=== PATIENT | male | born 1970 | race African-American/Black ===

== ENCOUNTER 2017-04-16 16:23 | Observation (INO) | payer OTHER ==
[2017-04-16 16:28] VITALS: BMI 25.1
[2017-04-16] MEDS ORDERED: SODIUM CHLORIDE 1,000 ML IV STA (17:28)
--- NOTE | 2017-04-16 17:38 | PDOC ---
History of Present Illness - General Chief Complaint: Blood Pressure Problem Stated Complaint: REF BY DOCTOR Time Seen by Provider: 04/16/17 17:09 History Source: Patient - History of Present Illness Presenting Symptoms: Dizziness, Syncope Timing/Duration: reports: resolved prior to arrival Past History - Past Medical History Allergies/Adverse Reactions: Allergies Allergy/AdvReac Type Severity Reaction Status Date / Time No Known Drug Allergies Allergy Verified 04/16/17 16:28 Home Medications: Ambulatory Orders Methadone [Dolophine -] 5 mg PO BID #30 tablet 01/09/12 Albuterol Sulfate [Proair Hfa -] 1 - 2 inh PO TID 10/26/15 Chlordiazepoxide [Librium -] 10 mg PO QID #8 capsule MDD 4 09/29/16 Folic Acid - 1 mg PO DAILY tablet 09/29/16 Multivitamins [Multivit ([facility] Formulary)] 1 tab PO DAILY tab 09/29/16 Anemia: No Asthma: Yes (ON PRO AIR) Cancer: Yes (myleproliferative disorder-leukemia) Cardiac Disorders: No CVA: No COPD: No CHF: No Dementia: No Diabetes: No GI Disorders: Yes (Colitis) Disorders: No HTN: No Hypercholesterolemia: Yes (no meds) Kidney Stones: No Liver Disease: Yes (? CIRROHSIS) Suicide Attempt (Hx): No Seizures: Yes Thyroid Disease: No - Surgical History Abdominal Surgery: No Appendectomy: No Cardiac Surgery: No Cholecystectomy: No Lung Surgery: No Neurologic Surgery: No Orthopedic Surgery: Yes (SUSAN KNEE REPLACEMENT/ L FEMUR NANCY) - Reproductive History Testicular Surgery: No - Psycho/Social/Smoking Cessation Hx Anxiety: No Suicidal Ideation: No Smoking Status: Yes Smoking History: Current every day smoker Have you smoked in the past 12 months: Yes Number of Cigarettes Smoked Daily: 10 Information on smoking cessation initiated: Yes 'Breaking Loose' booklet given: 04/16/17 Hx Alcohol Use: Yes (socially) Drug/Substance Use Hx: No Substance Use Type: None Hx Substance Use Treatment: No Cardiac Specific PMH - Complaint Specific PMHX Cardiac Arrhythmia: No Pacemaker: No Review of Systems - Review of Systems Constitutional: No: Chills, Fever HEENTM: No: Blurred Vision Respiratory: No: Shortness of Breath Cardiac (ROS): Yes: Lightheadedness, Syncope. No: Chest Pain, Irregular Heart Rate, Palpitations ABD/GI: No: Nausea, Vomiting Neurological: Yes: Dizziness. No: Headache, Weakness *Physical Exam - Vital Signs Last Vital Signs Temp Pulse Resp BP Pulse Ox 98.5 F 110 H 17 104/75 97 04/16/17 16:26 04/16/17 16:26 04/16/17 16:26 04/16/17 16:26 04/16/17 16:26 - Physical Exam General Appearance: Yes: Appropriately Dressed. No: Apparent Distress HEENT: positive: Normal Voice Neck: positive: Supple Respiratory/Chest: positive: Lungs Clear, Normal Breath Sounds. negative: Respiratory Distress Cardiovascular: positive: Regular Rate, S1, S2 Extremity: positive: Normal Inspection Integumentary: positive: Dry, Warm Neurologic: positive: Fully Oriented, Alert, Normal Mood/Affect ED Treatment Course - LABORATORY CBC & Chemistry Diagram: 04/16/17 17:44 04/16/17 17:44 - ADDITIONAL ORDERS Additional order review: Laboratory Results 04/16/17 17:44 Lactic Acid 2.0 04/16/17 17:44 RBC 5.16 MCV 87.6 MCHC 32.0 RDW 15.7 MPV 7.6 Neutrophils % 85.9 H Lymphocytes % 6.9 L D Monocytes % 6.5 Eosinophils % 0.3 Basophils % 0.4 - RADIOLOGY Radiology Studies Ordered: Category Date Time Status CHEST X-RAY PORTABLE* [RAD] Stat Radiology 04/16/17 18:01 Taken - Medications Given in the ED: ED Medications Discontinued Medications Generic Name Dose Route Start Last Admin Trade Name Freq PRN Reason Stop Dose Admin Sodium Chloride 1,000 mls @ 1,000 mls/hr 04/16/17 17:28 04/16/17 18:14 Normal Saline - IV 04/16/17 18:27 1,000 mls/hr ASDIR STA Administration Medical Decision Making - Medical Decision Making 04/16/17 17:29 46-year-old male, history of gastritis, GERD, myelodysplastic disorder, not currently under treatment, alcohol abuse, alcohol withdrawal seizures, alcoholic hepatitis, status post rehabilitation last year, continues to drink, here with syncope. Patient states while sitting down in waiting room at doctor' s office for routine visit today, he became lightheaded and was told that he passed out. No reports of seizures. Denies any vertigo, headache, slurred speech, nausea, vomiting, focal weakness, chest pain or shortness of breath. No history of similar episode. Had eaten prior to syncope. States last alcohol use was on Thursday. Reports feeling better now See exam Syncope Asx currently No witnessed seizure No CP/SOB Non-focal Tachy at triage w/ BP of 104/70 Rest of exam unremarkable R/o ACS vs metabolic, less PE, neuro or infectious -ekg -labs -IVF -reassess 04/16/17 17:38 04/16/17 19:10 Pt signed out to KENNEY Horan pending labs and pmd c/s *DC/Admit/Observation/Transfer - Referrals Referrals: Pedro Youssef MD [Primary Care Provider] -
[2017-04-16 18:02] LABS: BASOPHIL 0.4 % (0-2.0); EOSINOPHIL 0.3 % (0-4.5); MEAN CELL VOLUME 87.6 fl (80-96); MEAN PLT VOLUME 7.6 fl (7.5-11.1); NEUTROPHILS 85.9 % (42.8-82.8); PLATELET COUNT 353 K/MM3 (134-434); RDW 15.7 % (11.9-15.9); WHITE BLOOD COUNT 16.6 K/mm3 (4.0-10.0)
[2017-04-16 18:43] LABS: ALBUMIN 3.8 g/dl (3.4-5.0); ANION GAP 16 (8-16); CALCIUM 9.4 mg/dL (8.5-10.1); CO2 22 mmol/L (21-32); GLUCOSE,RANDOM 78 mg/dL (74-106); SGPT/ALT 94 U/L (12-78)
[2017-04-16 18:47] LABS: ALK PHOS 168 U/L (45-117); BILIRUBIN,TOTAL 0.7 mg/dL (0.2-1.0); TOT PROT 8.2 g/dl (6.4-8.2); TROPONIN I < 0.02 ng/ml (0.00-0.05)
[2017-04-16 19:14] LABS: SGOT/AST 86 U/L (15-37)
--- NOTE | 2017-04-16 19:27 | PDOC ---
*Physical Exam - Vital Signs Last Vital Signs Temp Pulse Resp BP Pulse Ox 98.5 F 103 H 16 106/69 98 04/16/17 16:26 04/16/17 17:35 04/16/17 17:35 04/16/17 17:35 04/16/17 17:35 <Danielle Horan - Last Filed: 04/16/17 19:26> - Vital Signs Last Vital Signs Temp Pulse Resp BP Pulse Ox 98.8 F 85 16 114/66 98 04/17/17 07:41 04/17/17 07:41 04/17/17 07:41 04/17/17 07:41 04/17/17 07:41 <Evan Armas - Last Filed: 04/17/17 09:32> ED Treatment Course - LABORATORY CBC & Chemistry Diagram: 04/16/17 17:44 04/16/17 17:44 - ADDITIONAL ORDERS Additional order review: Laboratory Results 04/16/17 04/16/17 17:44 17:44 Sodium 139 Potassium 4.1 Chloride 101 Carbon Dioxide 22 Anion Gap 16 BUN 13 Creatinine 1.0 D Creat Clearance w eGFR > 60 Random Glucose 78 Lactic Acid 2.0 Calcium 9.4 Total Bilirubin 0.7 AST 86 H ALT 94 H D Alkaline Phosphatase 168 H D Creatine Kinase 158 Troponin I < 0.02 Total Protein 8.2 Albumin 3.8 Lipase 169 04/16/17 17:44 RBC 5.16 MCV 87.6 MCHC 32.0 RDW 15.7 MPV 7.6 Neutrophils % 85.9 H Lymphocytes % 6.9 L D Monocytes % 6.5 Eosinophils % 0.3 Basophils % 0.4 - Medications Given in the ED: ED Medications Discontinued Medications Generic Name Dose Route Start Last Admin Trade Name Freq PRN Reason Stop Dose Admin Sodium Chloride 1,000 mls @ 1,000 mls/hr 04/16/17 17:28 04/16/17 18:14 Normal Saline - IV 04/16/17 18:27 1,000 mls/hr ASDIR STA Administration <Danielle Horan - Last Filed: 04/16/17 19:26> - LABORATORY CBC & Chemistry Diagram: 04/16/17 17:44 04/16/17 17:44 - ADDITIONAL ORDERS Additional order review: 04/16/17 17:44 RBC 5.16 MCV 87.6 MCHC 32.0 RDW 15.7 MPV 7.6 Neutrophils % 85.9 H Lymphocytes % 6.9 L D Monocytes % 6.5 Eosinophils % 0.3 Basophils % 0.4 - Medications Given in the ED: ED Medications Discontinued Medications Generic Name Dose Route Start Last Admin Trade Name Neo PRN Reason Stop Dose Admin Sodium Chloride 1,000 mls @ 1,000 mls/hr 04/16/17 17:28 04/16/17 18:14 Normal Saline - IV 04/16/17 18:27 1,000 mls/hr ASDIR STA Administration <Evan Armas - Last Filed: 04/17/17 09:32> Progress Note - Progress Note Progress Note: Spoke to Dr. Zunilda Youssef/ will admit to Obs <Danielle Horan - Last Filed: 04/16/17 19:26> Medical Decision Making - Medical Decision Making 04/17/17 09:32 The patient was seen and evaluated in conjunction with KENNEY Angel under my direct supervision, ancillary studies were reviewed. I agree with the plan as outlined by KENNEY Angel . <Evan Armas - Last Filed: 04/17/17 09:32> *DC/Admit/Observation/Transfer - Discharge Dispostion Admit: Yes <Danielle Horan - Last Filed: 04/16/17 19:26> <Evan Armas - Last Filed: 04/17/17 09:32> Diagnosis at time of Disposition: Hypotensive episode Syncope Qualifiers: Syncope type: vasovagal syncope Qualified Code(s): R55 - Syncope and collapse - Discharge Dispostion Condition at time of disposition: Guarded - Prescriptions - Referrals - Patient Instructions - Post Discharge Activity
[2017-04-17 01:55] LABS: URINE APPEARANCE CLEAR; URINE BILIRUBIN NEGATIVE (NEGATIVE); URINE BLOOD NEGATIVE (NEGATIVE); URINE COLOR AMBER; URINE GLUCOSE (UA) NEGATIVE (NEGATIVE); URINE KETONE TRACE (NEGATIVE); URINE LEUK ESTERASE NEGATIVE (NEGATIVE); URINE NITRITE NEGATIVE (NEGATIVE); URINE UROBILINOGEN 4.0 E.U/dl E.U./dl (0.2-1.0)
[2017-04-17 02:04] LABS: URINE PROTEIN 2+ (NEGATIVE)
[2017-04-17 02:10] LABS: URINE HYALINE CAST 1 /lpf; URINE MUCUS MANY; URINE RBC 1 /hpf (0-3); URINE WBC 8 /hpf (3-5)
[2017-04-17 02:19] LABS: TROPONIN I < 0.02 ng/ml (0.00-0.05)
[2017-04-17] MEDS ORDERED: ACETAMINOPHEN 325 MG TABLET (FP) PO PRN (07:40)
--- NOTE | 2017-04-17 07:42 | HP ---
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 (SEIZURE) Pulmonary: Yes: Asthma Gastrointestinal: Yes: Constipation, Gastritis, GERD, Hemorrhoids, Hiatal Hernia , Ulcerative Colitis, Other (POSSIBLE BEAL'S) Hepatobiliary: Yes: Other (ALCOHOLIC HEPATITIS, STEATOSIS (ALCOHOL AND FAT)) Heme/Onc: Yes: Other (CML) Psych: Yes: Addictions Musculoskeletal: Yes: Chronic low back pain, Osteoarthritis, Other (HIP AND KNEE SURGERY) Dermatology: Yes: Other (TATTOOS) - Past Surgical History Past Surgical History: Yes: Colonoscopy, Joint Replacement, Upper Endoscopy - Smoking History Smoking history: Current every day smoker Have you smoked in the past 12 months: Yes Aproximately how many cigarettes per day: 10 - Alcohol/Substance Use Hx Alcohol Use: Yes (socially) Number of Drinks Daily: 8 (ALSO ONE BOTTLE VODKA (FEBRUARY)) <Pedro Youssef - Last Filed: 04/17/17 07:42> - Primary Care Physician PCP: Jenni Adams - Admission Chief Complaint: Lightheadedness History of Present Illness: The patient is a 46-year-old man with a significant past medical history of gastritis, GERD, myelodysplastic disorder (not currently under treatment), alcohol abuse, alcohol withdrawal seizures, alcoholic hepatitis, status post rehabilitation last year (last alcoholic drink was on Thursday) who presented to the emergency department yesterday for lightheadedness while sitting down at his PMD's office for a routine office visit. No reports of seizures. Denies any vertigo, headache, slurred speech, nausea, vomiting, focal weakness, chest pain or shortness of breath. Patient was very hypotensive and tachycardic. Patient was given fluids in the office- he got better. I brought him to the ED in my car for further evaluation and treatment. I also discussed with ER physician last night. Patient given fluids. Patient seen and examined by me again in the ER today. Feels much better. Denies chest pain or shortness of breath. No headache or dizziness. Wants to go home. Denies abdominal pain or diarrhea. History Source: Patient Limitations to Obtaining History: No Limitations <Zoya Gallardo - Last Filed: 04/17/17 09:38> Home Medications <Pedro Youssef - Last Filed: 04/17/17 07:42> <Zoya Gallardo Last Filed: 04/17/17 09:38> - Allergies Allergies/Adverse Reactions: Allergies Allergy/AdvReac Type Severity Reaction Status Date / Time No Known Drug Allergies Allergy Verified 04/16/17 16:28 - Home Medications Home Medications: Ambulatory Orders Albuterol Sulfate [Proair Hfa -] 1 - 2 inh PO TID 10/26/15 Folic Acid - 1 mg PO DAILY tablet 09/29/16 Multivitamins [Multivit ([facility] Formulary)] 1 tab PO DAILY tab 09/29/16 Family Disease History - Family Disease History Family Disease History: Diabetes: Father (HLD), CA: Mother (CVA) <Pedro Youssef - Last Filed: 04/17/17 07:42> Review of Systems Unable to obtain ROS, reason: See HPI. <PaulinaZoya Last Filed: 04/17/17 09:38> Physical Examination Vital Signs: Vital Signs Temperature 98.5 F 04/16/17 16:26 Pulse Rate 91 H 04/17/17 06:16 Respiratory Rate 18 04/17/17 06:16 Blood Pressure 135/86 04/17/17 06:16 O2 Sat by Pulse Oximetry (%) 96 04/17/17 06:16 <Pedro Youssef - Last Filed: 04/17/17 07:42> Vital Signs: Vital Signs Temperature 98.8 F 04/17/17 07:41 Pulse Rate 85 04/17/17 07:41 Respiratory Rate 16 04/17/17 07:41 Blood Pressure 114/66 04/17/17 07:41 O2 Sat by Pulse Oximetry (%) 98 04/17/17 07:41 Constitutional: Yes: No Distress, Calm Eyes: Yes: Conjunctiva Clear HENT: Yes: Other (Moist [place]) Neck: Yes: Supple Cardiovascular: Yes: Regular Rate and Rhythm Respiratory: Yes: CTA Bilaterally Gastrointestinal: Yes: Soft Edema: No Neurological: Yes: WNL <Zoya Gallardo Last Filed: 04/17/17 09:38> Imaging - Results Chest X-ray: Report Reviewed EKG: Report Reviewed <Zoya Gallardo Last Filed: 04/17/17 09:38> Problem List - Problems (1) Hypotensive episode Code(s): I95.9 - HYPOTENSION, UNSPECIFIED <Zoya Gallardo - Last Filed: 04/17/17 09:38> Assessment/Plan - Patient is much better and stable. - There is no episode of loss of consciousness in the office. - Likely vasovagal - Advised patient to remain hydrated. and drink lots of fluids. - Will discharge home today. - Patient also request refill of Methadone for his chronic pain. - Prescribed. - HCS looked into. - Patient advised to follow up in office in 1-2 weeks. - Patient in agreement. Documentation prepared by Zoya Gallardo, acting as a general medical practitioner for Pedro Youssef MD. <Zoya Gallardo - Last Filed: 04/17/17 09:38>
[2017-04-17] MEDS ORDERED: D5-1/2NS+20 MEQ KCL - 1,000 ML IV SCH (07:45)
[2017-04-17 09:25] VITALS: BP 114/66; PULSE 85; TEMP 98.8
[2017-04-17] MEDS ORDERED: METHADONE HCL 10 MG TABLET ONE (09:32)
[2017-04-17] MEDS ORDERED: METHADONE HCL 5 MG TABLET PO SCH (10:00)
--- NOTE | 2017-04-17 17:15 | EKG ---
Test Reason : Blood Pressure : / mmHG Vent. Rate : 097 BPM Atrial Rate : 097 BPM P-R Int : 144 ms QRS Dur : 090 ms QT Int : 346 ms P-R-T Axes : 038 054 020 degrees QTc Int : 439 ms NORMAL SINUS RHYTHM NORMAL ECG Confirmed by MD NILAM, MELA ([id number]) on 04/17/2017 5:14:28 PM Referred By: Confirmed By:MELA DEMARCO MD
== END 2017-04-17 10:45 | disposition home or self-care (01) ==
LOC: JER 16:23 → JERBED 19:27
PROVIDERS: ADMIT Internal Medicine; ATTEND Internal Medicine
PROC: 3E0337Z Introduction of Electrolytic and Water Balance Substance into Peripheral Vein, Percutaneous Approach (ICD-10-PCS; principal; 2017-04-16)
DX: I95.9 Hypotension, unspecified (principal); R55 Syncope and collapse; J45.909 Unspecified asthma, uncomplicated; C94.6 Myelodysplastic disease, not elsewhere classified; F17.210 Nicotine dependence, cigarettes, uncomplicated; Z96.653 Presence of artificial knee joint, bilateral; Z86.69 Personal history of other diseases of the nervous system and sense organs; K21.9 Gastro-esophageal reflux disease without esophagitis; K64.8 Other hemorrhoids; F10.10 Alcohol abuse, uncomplicated; K70.10 Alcoholic hepatitis without ascites
CPT/HCPCS: 36415; 71010-TC; 80053; 81003; 81015; 82550; 82553; 83605; 83690; 84484; 85025; 93005; 93010; 99285-25; G0378

== ENCOUNTER 2017-05-27 10:17 | Emergency (ER) | payer OTHER ==
[2017-05-27 10:26] VITALS: BP 132/84; PULSE 103; TEMP 98.5; BMI 22.8
--- NOTE | 2017-05-27 11:56 | PDOC ---
History of Present Illness - General Chief Complaint: Pain Stated Complaint: LEG PAIN Time Seen by Provider: 05/27/17 11:21 History Source: Patient Exam Limitations: No Limitations - History of Present Illness Initial Comments: 05/27/17 11:53 46 yr male with history of knee replacement b/l many years ago presents with pain and swelling to right knee for 3 days. Pt denies any injury. no fever no chills. Past History - Past Medical History Allergies/Adverse Reactions: Allergies Allergy/AdvReac Type Severity Reaction Status Date / Time No Known Drug Allergies Allergy Verified 05/27/17 10:23 Home Medications: Ambulatory Orders Methadone [Dolophine -] 5 mg PO BID #60 tablet MDD 2 04/17/17 Anemia: No Asthma: Yes (ON PRO AIR) Cancer: Yes (myleproliferative disorder-leukemia) Cardiac Disorders: No CVA: No COPD: No CHF: No Dementia: No Diabetes: No GI Disorders: Yes (Colitis) Disorders: No HTN: No Hypercholesterolemia: Yes (no meds) Kidney Stones: No Liver Disease: Yes (? CIRROHSIS) Suicide Attempt (Hx): No Seizures: Yes Thyroid Disease: No - Surgical History Abdominal Surgery: No Appendectomy: No Cardiac Surgery: No Cholecystectomy: No Lung Surgery: No Neurologic Surgery: No Orthopedic Surgery: Yes (SUSAN KNEE REPLACEMENT/ L FEMUR NANCY) - Reproductive History Testicular Surgery: No - Psycho/Social/Smoking Cessation Hx Anxiety: No Suicidal Ideation: No Smoking Status: Yes Smoking History: Current every day smoker Have you smoked in the past 12 months: Yes Number of Cigarettes Smoked Daily: 10 Information on smoking cessation initiated: No 'Breaking Loose' booklet given: 04/16/17 Hx Alcohol Use: Yes Drug/Substance Use Hx: No Substance Use Type: Alcohol Hx Substance Use Treatment: No *Physical Exam - Vital Signs Last Vital Signs Temp Pulse Resp BP Pulse Ox 98.5 F 103 H 18 132/84 100 05/27/17 10:23 05/27/17 10:23 05/27/17 10:23 05/27/17 10:23 05/27/17 10:23 - Physical Exam General Appearance: Yes: Nourished, Appropriately Dressed HEENT: positive: EOMI, [place] Neck: positive: Supple Respiratory/Chest: positive: Lungs Clear, Normal Breath Sounds Musculoskeletal: positive: Normal Inspection Extremity: positive: Normal Capillary Refill, Tender (medial right knee soft tissue , no bony tenderness, no flucutance ), Other (FROM right knee) ED Treatment Course - RADIOLOGY Radiology Studies Ordered: Category Date Time Status KNEE 3 POS-RIGHT [RAD] Stat Radiology 05/27/17 11:24 Completed Medical Decision Making - Medical Decision Making 05/27/17 11:54 cc: right knee pain , swelling, no trauma no redness will xray pt takes methadone daily for pain control will give knee immobilizer *DC/Admit/Observation/Transfer Diagnosis at time of Disposition: Swollen R knee - Discharge Dispostion Disposition: HOME Condition at time of disposition: Good - Referrals Referrals: Pedro Youssef MD [Primary Care Provider] - Javier So MD [Staff Physician] - - Patient Instructions Additional Instructions: use the knee immobilizer while awake remove to sleep elevate the leg and apply warm compresses every 3-4hrs for 20 minutes can help with pain and swelling follow with or your orthopedist for follow up if symptoms worsen or continue
== END 2017-05-27 12:29 | disposition home or self-care (01) ==
LOC: JERFT 10:17
PROC: 2W3LX1Z Immobilization of Right Lower Extremity using Splint (ICD-10-PCS; principal; 2017-05-27)
DX: M25.461 Effusion, right knee (principal); Z96.653 Presence of artificial knee joint, bilateral; Z85.6 Personal history of leukemia; K52.9 Noninfective gastroenteritis and colitis, unspecified; J45.909 Unspecified asthma, uncomplicated; F17.210 Nicotine dependence, cigarettes, uncomplicated
CPT/HCPCS: 73562-TC-RT; 99281-25

== ENCOUNTER 2017-06-23 06:59 | Inpatient (IN) | payer OTHER ==
--- NOTE | 2017-06-19 13:17 | HP ---
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) Pulmonary: Yes: Asthma Gastrointestinal: Yes: Constipation, Gastritis, GERD, Hemorrhoids, Hiatal Hernia , Ulcerative Colitis, Other (POSSIBLE BEAL'S) Hepatobiliary: Yes: Other (ALCOHOLIC HEPATITIS, STEATOSIS (ALCOHOL AND FAT)) Heme/Onc: Yes: Other (CML) Musculoskeletal: Yes: Chronic low back pain, Osteoarthritis, Other (HIP AND KNEE SURGERY) Dermatology: Yes: Other (TATTOOS) - Current Medications Current Medications: Home Medications Medication Instructions Recorded Methadone [Dolophine -] 5 mg PO BID #60 tablet MDD 2 04/17/17 Ferrous Sulfate 325 mg PO DAILY 06/16/17 Satellite Physical Exam - Physical Examination General Appearance: Well Nourished, Well Developed, Alert & Oriented x3 ENT: Clear Lung: Normal air movement Heart: Regular rate & rhythm Extremities: Other (right knee- healed scar, + swelling, + ttp, decr rom, nvi xrays show evidence of loose prosthesis) Neurological: Intact, Alert, Oriented Satellite Impression/Plan - Impression/Plan Impression: right knee failed tkr Operative Procedure: right katina revision tkr Date to be Performed: 06/23/17
[2017-06-23] MEDS ORDERED: CEFAZOLIN 2 GM in DEXTROSE 5%-WATER - 50 ML IVPB ONE (07:32)
[2017-06-23] MEDS ORDERED: oxyCODONE HCL 10 MG SUSTAINED ACTING TABLET PO ONE (07:32)
[2017-06-23] MEDS ORDERED: TRANEXAMIC ACID 1000 MG/10 ML VIAL IVPUSH ONE (07:32)
[2017-06-23] MEDS ORDERED: CELECOXIB 200 MG CAPSULE PO ONE (07:32)
[2017-06-23] MEDS ORDERED: GABAPENTIN 300 MG CAPSULE (FP) PO ONE (07:32)
[2017-06-23 08:31] VITALS: BMI 24.3
[2017-06-23] MEDS ORDERED: ceFAZolin SODIUM 1 GM VIAL ONE ×3 (09:12→12:22)
[2017-06-23] MEDS ORDERED: VANCOMYCIN 1,000 MG VIAL (RESTRICTED TO ID ONLY) ONE (09:12)
[2017-06-23] MEDS ORDERED: BUPIVACAINE HCL/PF (5 MG/ML) 30 ML VIAL IJ ONE (09:37)
[2017-06-23] MEDS ORDERED: DEXAMETHASONE SOD PHOSPHATE/PF 10 MG/ML SDV ONE (09:38)
[2017-06-23] MEDS ORDERED: MIDAZOLAM HCL 2 MG/2 ML SINGLE DOSE VIAL ONE (09:57)
[2017-06-23] MEDS ORDERED: PROPOFOL 20 ML ONE ×3 (10:45→11:59)
[2017-06-23] MEDS ORDERED: VANCOMYCIN 1,000 MG VIAL (RESTRICTED TO ID ONLY) IVPB ONE (11:30)
[2017-06-23] MEDS ORDERED: oxyCODONE HCL 5 MG TABLET PO PRN (12:40)
[2017-06-23] MEDS ORDERED: ACETAMINOPHEN 325 MG TABLET (FP) PO SCH (12:45)
[2017-06-23] MEDS ORDERED: LACTATED RINGERS SOLUTION 1,000 ML IV SCH ×2 (12:45→13:30)
[2017-06-23] MEDS ORDERED: TRANEXAMIC ACID 1000 MG/10 ML VIAL ONE (12:55)
[2017-06-23] MEDS ORDERED: ONDANSETRON 4 MG/2 ML VIAL IVPUSH PRN (13:20)
[2017-06-23] MEDS ORDERED: MAGNESIUM HYDROX 2400MG/30ML ORAL SUSPENSION 30 ML CUP PO PRN (13:22)
[2017-06-23] MEDS ORDERED: MAG HYDROX/AL HYDROX/SIMETH 30 ML UNIT-DOSE CUP PO PRN (13:22)
[2017-06-23] MEDS ORDERED: ONDANSETRON 4 MG/2 ML VIAL IVPB PRN (13:22)
--- NOTE | 2017-06-23 13:47 | OP ---
Operative Note - Note: Operative Date: 06/23/17 (danielle) Pre-Operative Diagnosis: right knee failed TKR Operation: right revision TKR Post-Operative Diagnosis: Same as Pre-op Surgeon: Javier So Shrinking Machine Operator: Fredo Zelaya Anesthesiologist/APPEALS ASSISTANT: Randi Diego Anesthesia: Spinal, Local Specimens Removed: prosthesis, bone fragments Estimated Blood Loss (mls): 50 (tourniquet) Operative Report Dictated: Yes
[2017-06-23 14:02] LABS: HIV 1 & 2 AB NEGATIVE; HIV 1 AGp24 NEGATIVE
--- NOTE | 2017-06-23 14:16 | OP ---
DATE OF OPERATION: 06/23/2017 PREOPERATIVE DIAGNOSIS: Failed right total knee replacement. POSTOPERATIVE DIAGNOSIS: Failed right total knee replacement. PROCEDURE: Revision right total knee replacement. SURGEON: Javier So MD SYSTEMS ADMINISTRATION ANALYST: KENNEY Centeno ANESTHESIA: Regional and spinal. CLOSURES: Triathlon knee system with a 5 femur with a medial and lateral 15-mm augment and a 5-mm posterolateral augment and 100-mm x 16-mm stem, a No. 5 tibia with 100-mm x 16-mm stem, a 16 TS polyethylene, No. 1 Vicryl to fascia, 2-0 to subcutaneous, 3-0 Monocryl to subcuticular, skin glue to skin. ESTIMATED BLOOD LOSS: Negligible. TOURNIQUET TIME: Approximately 125 minutes. COMPLICATIONS: None. CONDITION: To recovery room in stable condition. DESCRIPTION OF PROCEDURE: The patient was taken to the operating room on June 23, 2017. Regional and spinal anesthesia was administered by the anesthesiologist. IV Kefzol and TXA were administered prophylactically prior to the case. Well-padded pneumatic tourniquet was placed on the right proximal thigh. The right lower extremity was prepped and draped in the usual sterile fashion. The leg was exsanguinated with an Esmarch bandage. Tourniquet was inflated to 250 mmHg. We utilized the previous surgical scar in the anteromedial longitudinal region of the right knee making an approximately 12- to 15-cm incision. Sharp dissection was carried down to the extensor mechanism and then flaps medial and lateral to perform the procedure. Medial parapatellar arthrotomy was performed, and the patella was exposed laterally. The patella button was found to be loose. After removing soft tissue around the area, the patella button fell out of its location. The remaining patella was found to be very deficient with no thickness whatsoever to it. It was fractured in the superolateral region. All scar tissue in and around this region was debrided. A clean up cut with a saw and rongeur was used just to clean up any fibrinous material on the patella. There was no sufficient thickness to repair the patella and was just left in situ. Subperiosteal dissection was done on the anteromedial proximal tibia until the tibia was able to be brought forward. Retractors were placed circumferentially. The polyethylene liner was malleted out of place. The tibial component was found to have subsided into the bone, and it was also somewhat loose with palpation. Using the extract Xtract knee set, serial osteotomes were placed in between the tibia and the bone interface to loosen the moser between the tibial component and the cement. This was done relatively easy. The moser between the cement and the component appeared to be minimal leaving the entire cement mantel attached to the tibia. Using the external alignment jig, the proximal tibia was osteotomized perpendicularly to the ground using a cut just below cement mantel taking off as minimal bone as possible. The intramedullary canal of the femur had a large plug of cement. This was osteotomed until it was removed. Serial reamers were placed down the intramedullary canal until a 16-mm reamer passed easily to depths of greater than 100. A trial component with 100-mm x 60-mm diameter brittany was malleted down into place with the appropriate external rotation. The keyhole and punch were made as well. Next, our attention was directed to the femur, and the femur was encased in fibrinous material. This was all debrided. The femoral component appeared to be well fixed. The Xtract knee system was, again, used with osteotomes in between the bone and the metal interface to loosen up the component. Extractor was then used to pull the femoral component out with as minimal bone loss as possible with some bone loss both medial and laterally distally as well as posteriorly as well and centrally. Intramedullary reaming up to a 16-mm stem was performed. The cutting block was then inserted into the femoral canal and used to ascertain bone loss and make sufficient cuts. Using this and measuring from the medial femoral condyle, clean up cuts were made distally and posteriorly and anteriorly. This left us with 16-mm gaps both medially and laterally and a 5-mm gap on the posterolateral. The rest of the gaps appeared to be intact. We built a trial component, placed it into the femur with the augments and brittany as described with a 16 TS implant. The knee achieved full extension and full flexion with excellent tracking and stability throughout. The trial components were removed. The knee was thoroughly inspected again to remove all excess cement, fibrinous material and pulsed antibiotic irrigation with multiple bags of antibiotic irrigation. The real components were then cemented in using moderate generation cement techniques with antibiotic cement and pressurization and extension. After the cement was hardened, the knee was thoroughly inspected to remove all excess cement. The knee was pulse antibiotic irrigated. Again, at this time, the real 16 TS implant was clipped into place. The knee went through, again, range of motion of full extension and full flexion with good tracking throughout of the residual patella and good stability throughout as well. Vancomycin powder was then placed into the knee and then medial parapatellar arthrotomy was then closed using No. 1 interrupted suture, 2-0 subcutaneous, and 3-0 Monocryl subcuticular, skin glue for skin. A sterile pressure dressing was applied. Tourniquet was deflated. Total tourniquet time was approximately 225 minutes. No complications. Estimated blood loss negligible. Postoperative x-rays revealed good position of the components. The patient was transferred to the recovery room in stable condition. Colleen [id number]
[2017-06-23] MEDS: chlordiazePOXIDE HCL 25 MG CAPSULE PO SCH ×2 (15:00→20:09)
[2017-06-23] MEDS: oxyCODONE HCL 5 MG TABLET PO PRN ×2 (17:36→20:09)
[2017-06-23] MEDS: CEFAZOLIN 2 GM/D5W 50 ML IVPB SCH (19:31)
[2017-06-23] MEDS: METHADONE HCL 5 MG TABLET PO SCH (21:34)
[2017-06-23] MEDS: GABAPENTIN 300 MG CAPSULE (FP) PO SCH (21:34)
[2017-06-23] MEDS: SENNOSIDES/DOCUSATE COMBO (SENNA PLUS) TABLET (UD) PO SCH (21:35)
[2017-06-23] MEDS ORDERED: oxyCODONE HCL 10 MG SUSTAINED ACTING TABLET PO SCH (22:00)
[2017-06-24] MEDS: CEFAZOLIN 2 GM/D5W 50 ML IVPB SCH (02:10)
[2017-06-24] MEDS: chlordiazePOXIDE HCL 25 MG CAPSULE PO SCH ×4 (02:10→21:06)
[2017-06-24] MEDS: oxyCODONE HCL 5 MG TABLET PO PRN ×4 (06:25→21:06)
[2017-06-24 08:08] LABS: MCH 29.5 pg (25.7-33.7); MCHC 34.2 g/dl (32.0-35.9); MEAN CELL VOLUME 86.3 fl (80-96); MEAN PLT VOLUME 7.2 fl (7.5-11.1); PLATELET COUNT 293 K/MM3 (134-434); RDW 14.6 % (11.9-15.9); WHITE BLOOD COUNT 11.4 K/mm3 (4.0-10.8)
--- NOTE | 2017-06-24 08:09 | PN ---
Progress Note (short form) - Note Progress Note: Ortho Pt seen and examined s/p right revision tkr pod #1 Selected Entries 06/24/17 04:00 Temperature 98.5 F Pulse Rate 86 Respiratory 18 Rate Blood Pressure 129/78 Laboratory Tests 06/24/17 07:30 WBC Pending Hgb Pending Hct Pending Plt Count Pending dressing c/d/i, calf soft, nt rom 0-40, nvi a/p PT dvt ppx pain control librium as per PMD d/c home tomorrow if stable
[2017-06-24] MEDS: SENNOSIDES/DOCUSATE COMBO (SENNA PLUS) TABLET (UD) PO SCH ×2 (09:26→21:06)
[2017-06-24] MEDS: METHADONE HCL 5 MG TABLET PO SCH ×2 (09:26→21:06)
[2017-06-24] MEDS: ASPIRIN 325 MG TABLET PO SCH (09:26)
[2017-06-24] MEDS: PANTOPRAZOLE 40 MG TABLET (FP) PO SCH (09:27)
[2017-06-24] MEDS: GABAPENTIN 300 MG CAPSULE (FP) PO SCH ×2 (09:27→21:06)
[2017-06-24] MEDS: MULTIVITAMINS (DAILY MVI) TABLET (FP) PO SCH (09:27)
--- NOTE | 2017-06-24 15:13 | PN ---
Progress Note (short form) - Note Progress Note: 47 yo male, POD#1, s/p revision of TKA. Patient doing well. Pain adequately controlled. Tolerating PO and able to participate in physical therapy. Encouraged IS.
--- NOTE | 2017-06-24 17:45 | PN ---
Progress Note (short form) - Note Progress Note: pt seen/ examined chart reviewed well known to me feels well denies pain pod #1 wall with walker Vital Signs Temp 98.5 F 06/24/17 14:15 Pulse 84 06/24/17 14:15 Resp 16 06/24/17 14:15 BP 130/82 06/24/17 14:15 Pulse Ox 99 06/24/17 14:15 Intake & Output 06/23/17 06/24/17 06/24/17 23:59 11:59 23:59 Intake Total 1700 450 550 Output Total 500 Balance 1200 450 550 Intake: IV 1300 Oral 400 450 550 Output: Urine 500 Void 500 Other: Voiding Method Toilet Toilet Active Medications Al Hydroxide/Mg Hydroxide (Mylanta Oral Suspension -) 30 ml PO Q4H PRN PRN Reason: DYSPEPSIA Aspirin (Asa -) 325 mg PO DAILY@0800 [facility] Last Admin: 06/24/17 09:26 Dose: 325 mg Chlordiazepoxide HCl (Librium -) 25 mg PO Q6H [facility] Stop: 06/25/17 09:01 Last Admin: 06/24/17 16:09 Dose: 25 mg Fentanyl (Sublimaze Injection -) 50 mcg IVPUSH [id number] PRN PRN Reason: PAIN Stop: 06/26/17 12:41 Gabapentin (Neurontin -) 300 mg PO BID [facility] Last Admin: 06/24/17 09:27 Dose: 300 mg Magnesium Hydroxide (Milk Of Magnesia -) 30 ml PO PRN PRN PRN Reason: CONSTIPATION Methadone HCl (Dolophine -) 5 mg PO BID [facility] Last Admin: 06/24/17 09:26 Dose: 5 mg Multivitamins/Minerals/Vitamin C (Tab-A-Vit -) 1 tab PO DAILY [facility] Last Admin: 06/24/17 09:27 Dose: 1 tab Ondansetron HCl (Zofran Injection) 4 mg IVPB Q6H PRN PRN Reason: NAUSEA Oxycodone HCl (Roxicodone -) 5 mg PO Q3H PRN PRN Reason: PAIN LEVEL 1-5 Oxycodone HCl (Roxicodone -) 10 mg PO Q3H PRN PRN Reason: PAIN LEVEL 6-10 Last Admin: 06/24/17 16:08 Dose: 10 mg Pantoprazole Sodium (Protonix -) 40 mg PO DAILY [facility] Last Admin: 06/24/17 09:27 Dose: 40 mg Senna/Docusate Sodium (Pericolace -) 2 tablet PO BID [facility] Last Admin: 06/24/17 09:26 Dose: 2 tablet CBC, BMP 06/24/17 07:30 Physical Exam alert and awake. lungs- clear cvs- S1, S2 rrr abd - soft ext- dressing +-- left knee. neuro - aox 3- not shaking a/p stable. continue present care. Reports Librium helping etoh cessation counselling provided again. Discussed with pt/ will follow Anticipate d/c home tomorrow. Problem List - Problems (1) Alcohol dependence with uncomplicated withdrawal Code(s): F10.230 - ALCOHOL DEPENDENCE WITH WITHDRAWAL, UNCOMPLICATED (2) Status post revision of total replacement of right knee Code(s): Z96.651 - PRESENCE OF RIGHT ARTIFICIAL KNEE JOINT
[2017-06-25] MEDS: chlordiazePOXIDE HCL 25 MG CAPSULE PO SCH ×2 (03:00→09:10)
[2017-06-25 05:57] VITALS: BP 124/94; PULSE 94; TEMP 99.3
[2017-06-25] MEDS: oxyCODONE HCL 5 MG TABLET PO PRN (06:38)
[2017-06-25 07:52] LABS: MCH 29.5 pg (25.7-33.7); MCHC 33.1 g/dl (32.0-35.9); MEAN CELL VOLUME 89.1 fl (80-96); MEAN PLT VOLUME 7.6 fl (7.5-11.1); PLATELET COUNT 293 K/MM3 (134-434); RDW 14.6 % (11.9-15.9); WHITE BLOOD COUNT 11.9 K/mm3 (4.0-10.8)
[2017-06-25] MEDS: ASPIRIN 325 MG TABLET PO SCH (08:00)
--- NOTE | 2017-06-25 08:28 | PN ---
Progress Note (short form) - Note Progress Note: Ortho Pt seen and examined s/p right revision tkr pod #2 Selected Entries 06/25/17 05:56 Temperature 99.3 F Pulse Rate 94 H Respiratory 20 Rate Blood Pressure 124/94 Laboratory Tests 06/25/17 07:30 WBC 11.9 H Hgb 11.5 L Hct 34.8 L Plt Count 293 dressing c/d/i, calf soft, nt rom 0-40, nvi a/p PT dvt ppx pain control d/c home today f/u in 1 week
--- NOTE | 2017-06-25 08:29 | DS ---
Physical Examination Vital Signs: Vital Signs Temperature 99.3 F 06/25/17 05:56 Pulse Rate 94 H 06/25/17 05:56 Respiratory Rate 20 06/25/17 05:56 Blood Pressure 124/94 06/25/17 05:56 O2 Sat by Pulse Oximetry (%) 96 06/25/17 05:56 Labs: CBC, BMP 06/25/17 07:30 Discharge Summary Reason For Visit: FAILED TOTAL KNEE REPLACEMENT Current Active Problems Status post revision of total replacement of right knee (Acute) Procedures: Principal: s/p right revision tkr Hospital Course: admitted for elective right revision tkr, uneventful post-op,stable for d/c Condition: Good - Instructions Diet, Activity, Other Instructions: Post-op Instructions-Total Knee Replacement Call the office for a follow-up appointment in 1 week - [phone] Aspirin 325mg daily for 6 weeks. Pain medication was sent into your pharmacy. Apply Graduated Compression Stockings (TEDs) to both lower extremities- remove daily for hygiene ONLY Apply Sequential Compression Device (SCDs) to both Lower extremities remove for PT and hygiene ONLY Apply cold packs to affected area for 15 minutes every 2 hours. Physical Therapist will come to your home for the first 5 days. You will be set up with outpatient PT at your first post-operative visit. Patient may ambulate as tolerated-encourage self care (at least every 2-3 hours while awake) with walker or cane Maintain Aquacel (waterproof) dressing to operative wound (will be removed by surgeon at first office visit) Shower with Aquacel dressing in place-if Aquacel integrity compromised, remove and apply dry sterile dressing and notify Orthopedist. DO NOT SHOWER unless Orthopedists approves without Aquacel dressing CONTACT THE OFFICE FOR ANY CHANGE IN YOUR CONDITION (for example-fever greater than 102 degrees,excessive bleeding from operative site, purulent drainage, severe swelling or pain) GO TO THE EMERGENCY ROOM IF THERE IS A MEDICAL EMERGENCY Knee Precautions: * Keep a rolled towel under affected heel while in bed or chair (to keep knee in extension) * Keep affected leg elevated except during mealtimes * DO NOT PLACE PILLOW UNDER AFFECTED KNEE * If you have any questions, please do not hesitate to call the office - . Referrals: Javier So MD [Staff Physician] - Disposition: VNS/HOME HEALTH CARE - Home Medications Comprehensive Discharge Medication List: Ambulatory Orders Methadone [Dolophine -] 5 mg PO BID #60 tablet MDD 2 04/17/17 Ferrous Sulfate 325 mg PO DAILY 06/16/17 Aspirin [ASA -] 325 mg PO DAILY@0800 tablet 06/25/17 Oxycodone HCl/Acetaminophen [Percocet 5-325 mg Tablet] 1 - 2 tab PO Q6H #50 tab MDD 8 06/25/17
[2017-06-25] MEDS: METHADONE HCL 5 MG TABLET PO SCH (10:13)
[2017-06-25] MEDS: GABAPENTIN 300 MG CAPSULE (FP) PO SCH (10:14)
[2017-06-25] MEDS: SENNOSIDES/DOCUSATE COMBO (SENNA PLUS) TABLET (UD) PO SCH (10:14)
[2017-06-25] MEDS: MULTIVITAMINS (DAILY MVI) TABLET (FP) PO SCH (10:15)
[2017-06-25] MEDS: PANTOPRAZOLE 40 MG TABLET (FP) PO SCH (10:15)
[2017-06-25] MEDS ORDERED: chlordiazePOXIDE HCL 25 MG CAPSULE ONE (11:24)
--- NOTE | 2017-06-26 18:07 | PATH ---
Surgical Pathology Report Patient Name: IESHA WOLFF Med. Rec. #: [id number] /Age/Gender: 1970 (Age: 47) / M Account: [id number] Location: [facility] Taken: 06/23/2017 Received: 06/23/2017 Reported: 06/26/2017 Physicians: Javier So M.D. Specimen(s) Received A: EXPLANTED RIGHT TOTAL KNEE REPLACEMENT HARDWARE B: RIGHT KNEE BONE Clinical History Failed right total knee replacement Final Diagnosis A. EXPLANTED HARDWARE, RIGHT TOTAL KNEE REPLACEMENT: HARDWARE, DESCRIBED (GROSS EXAMINATION ONLY). B. KNEE BONE, RIGHT, REVISION: BONE, CARTILAGE AND FIBROSYNOVIAL TISSUE. Electronically Signed Gricelda Yip M.D. Gross Description A. Received fresh labeled "explanted right total knee replacement hardware," are 3 bell metallic portions of hardware ranging from 4.7-7.3 cm in greatest dimension. Also received within the same container are 2 white plastic portions of hardware measuring 7.0 and 3.3 cm in greatest dimension, consistent with knee hardware. No soft tissue is present. No sections are submitted, gross only. B. Received in formalin labeled "right knee bone," are 2 hernandez, irregular portions of bone measuring 5.1 x 4.8 x 1.0 cm and 5.0 x 3.0 x 0.3 cm. There is no articular cartilage identified. Split And Drum Room Supervisor sections are submitted in one cassette, following decalcification. 06/25/201706/25/2017
== END 2017-06-25 11:41 | disposition home health service (06) | DRG 467 ==
LOC: FM/S 06:59
PROVIDERS: ADMIT Orthopaedic Surgery; ATTEND Orthopaedic Surgery
PROC: 0SPC0JZ Removal of Synthetic Substitute from Right Knee Joint, Open Approach (ICD-10-PCS; 2017-06-23)
PROC: 8E0Y0CZ Robotic Assisted Procedure of Lower Extremity, Open Approach (ICD-10-PCS; 2017-06-23)
PROC: 0SRC0J9 Replacement of Right Knee Joint with Synthetic Substitute, Cemented, Open Approach (ICD-10-PCS; principal; 2017-06-23 10:19)
DX: T84.092A Other mechanical complication of internal right knee prosthesis, initial encounter (principal); G40.89 Other seizures; K51.80 Other ulcerative colitis without complications; F10.230 Alcohol dependence with withdrawal, uncomplicated; J45.909 Unspecified asthma, uncomplicated; K29.60 Other gastritis without bleeding; K21.9 Gastro-esophageal reflux disease without esophagitis; K64.8 Other hemorrhoids; K44.9 Diaphragmatic hernia without obstruction or gangrene; K70.10 Alcoholic hepatitis without ascites; M19.90 Unspecified osteoarthritis, unspecified site; E88.89 Other specified metabolic disorders; M54.5 Low back pain; Y83.8 Other surgical procedures as the cause of abnormal reaction of the patient, or of later complication, without mention of misadventure at the time of the procedure; Y92.89 Other specified places as the place of occurrence of the external cause; Z85.6 Personal history of leukemia; Z96.651 Presence of right artificial knee joint
CPT/HCPCS: 36415; 73560-TC-RT; 84460; 85027; 86803; 87340; 87389; 88300-TC; 88304-TC; 88311-TC; 94010; 94760; 97116-GP; 97162-GP

== ENCOUNTER 2017-11-16 14:21 | Emergency (ER) | payer OTHER ==
[2017-11-16 14:30] VITALS: BMI 21.5
--- NOTE | 2017-11-16 14:32 | PDOC ---
Rapid Medical Evaluation Time Seen by Provider: 11/16/17 14:22 Medical Evaluation: Allergies Allergy/AdvReac Type Severity Reaction Status Date / Time No Known Drug Allergies Allergy Verified 06/16/17 08:44 11/16/17 14:27 The patient presents with a chief complaint of: [Left sided " Reproducible Chest Soreness" for one week, pain when he touches his chest and ribs. Non radiating. No back, arm or jaw pain. ] I have performed a brief in-person evaluation of this patient. Pertinent physical exam findings: vss, [Pain on palpation to the left side of the chest, no rash. Lungs clear on assessment, pain on inspiration to the left side of the chest. RRR. ] I have ordered the following: [EKG, Chest Xray PA/LAT] The patient will proceed to the ED for further evaluation. 11/16/17 14:31 Discharge Disposition - Diagnosis Chest pain Qualifiers: Chest pain type: unspecified Qualified Code(s): R07.9 - Chest pain, unspecified - Referrals - Patient Instructions - Post Discharge Activity
--- NOTE | 2017-11-16 15:02 | PDOC ---
History of Present Illness - General Chief Complaint: Chest Pain Stated Complaint: CHEST PAIN Time Seen by Provider: 11/16/17 14:22 History Source: Patient Exam Limitations: No Limitations - History of Present Illness Initial Comments: 11/16/17 15:08 This is a 47-year-old male past medical history of myelodysplastic syndrome, colitis, osteoarthritis and right TKR June 2017 presents to emergency department with 1 week of left-sided chest pain that worsens with palpation and movement of the left arm. He rates the pain 6/10 and describes as a "tenderness. " Patient states he feels mildly short of breath due to the pain when he breathes. Patient endorses chills but has not checked his temperature. He denies any fevers, headaches, abdominal pain, nausea, vomiting, diaphoresis. PMD: Pedro Youssef PMH: NDS, colitis, osteoarthritis, alcohol withdrawal seizures PSH: Right TKR 07/05 Tob: 6-7 cigarettes daily ETOH: "a couple of beers daily" Illicits: denies Past History - Past Medical History Allergies/Adverse Reactions: Allergies Allergy/AdvReac Type Severity Reaction Status Date / Time No Known Drug Allergies Allergy Verified 11/16/17 14:28 Home Medications: Ambulatory Orders Methadone [Dolophine -] 5 mg PO BID #60 tablet MDD 2 04/17/17 Ferrous Sulfate 325 mg PO DAILY 06/16/17 Aspirin [ASA -] 325 mg PO DAILY@0800 tablet 06/25/17 Cephalexin 500 mg PO BID 07/29/17 Anemia: No Asthma: Yes (ON PRO AIR) Cancer: Yes (myleproliferative disorder-leukemia) Cardiac Disorders: No CVA: No COPD: No CHF: No Dementia: No Diabetes: No GI Disorders: Yes (Colitis) Disorders: No HTN: No Hypercholesterolemia: No Kidney Stones: No Liver Disease: Yes (? CIRROHSIS) Seizures: Yes Thyroid Disease: No - Surgical History Abdominal Surgery: No Appendectomy: No Cardiac Surgery: No Cholecystectomy: No Lung Surgery: No Neurologic Surgery: No Orthopedic Surgery: Yes (SUSAN KNEE REPLACEMENT/ L FEMUR NANCY) - Reproductive History Testicular Surgery: No - Suicide/Smoking/Psychosocial Hx Smoking Status: Yes Smoking History: Current every day smoker Have you smoked in the past 12 months: Yes Number of Cigarettes Smoked Daily: 10 Information on smoking cessation initiated: No 'Breaking Loose' booklet given: 04/16/17 Hx Alcohol Use: No Drug/Substance Use Hx: No Substance Use Type: None Hx Substance Use Treatment: No Cardiac Specific PMH - Complaint Specific PMHX Cardiac Arrhythmia: No Pacemaker: No Review of Systems - Review of Systems Able to Perform ROS?: Yes Is the patient limited Kiswahili proficient: No Constitutional: Yes: See HPI HEENTM: No: Symptoms Reported Respiratory: Yes: See HPI Cardiac (ROS): Yes: See HPI ABD/GI: No: Symptoms Reported : No: Symptoms Reported Musculoskeletal: Yes: See HPI Integumentary: No: Symptoms Reported Neurological: No: Symptoms reported Endocrine: No: Symptoms Reported *Physical Exam - Vital Signs Last Vital Signs Temp Pulse Resp BP Pulse Ox 98.6 F 94 H 18 131/92 100 11/16/17 14:28 11/16/17 14:28 11/16/17 14:28 11/16/17 14:11/16/17 14:28 - Physical Exam General Appearance: Yes: Appropriately Dressed. No: Apparent Distress HEENT: positive: Normal ENT Inspection Neck: positive: Trachea midline, Supple Respiratory/Chest: positive: Chest Tender (4th rib from left sternal borderextending to midclavicular line.), Lungs Clear, Normal Breath Sounds. negative: Respiratory Distress, Accessory Muscle Use Cardiovascular: positive: Regular Rhythm, Regular Rate. negative: S1, S2, Edema , JVD, Murmur Gastrointestinal/Abdominal: positive: Normal Bowel Sounds, Soft. negative: Tender Musculoskeletal: positive: Normal Inspection. negative: CVA Tenderness Extremity: positive: Normal Capillary Refill, Normal Range of Motion, Other ( multiple scars noted to b/l lower legs. Right knee swollen. No erythema noted.) Integumentary: positive: Normal Color, Dry, Warm Neurologic: positive: Fully Oriented, Alert, Normal Mood/Affect, Normal Response , Motor Strength /5 ED Treatment Course - LABORATORY CBC & Chemistry Diagram: 11/16/17 14:13 11/16/17 14:13 - ADDITIONAL ORDERS Additional order review: Laboratory Results 11/16/17 11/16/17 14:13 14:13 PT with INR 12.50 H INR 1.11 Sodium 142 Potassium 4.1 Chloride 108 H D Carbon Dioxide 23 Anion Gap 11 BUN 7 D Creatinine 0.7 Creat Clearance w eGFR > 60 Random Glucose 73 L Calcium 9.1 Magnesium 1.9 Total Bilirubin 0.2 D AST 72 H D ALT 91 H D Alkaline Phosphatase 190 H Creatine Kinase 114 Troponin I < 0.02 Total Protein 8.7 H Albumin 3.9 11/16/17 14:13 RBC 4.93 MCV 83.5 MCHC 31.6 L RDW 18.0 H D MPV 6.9 L Neutrophils % 69.7 Lymphocytes % 23.5 D Monocytes % 4.5 Eosinophils % 2.1 Basophils % 0.2 Medical Decision Making - Medical Decision Making 11/16/17 15:14 A/P: This is a 47-year-old male past medical history of myelodysplastic syndrome, colitis, osteoarthritis and right TKR June 2017 presents to emergency department with 1 week of left-sided chest pain that worsens with palpation and movement of the left arm. He rates the pain 6/10 and describes as a "tenderness. " Patient states he feels mildly short of breath due to the pain when he breathes. Patient endorses chills but has not checked his temperature. He denies any fevers, headaches, abdominal pain, nausea, vomiting, diaphoresis. Chest tender at fifth intercostal starting at the left sternal border extending to the midclavicular line along costal margin. Lungs clear to auscultation bilaterally. RRR. No murmur, rub or gallop noted. Normoactive bowel sounds. Abdomen soft nontender nondistended. I'll check labs with troponin 1, chest x-ray, EKG. I'll reevaluate the patient after all testing has been completed. 11/16/17 16:15 Troponin is within normal limits. Given the low likelihood of ACS, I will discharge the patient after initial troponin negative. AST/ALT/Alk phos- 72/91/ 190. Patient states his last EtOH was this morning prior to presentation to the hospital. *DC/Admit/Observation/Transfer Diagnosis at time of Disposition: Chest pain Qualifiers: Chest pain type: unspecified Qualified Code(s): R07.9 - Chest pain, unspecified - Discharge Dispostion Disposition: HOME Condition at time of disposition: Stable Admit: No - Referrals Referrals: Pedro Youssef MD [Primary Care Provider] - - Patient Instructions Additional Instructions: Take Motrin as needed for pain. Follow manufacturers instructions for appropriate dosage. Drink plenty of fluids. Return to emergency department for worsening pain, shortness of breath, dizziness, passing out or any other concerns. Thank you very much for choosing us to provide your emergent healthcare needs. - Post Discharge Activity
[2017-11-16 15:28] LABS: BASO % 0.2 % (0-2.0); EOS % 2.1 % (0-4.5); HEMATOCRIT 41.1 % (35.4-49); LYMPH % 23.5 % (8-40); MCH 26.4 pg (25.7-33.7); MCHC 31.6 g/dl (32.0-35.9); MEAN CELL VOLUME 83.5 fl (80-96); MEAN PLT VOLUME 6.9 fl (7.5-11.1); MONO % 4.5 % (3.8-10.2); NEUT % 69.7 % (42.8-82.8); PLATELET COUNT 471 K/MM3 (134-434); RBC 4.93 M/mm3 (4.00-5.60); WHITE BLOOD COUNT 9.8 K/mm3 (4.0-10.0)
[2017-11-16 15:40] LABS: INR 1.11 (0.82-1.09); PROTHROMBIN TIME (PATIENT) 12.5 SEC (9.98-11.88)
[2017-11-16 15:57] LABS: ALBUMIN 3.9 g/dl (3.4-5.0); ANION GAP 11 (8-16); BILIRUBIN,TOTAL 0.2 mg/dL (0.2-1.0); BLOOD UREA NITROGEN 7 mg/dL (7-18); CALCIUM 9.1 mg/dL (8.5-10.1); CHLORIDE 108 mmol/L (98-107); CO2 23 mmol/L (21-32); CREATININE 0.7 mg/dL (0.7-1.3); GLUCOSE,RANDOM 73 mg/dL (74-106); MAGNESIUM 1.9 mg/dL (1.8-2.4); POTASSIUM 4.1 mmol/L (3.5-5.1); SGOT/AST 72 U/L (15-37); SGPT/ALT 91 U/L (12-78); SODIUM 142 mmol/L (136-145); TOT PROT 8.7 g/dl (6.4-8.2)
[2017-11-16 15:59] LABS: ALK PHOS 190 U/L (45-117)
--- NOTE | 2017-11-16 16:11 | PDOC ---
*Physical Exam - Vital Signs Last Vital Signs Temp Pulse Resp BP Pulse Ox 98.6 F 94 H 18 131/92 100 11/16/17 14:28 11/16/17 14:28 11/16/17 14:28 11/16/17 14:28 11/16/17 14:28 - Physical Exam Comments: 11/16/17 16:09 Vital signs stable Well-appearing, no acute distress S1-S2 without murmur, lungs are clear Reproducible pinpoint discomfort in the intercostal space between ribs 5 and 6, no bruising or swelling or rash. No edema or calf tenderness Heart Score/ECG Review - History History: Slightly suspicious - Electrocardiogram EKG: Normal - Age Age: 45-65 - Risk Factors Based on the list above the patient has:: No risk factors known - Troponin Troponin: </= normal limit - Score Heart Score - Total: 1 #1 General ECG Interpretation: Sinus Rhythm, Normal Rate, Normal Intervals, No acute ischemic changes ED Treatment Course - LABORATORY CBC & Chemistry Diagram: 11/16/17 14:13 11/16/17 14:13 - ADDITIONAL ORDERS Additional order review: Laboratory Results 11/16/17 14:13 PT with INR 12.50 H INR 1.11 11/16/17 14:13 RBC 4.93 MCV 83.5 MCHC 31.6 L RDW 18.0 H D MPV 6.9 L Neutrophils % 69.7 Lymphocytes % 23.5 D Monocytes % 4.5 Eosinophils % 2.1 Basophils % 0.2 Medical Decision Making - Medical Decision Making 11/16/17 16:09 Patient seen and evaluated with the nurse practitioner. I agree with the overall evaluation, assessment, and management with the following summary of visit: 47-year-old male presents with atypical chest pain intermittently for one week, pinpoint and positional, nonexertional and without red flags on history or physical exam. EKG is nonischemic Given time of onset, we'll check single troponin Chest x-ray is clear Pain control, reassurance, dischargd to PMD follow-up *DC/Admit/Observation/Transfer Diagnosis at time of Disposition: Chest pain Qualifiers: Chest pain type: unspecified Qualified Code(s): R07.9 - Chest pain, unspecified - Referrals Referrals: Pedro Youssef MD [Primary Care Provider] - - Patient Instructions - Post Discharge Activity
[2017-11-16 16:40] VITALS: BP 132/70; PULSE 62; TEMP 98.3
--- NOTE | 2017-11-18 08:05 | EKG ---
Test Reason : Blood Pressure : / mmHG Vent. Rate : 092 BPM Atrial Rate : 092 BPM P-R Int : 150 ms QRS Dur : 100 ms QT Int : 340 ms P-R-T Axes : 052 074 023 degrees QTc Int : 420 ms NORMAL SINUS RHYTHM NORMAL ECG WHEN COMPARED WITH ECG OF 16-APR-2017 19:19, NO SIGNIFICANT CHANGE WAS FOUND Confirmed by ERICH JURADO MD ([id number]) on 11/18/2017 8:04:31 AM Referred By: Confirmed By:ERICH JURADO MD
== END 2017-11-16 16:40 | disposition home or self-care (01) ==
LOC: JER 14:21
DX: R07.89 Other chest pain (principal); D46.9 Myelodysplastic syndrome, unspecified; M19.90 Unspecified osteoarthritis, unspecified site; Z96.651 Presence of right artificial knee joint; F17.210 Nicotine dependence, cigarettes, uncomplicated
CPT/HCPCS: 36415; 71046-TC; 80053; 82550; 83735; 84484; 85025; 85610; 93005; 93010; 99285-25

== ENCOUNTER 2017-12-03 18:39 | Emergency (ER) | payer OTHER ==
[2017-12-03 18:51] VITALS: BP 129/72; PULSE 125; TEMP 98.2; BMI 22.9
--- NOTE | 2017-12-03 18:51 | PDOC ---
Rapid Medical Evaluation Chief Complaint: Palpitations Time Seen by Provider: 12/03/17 18:47 Medical Evaluation: Allergies Allergy/AdvReac Type Severity Reaction Status Date / Time No Known Drug Allergies Allergy Verified 12/03/17 18:45 12/03/17 18:48 pt c/o: left chest tightness x 2 weeks with intermittent palpitations, rectal bleeding x 4 days and went to GI today who redirected straight to the ED Pt on brief exam: 125 on monitor, other VS Pt ordered for : ekg pt to proceed to the ED: Discharge Disposition - Diagnosis Palpitations - Referrals - Patient Instructions - Post Discharge Activity
--- NOTE | 2017-12-03 19:45 | PDOC ---
Attending Attestation - HPI HPI: 12/03/17 19:54 The patient is a 47 year old male with a significant PMH of myelodysplastic syndrome, hemorrhoids, colitis, cirrhosis of liver, and seizures who presents to the emergency department with 2 weeks of left-sided chest tightness with palpitations and 4 days of rectal bleeding. The patient reports seeing his GI today who requested the patient proceed to the ED for his rectal bleeding. He reports a history of rectal bleeding due to colitis and hemorrhoids. Of note, the patient was seen here in the ED about 3 weeks ago for chest tightness which was diagnosed as costochondritis. Allergies: NKDA PCP: Dr. Youssef <Tony Louis - Last Filed: 12/03/17 20:40> - Resident Resident Name: Andrea Alexandra - ED Attending Attestation I have performed the following: I have examined & evaluated the patient, The case was reviewed & discussed with the resident, I agree w/resident's findings & plan, Exceptions are as noted - Physicial Exam PE: 12/03/17 20:12 *Physical Exam General Appearance: Yes: Appropriately Dressed. No: Apparent Distress, Intoxicated HEENT: positive: EOMI, SHOSHANA, Normal ENT Inspection, Normal Voice, TMs Normal, Pharynx Normal. negative: Pale Conjunctivae, Photophobia, Scleral Icterus (R), Scleral Icterus (L) Neck: positive: Trachea midline, Normal Thyroid, Supple. negative: Tender, Rigid, Carotid bruit, Stridor, Lymphadenopathy (R), Lymphadenopathy (L), Thyromegaly Respiratory/Chest: positive: Lungs Clear, Normal Breath Sounds. negative: Chest Tender, Respiratory Distress, Accessory Muscle Use, Labored Respiration, RES, Crackles, Rales, Rhonchi, Stridor, Wheezing, Dullness Cardiovascular: positive: Regular Rhythm, Regular Rate, S1, S2. negative: Edema , JVD, Murmur, Bradycardia, Tachycardia Vascular Pulses: Dorsalis-Pedis (R): 2+, Doralis-Pedis (L): 2+ Gastrointestinal/Abdominal: positive: Normal Bowel Sounds, Flat, Soft. negative : Tender, Organomegaly, Pulsatile Mass, Increased Bowel Sounds, Decreased BS, Distended, Guarding, Rebound, Hernia, Hepatomegaly, Spleenomegaly Lymphatic: negative: Adenopathy, Tenderness Musculoskeletal: positive: Normal Inspection. negative: CVA Tenderness, Decreased Range of Motion Extremity: positive: Normal Capillary Refill, Normal Inspection, Normal Range of Motion, Pelvis Stable. negative: Tender, Pedal Edema, Swelling, Erythema Integumentary: positive: Normal Color, Dry, Warm. negative: Cyanotic, Erythema , Jaundice, Rash Neurologic: positive: control operator II-XII NML intact, Fully Oriented, Alert, Normal Mood/ Affect, Motor Strength 5/5. negative: EOM Palsy, Facial Droop, Sensory Deficit - Medical Decision Making 12/04/17 01:11 Pt repeat cbc is stable. Pt will be discharged to follow up GI. <Luis Keating - Last Filed: 12/04/17 01:13> Discharge Disposition - Discharge Dispostion Last Admission D/C Date: 06/25/17 Admit: No <Luis Keating - Last Filed: 12/04/17 01:13> - Diagnosis Rectal bleeding, Chest wall pain - Discharge Dispostion Disposition: HOME Condition at time of disposition: Stable - Referrals Referrals: Pedro Youssef MD [Primary Care Provider] - Victoriano Domingo MD [Staff Physician] - - Patient Instructions Printed Discharge Instructions: DI for Rectal Bleeding Additional Instructions: Please follow up with your primary care and the doctor referred to you for probable colonscopy. Return if any problems. - Post Discharge Activity
[2017-12-03 20:30] LABS: BASO % 1.1 % (0-2.0); EOS % 1.8 % (0-4.5); HEMATOCRIT 26.1 % (35.4-49); HEMOGLOBIN 8.3 GM/dL (11.7-16.9); MCH 26.8 pg (25.7-33.7); MCHC 31.8 g/dl (32.0-35.9); MEAN CELL VOLUME 84.3 fl (80-96); MEAN PLT VOLUME 6.9 fl (7.5-11.1); MONO % 5.7 % (3.8-10.2); NEUT % 73.4 % (42.8-82.8); PLATELET COUNT 379 K/MM3 (134-434); RBC 3.09 M/mm3 (4.00-5.60); RDW 17.6 % (11.9-15.9); WHITE BLOOD COUNT 9.8 K/mm3 (4.0-10.0)
--- NOTE | 2017-12-03 20:40 | PDOC ---
History of Present Illness <Luis Keating - Last Filed: 12/04/17 01:15> - General History Source: Patient <Andrea Alexandra - Last Filed: 12/04/17 01:20> - General Chief Complaint: Palpitations Stated Complaint: PCP SENT/IRREGULAR HEART BEAT Time Seen by Provider: 12/03/17 18:47 - History of Present Illness Initial Comments: 12/03/17 20:40 47M with history of gastritis, GERD, colitis, myelodysplastic disorder, not currently under treatment, colon polyp resections. ,alcohol abuse, alcohol withdrawal seizures, alcoholic hepatitis, status post rehabilitation last year, here with 4 days of rectal bleeding and 2 weeks of left chest tightness. Seen today by his GI doctor who did a rectal exam and found blood but sent him to this ED directly after noticing that the patient was tachycardic. Was seen previously in the ED 3 weeks ago for the chest pain which is reproducible on palpation and was diagnosed with costochondritis. Has been taking Aleve since then for the pain. Last colonoscopy 5 years ago. On methadone and chantix. PCP: Dr. Mikael Guerrero/Oncologist: Dr. North 12/03/17 21:16 (Andrea Alexandra) Past History <Luis Keating - Last Filed: 12/04/17 01:15> - Past Medical History Anemia: No Asthma: Yes (ON PRO AIR) Cancer: Yes (myleproliferative disorder-leukemia) Cardiac Disorders: No CVA: No COPD: No CHF: No Dementia: No Diabetes: No GI Disorders: Yes (Colitis) Disorders: No HTN: No Hypercholesterolemia: No Kidney Stones: No Liver Disease: Yes (? CIRROHSIS) Seizures: Yes Thyroid Disease: No - Surgical History Abdominal Surgery: No Appendectomy: No Cardiac Surgery: No Cholecystectomy: No Lung Surgery: No Neurologic Surgery: No Orthopedic Surgery: Yes (SUSAN KNEE REPLACEMENT/ L FEMUR NANCY) - Reproductive History Testicular Surgery: No - Immunization History Immunization Up to Date: Yes - Suicide/Smoking/Psychosocial Hx Smoking Status: Yes Smoking History: Never smoked Have you smoked in the past 12 months: Yes Number of Cigarettes Smoked Daily: 10 Information on smoking cessation initiated: No 'Breaking Loose' booklet given: 04/16/17 Hx Alcohol Use: No Drug/Substance Use Hx: No Substance Use Type: None Hx Substance Use Treatment: No <Andrea Alexandra - Last Filed: 12/04/17 01:20> - Past Medical History Allergies/Adverse Reactions: Allergies Allergy/AdvReac Type Severity Reaction Status Date / Time No Known Drug Allergies Allergy Verified 12/03/17 18:45 Home Medications: Ambulatory Orders Methadone [Dolophine -] 5 mg PO DAILY MDD 2 12/03/17 Cardiac Specific PMH - Complaint Specific PMHX Cardiac Arrhythmia: No Pacemaker: No <AlexandraTuyety - Last Filed: 12/04/17 01:20> Review of Systems - Review of Systems Able to Perform ROS?: Yes Is the patient limited Yakut proficient: No Constitutional: No: Chills, Diaphoresis, Fever, Loss of Appetite, Malaise, Night Sweats, Weakness HEENTM: No: Symptoms Reported Respiratory: No: Symptoms reported Cardiac (ROS): No: Symptoms Reported ABD/GI: Yes: Rectal Bleeding. No: Constipated, Diarrhea, Difficulty Swallowing , Vomiting, Indigestion, Abdominal cramping : No: Symptoms Reported Musculoskeletal: No: Symptoms Reported Integumentary: No: Symptoms Reported Neurological: No: Symptoms reported All Other Systems: Reviewed and Negative <Andrea Alexandra - Last Filed: 12/04/17 01:20> *Physical Exam - Physical Exam General Appearance: Yes: Nourished, Appropriately Dressed. No: Apparent Distress HEENT: positive: EOMI, SHOSHANA, Normal ENT Inspection Respiratory/Chest: positive: Lungs Clear, Normal Breath Sounds. negative: Chest Tender, Respiratory Distress Cardiovascular: positive: Regular Rhythm, Regular Rate, S1, S2 Gastrointestinal/Abdominal: positive: Normal Bowel Sounds, Flat, Soft. negative : Tender Extremity: positive: Normal Capillary Refill, Normal Inspection Integumentary: positive: Normal Color, Dry, Warm. negative: Cyanotic, Jaundice , Pale, Cold, Clammy, Diaphoresis Neurologic: positive: Fully Oriented, Alert, Normal Mood/Affect, Normal Response , Motor Strength 5/5 <Andrea Alexandra - Last Filed: 12/04/17 01:20> - Vital Signs Last Vital Signs Temp Pulse Resp BP Pulse Ox 98.2 F 125 H 17 129/72 99 12/03/17 18:46 12/03/17 18:46 12/03/17 18:46 12/03/17 18:46 12/03/17 18:46 ED Treatment Course - LABORATORY CBC & Chemistry Diagram: 12/04/17 00:40 12/03/17 20:01 <Luis Keating - Last Filed: 12/04/17 01:15> - LABORATORY CBC & Chemistry Diagram: 12/04/17 00:40 12/03/17 20:01 <Andrea Alexandra - Last Filed: 12/04/17 01:20> - ADDITIONAL ORDERS Additional order review: Laboratory Results 12/03/17 12/03/17 12/03/17 20:43 20:01 20:01 PT with INR INR PTT (Actin FS) Sodium 140 Potassium 4.5 Chloride 107 Carbon Dioxide 25 Anion Gap 8 BUN 11 D Creatinine 0.7 Creat Clearance w eGFR > 60 Random Glucose 82 Calcium 8.4 L Total Bilirubin 0.1 L D AST 74 H ALT 62 D Alkaline Phosphatase 152 H Ammonia 19.84 Total Protein 7.2 Albumin 3.2 L Urine Color Urine Appearance Urine pH Ur Specific [place] Urine Protein Urine Glucose (UA) Urine Ketones Urine Blood Urine Nitrite Urine Bilirubin Urine Urobilinogen Ur Leukocyte Esterase Urine WBC (Auto) Urine RBC (Auto) Urine Mucus Blood Type O POSITIVE Antibody Screen Negative 12/03/17 12/03/17 20:01 20:01 PT with INR 11.70 INR 1.04 PTT (Actin FS) 27.5 Sodium Potassium Chloride Carbon Dioxide Anion Gap BUN Creatinine Creat Clearance w eGFR Random Glucose Calcium Total Bilirubin AST ALT Alkaline Phosphatase Ammonia Total Protein Albumin Urine Color Yellow Urine Appearance Clear Urine pH 5.0 Ur Specific [place] 1.023 Urine Protein 2+ H Urine Glucose (UA) Negative Urine Ketones Trace H Urine Blood Negative Urine Nitrite Negative Urine Bilirubin Negative Urine Urobilinogen 2.0 Ur Leukocyte Esterase Negative Urine WBC (Auto) 2 Urine RBC (Auto) 1 Urine Mucus Few Blood Type Antibody Screen 12/04/17 12/03/17 00:40 20:01 RBC 3.06 L 3.09 L D MCV 83.5 84.3 MCHC 31.4 L 31.8 L RDW 17.4 H 17.6 H MPV 6.8 L 6.9 L Neutrophils % 68.0 73.4 Lymphocytes % 21.8 D 18.0 D Monocytes % 7.2 5.7 Eosinophils % 1.9 1.8 Basophils % 1.1 1.1 D - Medications Given in the ED: ED Medications Discontinued Medications Generic Name Dose Route Start Last Admin Trade Name Neo PRN Reason Stop Dose Admin Sodium Chloride 1,000 mls @ 1,000 mls/hr 12/03/17 21:25 12/03/17 21:50 Normal Saline - IV 12/03/17 22:24 1,000 mls/hr ASDIR STA Administration Medical Decision Making <Luis Keating - Last Filed: 12/04/17 01:15> <Andrea Alexandra - Last Filed: 12/04/17 01:20> - Medical Decision Making 12/03/17 21:23 basic labs, coag panels, t&s 12/03/17 21:23 EKG: normal EKG 12/04/17 01:19 Patient CBC stable, ok to be dc with follow up (Andrea Alexandra) *DC/Admit/Observation/Transfer <Luis Keating - Last Filed: 12/04/17 01:15> - Discharge Dispostion Admit: No <Andrea Alexandra - Last Filed: 12/04/17 01:20> Diagnosis at time of Disposition: Rectal bleeding, Chest wall pain - Discharge Dispostion Disposition: HOME Condition at time of disposition: Stable - Referrals Referrals: Pedro Youssef MD [Primary Care Provider] - Christopher Rodrigues MD [Staff Physician] - - Patient Instructions Printed Discharge Instructions: DI for Rectal Bleeding Additional Instructions: Please follow up with your primary care and the doctor referred to you for probable colonscopy. Return if any problems. - Post Discharge Activity
[2017-12-03 20:45] LABS: INR 1.04 (0.82-1.09); PROTHROMBIN TIME (PATIENT) 11.7 SEC (9.98-11.88)
[2017-12-03 20:47] LABS: ACTIVATED PTT 27.5 SECONDS (26.9-34.4)
[2017-12-03 21:01] LABS: URINE APPEARANCE CLEAR; URINE BILIRUBIN NEGATIVE (NEGATIVE); URINE BLOOD NEGATIVE (NEGATIVE); URINE COLOR YELLOW; URINE GLUCOSE (UA) NEGATIVE (NEGATIVE); URINE KETONE TRACE (NEGATIVE); URINE LEUK ESTERASE NEGATIVE (NEGATIVE); URINE NITRITE NEGATIVE (NEGATIVE)
[2017-12-03 21:08] LABS: URINE PROTEIN 2+ (NEGATIVE)
[2017-12-03 21:11] LABS: URINE MUCUS FEW
[2017-12-03 21:16] LABS: ALBUMIN 3.2 g/dl (3.4-5.0); ALK PHOS 152 U/L (45-117); ANION GAP 8 (8-16); BILIRUBIN,TOTAL 0.1 mg/dL (0.2-1.0); BLOOD UREA NITROGEN 11 mg/dL (7-18); CALCIUM 8.4 mg/dL (8.5-10.1); CHLORIDE 107 mmol/L (98-107); CO2 25 mmol/L (21-32); CREATININE 0.7 mg/dL (0.7-1.3); GLUCOSE,RANDOM 82 mg/dL (74-106); POTASSIUM 4.5 mmol/L (3.5-5.1); SGOT/AST 74 U/L (15-37); SGPT/ALT 62 U/L (12-78); SODIUM 140 mmol/L (136-145); TOT PROT 7.2 g/dl (6.4-8.2)
[2017-12-03] MEDS ORDERED: SODIUM CHLORIDE 1,000 ML IV STA (21:25)
[2017-12-04 01:01] LABS: BASO % 1.1 % (0-2.0); EOS % 1.9 % (0-4.5); HEMATOCRIT 25.5 % (35.4-49); LYMPH % 21.8 % (8-40); MCH 26.2 pg (25.7-33.7); MCHC 31.4 g/dl (32.0-35.9); MEAN CELL VOLUME 83.5 fl (80-96); MEAN PLT VOLUME 6.8 fl (7.5-11.1); MONO % 7.2 % (3.8-10.2); PLATELET COUNT 368 K/MM3 (134-434); RBC 3.06 M/mm3 (4.00-5.60); RDW 17.4 % (11.9-15.9)
--- NOTE | 2017-12-04 09:03 | EKG ---
Test Reason : Blood Pressure : / mmHG Vent. Rate : 100 BPM Atrial Rate : 100 BPM P-R Int : 154 ms QRS Dur : 086 ms QT Int : 332 ms P-R-T Axes : 043 056 014 degrees QTc Int : 428 ms NORMAL SINUS RHYTHM WHEN COMPARED WITH ECG OF 16-NOV-2017 14:26, NO SIGNIFICANT CHANGE WAS FOUND Confirmed by ISRRAEL LINN MD ([id number]) on 12/04/2017 9:03:11 AM Referred By: Confirmed By:ISRRAEL LINN MD
== END 2017-12-04 02:05 | disposition home or self-care (01) ==
LOC: JER 18:39
PROC: 3E0337Z Introduction of Electrolytic and Water Balance Substance into Peripheral Vein, Percutaneous Approach (ICD-10-PCS; principal; 2017-12-03)
DX: R07.89 Other chest pain (principal); K62.5 Hemorrhage of anus and rectum; F10.10 Alcohol abuse, uncomplicated; J45.909 Unspecified asthma, uncomplicated; C94.6 Myelodysplastic disease, not elsewhere classified; Z86.010 Personal history of colon polyps; K70.10 Alcoholic hepatitis without ascites; F17.210 Nicotine dependence, cigarettes, uncomplicated
CPT/HCPCS: 36415; 80053; 81003; 81015; 82140; 85025; 85610; 85730; 86850; 86900; 86901; 93005; 93010; 99284-25

== ENCOUNTER 2018-01-04 10:54 | Inpatient (IN) | payer OTHER ==
--- NOTE | 2018-01-04 11:27 | PDOC ---
History of Present Illness - General Chief Complaint: Seizure Stated Complaint: SEIZURE Time Seen by Provider: 01/04/18 11:26 Exam Limitations: Language Barrier - History of Present Illness Initial Comments: 01/04/18 11:59 47 year old male with pmhx of myeloproliferative disorder on remission , seizure who presented to the ED s/p seizure. pt was walking in today when he fell down and start seizing. reports foaming around his mouth. shaking in his upper and lower ext, and hit his head, the seizure last about 3- 5 min , and he was confused for a bout 3 after the seizure. he bite his tongue but no urinary incontinence. reports drinking alcohol daily last drink was 4 days ago beer and pine of vodka , and she reports seizures history after drinking. pt reports nausea, sob lightheadedness when he get up. he complains of neck pain due to trauma today. pt had colonoscopy 2 weeks ago due to blood in the stool. pt denies any headache, blurry vision, chest pain , coughing, abdominal pain D/C, or urinary symptoms. PCP is dr Youssef and pt is on methadone 5 mg and did not sisal picker his last prescriptions. pt was on chantix but he is not taking it now. PMH: Myeloproliferative disorder on remission. Alcohol abuse , PSH : B/L knee surgery and left femoral fx Allergies: NKDA Meds : FH: Social: smoke 2 cig daily and he was using 2 PPD for 16 years he drink alcohol daily (pint of vodka and beer ) denies any drugs abuse Differential 1- Alcohol withdrawal seizure 2- seizure disorder 3- Hypoglycemia 4- electrolytes imbalance 5- drug induced seizure Work up: EKG CBC, CMP. CK, CKMB Alcohol level , Urine toxicology Head Ct w/o contrast Ativan 1 mg ivbp IV fluids NS 125 CC 01/04/18 12:16 01/04/18 12:32 01/04/18 14:07 CT head without contrast : no acute intracranial pathology. Past History - Past Medical History Allergies/Adverse Reactions: Allergies Allergy/AdvReac Type Severity Reaction Status Date / Time No Known Drug Allergies Allergy Verified 12/03/17 18:45 Home Medications: Ambulatory Orders Methadone [Dolophine -] 5 mg PO DAILY MDD 2 12/03/17 Anemia: No Asthma: Yes (ON PRO AIR) Cancer: Yes (myleproliferative disorder-leukemia) Cardiac Disorders: No CVA: No COPD: No CHF: No Dementia: No Diabetes: No GI Disorders: Yes (Colitis) Disorders: No HTN: No Hypercholesterolemia: No Kidney Stones: No Liver Disease: Yes (? CIRROHSIS) Seizures: Yes Thyroid Disease: No - Surgical History Abdominal Surgery: No Appendectomy: No Cardiac Surgery: No Cholecystectomy: No Lung Surgery: No Neurologic Surgery: No Orthopedic Surgery: Yes (SUSAN KNEE REPLACEMENT/ L FEMUR NANCY) - Reproductive History Testicular Surgery: No - Immunization History Immunization Up to Date: Yes - Suicide/Smoking/Psychosocial Hx Smoking Status: Yes Smoking History: Current every day smoker Have you smoked in the past 12 months: Yes Number of Cigarettes Smoked Daily: 10 Information on smoking cessation initiated: No 'Breaking Loose' booklet given: 04/16/17 Hx Alcohol Use: Yes Drug/Substance Use Hx: No Substance Use Type: None Hx Substance Use Treatment: No *Physical Exam - Vital Signs Last Vital Signs Temp Pulse Resp BP Pulse Ox 97.6 F 107 H 16 102/78 93 L 01/04/18 11:13 01/04/18 11:13 01/04/18 11:13 01/04/18 11:13 01/04/18 11:13 ED Treatment Course - LABORATORY CBC & Chemistry Diagram: 01/04/18 12:07 01/04/18 13:01 *DC/Admit/Observation/Transfer Diagnosis at time of Disposition: Alcohol withdrawal seizure - Discharge Dispostion Admit: Yes - Referrals Referrals: Pedro Youssef MD [Primary Care Provider] - - Patient Instructions - Post Discharge Activity
[2018-01-04] MEDS ORDERED: SODIUM CHLORIDE 1,000 ML IV SCH (12:00)
--- NOTE | 2018-01-04 12:06 | PDOC ---
Attending Attestation - HPI HPI: 01/04/18 13:12 The patient is a 47 year old male with a significant PMH of myeloproliferative disorder (s/p remission), seizures, alcohol abuse, and gastritis who presents to the emergency department s/p seizure. The patient was walking regularly when he fell and started seizing, and endorses tongue biting. He reports he only gets seizures when he stops drinking. He reports his last drink was about 4 days ago. The patient notes he does follow with a Neurologist and does not take medications for his seizures. Allergies: NKDA PCP: Dr. Anthony Youssef - Physicial Exam PE: 01/04/18 13:12 Vitals: Triage Vital signs reviewed General Appearance: (+) Post-ictal. (+) Tongue abrasaion. no acute distress, well nourished well developed, Head: Atraumatic, normocephalic Eyes: Pupils equal reactive round, extraocular movement intact Cardiac: Regular rate and rhythm, no murmurs, no rubs, no gallops, Lungs: Clear to auscultation bilateral, good air movement bilaterally, Extremities: Full range of motion to all extremities, no cyanosis, clubbing, or edema Neuro: AOX3; Cranial Nerves 2-12 grossly intact, Strength intact to all extremities, Sensation intact to all extremities Psych: normal mood, normal affect <Tony Louis - Last Filed: 01/04/18 13:12> - Resident Resident Name: Mario Bender - ED Attending Attestation I have performed the following: I have examined & evaluated the patient, The case was reviewed & discussed with the resident, I agree w/resident's findings & plan, Exceptions are as noted - Medical Decision Making 01/04/18 12:53 47 years old past medical history significant for alcohol abuse, withdrawal and seizures reports last drink several days ago presents to the ED today with for a seizure in the context of alcohol withdrawal Positive postictal. Positive tongue abrasion We'll check labs hydrate head CT given minor head injury Ativan for tachycardia observe and reassess Case discussed with patient's primary care provider. Recommends admission for alcohol withdrawal seizure We'll admit to medicine for further management. <Varun Esparza - Last Filed: 01/04/18 17:15>
[2018-01-04 12:25] LABS: BASO % 0.7 % (0-2.0); EOS % 0.4 % (0-4.5); HEMOGLOBIN 9.5 GM/dL (11.7-16.9); LYMPH % 7.9 % (8-40); MCH 23.5 pg (25.7-33.7); MCHC 30.6 g/dl (32.0-35.9); MEAN CELL VOLUME 76.8 fl (80-96); MEAN PLT VOLUME 7.4 fl (7.5-11.1); MONO % 5.6 % (3.8-10.2); NEUT % 85.4 % (42.8-82.8); PLATELET COUNT 419 K/MM3 (134-434); RBC 4.03 M/mm3 (4.00-5.60); RDW 20.8 % (11.9-15.9); WHITE BLOOD COUNT 13.6 K/mm3 (4.0-10.0)
[2018-01-04] MEDS ORDERED: LORazepam 2 MG/ML SDV VIAL ONE (12:36)
[2018-01-04 13:48] LABS: ALBUMIN 3.4 g/dl (3.4-5.0); ALK PHOS 145 U/L (45-117); ANION GAP 11 (8-16); BILIRUBIN,TOTAL 0.7 mg/dL (0.2-1.0); BLOOD UREA NITROGEN 9 mg/dL (7-18); CALCIUM 9.1 mg/dL (8.5-10.1); CHLORIDE 100 mmol/L (98-107); CO2 25 mmol/L (21-32); CREATININE 0.9 mg/dL (0.7-1.3); GLUCOSE,RANDOM 104 mg/dL (74-106); POTASSIUM 3.6 mmol/L (3.5-5.1); SGOT/AST 90 U/L (15-37); SGPT/ALT 69 U/L (12-78); SODIUM 136 mmol/L (136-145); TOT PROT 7.7 g/dl (6.4-8.2)
[2018-01-04] MEDS ORDERED: FOLIC ACID INJECTION - 1 MG, THIAMINE HCL 100 MG, MULTIVIT INJECTION ADULT 10 ML in SOD... IVPB ONE (17:31)
--- NOTE | 2018-01-04 17:32 | HP ---
Admitting History and Physical - Primary Care Physician PCP: Pedro Youssef - Admission Chief Complaint: Seizure episode History of Present Illness: patient 47 year old male with pmhx of myeloproliferative disorder on remission , alcohol withdrawal seizure , chronic pain syndrome, arthritis, colitis who presented to the ED s/p seizure. pt was walking in today when he fell down and start seizing. reports foaming around his mouth. shaking in his upper and lower ext, and hit his head, the seizure last about 3-5 min , and he was confused for a bout 3 after the seizure. he bite his tongue but no urinary incontinence. reports drinking alcohol daily last drink was 4 days ago beer and pine of vodka , and she reports seizures history after drinking. pt reports nausea, sob lightheadedness when he get up. he complains of neck pain due to trauma today. pt had colonoscopy 2 weeks ago due to blood in the stool. pt denies any headache, blurry vision, chest pain , coughing, abdominal pain D/C , or urinary symptoms. patient well known to me. Patient seen and examined by me in the emergency room. at bedside. Patient acknowledges he is drinking again heavily. Last drink 4 days ago. Patient also has admission last year --due to alcohol withdrawal seizure. 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 (SEIZURE) Pulmonary: Yes: Asthma Gastrointestinal: Yes: Constipation, Gastritis, GERD, Hemorrhoids, Hiatal Hernia , Ulcerative Colitis, Other (POSSIBLE BEAL'S) Hepatobiliary: Yes: Other (ALCOHOLIC HEPATITIS, STEATOSIS (ALCOHOL AND FAT)) Heme/Onc: Yes: Other (CML) Psych: Yes: Addictions Musculoskeletal: Yes: Chronic low back pain, Osteoarthritis, Other (HIP AND KNEE SURGERY) Dermatology: Yes: Other (TATTOOS) - Past Surgical History Past Surgical History: Yes: Colonoscopy, Joint Replacement, Upper Endoscopy - Smoking History Smoking history: Current every day smoker Have you smoked in the past 12 months: Yes Aproximately how many cigarettes per day: 10 - Alcohol/Substance Use Hx Alcohol Use: Yes Number of Drinks Daily: 8 (ALSO ONE BOTTLE VODKA (FEBRUARY)) Home Medications - Allergies Allergies/Adverse Reactions: Allergies Allergy/AdvReac Type Severity Reaction Status Date / Time No Known Drug Allergies Allergy Verified 01/05/18 00:02 - Home Medications Home Medications: Ambulatory Orders NK [No Known Home Medication] 01/04/18 Family Disease History - Family Disease History Family Disease History: Diabetes: Father (HLD), CA: Mother (CVA) Review of Systems - Review of Systems Constitutional: reports: Weakness Eyes: reports: No Symptoms Neck: reports: No Symptoms Cardiovascular: reports: No Symptoms Respiratory: reports: No Symptoms Gastrointestinal: reports: No Symptoms Genitourinary: reports: No Symptoms Neurological: reports: Seizure Hematology/Lymphatic: reports: No Symptoms Psychiatric: denies: Anxiety Physical Examination Vital Signs: Vital Signs Temperature 97.6 F 01/04/18 11:13 Pulse Rate 107 H 01/04/18 11:13 Respiratory Rate 16 01/04/18 11:13 Blood Pressure 102/78 01/04/18 11:13 O2 Sat by Pulse Oximetry (%) 93 L 01/04/18 11:13 Constitutional: Yes: No Distress, Calm Eyes: Yes: Conjunctiva Clear, PERRL Neck: Yes: Supple Cardiovascular: Yes: Regular Rate and Rhythm Respiratory: Yes: CTA Bilaterally Gastrointestinal: Yes: Normal Bowel Sounds, Soft Edema: No Neurological: Yes: Alert, Cran Nerves II-XII Intact, Other (nonfocal exam) Psychiatric: Yes: Alert Labs: CBC, BMP 01/04/18 12:07 01/04/18 13:01 Imaging - Results Cat Scan: Report Reviewed Problem List - Problems (1) Alcohol withdrawal seizure Code(s): F10.239 - ALCOHOL DEPENDENCE WITH WITHDRAWAL, UNSPECIFIED; R56.9 - UNSPECIFIED CONVULSIONS (2) Alcoholic fatty liver Code(s): K70.0 - ALCOHOLIC FATTY LIVER (3) Elevated liver enzymes Code(s): R74.8 - ABNORMAL LEVELS OF OTHER SERUM ENZYMES (4) History of colitis Code(s): Z87.19 - PERSONAL HISTORY OF OTHER DISEASES OF THE DIGESTIVE SYSTEM Assessment/Plan discussed in detail with patient and patient's . patient has been to rehabilitation in the past. Strongly counseled again to quit drinking. Monitor for further seizures Detox with Librium. Banana bag. Will follow. discussed with medical affairs manager in the emergency room.
[2018-01-04 18:07] LABS: COCAINE, UR NEGATIVE ng/ml (CUTOFF=300); METHADONE, UR NEGATIVE ng/ml (CUTOFF=300); OPIATES, URI NEGATIVE ng/ml (CUTOFF=300); PHENCYCLIDINE,URINE NEGATIVE ng/ml (CUTOFF=25); URINE AMPHETAMINES NEGATIVE ng/ml (CUTOFF=500); URINE BARBITURATES NEGATIVE ng/ml (CUTOFF=200); URINE BENZODIAZEPINES NEGATIVE ng/ml (CUTOFF=200)
[2018-01-04] MEDS: THIAMINE HCL 200 MG/2 ML VIAL IM SCH (18:21)
[2018-01-04 18:52] VITALS: BMI 21.5
[2018-01-04] MEDS ORDERED: HEPARIN NA (PORCINE) 5,000 UNITS/ML 1ML VIAL ONE (22:09)
[2018-01-04] MEDS ORDERED: chlordiazePOXIDE HCL 25 MG CAPSULE ONE (22:09)
[2018-01-04] MEDS ORDERED: DOCUSATE SODIUM 100 MG CAPSULE (FP) PO ONE (22:09)
[2018-01-04] MEDS: DOCUSATE SODIUM 100 MG CAPSULE (FP) PO SCH (22:18)
[2018-01-04] MEDS: HEPARIN NA (PORCINE) 5,000 UNITS/ML 1ML VIAL SQ SCH (22:18)
[2018-01-04] MEDS: chlordiazePOXIDE HCL 25 MG CAPSULE PO SCH (22:19)
[2018-01-05] MEDS: chlordiazePOXIDE HCL 25 MG CAPSULE PO SCH ×3 (04:51→17:31)
[2018-01-05 08:15] LABS: BASO % 0.9 % (0-2.0); HEMATOCRIT 26.8 % (35.4-49); HEMOGLOBIN 8.3 GM/dL (11.7-16.9); LYMPH % 25.2 % (8-40); MCH 23.8 pg (25.7-33.7); MEAN CELL VOLUME 76.7 fl (80-96); MEAN PLT VOLUME 7.4 fl (7.5-11.1); MONO % 8.7 % (3.8-10.2); NEUT % 64.2 % (42.8-82.8); PLATELET COUNT 349 K/MM3 (134-434); RBC 3.49 M/mm3 (4.00-5.60); RDW 20.8 % (11.9-15.9); WHITE BLOOD COUNT 8.1 K/mm3 (4.0-10.0)
[2018-01-05 08:42] LABS: ALK PHOS 133 U/L (45-117); ANION GAP 8 (8-16); BILIRUBIN,TOTAL 0.6 mg/dL (0.2-1.0); BLOOD UREA NITROGEN 7 mg/dL (7-18); CALCIUM 7.9 mg/dL (8.5-10.1); CHLORIDE 105 mmol/L (98-107); CO2 26 mmol/L (21-32); CREATININE 0.7 mg/dL (0.7-1.3); GLUCOSE,RANDOM 74 mg/dL (74-106); MAGNESIUM 1.6 mg/dL (1.8-2.4); POTASSIUM 3.8 mmol/L (3.5-5.1); SGOT/AST 256 U/L (15-37); SGPT/ALT 169 U/L (12-78); SODIUM 139 mmol/L (136-145); TOT PROT 6.7 g/dl (6.4-8.2)
[2018-01-05] MEDS ORDERED: METHADONE HCL 5 MG TABLET PO SCH (10:00)
[2018-01-05] MEDS ORDERED: PT OWN MED DRAWER 7, Y5N ONE ×2 (10:29→10:33)
[2018-01-05] MEDS: DOCUSATE SODIUM 100 MG CAPSULE (FP) PO SCH (10:31)
[2018-01-05] MEDS: HEPARIN NA (PORCINE) 5,000 UNITS/ML 1ML VIAL SQ SCH (10:31)
[2018-01-05] MEDS: THIAMINE HCL 200 MG/2 ML VIAL IM SCH (13:07)
--- NOTE | 2018-01-05 13:13 | PN ---
Progress Note, Physician Chief Complaint: events noted pt feels well no tremors - Current Medication List Current Medications: Active Medications Chlordiazepoxide HCl (Librium -) 50 mg PO [id number] [facility] Last Admin: 01/05/18 10:30 Dose: 50 mg Docusate Sodium (Colace -) 100 mg PO BID [facility] Last Admin: 01/05/18 10:31 Dose: Not Given Heparin Sodium (Porcine) (Heparin -) 5,000 unit SQ BID [facility] Last Admin: 01/05/18 10:31 Dose: 5,000 unit Methadone HCl (Dolophine -) 5 mg PO DAILY [facility] Last Admin: 01/05/18 10:30 Dose: 5 mg Thiamine HCl (Vitamin B1 Injection -) 200 mg IM DAILY [facility] Last Admin: 01/05/18 13:07 Dose: 200 mg - Objective Vital Signs: Vital Signs Temperature 99.2 F 01/05/18 06:00 Pulse Rate 87 01/05/18 06:00 Respiratory Rate 18 01/05/18 06:00 Blood Pressure 133/97 01/05/18 06:00 O2 Sat by Pulse Oximetry (%) 97 01/05/18 01:28 Constitutional: Yes: No Distress Cardiovascular: Yes: Regular Rate and Rhythm Respiratory: Yes: CTA Bilaterally Gastrointestinal: Yes: Normal Bowel Sounds, Soft. No: Tenderness Edema: No Labs: CBC, BMP 01/05/18 07:00 01/05/18 07:00 Problem List - Problems (1) Alcohol withdrawal seizure Code(s): F10.239 - ALCOHOL DEPENDENCE WITH WITHDRAWAL, UNSPECIFIED; R56.9 - UNSPECIFIED CONVULSIONS (2) Alcohol dependence Code(s): F10.20 - ALCOHOL DEPENDENCE, UNCOMPLICATED (3) Alcohol dependence with uncomplicated withdrawal Code(s): F10.230 - ALCOHOL DEPENDENCE WITH WITHDRAWAL, UNCOMPLICATED (4) Alcoholic fatty liver Code(s): K70.0 - ALCOHOLIC FATTY LIVER Assessment/Plan PLAN Noted elevated LFT-- check sono abdomen-- likely due to alcoholic liver disease Librium protocol Detox eval-- ok for transfer to detox unit continue with meds
[2018-01-05 14:30] VITALS: BP 130/67; PULSE 110; TEMP 98.9
--- NOTE | 2018-01-06 10:11 | CONSULT ---
Consult Detox [facility] Reason for Current Admission/Consult: substance use Referred by:: ignacio Adkins - History History of Present Illness: Patient discharged prior to completion fo consultation - Alcohol/Substance Use Hx Alcohol Use: Yes - Past Medical History [employer] PHYSICIAN: Yes: Other (SEIZURE) Pulmonary: Yes: Asthma Gastrointestinal: Yes: Constipation, Gastritis, GERD, Hemorrhoids, Hiatal Hernia , Ulcerative Colitis, Other (POSSIBLE BEAL'S) Hepatobiliary: Yes: Other (ALCOHOLIC HEPATITIS, STEATOSIS (ALCOHOL AND FAT)) Psych: Yes: Addictions Musculoskeletal: Yes: Chronic low back pain, Osteoarthritis, Other (HIP AND KNEE SURGERY) Dermatology: Yes: Other (TATTOOS) - Past Surgical History Past Surgical History: Yes: Colonoscopy, Joint Replacement, Upper Endoscopy
[2018-01-06] MEDS ORDERED: THIAMINE HCL 100 MG TABLET (FP) PO SCH (22:00)
[2018-01-07] MEDS ORDERED: PRENATAL VITAMINS W/ FOLIC ACID TABLET (FP) PO SCH (10:00)
== END 2018-01-05 19:35 | disposition left against medical advice (07) | DRG 894 ==
LOC: JER 10:54 → JERBED 14:08 → J5S 01-05 01:09
PROVIDERS: ADMIT Internal Medicine; ATTEND Internal Medicine
PROC: HZ2ZZZZ Detoxification Services for Substance Abuse Treatment (ICD-10-PCS; principal; 2018-01-04)
DX: F10.230 Alcohol dependence with withdrawal, uncomplicated (principal); K70.0 Alcoholic fatty liver; R74.8 Abnormal levels of other serum enzymes; F17.210 Nicotine dependence, cigarettes, uncomplicated; G40.909 Epilepsy, unspecified, not intractable, without status epilepticus; E16.2 Hypoglycemia, unspecified
CPT/HCPCS: 36415; 70450-TC; 80053; 80307; 82550; 82553; 83735; 84484; 85025; 99282-25; J1644; J7030

== ENCOUNTER 2018-01-06 00:02 | Emergency (ER) | payer OTHER ==
[2018-01-06 00:47] VITALS: BP 121/78; PULSE 129; TEMP 98; BMI 21.5
--- NOTE | 2018-01-06 01:21 | PDOC ---
History of Present Illness - General Chief Complaint: Revisit, Lab Variance Stated Complaint: REVISIT Time Seen by Provider: 01/06/18 00:47 History Source: Patient Exam Limitations: No Limitations - History of Present Illness Initial Comments: CHIEF COMPLAINT: 47 y/o afebrile male with PMH myeloproliferative disorder in remission, seizures, ETOH abuse here for abnormal labs. HISTORY OF PRESENT ILLNESS: The patient was admitted to the hospital on 01/04 after having a seizure. He states he left the hospital AMA yesterday but returned today because his forced him to come back. He has no complaints but does admit that he was told a few weeks ago that he should be taking iron supplements. Vital signs on arrival are notable for pulse of 129. REVIEW OF SYSTEMS: GENERAL/CONSTITUTIONAL: No fever/chills. No weakness. No weight change. HEAD, EYES, EARS, NOSE AND THROAT: No change in vision. No ear pain or discharge. No sore throat. CARDIOVASCULAR: No chest pain or shortness of breath. RESPIRATORY: No cough, wheezing, or hemoptysis. GASTROINTESTINAL: No abd pain, nausea, vomiting, diarrhea. GENITOURINARY: No dysuria, frequency, or change in urination. MUSCULOSKELETAL: No joint or muscle swelling or pain. No neck or back pain. SKIN: No rash or easy bruising. NEUROLOGIC: No headache, vertigo, loss of consciousness, or loss of sensation. PHYSICAL EXAM: GENERAL: The patient is awake, alert, and fully oriented, in no acute distress. HEAD: Normal with no signs of trauma. ENT: Pupils equal, round and reactive to light, extraocular movements intact, sclera anicteric, conjunctiva clear. Neck supple. LUNGS: Clear to auscultation bilaterally. Normal excursion. No respiratory distress or use of accessory muscles. CV: RRR, S1/S2, no MRG. Cap refill < 2 sec. ABDOMEN: Soft, non-distended, non-tender even to deep palpation, no hepatomegaly or splenomegaly, no masses. EXTREMITIES: Normal range of motion, no edema. NEUROLOGICAL: Normal speech, normal gait. CN II-XII grossly intact. PSYCH: Normal mood, normal affect. SKIN: Warm, dry, normal turgor, no rashes or lesions noted. Past History - Past Medical History Allergies/Adverse Reactions: Allergies Allergy/AdvReac Type Severity Reaction Status Date / Time No Known Drug Allergies Allergy Verified 01/06/18 00:46 Home Medications: Ambulatory Orders NK [No Known Home Medication] 01/04/18 Anemia: No Asthma: Yes (ON PRO AIR) Cancer: Yes (myleproliferative disorder-leukemia) Cardiac Disorders: No CVA: No COPD: No CHF: No Dementia: No Diabetes: No GI Disorders: Yes (Colitis) Disorders: No HTN: No Hypercholesterolemia: No Kidney Stones: No Liver Disease: Yes (? CIRROHSIS) Seizures: Yes Thyroid Disease: No - Surgical History Abdominal Surgery: No Appendectomy: No Cardiac Surgery: No Cholecystectomy: No Lung Surgery: No Neurologic Surgery: No Orthopedic Surgery: Yes (SUSAN KNEE REPLACEMENT/ L FEMUR NANCY) - Reproductive History Testicular Surgery: No - Immunization History Immunization Up to Date: Yes - Suicide/Smoking/Psychosocial Hx Smoking Status: Yes Smoking History: Unknown if ever smoked Have you smoked in the past 12 months: No Number of Cigarettes Smoked Daily: 10 Information on smoking cessation initiated: No 'Breaking Loose' booklet given: 04/16/17 Hx Alcohol Use: No Drug/Substance Use Hx: No Substance Use Type: None Hx Substance Use Treatment: No *Physical Exam - Vital Signs Last Vital Signs Temp Pulse Resp BP Pulse Ox 98.0 F 129 H 18 121/78 99 01/06/18 00:44 01/06/18 00:44 01/06/18 00:44 01/06/18 00:44 01/06/18 00:44 ED Treatment Course - LABORATORY CBC & Chemistry Diagram: 01/06/18 02:27 01/06/18 02:27 Medical Decision Making - Medical Decision Making A/P: 47 y/o male here for abnormal labs. Assuming it's H&H. Patient is asymptomatic and has normal physical exam. Plan is as follows: 1. Labs Patient's labs aren't much changed since those from yesterday. He states the only reason he is here is because his told him to come back. He has no complaints and is asymptomatic. He does mention following up about his seizures. I will provide him with a Neurologist referral. I strongly encouraged him to avoid drinking alcohol until he follows up with Neurologist and has further work up. Pt instructed to return to the ER with any worsening or concerning symptoms. The patient verbalizes understanding of all instructions, has no further questions and is awaiting discharge. *DC/Admit/Observation/Transfer Diagnosis at time of Disposition: Elevated liver enzymes Alcohol withdrawal seizure Qualifiers: Complication of substance-induced condition: uncomplicated Qualified Code(s): F10.230 - Alcohol dependence with withdrawal, uncomplicated - Discharge Dispostion Disposition: HOME Condition at time of disposition: Good - Referrals Referrals: Pedro Youssef MD [Primary Care Provider] - Yuri Mishra MD [Staff Physician] - - Patient Instructions Printed Discharge Instructions: Seizure Disorder -- Adult Additional Instructions: Discharge Instructions: -Call Dr. Mishra in the morning to schedule follow up appointment -Avoid drinking alcohol until you have further tests performed by Dr. Mishra -Return to the ER immediately with any worsening or concerning symptoms. - Post Discharge Activity
--- NOTE | 2018-01-06 01:40 | PDOC ---
*Physical Exam - Vital Signs Last Vital Signs Temp Pulse Resp BP Pulse Ox 98.0 F 129 H 18 121/78 99 01/06/18 00:44 01/06/18 00:44 01/06/18 00:44 01/06/18 00:44 01/06/18 00:44 ED Treatment Course - LABORATORY CBC & Chemistry Diagram: 01/06/18 02:27 01/06/18 02:27 Medical Decision Making - Medical Decision Making 01/06/18 01:39 agree with care from KENNEY Sanchez *DC/Admit/Observation/Transfer Diagnosis at time of Disposition: Alcohol withdrawal seizure, Elevated liver enzymes - Discharge Dispostion Disposition: HOME Condition at time of disposition: Good - Referrals Referrals: Yuri Mishra MD [Staff Physician] - Pedro Youssef MD [Primary Care Provider] - - Patient Instructions Printed Discharge Instructions: Seizure Disorder -- Adult Additional Instructions: Discharge Instructions: -Call Dr. Mishra in the morning to schedule follow up appointment -Avoid drinking alcohol until you have further tests performed by Dr. Mishra -Return to the ER immediately with any worsening or concerning symptoms. - Post Discharge Activity
[2018-01-06 02:55] LABS: BASO % 0.7 % (0-2.0); EOS % 1.3 % (0-4.5); HEMATOCRIT 29.7 % (35.4-49); HEMOGLOBIN 9.2 GM/dL (11.7-16.9); LYMPH % 17.5 % (8-40); MEAN CELL VOLUME 77.2 fl (80-96); NEUT % 73.5 % (42.8-82.8); PLATELET COUNT 394 K/MM3 (134-434); RBC 3.85 M/mm3 (4.00-5.60); RDW 20.5 % (11.9-15.9); RETICULOCYTES 2.94 % (0.5-1.5); WHITE BLOOD COUNT 11.6 K/mm3 (4.0-10.0)
[2018-01-06 03:20] LABS: ALBUMIN 3.7 g/dl (3.4-5.0); ALK PHOS 162 U/L (45-117); ANION GAP 16 (8-16); BILIRUBIN,TOTAL 0.2 mg/dL (0.2-1.0); BLOOD UREA NITROGEN 10 mg/dL (7-18); CALCIUM 9.2 mg/dL (8.5-10.1); CHLORIDE 103 mmol/L (98-107); CO2 20 mmol/L (21-32); CREATININE 0.8 mg/dL (0.7-1.3); GLUCOSE,RANDOM 83 mg/dL (74-106); POTASSIUM 3.5 mmol/L (3.5-5.1); SGOT/AST 223 U/L (15-37); SGPT/ALT 196 U/L (12-78); SODIUM 139 mmol/L (136-145); TOT PROT 8.2 g/dl (6.4-8.2)
--- NOTE | 2018-01-06 11:54 | EKG ---
Test Reason : Blood Pressure : / mmHG Vent. Rate : 109 BPM Atrial Rate : 109 BPM P-R Int : 160 ms QRS Dur : 096 ms QT Int : 338 ms P-R-T Axes : 053 071 016 degrees QTc Int : 455 ms SINUS TACHYCARDIA OTHERWISE NORMAL ECG WHEN COMPARED WITH ECG OF 03-DEC-2017 20:09, NONSPECIFIC T WAVE ABNORMALITY NOW EVIDENT IN LATERAL LEADS Confirmed by RHIANNON VEGA, ERICH ([id number]) on 01/06/2018 11:54:22 AM Referred By: Confirmed By:ERICH JURADO MD
== END 2018-01-06 04:29 | disposition home or self-care (01) ==
LOC: JER 00:02
DX: R94.5 Abnormal results of liver function studies (principal); C94.6 Myelodysplastic disease, not elsewhere classified; F10.10 Alcohol abuse, uncomplicated
CPT/HCPCS: 36415; 80053; 85025; 85044; 86850; 86900; 86901; 93005; 93010; 99281-25

== ENCOUNTER → 2018-01-07 | Emergency (ER) | payer OTHER ==
[~2018-01-07] MED LIST: chlordiazePOXIDE HCL 25 MG CAPSULE ONE; chlordiazePOXIDE HCL 25 MG CAPSULE PO ONE
--- NOTE | 2018-01-07 02:57 | PDOC ---
History of Present Illness - General Exam Limitations: No Limitations - History of Present Illness Initial Comments: 01/07/18 03:06 The patient is a 47 year old male, with a significant past medical history of asthma, hepatitis C, seizures, EtOH abuse, who presents to the emergency department for the fourth visit in two weeks for various complaints, presents today originally complaining to the nurse that he is having pain. However, upon my interview that patient state he feels like he is going to have a seizure. The patient admits to drinking alcohol just prior to presentation. He denies any headache, chest pain or shortness of breath. Allergies: NKDA Primary Care Physician: Dr. Pedro Youssef <Giuliano George - Last Filed: 01/07/18 03:10> - General History Source: Patient <Luis Keating - Last Filed: 01/07/18 04:40> - General Stated Complaint: PAIN Time Seen by Provider: 01/07/18 02:57 Past History <Giuliano George - Last Filed: 01/07/18 03:10> - Past Medical History Anemia: No Asthma: Yes (ON PRO AIR) Cancer: Yes (myleproliferative disorder-leukemia) Cardiac Disorders: No CVA: No COPD: No CHF: No Dementia: No Diabetes: No GI Disorders: Yes (Colitis) Disorders: No HTN: No Hypercholesterolemia: No Kidney Stones: No Liver Disease: Yes (? CIRROHSIS) Seizures: Yes Thyroid Disease: No - Surgical History Abdominal Surgery: No Appendectomy: No Cardiac Surgery: No Cholecystectomy: No Lung Surgery: No Neurologic Surgery: No Orthopedic Surgery: Yes (SUSAN KNEE REPLACEMENT/ L FEMUR NANCY) - Reproductive History Testicular Surgery: No - Immunization History Immunization Up to Date: Yes - Suicide/Smoking/Psychosocial Hx Smoking Status: Yes Smoking History: Current every day smoker Have you smoked in the past 12 months: Yes Number of Cigarettes Smoked Daily: 10 'Breaking Loose' booklet given: 04/16/17 Hx Alcohol Use: Yes Drug/Substance Use Hx: No Substance Use Type: None Hx Substance Use Treatment: No <Luis Keating - Last Filed: 01/07/18 04:40> - Past Medical History Allergies/Adverse Reactions: Allergies Allergy/AdvReac Type Severity Reaction Status Date / Time No Known Drug Allergies Allergy Verified 01/07/18 02:43 Home Medications: Ambulatory Orders NK [No Known Home Medication] 01/04/18 Review of Systems - Review of Systems Comments:: 01/07/18 03:07 CONSTITUTIONAL: Absent: fever, no chills, no fatigue EYES: Absent: visual changes ENT: Absent: ear pain, no sore throat CARDIOVASCULAR: Absent: chest pain, no palpitations RESPIRATORY: Absent: cough, no SOB GI: Absent: abdominal pain, no nausea, no vomiting, no constipation, no diarrhea GENITOURINARY: Absent: dysuria, no frequency, no hematuria MUSKULOSKELETAL: Absent: back pain, no arthralgia, no myalgia SKIN: Absent: rash NEURO: Present: "Feels like he is going to have a seizure" Absent: headache <Giuliano George - Last Filed: 01/07/18 03:10> *Physical Exam - Vital Signs Last Vital Signs Temp Pulse Resp BP Pulse Ox 98.1 F 125 H 18 119/87 99 01/07/18 03:00 01/07/18 03:00 01/07/18 03:00 01/07/18 03:00 01/07/18 03:00 - Physical Exam Comments: 01/07/18 03:07 GENERAL: Well developed, well nourished. Awake and alert. No acute distress. HEENT: Normocephalic, atraumatic. PERRLA, EOMI. No conjunctival pallor. Sclera are non- icteric. Moist mucous membranes. Oropharynx is clear. NECK: Supple. Full ROM. No JVD. Carotid pulses 2+ and symmetric, without bruits. No thyromegaly. No lymphadenopathy. CARDIOVASCULAR: Regular rate and rhythm. No murmurs, rubs, or gallops. Distal pulses are 2+ and symmetric. PULMONARY: No evidence of respiratory distress. Lungs clear to auscultation bilaterally. No wheezing, rales or rhonchi. ABDOMINAL: Soft. Non-tender. Non-distended. No rebound or guarding. No organomegaly. Normoactive bowel sounds. MUSCULOSKELETAL Normal range of motion at all joints. No bony deformities or tenderness. No CVA tenderness. EXTREMITIES: No cyanosis. No clubbing. No edema. No calf tenderness. SKIN: Warm and dry. Normal capillary refill. No rashes. No jaundice. NEUROLOGICAL: No tremors. No tongue fasciculation. Alert, awake, appropriate. Cranial nerves 2 -12 intact. No deficits to light touch and temperature in face, upper extremities and lower extremities. No motor deficits in the in face, upper extremities and lower extremities. Normoreflexic in the upper and lower extremities. Normal speech. Toes are down-going bilaterally. Gait is normal without ataxia. PSYCHIATRIC: Cooperative. Good eye contact. Appropriate mood and affect. <Giuliano George - Last Filed: 01/07/18 03:10> Medical Decision Making - Medical Decision Making 01/07/18 04:36 Dr. Keating: The scribe's documentation has been prepared under my direction and personally reviewed by me in its entirery. I confirm that the note above accurately reflects all work, treatment, procedures, and medical decision making performed by me. Pt was going to wait to go to [facility] for detox. Pt didn't want to go to [facility] and , who works upstairs on [address], was going to take him elsewhere at she left work. Pt walked out. Gait steady. informed that pt left. <Luis Keating - Last Filed: 01/07/18 04:40> *DC/Admit/Observation/Transfer - Attestations Scribe Attestion: 01/07/18 03:09 Documentation prepared by Giuliano George, acting as biomedical specialist for Luis Keating MD. <Giuliano George - Last Filed: 01/07/18 03:10> - Discharge Dispostion Admit: No <Luis Keating - Last Filed: 01/07/18 04:40> Diagnosis at time of Disposition: Alcohol dependence Qualifiers: Substance use status: unspecified alcohol-induced disorder Qualified Code(s): F10.29 - Alcohol dependence with unspecified alcohol-induced disorder - Discharge Dispostion Disposition: ELOPED Condition at time of disposition: Stable - Referrals Referrals: Pedro Youssef MD [Primary Care Provider] - - Patient Instructions Printed Discharge Instructions: DI for Alcohol Abuse - Post Discharge Activity
[2018-01-07 03:05] VITALS: BP 119/87; PULSE 125; TEMP 98.1; BMI 21.9
== END | disposition left against medical advice (07) ==
LOC: JER 02:28
DX: F10.29 Alcohol dependence with unspecified alcohol-induced disorder (principal); J45.909 Unspecified asthma, uncomplicated; B19.20 Unspecified viral hepatitis C without hepatic coma; F17.210 Nicotine dependence, cigarettes, uncomplicated
CPT/HCPCS: 99281-25

== ENCOUNTER 2018-07-15 17:22 | Emergency (ER) | payer OTHER ==
--- NOTE | 2018-07-15 17:25 | PDOC ---
Rapid Medical Evaluation Time Seen by Provider: 07/15/18 17:25 Medical Evaluation: Allergies Allergy/AdvReac Type Severity Reaction Status Date / Time No Known Drug Allergies Allergy Verified 07/15/18 17:25 I have performed a brief in-person evaluation of this patient. The patient presents with a chief complaint of: Dr. Angelika Youssef sent him here for fluids. He is worried the patient is going to have an ETOH withdrawal, which has caused seizures in the past. Patient does admit he drank alcohol this morning Pertinent physical exam findings: none I have ordered the following: labs, IV The patient will proceed to the ED for further evaluation. Discharge Disposition - Diagnosis Dehydration, Alcohol withdrawal - Referrals - Patient Instructions - Post Discharge Activity
[2018-07-15 17:31] VITALS: BP 149/92; PULSE 88; TEMP 98.9; BMI 23.6
[2018-07-15 18:54] LABS: URINE APPEARANCE CLEAR; URINE BILIRUBIN NEGATIVE (<2.0 mg/dL); URINE COLOR AMBER; URINE GLUCOSE (UA) NEGATIVE (NEGATIVE); URINE KETONE 1+ (NEGATIVE); URINE LEUK ESTERASE NEGATIVE (NEGATIVE); URINE NITRITE NEGATIVE (NEGATIVE); URINE UROBILINOGEN 4.0 E.U/dl mg/dL (0.2-1.0)
[2018-07-15 18:58] LABS: URINE PROTEIN 3+ (NEGATIVE)
[2018-07-15 19:00] LABS: EOS % 0.2 % (0-4.5); HEMATOCRIT 34.9 % (35.4-49); HEMOGLOBIN 10.8 GM/dL (11.7-16.9); LYMPH % 15.9 % (8-40); MCH 23.5 pg (25.7-33.7); MCHC 30.9 g/dl (32.0-35.9); MEAN CELL VOLUME 75.9 fl (80-96); MEAN PLT VOLUME 7.1 fl (7.5-11.1); MONO % 6.2 % (3.8-10.2); NEUT % 76.7 % (42.8-82.8); PLATELET COUNT 396 K/MM3 (134-434); RDW 19.3 % (11.9-15.9); WHITE BLOOD COUNT 11.8 K/mm3 (4.0-10.0)
[2018-07-15 19:05] LABS: EPI CELLS RARE /HPF (FEW); URINE BACTERIA RARE /hpf (NONE SEEN); URINE MUCUS RARE
[2018-07-15] MEDS ORDERED: ONDANSETRON 4 MG/2 ML VIAL IVPUSH ONE (19:05)
[2018-07-15] MEDS ORDERED: SODIUM CHLORIDE 1,000 ML IV STA (19:05)
--- NOTE | 2018-07-15 19:05 | PDOC ---
History of Present Illness - General Chief Complaint: Nausea/Vomiting Stated Complaint: PCP SENT/PAIN Time Seen by Provider: 07/15/18 17:25 - History of Present Illness Initial Comments: 07/15/18 19:00 48 yo M with h/o asthma, hep-C, seizure disorder, Etoh dependence who p/w nausea and vomiting. Patient reports chronic nausea and intermittent vomiting x 1 month, with acute exacerbation x 2 days. Patient reports 2-3 episodes of non bilious, non bloody emesis x 2 days, aggravated with PO intake. + lightheadedness x 1 day, with no LOC. Normal stools, with absent BPR. Patient denies WRIGHT, convulsions, hallucinations, F,C, CP, SOB, urinary complaints , abdominal pain, diarrhea, constipation, lightheadedness, weakness, sensory changes. PMHx: as noted above. Denies h/o abdominal pain. Reports endoscopy x 1-2 months ago, with self reported intestinal tract erosion. H/o unremarkable colonoscopies. Denies chronic NSAID use. Denies h/o ACS/MS or stent placement. ROS: as noted SHx: Daily Etoh ( 1 pint Vodka per day), 1/2 ppd tobacco use x 20+ years. Denies IVDA. Allergies: NKDA Past History - Past Medical History Allergies/Adverse Reactions: Allergies Allergy/AdvReac Type Severity Reaction Status Date / Time No Known Drug Allergies Allergy Verified 07/15/18 17:25 Home Medications: Ambulatory Orders Methadone [Dolophine -] 5 mg PO DAILY 07/15/18 Metoclopramide HCl [Reglan] 5 mg PO ACDIN PRN 07/15/18 Pantoprazole Sodium [Protonix] 40 mg PO BID 07/15/18 Ranitidine [Zantac -] 150 mg PO BID 07/15/18 Anemia: No Asthma: Yes (ON PRO AIR) Cancer: Yes (myleproliferative disorder-leukemia) Cardiac Disorders: No CVA: No COPD: No CHF: No Dementia: No Diabetes: No GI Disorders: Yes (Colitis) Disorders: No HTN: No Hypercholesterolemia: No Kidney Stones: No Liver Disease: Yes (? CIRROHSIS) Seizures: Yes (ALCOHOL RELATED) Thyroid Disease: No - Surgical History Abdominal Surgery: No Appendectomy: No Cardiac Surgery: No Cholecystectomy: No Lung Surgery: No Neurologic Surgery: No Orthopedic Surgery: Yes (SUSAN KNEE REPLACEMENT/ L FEMUR NANCY) - Reproductive History Testicular Surgery: No - Immunization History Immunization Up to Date: Yes - Suicide/Smoking/Psychosocial Hx Smoking Status: Yes Smoking History: Current every day smoker Have you smoked in the past 12 months: Yes Number of Cigarettes Smoked Daily: 10 Information on smoking cessation initiated: Yes 'Breaking Loose' booklet given: 07/15/18 Hx Alcohol Use: Yes (PINET DAILY) Drug/Substance Use Hx: No Substance Use Type: None Hx Substance Use Treatment: No Review of Systems - Review of Systems Comments:: 07/15/18 19:11 GENERAL/CONSTITUTIONAL: No fever or chills. No weakness. HEAD, EYES, EARS, NOSE AND THROAT: No change in vision. No ear pain or discharge. No sore throat. CARDIOVASCULAR: No chest pain or shortness of breath RESPIRATORY: No cough, wheezing, or hemoptysis. GASTROINTESTINAL: + nausea, vomiting. No diarrhea or constipation. GENITOURINARY: No dysuria, frequency, or change in urination. MUSCULOSKELETAL: No joint or muscle swelling or pain. No neck or back pain. SKIN: No rash NEUROLOGIC: No headache, vertigo, loss of consciousness, or change in strength/ sensation. ENDOCRINE: No increased thirst. No abnormal weight change HEMATOLOGIC/LYMPHATIC: No anemia, easy bleeding, or history of blood clots. ALLERGIC/IMMUNOLOGIC: No hives or skin allergy. *Physical Exam - Vital Signs Last Vital Signs Temp Pulse Resp BP Pulse Ox 98.9 F 88 18 149/92 100 07/15/18 17:27 07/15/18 17:27 07/15/18 17:27 07/15/18 17:27 07/15/18 17:27 - Physical Exam Comments: 07/15/18 19:13 GENERAL: Awake, alert, and fully oriented, in no acute distress HEAD: No signs of trauma, normocephalic, atraumatic EYES: PERRLA, EOMI, sclera anicteric, conjunctiva clear ENT: Hearing grossly normal, nares patent, oropharynx clear without exudates. Moist mucosa NECK: Normal ROM, supple, no lymphadenopathy, JVD, or masses LUNGS: No distress, speaks full sentences, clear to auscultation bilaterally HEART: Regular rate and rhythm, normal S1 and S2, no murmurs, rubs or gallops, peripheral pulses normal and equal bilaterally. ABDOMEN: Soft, nontender, normoactive bowel sounds. No guarding, no rebound, no rigidity. No masses. Neg CVA ttp. EXTREMITIES : Normal inspection, Normal range of motion, no edema. No clubbing or cyanosis. NEUROLOGICAL: Cranial nerves II through XII grossly intact. Normal speech, normal gait, no focal sensorimotor deficits. SKIN: Warm, Dry, normal turgor, no rashes or lesions noted ED Treatment Course - LABORATORY CBC & Chemistry Diagram: 07/15/18 18:50 07/15/18 18:50 - ADDITIONAL ORDERS Additional order review: Laboratory Results 07/15/18 17:53 Urine Color [place] Urine Appearance Clear Urine pH 6.0 Ur Specific [place] 1.026 Urine Protein 3+ H Urine Glucose (UA) Negative Urine Ketones 1+ H Urine Blood 1+ H Urine Nitrite Negative Urine Bilirubin Negative Urine Urobilinogen 4.0 e.u/dl Ur Leukocyte Esterase Negative Medical Decision Making - Medical Decision Making 07/15/18 19:14 48 yo M with h/o asthma, MDS, hep-C, seizure disorder, Etoh dependence who p/w nausea and vomiting x 2 days. VSS, AF, A&Ox3. Patient referred to ED for concern of Etoh Withdrawal. Patient CIWA 2. Low suspicion Delirium Tremens. Low suspicion SBO. Will consider biliary dz., pancreatitis, GERD, gastritis, PUD. Low suspicion appendicitis, diverticulitis/osis, colitis. Will asses for electrolyte abnml, metabolic or toxic derangements, acid base disturbances, infxn. ED Course: CBC, CMP, Lipase NS, Zofran 07/15/18 21:06 AST/ALT: 188/122, 07/15/18 21:07 Alk Phosph: 217 UA: Neg 07/15/18 22:35 RUQ U/S: Hepatomegaly with fatty infiltrtion vs. hepatobiliary disease. 07/15/18 22:46 Pt. asymptomatic and tolerating PO intake. Stable for d/c with return precautions. Advised to f/u with PMD. *DC/Admit/Observation/Transfer Diagnosis at time of Disposition: Dehydration, Acute vomiting - Discharge Dispostion Condition at time of disposition: Stable Decision to Admit order: No - Referrals - Patient Instructions Printed Discharge Instructions: DI for Vomiting -- Adult Additional Instructions: Please return to the emergency department with any new or worsening symptoms or concerns. Please follow up with your primary care physician within 72 hours. - Post Discharge Activity - Attestations Physician Attestion: 07/15/18 22:47 I attest to the information provided in this note.
--- NOTE | 2018-07-15 19:27 | PDOC ---
Attending Attestation - HPI HPI: 07/15/18 20:13 The patient is a 48 year old male with a significant past medical history of asthma, hep-C, seizure disorder, ETOH dependence who presents to the ED, sent by PMD, with complaints of nausea and vomiting for the past month. Patient reports chronic nausea and vomiting for the past month but notes his symptoms have progressively worsened the past 2 days. Patient states he is unable to keep anything down and cannot tolerate PO intake secondary to the vomiting. He reports 2-3 episodes of nonbilious vomiting earlier today. Patient also reports slight lightheadedness associated with present symptoms. Patient saw his PCP earlier today and was told to come into the ED. Patient states he drank vodka before coming into the ED. Denies fever or chills. Denies abdominal pain, diarrhea, or constipation. Denies headache. Denies shortness of breath or chest pain. Denies any other symptoms. Social hx: Patient states he drinks half a pint of vodka a day. PCP: Dr. Youssef Documentation prepared by Vandana Wood, acting as infertility medical assistant for Ingrid Ceballos DO - Physicial Exam PE: 07/15/18 20:14 Constitutional: + smell of alcohol on breath. Awake, alert, oriented. No acute distress. Head: Normocephalic. Atraumatic Eyes: PERRL. EOMI. Conjunctivae are not pale. ENT: Mucous membranes are moist and intact. Posterior pharynx without exudates or erythema. Uvula midline. Neck: Supple. Full ROM. No lymphadenopathy. Cardiovascular: Regular rate. Regular rhythm. S1, S2 regular. Distal pulses are 2+ and symmetric. Pulmonary/Chest: No evidence of respiratory distress. Clear to auscultation bilaterally No wheezing, rales or rhonchi. Abdominal: Soft and non-distended. There is no tenderness. No rebound, guarding or rigidity. No organomegaly. No palpable masses. Good bowel sounds. Back: No CVA tenderness. Musculoskeletal: No edema. No cyanosis. No clubbing. Full range of motion in all extremities. Nocalf tenderness. Radial/pedal pulses are intact and 2+ bilaterally Skin: Skin is warm and dry. No petechiae. No purpura. Neurological: Alert and oriented to person, place, and time. Cranial nerves II -XII are grossly intact. Normal speech, speakig full sentences. Strength is grossly symmetric. No sensory deficits. Psychiatric: Good eye contact. Normal interaction, affect and behavior. <Vandana Wood - Last Filed: 07/15/18 20:13> - Resident Resident Name: Gil Murcia - ED Attending Attestation I have performed the following: I have examined & evaluated the patient, The case was reviewed & discussed with the resident, I agree w/resident's findings & plan, Exceptions are as noted - Medical Decision Making 07/15/18 19:26 I, Dr. Ingrid Ceballos, DO, attest that this document has been prepared under my direction and personally reviewed by me in its entirety. I further attest, that it accurately reflects all work, treatment, procedures and medical decision -making performed by me. 07/15/18 20:29 48yo male sent from Dr. Angelika Youssef for eval of 1 month of n/v and poss alcohol withdrawal -pt went to Dr. Angelika Youssef, then went home and drank a pint of vodka -pt with smell of etoh on his breath, but speaks in clear full sentences -pt denies wanting detox or rehab -pt states intermittent vomiting, nausea daily -nonbilious/nonbloody vomitus -pt is currently not in withdrawal - no tongue fasciculations or tremors -no nausea currently -will send labs, ultrasound -will monitor and reassess 07/15/18 22:41 chronic transaminitis no gallstones hepatocellular disease on ultrasound will need GI eval 07/15/18 22:41 stable for d/c to home <Ingrid Ceballos - Last Filed: 07/15/18 22:57>
[2018-07-15] MEDS ORDERED: ONDANSETRON 4 MG/2 ML VIAL ONE (19:49)
[2018-07-15 19:53] LABS: ALBUMIN 3.9 g/dl (3.4-5.0); ALK PHOS 217 U/L (45-117); ANION GAP 14 MMOL/L (8-16); BILIRUBIN,TOTAL 0.6 mg/dL (0.2-1); BLOOD UREA NITROGEN 11 mg/dL (7-18); CALCIUM 10.1 mg/dL (8.5-10.1); CHLORIDE 99 mmol/L (98-107); CO2 22 mmol/L (21-32); CREATININE 0.7 mg/dL (0.55-1.3); GLUCOSE,RANDOM 73 mg/dL (74-106); MAGNESIUM 1.9 mg/dL (1.8-2.4); POTASSIUM 4.5 mmol/L (3.5-5.1); SGOT/AST 188 U/L (15-37); SGPT/ALT 122 U/L (13-61); SODIUM 135 mmol/L (136-145); TOT PROT 9.2 g/dl (6.4-8.2)
[2018-07-15] MEDS ORDERED: THIAMINE HCL 100 MG TABLET (FP) PO ONE (20:09)
[2018-07-15] MEDS ORDERED: FOLIC ACID 1 MG TABLET (FP) PO ONE (20:09)
[2018-07-15] MEDS ORDERED: MULTIVITAMINS (DAILY MVI) TABLET (FP) PO ONE (20:13)
== END 2018-07-15 23:09 | disposition home or self-care (01) ==
LOC: JER 17:22
PROC: 3E033GC Introduction of Other Therapeutic Substance into Peripheral Vein, Percutaneous Approach (ICD-10-PCS; principal; 2018-07-15)
DX: E86.0 Dehydration (principal); F10.20 Alcohol dependence, uncomplicated; J45.909 Unspecified asthma, uncomplicated; G40.509 Epileptic seizures related to external causes, not intractable, without status epilepticus; B18.2 Chronic viral hepatitis C; Z96.653 Presence of artificial knee joint, bilateral
CPT/HCPCS: 36415; 76705-TC; 80053; 81003; 81015; 83690; 83735; 85025; 99283-25; J7030

== ENCOUNTER 2019-03-28 13:54 | Inpatient (IN) | payer OTHER | END 2019-03-31 09:18 | disposition left against medical advice (07) | LOC: JER 13:54 → JERBED 19:10 → J4W 20:48 ==

== ENCOUNTER 2019-09-09 14:45 | Emergency (ER) | payer OTHER ==
[2019-09-09 14:52] VITALS: BP 141/99; PULSE 100; TEMP 98.7; BMI 24.3
--- NOTE | 2019-09-09 14:53 | PDOC ---
Rapid Medical Evaluation Medical Evaluation: Allergies Allergy/AdvReac Type Severity Reaction Status Date / Time No Known Drug Allergies Allergy Verified 03/28/19 14:16 I have performed a brief in-person evaluation of this patient. The patient presents with a chief complaint of: had seizure last night, fell in tub; has had seizures prior from alcohol; states last drink was last week; is not on meds for seizures; no LOC occurred (seizure was witnessed); patient last had seizure in July; denies drug use; patient also mentions having CP x 1 hr along with palpitations yesterday prior to seizure Pertinent physical exam findings: In NAD, no cspine tenderness, no head trauma, supple I have ordered the following: Labs, EKG The patient will proceed to the ED for further evaluation. 09/09/19 14:49
[2019-09-09 15:40] LABS: BASO % 0.7 % (0-2.0); EOS % 0.2 % (0-4.5); HEMATOCRIT 38.3 % (35.4-49); HEMOGLOBIN 12.1 GM/dL (11.7-16.9); LYMPH % 14.3 % (8-40); MCH 25.3 pg (25.7-33.7); MCHC 31.7 g/dl (32.0-35.9); MEAN CELL VOLUME 79.9 fl (80-96); MEAN PLT VOLUME 7.7 fl (7.5-11.1); MONO % 7.4 % (3.8-10.2); NEUT % 77.4 % (42.8-82.8); PLATELET COUNT 307 K/MM3 (134-434); RBC 4.79 M/mm3 (4.00-5.60); RDW 18.1 % (11.9-15.9); WHITE BLOOD COUNT 10.6 K/mm3 (4.0-10.0)
[2019-09-09] MEDS ORDERED: SODIUM CHLORIDE 0.9% 1000 ML INFUS.BAG IV ONE ×2 (16:06)
[2019-09-09 16:15] LABS: ALBUMIN 3.8 g/dl (3.4-5.0); ALK PHOS 216 U/L (45-117); ANION GAP 6 MMOL/L (8-16); BILIRUBIN,TOTAL 0.9 mg/dL (0.2-1); BLOOD UREA NITROGEN 14.6 mg/dL (7-18); CALCIUM 9.7 mg/dL (8.5-10.1); CHLORIDE 97 mmol/L (98-107); CO2 29 mmol/L (21-32); CREATININE 0.9 mg/dL (0.55-1.3); GLUCOSE,RANDOM 86 mg/dL (74-106); MAGNESIUM 1.6 mg/dL (1.8-2.4); POTASSIUM 4.1 mmol/L (3.5-5.1); SGOT/AST 350 U/L (15-37); SGPT/ALT 191 U/L (13-61); SODIUM 132 mmol/L (136-145); TOT PROT 8.7 g/dl (6.4-8.2)
--- NOTE | 2019-09-09 16:21 | PDOC ---
History of Present Illness - General Chief Complaint: Weakness Stated Complaint: WEAKNESS Time Seen by Provider: 09/09/19 14:47 Past History - Past Medical History Allergies/Adverse Reactions: Allergies Allergy/AdvReac Type Severity Reaction Status Date / Time No Known Drug Allergies Allergy Verified 09/09/19 20:40 Home Medications: Ambulatory Orders Methadone [Dolophine -] 5 mg PO DAILY 07/15/18 Anemia: No Asthma: Yes (ON PRO AIR) Cancer: Yes (myleproliferative disorder-leukemia) Cardiac Disorders: No CVA: No COPD: No CHF: No Dementia: No Diabetes: No GI Disorders: Yes (Colitis) Disorders: No HTN: No Hypercholesterolemia: No Kidney Stones: No Liver Disease: Yes (? CIRROHSIS) Seizures: Yes (ALCOHOL RELATED) Thyroid Disease: No - Surgical History Abdominal Surgery: No Appendectomy: No Cardiac Surgery: No Cholecystectomy: No Lung Surgery: No Neurologic Surgery: No Orthopedic Surgery: Yes (SUSAN KNEE REPLACEMENT/ L FEMUR NANCY) - Reproductive History Testicular Surgery: No - Immunization History Immunization Up to Date: Yes - Psycho Social/Smoking Cessation Hx Smoking Status: Yes Smoking History: Current every day smoker Have you smoked in the past 12 months: No Number of Cigarettes Smoked Daily: 10 Information on smoking cessation initiated: No 'Breaking Loose' booklet given: 07/15/18 Hx Alcohol Use: Yes Drug/Substance Use Hx: No Substance Use Type: None Hx Substance Use Treatment: No *Physical Exam - Vital Signs Last Vital Signs Temp Pulse Resp BP Pulse Ox 98.7 F 100 H 18 141/99 100 09/09/19 14:46 09/09/19 14:46 09/09/19 14:46 09/09/19 14:46 09/09/19 14:46 ED Treatment Course - LABORATORY CBC & Chemistry Diagram: 09/09/19 15:17 09/09/19 15:17 - ADDITIONAL ORDERS Additional order review: Laboratory Results 09/09/19 15:17 Sodium 132 L Potassium 4.1 Chloride 97 L Carbon Dioxide 29 Anion Gap 6 L BUN 14.6 Creatinine 0.9 Est GFR (CKD-EPI)AfAm 116.65 Est GFR (CKD-EPI)NonAf 100.64 Random Glucose 86 Calcium 9.7 Magnesium 1.6 L Total Bilirubin 0.9 AST 350 H ALT 191 H Alkaline Phosphatase 216 H Troponin I < 0.02 Total Protein 8.7 H Albumin 3.8 09/09/19 15:17 RBC 4.79 MCV 79.9 L MCHC 31.7 L RDW 18.1 H MPV 7.7 Neutrophils % 77.4 Lymphocytes % 14.3 Monocytes % 7.4 Eosinophils % 0.2 Basophils % 0.7 Medical Decision Making - Medical Decision Making 09/09/19 16:16 HPI: 49yo M hx smoking, alcohol abuse and alcohol withdrawal seizures not on meds ( associated with stopping alcohol, never been on meds, last seizure end July, last here for seizure in March) presents for seizure yesterday. Last drink 3 days ago, 2 beers that day, daily alcohol varies but states 2-3 12oz beers daily. States not feeling well x1 week, lightheaded worse with standing from seated, nauseous, not eating much, multiple episodes of vomiting, and headaches. States passed out last night in tub but doesn't remember. witnessed and states pt had seizure with foaming of mouth, shaking of all extremities, no urinary/bowel incontinence. Pt remembers waking up in tub and having bitten his tongue. Continued generalized weakness and lightheadedness today so came in. States it's exactly the same as alcohol withdrawal seizures in the past and wants detox. Denies head injury, trauma, fever, chills, diarrhea , inability to pass gas, cough, difficulty breathing, numbness/tingling, focal weakness, vision changes, chest pain, palpitations, leg swelling, abdominal pain , blood in stool, dysuria, hematuria, confusion, drug use. ROS: Constitutional: Positive for diaphoresis. Negative for chills, fever, fatigue. HENT: Negative for sore throat, rhinorrhea, congestion. Eyes: Negative for visual disturbance. Respiratory: Negative for shortness of breath, cough, and wheezing. Cardiovascular: Negative for chest pain, palpitations, and leg swelling. Gastrointestinal: Positive for nausea, vomiting, constipation. Negative for abdominal pain, blood in stool, diarrhea. Genitourinary: Negative for dysuria, flank pain, and hematuria. Musculoskeletal: Negative for myalgias, back pain, and neck pain. Skin: Negative for rash. Neurological: Positive for headache, light-headedness, vertigo, syncope, seizure. Negative for weakness, numbness. Psychiatric/Behavioral: Positive for alcohol use. Negative for behavioral problems and confusion. PE: Gen: Alert, NAD, comfortable-appearing, tremulous HEENT: +tongue fasciculations, PERRL, EOMI, MMM, NCAT. No conjunctival pallor. Sclera are non-icteric. CV: Regular rate and rhythm. No murmurs, rubs, or gallops. PULM: No resp distress. CTAB, no wheezes, rales, or rhonchi. ABD: soft, NT/ND, no rebound tenderness or guarding, no CVA tenderness. BACK: No TTP of c/t/l-spine. No step-offs or deformities. MSK: No bony deformities. 2+ pulses in all extremities. NEURO: AAOx3. PERRL. CN 2-12 intact. 5/5 strength in all extremities. Sensation to light touch intact in all extremities. No pronator drift. No dysmetria. No dysdiadochokinesia. No abnormal nystagmus. Normal gait. EXTREMITIES: No cyanosis. No clubbing. No edema. No calf tenderness. PSYCH: Mildly anxious mood and normal thought pattern. SKIN: Warm, light sweat. Normal capillary refill. No rashes. No jaundice. MDM: 49yo M hx smoking, alcohol abuse and alcohol withdrawal seizures not on meds ( associated with stopping alcohol, never been on meds, last seizure end July, last here for seizure in March) presents for generalized weakness, nausea, headache, and tremor since seizure yesterday, consistent with prior alcohol withdrawal seizures. Tachycardic 100, other VSS. CIWA 11 (intermittent nausea with dry heaves 4, some tremor 2, barely perceptible sweating 1, mildly anxious 1, very mild itching 1, very mild auditory disturbances 1, very mild WRIGHT 1). Presentation consistent with mild withdrawal. Consider and r/o other etiologies including ACS/AK, arrythmia, ICH, infection, metabolic derangement, or anemia. -EKG -CBC,CMP,Trop -CTH -CXR -Librium for withdrawal -Dispo: likely d/c to [facility] 09/09/19 18:21 Reviewed CTH, CXR, Labs, EKG. No concerning findings. Consistent with alcohol use. EKG: NSR, 81bpm, QTc 436ms, normal axis, TWI in V3, no ST elevations or depressions Withdrawal symptoms resolved at this time. Pt ambulates without difficulty. A& Ox3. Safe for dc to [facility]. Will dc home with PCP f/u. Return precautions given. Pt understands all dc instructions and all questions were answered. Discharge - Discharge Information Problems reviewed: Yes Clinical Impression/Diagnosis: Alcohol withdrawal seizure Qualifiers: Complication of substance-induced condition: uncomplicated Qualified Code(s): F10.230 - Alcohol dependence with withdrawal, uncomplicated Condition: Improved Disposition: HOME - Admission No - Follow up/Referral Referrals: Pedro Youssef MD [Primary Care Provider] - - Patient Discharge Instructions Patient Printed Discharge Instructions: DI for Delirium Tremens, DI for Drug or Alcohol Withdrawal Additional Instructions: You have been seen in the Emergency Department for your seizure, most likely due to alcohol withdrawal. You improved with Librium, but you will most likely need additional Librium to ensure a safe recovery. We have discussed going to [facility] to help with your detox and you have agreed to go. Security will escort you now. Please follow the instructions of the Detox Facility. Also follow-up with your primary care doctor within 1 week. As you know, excessive alcohol use is dangerous and can cause many dangerous health problems including but not limited to and permanent disability. Follow the detox recommendations. Good luck on your recovery! Return to the ED immediately if you experience another seizure, chest pain, difficulty breathing, dizziness, or any other new or worsening symptom. - Post Discharge Activity
--- NOTE | 2019-09-09 16:27 | PDOC ---
Documentation entered by Nayely Napier SCRIBE, acting as scribe for Varun Esaprza MD. Varun Esparza MD: This documentation has been prepared by the Quyen guerra Xhesika, SCRIBE, under my direction and personally reviewed by me in its entirety. I confirm that the documentation accurately reflects all work, treatment, procedures, and medical decision making performed by me. Attending Attestation - Resident Resident Name: Carleen Deleon - HPI HPI: 09/09/19 16:18 The patient is a 49 year old male, with a significant past medical history of myeloproliferative disorder-leukemia, colitis, asthma, Hep-C, seizure disorder, and EtOH dependence (last drink 3 days ago), who presents to the emergency department s/p seizure last night. As per patient, his seizures are triggered when he stops drinking and his last drink (beer) was 3 days ago. notes patients previous seizures were 07/2019 and 03/2019. The patient denies shortness of breath, headache and dizziness. Denies fever, chills, cough, nausea, vomiting, diarrhea and constipation. Denies dysuria, frequency, urgency and hematuria.th. Allergies: NKDA Social History:EtOH dependence - last drink 3 days ago. Primary Care Physician: Dr. Youssef - Physicial Exam PE: 09/09/19 16:18 Vitals: Triage Vital signs reviewed General Appearance: no acute distress, well nourished well developed, Throat: Posterior oropharynx without erythema. + mild tongue fasciculation. Neck: Supple;No Nuchal rigidity Cardiac: Regular rate and rhythm, no murmurs, no rubs, no gallops Extremities: Full range of motion to all extremities, no cyanosis, clubbing, or edema Skin: Warm and dry, no rashes or lesions, no petechiae Neuro: AOX3; Cranial Nerves 2-12 grossly c intact, Strength intact to all extremities, Sensation intact to all extremities, gait normal Psych: normal mood, normal affect
[2019-09-09] MEDS ORDERED: chlordiazePOXIDE HCL 25 MG CAPSULE PO ONE (16:38)
[2019-09-09] MEDS ORDERED: chlordiazePOXIDE HCL 25 MG CAPSULE ONE (16:56)
[2019-09-09] MEDS ORDERED: MAGNESIUM SULF 50% (8.12 MEQ/2 ML-1 GM VIAL) IVPB ONE (17:24)
[2019-09-09] MEDS ORDERED: MAGNESIUM 1GM/D5W - 1 GM/100 ML IVPB IVPB ONE (17:47)
--- NOTE | 2019-09-10 17:57 | EKG ---
Test Reason : Blood Pressure : / mmHG Vent. Rate : 081 BPM Atrial Rate : 081 BPM P-R Int : 142 ms QRS Dur : 096 ms QT Int : 376 ms P-R-T Axes : 009 066 030 degrees QTc Int : 436 ms NORMAL SINUS RHYTHM VOLTAGE CRITERIA FOR LEFT VENTRICULAR HYPERTROPHY CANNOT RULE OUT SEPTAL INFARCT , AGE UNDETERMINED ABNORMAL ECG WHEN COMPARED WITH ECG OF 28-MAR-2019 15:11, NO SIGNIFICANT CHANGE WAS FOUND Confirmed by MD Augusto, Zhen ([id number]) on 09/10/2019 5:57:28 PM Referred By: Confirmed By:Zhen Casas MD
== END 2019-09-09 19:04 | disposition home or self-care (01) ==
LOC: JER 14:45
PROC: 3E033GC Introduction of Other Therapeutic Substance into Peripheral Vein, Percutaneous Approach (ICD-10-PCS; principal; 2019-09-09)
DX: G40.509 Epileptic seizures related to external causes, not intractable, without status epilepticus (principal); F10.20 Alcohol dependence, uncomplicated; G40.909 Epilepsy, unspecified, not intractable, without status epilepticus; F11.20 Opioid dependence, uncomplicated; Z87.19 Personal history of other diseases of the digestive system; Z85.6 Personal history of leukemia; F17.210 Nicotine dependence, cigarettes, uncomplicated
CPT/HCPCS: 36415; 70450-TC; 71046-TC-FY; 80053; 83735; 84484; 85025; 93005; 93010; 99283-25; J7030

== ENCOUNTER 2019-09-09 20:11 | Inpatient (IN) | payer OTHER ==
[2019-09-09 20:47] VITALS: BMI 25.1
--- NOTE | 2019-09-09 22:39 | HP ---
CIWA Score Nausea/Vomitin-No Nausea/No Vomiting Muscle Tremors: 1-None Visible, but [place] Anxiety: 1-Mildly Anxious Agitation: 1-Slight > Activity Paroxysmal Sweats: 3 Orientation: 1-Uncertain about Date Tacttile Disturbances: 2-Mild Itch/Numbness/Burn Auditory Disturbances: 0-None Visual Disturbances: 0-None Headache: 2-Mild CIWA-Ar Total Score: 11 - Admission Criteria [facility]ASAS Guidelines: Admission for Medically Managed Detox: Requires at least one of the followin. CIWA greater than 12 2. Seizures within the past 24 hours 3. Delirium tremens within the past 24 hours 4. Hallucinations within the past 24 hours 5. Acute intervention needed for co occurring medical disorder 6. Acute intervention needed for co occurring psychiatric disorder 7. Severe withdrawal that cannot be handled at a lower level of care (continued vomiting, continued diarrhea, abnormal vital signs) requiring intravenous medication and/or fluids 8. Patient presents the following: Seizures, delirium tremens or hallucinations in the past 12 hours (s/p seizure less than 12 hours ago. 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) Cardiovascular: Yes: Hyperlipdemia Pulmonary: Yes: Asthma Gastrointestinal: Yes: Constipation, Gastritis, GERD, Hemorrhoids, Hiatal Hernia , Ulcerative Colitis, Other (POSSIBLE BEAL'S) Hepatobiliary: Yes: Other (ALCOHOLIC HEPATITIS, STEATOSIS (ALCOHOL AND FAT)) Renal/: Yes: Renal Calculi Heme/Onc: Yes: Myeloproliferative Synd, Other (CML) Psych: Yes: Addictions Musculoskeletal: Yes: Chronic low back pain, Osteoarthritis, Other (HIP AND KNEE SURGERY) Dermatology: Yes: Other (TATTOOS) - Past Surgical History Past Surgical History: Yes: Colonoscopy, Joint Replacement, Upper Endoscopy - Smoking History Smoking history: Current every day smoker Have you smoked in the past 12 months: No Aproximately how many cigarettes per day: 10 - Alcohol/Substance Use Hx Alcohol Use: Yes Number of Drinks Daily: 8 (ALSO ONE BOTTLE VODKA (FEBRUARY)) History of Substance Use: reports: None Admission ROS S - HPI Chief Complaint: seeking detox for alcoholism Allergies/Adverse Reactions: Allergies Allergy/AdvReac Type Severity Reaction Status Date / Time No Known Drug Allergies Allergy Verified 09/09/19 20:40 History of Present Illness: 49 Y.O. MALE WITH LONG HX/ O ALCOHOLISM HERE FOR DETOX. CLIENT IS REFERRED BY [facility] AFTER BEING BROUGHT THERE FOR A SEIZURE EARLIER TODAY. HE HAS SINCE BEEN SEEN/CLEARED AND REFERRED FOR DETOX. HEAD CT NEGATIVE. CLIENT REPORTS DAILY ALCOHOL INTAKE, LAST BEING ABOUT 1 WEEK AGO. + WITHDRAWAL SEIZURE, BLACK OUTS, DENIES AVH, SI. HES ALSO ON METHADONE 5 MG PO DAILY FOR PAIN MGMT. REPORTS LONGEST CLEAN TIME 2 MONTHS DENIES ANY THIS PAST YEAR UNTIL RECENT ATTEMPT OF 3 WEEKS. LIVE HOME WITH , EMPLOYED, DENIES LEGALS. Exam Limitations: No Limitations - Ebola screening Have you traveled outside of the country in the last 21 days: No (N) Have you had contact with anyone from an Ebola affected area: No Do you have a fever: No - Review of Systems Constitutional: Chills, Loss of Appetite, Night Sweats, Changes in sleep EENT: reports: Dental Problems (MISSING TEETH) Respiratory: reports: No Symptoms reported Cardiac: reports: No Symptoms Reported GI: reports: Poor Appetite, Poor Fluid Intake : reports: No Symptoms Reported Musculoskeletal: reports: Neck Pain (ACUTE S/P SEIZURE) Integumentary: reports: No Symptoms Reported Neuro: reports: Headache, Seizure (S/P 12 HOURS AGO), Dizziness Endocrine: reports: No Symptoms Reported Hematology: reports: No Symptoms Reported Psychiatric: reports: Judgement Intact, Orientated x3 Other Systems: Reviewed and Negative Patient History - Patient Medical History Hx Anemia: No Hx Asthma: Yes (ON PRO AIR) Hx Chronic Obstructive Pulmonary Disease (COPD): No Hx Cancer: Yes (myleproliferative disorder-leukemia) Hx Cardiac Disorders: No Hx Congestive Heart Failure: No Hx Hypertension: No Hx Hypercholesterolemia: No Hx Pacemaker: No HX Cerebrovascular Accident: No Hx Seizures: Yes (ALCOHOL RELATED) Hx Dementia: No Hx Diabetes: No Hx Gastrointestinal Disorders: Yes (Colitis) Hx Liver Disease: Yes (ELEVATED ENZYMES) Hx Genitourinary Disorders: No Hx Sexually Transmitted Disorders: No Hx Renal Disease (ESRD): No Hx Thyroid Disease: No Hx Human Immunodeficiency Virus (HIV): No Hx Hepatitis C: No Hx Depression: No Hx Suicide Attempt: No Hx Bipolar Disorder: No Hx Schizophrenia: No - Patient Surgical History Past Surgical History: Yes Hx Neurologic Surgery: No Hx Cataract Extraction: No Hx Cardiac Surgery: No Hx Lung Surgery: No Hx Breast Surgery: No Hx Breast Biopsy: No Hx Abdominal Surgery: No Hx Appendectomy: No Hx Cholecystectomy: No Hx Genitourinary Surgery: No Hx Section: No Hx Orthopedic Surgery: Yes (SUSAN KNEE REPLACEMENT/ L FEMUR NANCY) Hx Hysterectomy: No Anesthesia Reaction: No - PPD History Previous Implant?: Yes Documented Results: Negative w/proof Implanted On Prior [facility] Admission?: Yes Date: 02/19/16 PPD to be Administered?: Yes - Smoking Cessation Smoking history: Current every day smoker Have you smoked in the past 12 months: No Aproximately how many cigarettes per day: 10 Cigars Per Day: 0 Hx Chewing Tobacco Use: No Initiated information on smoking cessation: Yes 'Breaking Loose' booklet given: 09/09/19 - Substance & Tx. History Hx Alcohol Use: Yes Hx Substance Use: Yes Substance Use Type: Alcohol, Prescribed (METHADONE 5MG) Hx Substance Use Treatment: Yes ([facility]) - Substances abused Alcohol Substance route: Oral Frequency: Daily Amount used: 2 40oz beers/day Age of first use: 16 Date of last use: 09/04/19 Admission Physical Exam S - Vital Signs Vital Signs: Vital Signs - 24 hr 09/09/19 09/09/19 20:40 21:04 Temperature 98.8 F 98.8 F Pulse Rate 106 H 106 H Respiratory 16 16 Rate Blood Pressure 123/80 123/80 - Physical General Appearance: Yes: Mild Distress, Tremorous, Anxious HEENTM: Yes: EOMI, Normocephalic, Normal Voice, SHOSHANA, Pharynx Normal, Other ( poor dentition/oral hygiene) Respiratory: Yes: Chest Non-Tender, Lungs Clear, Normal Breath Sounds, No Respiratory Distress, No Accessory Muscle Use Neck: Yes: No masses,lesions,Nodules Breast: Yes: Breasts Symetrical Cardiology: Yes: Regular Rhythm, Regular Rate, S1, S2 Abdominal: Yes: Normal Bowel Sounds, Non Tender, Soft Genitourinary: Yes: Within Normal Limits Back: Yes: Normal Inspection Musculoskeletal: Yes: full range of Motion, Gait Steady Extremities: Yes: Normal Capillary Refill, Normal Range of Motion, Non-Tender, Tremors Neurological: Yes: Fully Oriented, Alert, Motor Strength 5/5 Integumentary: Yes: Dry, Warm, Other (poorly kept, unhygenic feet.) Lymphatic: Yes: Within Normal Limits - Diagnostic (1) Alcohol dependence with uncomplicated withdrawal Current Visit: Yes Status: Acute (2) Alcohol withdrawal seizure Current Visit: Yes Status: Acute Qualifiers: Complication of substance-induced condition: uncomplicated Qualified Code(s ): F10.230 - Alcohol dependence with withdrawal, uncomplicated Cleared for Admission [facility] - Detox or Rehab [facility] Level of Care: Medically Managed Detox Regimen/Protocol: Librium Claeared for Rehab Admission: No Breathalyzer - Breathalyzer Breathalyzer: 0 Urine Drug Screen - Test Device Lot number: [id number] Expiration date: 05/18/21 - Control Is test valid?: Yes - Results Drug screen NEGATIVE: No Urine drug screen results: MTD-Methadone Inpatient Rehab Admission - Rehab Decision to Admit Inpatient rehab admission?: No
[2019-09-09] MEDS ORDERED: hydrOXYzine PAMOATE 25 MG CAPSULE (FP) PO PRN (22:46)
[2019-09-09] MEDS ORDERED: P-EPHED 60MG/TRIPROLIDI 2.5MG TABLET PO PRN (22:46)
[2019-09-09] MEDS ORDERED: DICYCLOMINE HCL 10 MG CAPSULE PO PRN (22:46)
[2019-09-09] MEDS ORDERED: MELATONIN 5 MG TABLETS PO PRN (22:46)
[2019-09-09] MEDS ORDERED: MENTHOL/PHENOL 1 EACH UD MM PRN (22:46)
[2019-09-09] MEDS ORDERED: guaiFENesin 200 MG/10 ML 10 ML UNIT-DOSE CUPS PO PRN (22:46)
[2019-09-09] MEDS ORDERED: chlordiazePOXIDE HCL 10 MG CAPSULE PO PRN (22:46)
[2019-09-09] MEDS ORDERED: METHOCARBAMOL 500 MG TABLET PO PRN (22:46)
[2019-09-09] MEDS ORDERED: MAG HYDROX/AL HYDROX/SIMETH 30 ML UNIT-DOSE CUP PO PRN (22:46)
[2019-09-09] MEDS ORDERED: MAGNESIUM HYDROX 2400MG/30ML ORAL SUSPENSION 30 ML CUP PO PRN (22:46)
[2019-09-09] MEDS ORDERED: MAGNESIUM CITRATE 300 ML BOTTLE PO PRN (22:46)
[2019-09-09] MEDS ORDERED: ONDANSETRON *ODT* 4 MG TABLET SL PRN (22:46)
[2019-09-09] MEDS ORDERED: ACETAMINOPHEN 325 MG TABLET (FP) PO PRN ×2 (22:46)
[2019-09-09] MEDS ORDERED: NICOTINE POLACRILEX 2 MG GUM BUC PRN (22:46)
[2019-09-09] MEDS: chlordiazePOXIDE HCL 25 MG CAPSULE PO SCH (23:44)
[2019-09-10] MEDS: chlordiazePOXIDE HCL 25 MG CAPSULE PO SCH ×2 (05:58→13:01)
[2019-09-10] MEDS ORDERED: KETOROLAC TROMETHAMINE 10 MG TABLET PO PRN (06:00)
[2019-09-10] MEDS: NICOTINE 14 MG/24 HOURS TOPICAL PATCH TD SCH (10:22)
[2019-09-10] MEDS: PRENATAL VITAMINS W/ FOLIC ACID TABLET (FP) PO SCH (10:22)
[2019-09-10 10:56] LABS: HEMATOCRIT 37.2 % (35.4-49); HEMOGLOBIN 11.7 GM/dL (11.7-16.9); MCH 25.5 pg (25.7-33.7); MCHC 31.5 g/dl (32.0-35.9); MEAN CELL VOLUME 81.1 fl (80-96); MEAN PLT VOLUME 8.3 fl (7.5-11.1); PLATELET COUNT 283 K/MM3 (134-434); RBC 4.58 M/mm3 (4.00-5.60); RDW 18.2 % (11.9-15.9); WHITE BLOOD COUNT 9.2 K/mm3 (4.0-10.0)
[2019-09-10 11:00] LABS: ALBUMIN 3.6 g/dl (3.4-5.0); BILIRUBIN,TOTAL 0.9 mg/dL (0.2-1); BLOOD UREA NITROGEN 14.2 mg/dL (7-18); CALCIUM 9.3 mg/dL (8.5-10.1); CREATININE 0.9 mg/dL (0.55-1.3); POTASSIUM 3.4 mmol/L (3.5-5.1)
--- NOTE | 2019-09-10 16:55 | PN ---
[facility] CIWA - CIWA Score Nausea/Vomitin-No Nausea/No Vomiting Muscle Tremors: 3 Anxiety: 3 Agitation: 2 Paroxysmal Sweats: No Perspiration Orientation: 0-Oriented Tacttile Disturbances: 0-None Auditory Disturbances: 0-None Visual Disturbances: 2-Mild Sensitivity Headache: 0-None Present CIWA-Ar Total Score: 10 S Progress Note (SOAP) Subjective: Tremors, Anxious, Interrupted Sleep. Objective: PATIENT A & O X 3, OBSERVED AMBULATING ON DETOX UNIT UNASSISTED. IN NO ACUTE DISTRESS. 09/10/19 16:56 Vital Signs Temperature 98.1 F 09/10/19 13:57 Pulse Rate 85 09/10/19 13:57 Respiratory Rate 16 09/10/19 13:57 Blood Pressure 121/74 09/10/19 13:57 O2 Sat by Pulse Oximetry (%) Laboratory Tests 09/10/19 09/10/19 09/10/19 07:40 07:40 07:40 WBC 9.2 RBC 4.58 Hgb 11.7 Hct 37.2 MCV 81.1 MCH 25.5 L MCHC 31.5 L RDW 18.2 H Plt Count 283 MPV 8.3 Sodium 133 L Potassium 3.4 L Chloride 98 Carbon Dioxide 27 Anion Gap 8 BUN 14.2 Creatinine 0.9 Est GFR (CKD-EPI)AfAm 116.65 Est GFR (CKD-EPI)NonAf 100.64 Random Glucose 120 H Calcium 9.3 Total Bilirubin 0.9 AST 473 H ALT 256 H Alkaline Phosphatase 197 H Total Protein 8.0 Albumin 3.6 RPR Titer Nonreactive LABS NOTED. Assessment: 09/10/19 17:01 WITHDRAWAL SYMPTOMS. ELEVATED LIVER ENZYMES. HYPOKALEMIA. 09/10/19 17:02 Plan: CONTINUE DETOX. INCREASE DAILY ORAL WATER INTAKE. DUE TO SIGNIFICANTLY ELEVATED LIVER ENZYMES, CURRENT DETOX MEDICATION REGIMEN CHANGED FORM LIBRIUM DETOX REGIMEN TO ATIVAN DETOX REGIMEN. HFP TO BE CHECKED ON 09/12/2019. K-DUR, 20 MEQ ORALLY BID FOR LOW K LEVEL NOTED ON DETOX ADMISSION LABORATORY ASSESSMENT. RE-CHECK K LEVEL ON 09/12/2019.
[2019-09-10] MEDS ORDERED: LORazepam 1 MG TABLET PO PRN (16:58)
--- NOTE | 2019-09-10 17:51 | EKG ---
Test Reason : Blood Pressure : / mmHG Vent. Rate : 071 BPM Atrial Rate : 071 BPM P-R Int : 156 ms QRS Dur : 084 ms QT Int : 408 ms P-R-T Axes : 059 072 035 degrees QTc Int : 443 ms NORMAL SINUS RHYTHM MINIMAL VOLTAGE CRITERIA FOR LVH, MAY BE NORMAL VARIANT BORDERLINE ECG WHEN COMPARED WITH ECG OF 28-MAR-2019 15:11, NO SIGNIFICANT CHANGE WAS FOUND Confirmed by MD Augusto, Zhen ([id number]) on 09/10/2019 5:51:19 PM Referred By: Jasvir Adam Confirmed By:Zhen Casas MD
[2019-09-10] MEDS: POTASSIUM CHLORIDE TABS 20 MEQ TABLET.ER (FP) PO SCH (18:05)
[2019-09-10] MEDS ORDERED: THIAMINE HCL 100 MG TABLET (FP) PO SCH (22:00)
[2019-09-10] MEDS ORDERED: LORazepam 2 MG TABLET PO SCH (23:00)
[2019-09-11] MEDS ORDERED: chlordiazePOXIDE 5 MG CAPSULE PO SCH (05:00)
[2019-09-11] MEDS: LORazepam 1 MG TABLET PO SCH ×2 (05:45→10:07)
[2019-09-11 09:24] VITALS: BP 137/98; PULSE 96; TEMP 99
[2019-09-11] MEDS: PRENATAL VITAMINS W/ FOLIC ACID TABLET (FP) PO SCH (10:07)
[2019-09-11] MEDS: POTASSIUM CHLORIDE TABS 20 MEQ TABLET.ER (FP) PO SCH (10:07)
[2019-09-11] MEDS: NICOTINE 14 MG/24 HOURS TOPICAL PATCH TD SCH (10:07)
--- NOTE | 2019-09-11 15:20 | DS ---
[facility] Detox Discharge Summary Admission Date: 09/09/19 Discharge Date: 09/11/19 - History Present History: Alcohol Dependence Additional Comments: Patient requested to be discharged today. Patient aware that he is not ready for discharge and that his discharge can be adjusted but not today and he would have to speak with medical provider tomorrow morning to have his protocol adjusted. Patient stated he will not wait for his protocol to be adjusted because he must leave today. 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 Patient later stated that he has to get to work tomorrow at 9am. Patient made aware that he will be leaving AMA if he leaves today. Patient instructed to call [phone] [phone] if sick or withdrawal sxs and to see his PCP in 3 days for follow up and abnormal lab results in which he verbalized understanding. Pertinent Past History: ETOH related seizure Alcohol dependence Nicotine dependence Asthma Gastritis Elevated LFTs HLD Constipation - Physical Exam Results Vital Signs: Vital Signs Temperature 99.0 F 09/11/19 09:23 Pulse Rate 96 H 09/11/19 09:23 Respiratory Rate 18 09/11/19 09:23 Blood Pressure 137/98 09/11/19 09:23 O2 Sat by Pulse Oximetry (%) Pertinent Admission Physical Exam Findings: Withdrawal sxs Laboratory Tests 09/10/19 09/10/19 09/10/19 07:40 07:40 07:40 WBC 9.2 RBC 4.58 Hgb 11.7 Hct 37.2 MCV 81.1 MCH 25.5 L MCHC 31.5 L RDW 18.2 H Plt Count 283 MPV 8.3 Sodium 133 L Potassium 3.4 L Chloride 98 Carbon Dioxide 27 Anion Gap 8 BUN 14.2 Creatinine 0.9 Est GFR (CKD-EPI)AfAm 116.65 Est GFR (CKD-EPI)NonAf 100.64 Random Glucose 120 H Calcium 9.3 Total Bilirubin 0.9 AST 473 H ALT 256 H Alkaline Phosphatase 197 H Total Protein 8.0 Albumin 3.6 RPR Titer Nonreactive Labs reviewed: K 3.4 (supplemented), serum glucose 120, elevated LFTs: AST, ALT , Alk phos) - Medication Discharge Medications: Ambulatory Orders Methadone [Dolophine -] 5 mg PO DAILY 07/15/18 - Diagnosis (1) Hyperglycemia Status: Acute (2) Elevated LFTs Status: Chronic (3) Constipation Status: Chronic (4) Nicotine dependence Status: Chronic (5) Alcohol dependence with uncomplicated withdrawal Status: Acute (6) Alcohol withdrawal seizure Status: Chronic Qualifiers: Complication of substance-induced condition: uncomplicated Qualified Code(s ): F10.230 - Alcohol dependence with withdrawal, uncomplicated (7) GERD (gastroesophageal reflux disease) Status: Chronic (8) Asthma Status: Chronic Qualifiers: Asthma severity: mild intermittent Asthma complication type: uncomplicated Qualified Code(s): J45.20 - Mild intermittent asthma, uncomplicated (9) History of colitis Status: Chronic (10) History of leukemia Status: Resolved (11) Elevated blood-pressure reading without diagnosis of hypertension Status: Acute - AMA Did Patient Leave Against Medical Advice: Yes (Instructed to call 911 KJ if sick/withdrawal sxs)
[2019-09-11] MEDS ORDERED: LORazepam 0.5 MG TABLET PO PRN (17:00)
[2019-09-12] MEDS ORDERED: chlordiazePOXIDE HCL 10 MG CAPSULE PO PRN
[2019-09-12] MEDS ORDERED: LORazepam 0.5 MG TABLET PO SCH (05:00)
[2019-09-12] MEDS ORDERED: chlordiazePOXIDE HCL 10 MG CAPSULE PO SCH (05:00)
[2019-09-13] MEDS ORDERED: chlordiazePOXIDE HCL 10 MG CAPSULE PO ONE (05:00)
[2019-09-13] MEDS ORDERED: LORazepam 0.5 MG TABLET PO ONE (05:00)
== END 2019-09-11 11:22 | disposition home or self-care (01) | DRG 897 ==
LOC: YASAS 20:11 → Y6N 23:10
PROVIDERS: ADMIT Allergy & Immunology; ATTEND Allergy & Immunology
PROC: HZ2ZZZZ Detoxification Services for Substance Abuse Treatment (ICD-10-PCS; principal; 2019-09-09)
DX: F10.230 Alcohol dependence with withdrawal, uncomplicated (principal); G40.509 Epileptic seizures related to external causes, not intractable, without status epilepticus; F17.210 Nicotine dependence, cigarettes, uncomplicated; E78.5 Hyperlipidemia, unspecified; J45.909 Unspecified asthma, uncomplicated; E87.6 Hypokalemia; M19.90 Unspecified osteoarthritis, unspecified site; K59.00 Constipation, unspecified; R03.0 Elevated blood-pressure reading, without diagnosis of hypertension; R73.9 Hyperglycemia, unspecified; Z85.6 Personal history of leukemia; Z87.19 Personal history of other diseases of the digestive system; Z87.442 Personal history of urinary calculi; Z96.653 Presence of artificial knee joint, bilateral
CPT/HCPCS: 36415; 80053; 85027; 86593; 93005; 93010

== ENCOUNTER 2019-11-08 15:55 | Inpatient (IN) | payer OTHER ==
--- NOTE | 2019-11-08 16:07 | PDOC ---
Rapid Medical Evaluation Time Seen by Provider: 11/08/19 16:03 Medical Evaluation: Allergies Allergy/AdvReac Type Severity Reaction Status Date / Time No Known Drug Allergies Allergy Verified 09/09/19 20:40 11/08/19 16:03 cc: sent for admission HPI: patient sent from DR. Youssef's office for admission for dehydration, diarrhea and not eating x 1 week PE: appears weak in triage unlabored breathing orders: labs , saline lock This patient will proceed to the main emergency department for further evaluation Discharge Disposition - Diagnosis Diarrhea - Referrals - Patient Instructions - Post Discharge Activity
[2019-11-08 17:04] LABS: BASO % 0.2 % (0-2.0); EOS % 0.3 % (0-4.5); HEMOGLOBIN 8.3 GM/dL (11.7-16.9); LYMPH % 12.4 % (8-40); MCH 22.6 pg (25.7-33.7); MCHC 31.9 g/dl (32.0-35.9); MEAN CELL VOLUME 70.8 fl (80-96); MEAN PLT VOLUME 6.5 fl (7.5-11.1); MONO % 8.6 % (3.8-10.2); NEUT % 78.5 % (42.8-82.8); PLATELET COUNT 752 K/MM3 (134-434); RBC 3.68 M/mm3 (4.00-5.60); RDW 18.3 % (11.9-15.9); WHITE BLOOD COUNT 15.3 K/mm3 (4.0-10.0)
[2019-11-08 17:44] LABS: ALBUMIN 2.1 g/dl (3.4-5.0); BILIRUBIN,TOTAL 0.4 mg/dL (0.2-1); BLOOD UREA NITROGEN 10.8 mg/dL (7-18); CALCIUM 9.3 mg/dL (8.5-10.1); CREATININE 0.9 mg/dL (0.55-1.3)
[2019-11-08 17:46] LABS: POTASSIUM 2.9 mmol/L (3.5-5.1)
[2019-11-08] MEDS ORDERED: POTASSIUM CHLORIDE TABS 20 MEQ TABLET.ER (FP) PO ONE ×2 (17:50→17:54)
[2019-11-08] MEDS ORDERED: KCL 10 MEQ IVPB 20 MEQ/200 ML INFUS.BAG IVPB ONE (17:54)
[2019-11-08] MEDS: KCL 10 MEQ IVPB 10 MEQ/100 ML INFUS.BAG IVPB SCH ×2 (18:06→19:59)
--- NOTE | 2019-11-08 18:48 | PDOC ---
History of Present Illness - General Chief Complaint: Diarrhea Stated Complaint: SENT BY PCP Time Seen by Provider: 11/08/19 16:03 History Source: Patient Exam Limitations: No Limitations - History of Present Illness Travel History: No Initial Comments: 11/08/19 18:02 49-year-old male sent in by Dr. Anthony Youssef for GI work-up/admission. Patient with history of colitis and recently was discharged from a detox program for alcohol abuse which he states symptoms began approximately 5 days upon his discharge which was around 2 weeks ago. Patient states has history of colitis and has had flareups intermittently over the years. Patient states has also had generalized abdominal cramping, and weight loss over the past month patient denies fever, chills but states generalized weakness. Patient states has had brown watery stool without blood for the past 2 weeks Timing/Duration: reports: getting worse, intermittent Quality: reports: mild, cramping Abdominal Pain Onset Location: reports: generalized abdomen Pain Radiation: reports: no radiation Activities at Onset: reports: none Aggravating Factors: improves with: None Alleviating Factors: improves with: None Past History - Travel Traveled outside of the country in the last 30 days: No Close contact w/someone who was outside of country & ill: No - Past Medical History Allergies/Adverse Reactions: Allergies Allergy/AdvReac Type Severity Reaction Status Date / Time No Known Drug Allergies Allergy Verified 11/08/19 16:06 Home Medications: Ambulatory Orders Methadone [Dolophine -] 5 mg PO DAILY 07/15/18 Anemia: No Asthma: Yes Cancer: Yes (LEUKEMIA) Cardiac Disorders: No CVA: No COPD: No CHF: No Dementia: No Diabetes: No GI Disorders: No Disorders: No HTN: No Hypercholesterolemia: No Kidney Stones: No Liver Disease: Yes (ELEVATED ENZYMES) Seizures: No Thyroid Disease: No - Surgical History Abdominal Surgery: No Appendectomy: No Cardiac Surgery: No Cholecystectomy: No Lung Surgery: No Neurologic Surgery: No Orthopedic Surgery: Yes (SUSAN KNEE REPLACEMENT/ L FEMUR NANCY) - Reproductive History Testicular Surgery: No - Immunization History Immunization Up to Date: Yes - Psycho Social/Smoking Cessation Hx Smoking Status: Yes Smoking History: Never smoked Have you smoked in the past 12 months: No Number of Cigarettes Smoked Daily: 10 Cigars Per Day: 0 'Breaking Loose' booklet given: 09/09/19 Hx Alcohol Use: Yes Drug/Substance Use Hx: Yes Substance Use Type: Alcohol, Prescribed Hx Substance Use Treatment: No Patient Lives Alone: No Lives with/in: spouse/SO Abd/GI Specific PMHX - Complaint Specific PMHX Colitis: Yes Hepatitis: No Pancreatitis: No Review of Systems - Review of Systems Able to Perform ROS?: Yes Constitutional: Yes: Unintentional Wgt. Loss HEENTM: No: Symptoms Reported Respiratory: No: Symptoms reported Cardiac (ROS): No: Symptoms Reported ABD/GI: Yes: Diarrhea, Abdominal cramping. No: Poor Appetite, Poor Fluid Intake , Rectal Bleeding : No: Symptoms Reported Musculoskeletal: No: Symptoms Reported Integumentary: No: Symptoms Reported Neurological: No: Symptoms reported Hematologic/Lymphatic: No: Symptoms Reported *Physical Exam - Vital Signs Last Vital Signs Temp Pulse Resp BP Pulse Ox 98.1 F 98 H 18 96/61 100 11/08/19 16:02 11/08/19 16:02 11/08/19 16:02 11/08/19 16:02 11/08/19 16:02 - Physical Exam General Appearance: Yes: Appropriately Dressed, Thin. No: Apparent Distress HEENT: negative: Pale Conjunctivae Neck: positive: Supple Respiratory/Chest: positive: Lungs Clear, Normal Breath Sounds. negative: Respiratory Distress, Accessory Muscle Use Cardiovascular: positive: Regular Rhythm, Regular Rate. negative: Murmur Gastrointestinal/Abdominal: positive: Soft, Tenderness (Generalized) Musculoskeletal: negative: CVA Tenderness Extremity: positive: Normal Inspection Integumentary: positive: Normal Color, Warm, Moist Neurologic: positive: Motor Strength 5/5 (Ambulatory) ED Treatment Course - LABORATORY CBC & Chemistry Diagram: 11/09/19 07:15 11/09/19 07:15 - ADDITIONAL ORDERS Additional order review: Laboratory Results 11/08/19 16:50 Sodium 129 L Potassium 2.9 L* Chloride 95 L Carbon Dioxide 23 Anion Gap 12 BUN 10.8 Creatinine 0.9 Est GFR (CKD-EPI)AfAm 116.65 Est GFR (CKD-EPI)NonAf 100.64 Random Glucose 100 Calcium 9.3 Total Bilirubin 0.4 AST 35 ALT 51 Alkaline Phosphatase 335 H Total Protein 7.0 Albumin 2.1 L 11/08/19 16:50 RBC 3.68 L MCV 70.8 L MCHC 31.9 L RDW 18.3 H MPV 6.5 L D Neutrophils % 78.5 Lymphocytes % 12.4 Monocytes % 8.6 Eosinophils % 0.3 Basophils % 0.2 - RADIOLOGY Radiology Studies Ordered: Category Date Time Status ABDOMEN & PELVIS CT WITH CONTR [CT] Stat CT Scan 11/08/19 17:51 Ordered - Medications Given in the ED: ED Medications Discontinued Medications Generic Name Dose Route Start Last Admin Trade Name Neo PRN Reason Stop Dose Admin Potassium Chloride 40 meq 11/08/19 17:50 11/08/19 18:06 K-Dur - PO 11/08/19 17:51 40 meq ONCE ONE Administration Medical Decision Making - Medical Decision Making 11/08/19 18:07 Chief complaint: Diarrhea for the past 2 to 3 weeks consisting of brown watery stool along with generalized abdominal cramping and weight loss. Patient history of colitis and recent discharge from detox program for alcohol abuse Exam: Patient then vital signs stable generalized abdominal tenderness. No distention bowel sounds present x4 Plan: Labs, fluids, Abdominal CT 11/08/19 18:48 Laboratory Tests 11/08/19 11/08/19 16:50 16:50 WBC 15.3 H Hgb 8.3 L Hct 26.0 L D Absolute Neuts (auto) 12.0 H Sodium 129 L Potassium 2.9 L* Chloride 95 L Carbon Dioxide 23 Anion Gap 12 BUN 10.8 Creatinine 0.9 Est GFR (CKD-EPI)AfAm 116.65 Est GFR (CKD-EPI)NonAf 100.64 Random Glucose 100 Calcium 9.3 Total Bilirubin 0.4 AST 35 ALT 51 Alkaline Phosphatase 335 H Total Protein 7.0 Albumin 2.[address] currently in [address]. Patient ordered for saline and potassium replacement. Patient also ordered for guaiac for stool secondary to drop in hematocrit and hemoglobin 11/08/19 18:49 Laboratory Tests 01/05/18 03/30/19 09/09/19 07:00 05:31 15:17 Hgb 11.1 L 12.1 Hct 26.8 L 38.3 09/10/19 11/08/19 07:40 16:50 Hgb 11.7 8.3 L Hct 37.2 26.0 L D Discharge - Discharge Information Problems reviewed: Yes Clinical Impression/Diagnosis: Pancolitis, Hypokalemia, Weight loss, non-intentional Diarrhea Qualifiers: Diarrhea type: unspecified type Qualified Code(s): R19.7 - Diarrhea, unspecified - Follow up/Referral - Patient Discharge Instructions - Post Discharge Activity
[2019-11-08] MEDS ORDERED: SODIUM CHLORIDE 0.9% 500 ML INFUS.BAG IV ONE (19:14)
--- NOTE | 2019-11-08 20:30 | PDOC ---
*Physical Exam - Vital Signs Last Vital Signs Temp Pulse Resp BP Pulse Ox 98.1 F 98 H 18 96/61 100 11/08/19 16:02 11/08/19 16:02 11/08/19 16:02 11/08/19 16:02 11/08/19 16:02 ED Treatment Course - LABORATORY CBC & Chemistry Diagram: 11/08/19 16:50 11/08/19 21:35 - ADDITIONAL ORDERS Additional order review: Laboratory Results 11/08/19 11/08/19 20:06 16:50 Sodium 129 L Potassium 2.9 L* Chloride 95 L Carbon Dioxide 23 Anion Gap 12 BUN 10.8 Creatinine 0.9 Est GFR (CKD-EPI)AfAm 116.65 Est GFR (CKD-EPI)NonAf 100.64 Random Glucose 100 Calcium 9.3 Total Bilirubin 0.4 AST 35 ALT 51 Alkaline Phosphatase 335 H Total Protein 7.0 Albumin 2.1 L Stool Occult Blood Negative 11/08/19 16:50 RBC 3.68 L MCV 70.8 L MCHC 31.9 L RDW 18.3 H MPV 6.5 L D Neutrophils % 78.5 Lymphocytes % 12.4 Monocytes % 8.6 Eosinophils % 0.3 Basophils % 0.2 - Medications Given in the ED: ED Medications Discontinued Medications Generic Name Dose Route Start Last Admin Trade Name Freq PRN Reason Stop Dose Admin Potassium Chloride 10 meq in 100 mls @ 100 mls/hr 11/08/19 18:00 11/08/19 19: 59 Potassium Chloride 10 Meq Premix Ivpb - IVPB 11/08/19 19:59 100 mls/hr Q60M MCKAY Administration Potassium Chloride 40 meq 11/08/19 17:50 11/08/19 18:06 K-Dur - PO 11/08/19 17:51 40 meq ONCE ONE Administration Sodium Chloride 1,000 ml 11/08/19 19:14 11/08/19 19:59 Normal Saline - IV 11/08/19 19:15 1,000 ml ONCE ONE Administration ED Progress Note - Progress Note Progress Note: 11/09/19 02:59 pancolitis; diarrhea; hypokalemia P: CBC CMP IVF k- riders. patient signed out to YAA gruber Medical Decision Making - Medical Decision Making CTAP pancolitis patient to be admitted, patient signed out toLaure gruber, Discharge - Discharge Information Problems reviewed: Yes Clinical Impression/Diagnosis: Pancolitis, Hypokalemia, Weight loss, non-intentional Diarrhea Qualifiers: Diarrhea type: unspecified type Qualified Code(s): R19.7 - Diarrhea, unspecified - Admission Yes - Follow up/Referral - Patient Discharge Instructions - Post Discharge Activity
[2019-11-08] MEDS ORDERED: CIPROFLOXACIN 400 MG/D5W 400 MG/200 ML IVPB IVPB ONE (21:01)
--- NOTE | 2019-11-08 21:20 | HP ---
Admitting History and Physical - Primary Care Physician PCP: Pedro Youssef - Admission Chief Complaint: Abdominal Cramping, Diarrhea, Weight Loss History of Present Illness: This is a 49 y/o man with a PMHx of Colitis, Alcohol Abuse. Who presents to the ED sent in by Dr. Anthony Youssef for GI work-up/admission. Patient reports being recently discharged from a detox program for alcohol abuse. In which he states symptoms began approximately 5 days upon his discharge which was around 2 weeks ago. Patient reports having abdominal cramping, NB watery stools, and generalized weakness. Patient states he has had Colitis flareups intermittently over the years. Patient reports having generalized abdominal cramping, and weight loss over the past month. Patient denies fever, chills, dizziness, SOB, CP, palpitations, nausea, vomiting, constipation melena, hematochezia, dysuria. 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) Cardiovascular: Yes: Hyperlipdemia Pulmonary: Yes: Asthma Gastrointestinal: Yes: Constipation, Gastritis, GERD, Hemorrhoids, Hiatal Hernia , Ulcerative Colitis, Other (POSSIBLE BEAL'S) Hepatobiliary: Yes: Other (ALCOHOLIC HEPATITIS, STEATOSIS (ALCOHOL AND FAT)) Renal/: Yes: Renal Calculi Heme/Onc: Yes: Myeloproliferative Synd, Other (CML) Psych: Yes: Addictions Musculoskeletal: Yes: Chronic low back pain, Osteoarthritis, Other (HIP AND KNEE SURGERY) Dermatology: Yes: Other (TATTOOS) - Past Surgical History Past Surgical History: Yes: Colonoscopy, Joint Replacement, Upper Endoscopy - Smoking History Smoking history: Former smoker Have you smoked in the past 12 months: No Aproximately how many cigarettes per day: 10 - Alcohol/Substance Use Hx Alcohol Use: Yes Number of Drinks Daily: 8 (ALSO ONE BOTTLE VODKA (FEBRUARY)) History of Substance Use: reports: None Home Medications - Allergies Allergies/Adverse Reactions: Allergies Allergy/AdvReac Type Severity Reaction Status Date / Time No Known Drug Allergies Allergy Verified 11/08/19 16:06 - Home Medications Home Medications: Ambulatory Orders Methadone [Dolophine -] 5 mg PO DAILY 07/15/18 Family Medical History Family History: Unable to Obtain Review of Systems - Review of Systems Constitutional: reports: Unintentional Wgt. Loss, Weakness Eyes: reports: No Symptoms HENT: reports: No Symptoms Neck: reports: No Symptoms Cardiovascular: reports: No Symptoms Respiratory: reports: No Symptoms Gastrointestinal: reports: Vomiting Genitourinary: reports: No Symptoms Breasts: reports: No Symptoms Reported Musculoskeletal: reports: No Symptoms Integumentary: reports: No Symptoms Neurological: reports: Dizziness, Weakness Endocrine: reports: Unexplained Weight Loss Hematology/Lymphatic: reports: No Symptoms Psychiatric: reports: No Symptoms Pain Intensity: 4 Physical Examination Vital Signs: Vital Signs Temperature 98.1 F 11/08/19 16:02 Pulse Rate 98 H 11/08/19 16:02 Respiratory Rate 18 11/08/19 16:02 Blood Pressure 96/61 11/08/19 16:02 O2 Sat by Pulse Oximetry (%) 100 11/08/19 16:02 Constitutional: Yes: No Distress, Calm, Thin Eyes: Yes: Conjunctiva Clear, EOM Intact, PERRL, Other (dry mucous membranes, poor dentition) HENT: Yes: WNL, Atraumatic, Normocephalic Neck: Yes: WNL, Supple, Trachea Midline Cardiovascular: Yes: WNL, Regular Rate and Rhythm, S1, S2 Respiratory: Yes: WNL, Regular, CTA Bilaterally Gastrointestinal: Yes: Soft, Hypoactive Bowel Sounds, Tenderness ...Rectal Exam: Yes: Guaiac Negative, Sphincter Tone Normal Renal/: Yes: WNL Breast(s): Yes: WNL Musculoskeletal: Yes: WNL Extremities: Yes: WNL Edema: No Peripheral Pulses WNL: Yes Neurological: Yes: WNL, Alert, Oriented, Cran Nerves II-XII Intact ...Motor Strength: WNL Psychiatric: Yes: WNL, Alert, Oriented Labs: CBC, BMP 11/08/19 16:50 11/08/19 16:50 Imaging - Results Cat Scan: Report Reviewed, Image Reviewed EKG: Pending Problem List - Problems (1) Pancolitis Assessment/Plan: Acute Flare CTAP- reviewed Appreciate GI consult Cipro, Flagyl given in ED, will continue Appreciate ID consult Clear Diet ad nathaniel Continue IVF Stool cultures, O&P culture, C- Diff cultures Monitor CBC, BMP Monitor vitals Code(s): K51.00 - ULCERATIVE (CHRONIC) PANCOLITIS WITHOUT COMPLICATIONS (2) Diarrhea Assessment/Plan: See above Code(s): R19.7 - DIARRHEA, UNSPECIFIED Qualifiers: Diarrhea type: unspecified type Qualified Code(s): R19.7 - Diarrhea, unspecified (3) Hypokalemia Assessment/Plan: Likely secondary to Diarrhea K repleted with K riders, PO KCL in ED K now 3.2 Will order additional K- rider Monitor BMP closely Monitor vitals Code(s): E87.6 - HYPOKALEMIA (4) Alcohol dependence with uncomplicated withdrawal Assessment/Plan: Patient denies alcohol use since discharge from Rehab Continue Methadone Code(s): F10.230 - ALCOHOL DEPENDENCE WITH WITHDRAWAL, UNCOMPLICATED (5) GERD (gastroesophageal reflux disease) Assessment/Plan: PPI Code(s): K21.9 - GASTRO-ESOPHAGEAL REFLUX DISEASE WITHOUT ESOPHAGITIS (6) Nicotine dependence Assessment/Plan: Nicoderm Patch Code(s): F17.200 - NICOTINE DEPENDENCE, UNSPECIFIED, UNCOMPLICATED Assessment/Plan This is a 49 y/o man with a PMHx of Colitis, Alcohol Abuse. Admitted for Colitis , Hypokalemia for further evaluation of their emergent condition. Plan: See Problem List FEN NS@100ml/hr Replete lytes prn Clear Liquid Diet DVT ppx OOB SCDs Heparin SQ Dispo: Requires Inpatient Care Visit type - Emergency Visit Emergency Visit: Yes ED Registration Date: 11/08/19 Care time: The patient presented to the Emergency Department on the above date and was hospitalized for further evaluation of their emergent condition. - New Patient This patient is new to me today: Yes Date on this admission: 11/08/19 - Critical Care Critical Care patient: No
[2019-11-08] MEDS ORDERED: SODIUM CHLORIDE 1,000 ML IV SCH (21:45)
[2019-11-08 22:28] LABS: BILIRUBIN,TOTAL 0.4 mg/dL (0.2-1); BLOOD UREA NITROGEN 10.7 mg/dL (7-18); CALCIUM 8.4 mg/dL (8.5-10.1); CREATININE 0.7 mg/dL (0.55-1.3); POTASSIUM 3.2 mmol/L (3.5-5.1); TOT PROT 6.1 g/dl (6.4-8.2)
[2019-11-09 00:40] VITALS: BMI 21.5
[2019-11-09] MEDS ORDERED: KCL 10 MEQ IVPB 10 MEQ/100 ML INFUS.BAG IVPB SCH (03:45)
[2019-11-09] MEDS: METHADONE HCL 5 MG TABLET PO SCH (05:47)
[2019-11-09 08:23] LABS: BASO % 0.3 % (0-2.0); EOS % 0.2 % (0-4.5); HEMATOCRIT 18.2 % (35.4-49); LYMPH % 15.7 % (8-40); MCH 23.6 pg (25.7-33.7); MCHC 33.1 g/dl (32.0-35.9); MEAN CELL VOLUME 71.3 fl (80-96); MEAN PLT VOLUME 6.8 fl (7.5-11.1); MONO % 10.9 % (3.8-10.2); NEUT % 72.9 % (42.8-82.8); PLATELET COUNT 542 K/MM3 (134-434); RBC 2.56 M/mm3 (4.00-5.60); RDW 17.9 % (11.9-15.9); WHITE BLOOD COUNT 10.8 K/mm3 (4.0-10.0)
[2019-11-09 08:57] LABS: BLOOD UREA NITROGEN 7.8 mg/dL (7-18); CALCIUM 8.2 mg/dL (8.5-10.1); CREATININE 0.7 mg/dL (0.55-1.3); MAGNESIUM 1.8 mg/dL (1.8-2.4); PHOSPHOROUS 3.8 mg/dL (2.5-4.9)
[2019-11-09 09:02] LABS: POTASSIUM 2.9 mmol/L (3.5-5.1)
--- NOTE | 2019-11-09 09:29 | CON.ID ---
Consult Consult Specialty:: infectious diseases Referred by:: Wen Reason for Consultation:: pancolitis - History of Present Illness Chief Complaint: abd pain History of Present Illness: 49 y/o man with a PMHx of Colitis, Alcohol Abuse.who was d/jazzmine from the detox program coming to the hospital for abd pain. according to the patient his symptoms are going on for 2 weeks Patient reports having abdominal cramping, NB watery stools, and generalized weakness. Patient states he has had Colitis flareups intermittently over the years. Patient reports having generalized abdominal cramping, and weight loss over the past month. Patient denies fever, chills, dizziness, SOB, CP, palpitations, nausea, vomiting, constipation melena, hematochezia, dysuria. 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) Cardio/Vascular: Yes: Hyperlipdemia Pulmonary: Yes: Asthma Gastrointestinal: Yes: Constipation, Gastritis, GERD, Hemorrhoids, Hiatal Hernia , Ulcerative Colitis, Other (POSSIBLE BEAL'S) Hepatobiliary: Yes: Other (ALCOHOLIC HEPATITIS, STEATOSIS (ALCOHOL AND FAT)) Renal/: Yes: Renal Calculi Psych: Yes: Addictions Musculoskeletal: Yes: Chronic low back pain, Osteoarthritis, Other (HIP AND KNEE SURGERY) Dermatology: Yes: Other (TATTOOS) - Past Surgical History Past Surgical History: Yes: Colonoscopy, Joint Replacement, Upper Endoscopy - Alcohol/Substance Use Hx Alcohol Use: Yes Number of Drinks Daily: 8 (ALSO ONE BOTTLE VODKA (FEBRUARY)) History of Substance Use: reports: None - Smoking History Smoking history: Former smoker Have you smoked in the past 12 months: No Aproximately how many cigarettes per day: 10 Home Medications - Allergies Allergies/Adverse Reactions: Allergies Allergy/AdvReac Type Severity Reaction Status Date / Time No Known Drug Allergies Allergy Verified 11/08/19 16:06 - Home Medications Home Medications: Ambulatory Orders Methadone [Dolophine -] 5 mg PO DAILY 07/15/18 Review of Systems - Review of Systems Constitutional: reports: No Symptoms Eyes: reports: No Symptoms HENT: reports: No Symptoms Neck: reports: No Symptoms Cardiovascular: reports: No Symptoms Respiratory: reports: No Symptoms Gastrointestinal: reports: Abdominal Pain Musculoskeletal: reports: No Symptoms Integumentary: reports: No Symptoms Neurological: reports: No Symptoms Endocrine: reports: No Symptoms Hematology/Lymphatic: reports: No Symptoms Psychiatric: reports: No Symptoms Physical Exam Vital Signs: Vital Signs Temperature 98.4 F 11/09/19 05:00 Pulse Rate 83 11/09/19 05:00 Respiratory Rate 11/09/19 05:00 Blood Pressure 100/52 L 11/09/19 05:00 O2 Sat by Pulse Oximetry (%) 100 11/09/19 00:18 Constitutional: Yes: Well Nourished, Calm, Mild Distress Eyes: Yes: Conjunctiva Clear HENT: Yes: Atraumatic, Normocephalic Neck: Yes: Supple, Trachea Midline Respiratory: Yes: Regular, CTA Bilaterally Gastrointestinal: Yes: Soft, Hypoactive Bowel Sounds, Tenderness Musculoskeletal: Yes: WNL Extremities: Yes: WNL Neurological: Yes: Oriented Psychiatric: Yes: Alert, Oriented Labs: CBC, BMP 11/09/19 07:15 11/09/19 07:15 Imaging - Results Cat Scan: Report Reviewed, Image Reviewed Assessment/Plan Problem List - Problems (1) Pancolitis Code(s): K51.00 - ULCERATIVE (CHRONIC) PANCOLITIS WITHOUT COMPLICATIONS (2) Diarrhea Code(s): R19.7 - DIARRHEA, UNSPECIFIED Qualifiers: Diarrhea type: unspecified type Qualified Code(s): R19.7 - Diarrhea, unspecified (3) Hypokalemia Code(s): E87.6 - HYPOKALEMIA (4) Alcohol dependence with uncomplicated withdrawal Code(s): F10.230 - ALCOHOL DEPENDENCE WITH WITHDRAWAL, UNCOMPLICATED (5) GERD (gastroesophageal reflux disease) Code(s): K21.9 - GASTRO-ESOPHAGEAL REFLUX DISEASE WITHOUT ESOPHAGITIS (6) Nicotine dependence Code(s): F17.200 - NICOTINE DEPENDENCE, UNSPECIFIED, UNCOMPLICATED plan continue current mgmt abx npo hydration rest as per the team
[2019-11-09] MEDS ORDERED: PIPERACILLIN/TAZOBACTAM 3.375 GM VIAL IVPB ONE ×2 (10:28→17:17)
[2019-11-09] MEDS ORDERED: PT OWN MED DRAWER 7, Y5N ONE (10:28)
[2019-11-09] MEDS ORDERED: DEXTROSE 5%-WATER - 50 ML IVPB ONE ×2 (10:29→17:17)
[2019-11-09] MEDS: NICOTINE 7 MG/24 HOURS TOPICAL PATCH TD SCH (10:34)
[2019-11-09] MEDS: PIPERACILLIN/TAZOB 3.375 GM 3.375 GM in DEXTROSE 5%-WATER - 50 ML IVPB SCH ×2 (10:34→17:19)
--- NOTE | 2019-11-09 10:44 | EKG ---
Test Reason : Blood Pressure : / mmHG Vent. Rate : 083 BPM Atrial Rate : 085 BPM P-R Int : 000 ms QRS Dur : 096 ms QT Int : 382 ms P-R-T Axes : 000 062 021 degrees QTc Int : 448 ms POOR DATA QUALITY, INTERPRETATION MAY BE ADVERSELY AFFECTED unable to determine rhythm due to motion artifact. Non -diagnosic ECG MINIMAL VOLTAGE CRITERIA FOR LVH, MAY BE NORMAL VARIANT ABNORMAL ECG Confirmed by RHIANNON VEGA, ERICH ([id number]) on 11/09/2019 10:44:25 AM Referred By: Confirmed By:ERICH JURADO MD
--- NOTE | 2019-11-09 11:29 | PN ---
Progress Note (short form) - Note Progress Note: Diarrhea+ Unsure if blood in stools abd pain + poor po intake Vital Signs - 24 hr 11/08/19 11/08/19 11/08/19 16:02 23:07 23:33 Temperature 98.1 F Pulse Rate 98 H Pulse Rate [ 86 Radial] Respiratory 18 18 18 Rate Blood Pressure 96/61 Blood Pressure 104/58 L [Left Arm] O2 Sat by Pulse 100 100 100 Oximetry (%) 11/08/19 11/09/19 11/09/19 23:48 00:18 00:35 Temperature 98.6 F 98.6 F Pulse Rate 85 85 Pulse Rate [ Radial] Respiratory 18 18 Rate Blood Pressure 112/69 112/69 Blood Pressure [Left Arm] O2 Sat by Pulse 100 Oximetry (%) 11/09/19 05:00 Temperature 98.4 F Pulse Rate 83 Pulse Rate [ Radial] Respiratory 20 Rate Blood Pressure 100/52 L Blood Pressure [Left Arm] O2 Sat by Pulse Oximetry (%) Current Medications Generic Name Dose Route Start Last Admin Trade Name Zhangq PRN Reason Stop Dose Admin Sodium Chloride 1,000 mls @ 100 mls/hr 11/08/19 21:45 11/08/19 22:47 Normal Saline - IV 100 mls/hr ASDIR MCKAY Administration Metronidazole 500 mg in 100 mls @ 100 mls/hr 11/09/19 10:00 11/09/19 09:23 Flagyl 500mg Premixed Ivpb - IVPB 100 mls/hr Q8H-IV MCKAY Administration Piperacillin Sod/Tazobactam 50 mls @ 100 mls/hr 11/09/19 10:00 11/09/19 10:34 Sod 3.375 gm/ Dextrose IVPB 100 mls/hr Q8H-IV MCKAY Administration Protocol Potassium Chloride 10 meq in 100 mls @ 100 mls/hr 11/09/19 11:30 Potassium Chloride 10 Meq Premix Ivpb - IVPB 11/09/19 14:29 Q60M MCKAY Dextrose/Sodium Chloride 20 meq in 1,000 mls @ 83 mls/hr 11/09/19 11:30 Dextrose 5%-Normal Saline+20 Meq Kcl - IV ASDIR MCKAY Methadone HCl 5 mg 11/09/19 06:00 11/09/19 05:47 Dolophine - PO 5 mg DAILY@0600 M[facility]AY Administration Nicotine 7 mg 11/09/19 10:00 11/09/19 10:34 Nicoderm Patch - TD 7 mg DAILY MCKAY Administration Laboratory Results - last 24 hr 11/08/19 11/08/19 11/08/19 16:50 16:50 20:06 WBC 15.3 H RBC 3.68 L Hgb 8.3 L Hct 26.0 L D MCV 70.8 L MCH 22.6 L MCHC 31.9 L RDW 18.3 H Plt Count 752 H D MPV 6.5 L D Absolute Neuts (auto) 12.0 H Neutrophils % 78.5 Lymphocytes % 12.4 Monocytes % 8.6 Eosinophils % 0.3 Basophils % 0.2 Nucleated RBC % 0 Sodium 129 L Potassium 2.9 L* Chloride 95 L Carbon Dioxide 23 Anion Gap 12 BUN 10.8 Creatinine 0.9 Est GFR (CKD-EPI)AfAm 116.65 Est GFR (CKD-EPI)NonAf 100.64 Random Glucose 100 Calcium 9.3 Phosphorus Magnesium Total Bilirubin 0.4 AST 35 ALT 51 Alkaline Phosphatase 335 H Total Protein 7.0 Albumin 2.1 L Total Amylase Lipase Stool Occult Blood Negative 11/08/19 11/09/19 11/09/19 21:35 07:15 07:15 WBC 10.8 H RBC 2.56 L Hgb 6.0 L* Hct 18.2 L D MCV 71.3 L MCH 23.6 L MCHC 33.1 RDW 17.9 H Plt Count 542 H D MPV 6.8 L Absolute Neuts (auto) 7.9 Neutrophils % 72.9 Lymphocytes % 15.7 D Monocytes % 10.9 H Eosinophils % 0.2 Basophils % 0.3 Nucleated RBC % 0 Sodium 132 L 136 Potassium 3.2 L 2.9 L* Chloride 103 107 Carbon Dioxide 20 L 20 L Anion Gap 9 9 BUN 10.7 7.8 Creatinine 0.7 0.7 Est GFR (CKD-EPI)AfAm 129.34 129.34 Est GFR (CKD-EPI)NonAf 111.59 111.59 Random Glucose 97 81 Calcium 8.4 L 8.2 L Phosphorus 3.8 Magnesium 1.8 Total Bilirubin 0.4 AST 28 ALT 44 Alkaline Phosphatase 287 H Total Protein 6.1 L Albumin 2.0 L Total Amylase 38 Lipase 70 L Stool Occult Blood S1 S2 RRR pale lungs clear Abd- distended, tender++, guarding No edema PLAN Pancolitis -- ct abd/pelvis noted -- iv fluids -- iv antibiotics -- GI eval Anemia -- transfuse 2 units -- Check stool guaic Alcohol abuse --was detoxed from alcohol a month now- was in a rehab in [place] and came back 3 weeks ago-- had diarrhea there as well hypokalemia -- replace potassium Problem List - Problems (1) Diarrhea Code(s): R19.7 - DIARRHEA, UNSPECIFIED Qualifiers: Diarrhea type: unspecified type Qualified Code(s): R19.7 - Diarrhea, unspecified (2) Hypokalemia Code(s): E87.6 - HYPOKALEMIA (3) Pancolitis Code(s): K51.00 - ULCERATIVE (CHRONIC) PANCOLITIS WITHOUT COMPLICATIONS (4) Weight loss, non-intentional Code(s): R63.4 - ABNORMAL WEIGHT LOSS
[2019-11-09] MEDS: D5-NS + 20 MEQ KCL - 20 MEQ/1,000 ML INFUS.BAG IV SCH (12:43)
[2019-11-09] MEDS: KCL 10 MEQ IVPB 10 MEQ/100 ML INFUS.BAG IVPB SCH ×3 (12:43→16:05)
--- NOTE | 2019-11-09 18:32 | CON.GI ---
Consult Consult Specialty:: GI - History of Present Illness History of Present Illness: 49 Y/O M with PMH of alcohol abuse, s/p EGD 2018 with erosive gastritis was admitted with 4 week history of abdominal pain,non bloody diarhea. Diarrhea started 3 weeks ago while in alcohol rehab in [place]. In EGD WBC was 15,000 associated with electrolyte imbalance. He denied travel outside the [facility]. There was no recent antibiotic use. Today he continue to have 8 LBM. He denies nausea and vomiting. 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 (SEIZURE) Cardio/Vascular: Yes: Hyperlipdemia Pulmonary: Yes: Asthma Gastrointestinal: Yes: Constipation, Gastritis, GERD, Hemorrhoids, Hiatal Hernia , Ulcerative Colitis, Other (POSSIBLE BEAL'S) Hepatobiliary: Yes: Other (ALCOHOLIC HEPATITIS, STEATOSIS (ALCOHOL AND FAT)) Renal/: Yes: Renal Calculi Psych: Yes: Addictions Musculoskeletal: Yes: Chronic low back pain, Osteoarthritis, Other (HIP AND KNEE SURGERY) Dermatology: Yes: Other (TATTOOS) - Past Surgical History Past Surgical History: Yes: Colonoscopy, Joint Replacement, Upper Endoscopy - Alcohol/Substance Use Hx Alcohol Use: Yes Number of Drinks Daily: 8 (ALSO ONE BOTTLE VODKA (FEBRUARY)) History of Substance Use: reports: None - Smoking History Smoking history: Former smoker Have you smoked in the past 12 months: No Aproximately how many cigarettes per day: 10 Home Medications - Allergies Allergies/Adverse Reactions: Allergies Allergy/AdvReac Type Severity Reaction Status Date / Time No Known Drug Allergies Allergy Verified 11/08/19 16:06 - Home Medications Home Medications: Ambulatory Orders Methadone [Dolophine -] 5 mg PO DAILY 07/15/18 Review of Systems - Review of Systems Constitutional: denies: No Symptoms, Chills, Diaphoresis, Fever, Lethargy, Loss of Appetite, Malaise, Night Sweats, Unintentional Wgt. Loss, Weakness, Other HENT: denies: No Symptoms, Difficult Swallowing, Ear Discharge, Ear Pain, Epistaxis, Gingival Bleeding, Hearing Loss, Mouth Swelling, Nasal Congestion, Ocular Prosthesis, Throat Pain, Toothache, Ringing in Ears, Other Neck: denies: No Symptoms, Decreased ROM, Lumps, Pain on Movement, Stiffness, Swollen Glands, Tenderness, Other Gastrointestinal: reports: Abdominal Pain, Bloating, Diarrhea. denies: Constipation, Dysphagia, Indigestion, Melena, Nausea, Vomiting Physical Exam-GI Vital Signs: Vital Signs Temperature 99 F 11/09/19 15:00 Pulse Rate 87 11/09/19 15:00 Respiratory Rate 11/09/19 15:00 Blood Pressure 99/60 11/09/19 15:00 O2 Sat by Pulse Oximetry (%) 100 11/09/19 09:00 Constitutional: Yes: Well Nourished Eyes: Yes: Conjunctiva Clear HENT: Yes: Atraumatic Neck: Yes: Trachea Midline Cardiovascular: Yes: Regular Rate and Rhythm Respiratory: Yes: CTA Bilaterally ...Palpate: Yes: Soft, Tenderness (--diffuse moderate). No: Firm/Rigid, Guarding, Hepatomegaly, Splenomegaly Labs: CBC, BMP 11/09/19 07:15 11/09/19 07:15 Home Medications Medication Instructions Recorded Methadone [Dolophine -] 5 mg PO DAILY 07/15/18 Home Medication List Medication Instructions Recorded Confirmed Type Methadone [Dolophine -] 5 mg PO DAILY 07/15/18 11/08/19 History Active Medications Generic Name Dose Route Start Last Admin Trade Name Freq PRN Reason Stop Dose Admin Metronidazole 500 mg in 100 mls @ 100 mls/hr 11/09/19 10:00 11/09/19 17:45 Flagyl 500mg Premixed Ivpb - IVPB 100 mls/hr Q8H-IV MCKAY Administration Piperacillin Sod/Tazobactam 50 mls @ 100 mls/hr 11/09/19 10:00 11/09/19 17:19 Sod 3.375 gm/ Dextrose IVPB 100 mls/hr Q8H-IV MCKAY Administration Protocol Dextrose/Sodium Chloride 20 meq in 1,000 mls @ 83 mls/hr 11/09/19 11:30 11/09 12:43 Dextrose 5%-Normal Saline+20 Meq Kcl - IV 83 mls/hr ASDIR MCKAY Administration Pantoprazole Sodium 40 mg/ 100 mls @ 200 mls/hr 11/09/19 22:00 Sodium Chloride IVPB BID MCKAY Methadone HCl 5 mg 11/09/19 06:00 11/09/19 05:47 Dolophine - PO 5 mg DAILY@0600 MCKAY Administration Nicotine 7 mg 11/09/19 10:00 11/09/19 10:34 Nicoderm Patch - TD 7 mg DAILY MCKAY Administration Problem List - Problems (1) Diarrhea Assessment/Plan: most likely infectious R> continues Zosyn and Flagyl stool analysis pending continue IV hydration Code(s): R19.7 - DIARRHEA, UNSPECIFIED Qualifiers: Diarrhea type: unspecified type Qualified Code(s): R19.7 - Diarrhea, unspecified
[2019-11-09] MEDS ORDERED: MELATONIN 5 MG TABLETS PO ONE (21:21)
[2019-11-09] MEDS ORDERED: PANTOPRAZOLE SODIUM 40 MG in SODIUM CHLORIDE 100 ML IVPB SCH (22:00)
[2019-11-09] MEDS: PANTOPRAZOLE SODIUM 40 MG VIAL IVPUSH SCH (23:22)
[2019-11-10] MEDS ORDERED: DEXTROSE 5%-WATER - 50 ML IVPB ONE ×3 (01:22→17:42)
[2019-11-10] MEDS ORDERED: PIPERACILLIN/TAZOBACTAM 3.375 GM VIAL IVPB ONE ×3 (01:22→17:41)
[2019-11-10] MEDS: PIPERACILLIN/TAZOB 3.375 GM 3.375 GM in DEXTROSE 5%-WATER - 50 ML IVPB SCH ×3 (01:35→17:47)
[2019-11-10] MEDS: METHADONE HCL 5 MG TABLET PO SCH (05:42)
--- NOTE | 2019-11-10 08:48 | PN ---
Progress Note, Physician History of Present Illness: GI FOLLOW UP NOTE Patient examined and case discussed with Dr Domingo Patient states having loose stool x 3 episodes yesterday one which was described as dark in color. He complains of experiencing cramping lower abdominal pain before and after BM. Labs yesterday showed Hg 6.0 and received 2U PRBC transfusion. Denies dysphagia, nausea, vomiting, constipation, rectal bleeding. - Current Medication List Current Medications: Active Medications Metronidazole (Flagyl 500mg Premixed Ivpb -) 500 mg in 100 mls @ 100 mls/hr IVPB Q8H-IV MCKAY Last Admin: 11/10/19 01:35 Dose: 100 mls/hr Piperacillin Sod/Tazobactam (Sod 3.375 gm/ Dextrose) 50 mls @ 100 mls/hr IVPB Q8H-IV MCKAY; Protocol Last Admin: 11/10/19 01:35 Dose: 100 mls/hr Dextrose/Sodium Chloride (Dextrose 5%-Normal Saline+20 Meq Kcl -) 20 meq in 1, 000 mls @ 83 mls/hr IV ASDIR [facility] Last Admin: 11/09/19 12:43 Dose: 83 mls/hr Methadone HCl (Dolophine -) 5 mg PO DAILY@0600 [facility] Last Admin: 11/10/19 05:42 Dose: 5 mg Nicotine (Nicoderm Patch -) 7 mg TD DAILY [facility] Last Admin: 11/09/19 10:34 Dose: 7 mg Pantoprazole Sodium (Protonix Iv) 40 mg IVPUSH BID [facility] Last Admin: 11/09/19 23:22 Dose: 40 mg - Objective Vital Signs: Vital Signs Temperature 98.2 F 11/10/19 06:33 Pulse Rate 73 11/10/19 06:33 Respiratory Rate 20 11/10/19 06:33 Blood Pressure 98/65 11/10/19 06:33 O2 Sat by Pulse Oximetry (%) 100 11/09/19 21:00 Constitutional: Yes: No Distress, Calm Eyes: Yes: Conjunctiva Clear HENT: Yes: Atraumatic Cardiovascular: Yes: Regular Rate and Rhythm Respiratory: Yes: Regular, CTA Bilaterally Gastrointestinal: Yes: Normal Bowel Sounds, Soft, Tenderness (lower abdomen) Neurological: Yes: Alert, Oriented Psychiatric: Yes: Alert, Oriented Labs: CBC, BMP 11/09/19 07:15 11/09/19 07:15 <Bernie Cary - Last Filed: 11/10/19 08:45> History of Present Illness: Patient lost in follow-up did not show for his appointments.Made aware to follow -up - Current Medication List Current Medications: Active Medications Metronidazole (Flagyl 500mg Premixed Ivpb -) 500 mg in 100 mls @ 100 mls/hr IVPB Q8H-IV MCKAY Last Admin: 11/10/19 10:45 Dose: 100 mls/hr Piperacillin Sod/Tazobactam (Sod 3.375 gm/ Dextrose) 50 mls @ 100 mls/hr IVPB Q8H-IV MCKAY; Protocol Last Admin: 11/10/19 10:34 Dose: 100 mls/hr Dextrose/Sodium Chloride (Dextrose 5%-Normal Saline+20 Meq Kcl -) 20 meq in 1, 000 mls @ 83 mls/hr IV ASDIR [facility] Last Admin: 11/10/19 14:37 Dose: 83 mls/hr Methadone HCl (Dolophine -) 5 mg PO DAILY@0600 [facility] Last Admin: 11/10/19 05:42 Dose: 5 mg Nicotine (Nicoderm Patch -) 7 mg TD DAILY [facility] Last Admin: 11/10/19 10:36 Dose: 7 mg Pantoprazole Sodium (Protonix Iv) 40 mg IVPUSH BID [facility] Last Admin: 11/10/19 10:47 Dose: 40 mg - Objective Vital Signs: Vital Signs Temperature 98.2 F 11/10/19 17:00 Pulse Rate 76 11/10/19 17:00 Respiratory Rate 20 11/10/19 17:00 Blood Pressure 121/75 11/10/19 17:00 O2 Sat by Pulse Oximetry (%) 100 11/10/19 09:00 Labs: CBC, BMP 11/10/19 07:45 11/10/19 07:45 <Victoriano Domingo - Last Filed: 11/10/19 17:29> Problem List - Problems (1) Diarrhea Code(s): R19.7 - DIARRHEA, UNSPECIFIED Qualifiers: Diarrhea type: unspecified type Qualified Code(s): R19.7 - Diarrhea, unspecified <Bernie Cary - Last Filed: 11/10/19 08:45> - Problems (1) Diarrhea Assessment/Plan: R> continue Zosyn and flagyl advance diet--low fiber lactose free Code(s): R19.7 - DIARRHEA, UNSPECIFIED Qualifiers: Diarrhea type: unspecified type Qualified Code(s): R19.7 - Diarrhea, unspecified <Victoriano Domingo - Last Filed: 11/10/19 17:29>
--- NOTE | 2019-11-10 09:00 | PN ---
Progress Note, Physician History of Present Illness: continues to have dirrhoea loose bm abd pain dirrhoea - Current Medication List Current Medications: Active Medications Metronidazole (Flagyl 500mg Premixed Ivpb -) 500 mg in 100 mls @ 100 mls/hr IVPB Q8H-IV MCKAY Last Admin: 11/10/19 01:35 Dose: 100 mls/hr Piperacillin Sod/Tazobactam (Sod 3.375 gm/ Dextrose) 50 mls @ 100 mls/hr IVPB Q8H-IV MCKAY; Protocol Last Admin: 11/10/19 01:35 Dose: 100 mls/hr Dextrose/Sodium Chloride (Dextrose 5%-Normal Saline+20 Meq Kcl -) 20 meq in 1, 000 mls @ 83 mls/hr IV ASDIR [facility] Last Admin: 11/09/19 12:43 Dose: 83 mls/hr Methadone HCl (Dolophine -) 5 mg PO DAILY@0600 [facility] Last Admin: 11/10/19 05:42 Dose: 5 mg Nicotine (Nicoderm Patch -) 7 mg TD DAILY [facility] Last Admin: 11/09/19 10:34 Dose: 7 mg Pantoprazole Sodium (Protonix Iv) 40 mg IVPUSH BID [facility] Last Admin: 11/09/19 23:22 Dose: 40 mg - Objective Vital Signs: Vital Signs Temperature 98.2 F 11/10/19 06:33 Pulse Rate 73 11/10/19 06:33 Respiratory Rate 20 11/10/19 06:33 Blood Pressure 98/65 11/10/19 06:33 O2 Sat by Pulse Oximetry (%) 100 11/09/19 21:00 Constitutional: Yes: No Distress, Calm Neck: Yes: Supple Cardiovascular: Yes: S1, S2 Respiratory: Yes: Regular, CTA Bilaterally Gastrointestinal: Yes: Normal Bowel Sounds, Soft Musculoskeletal: Yes: WNL Extremities: Yes: WNL Neurological: Yes: Alert, Oriented Psychiatric: Yes: Alert, Oriented Labs: CBC, BMP 11/09/19 07:15 11/09/19 07:15 Assessment/Plan Problem List - Problems (1) Pancolitis Code(s): K51.00 - ULCERATIVE (CHRONIC) PANCOLITIS WITHOUT COMPLICATIONS (2) Diarrhea Code(s): R19.7 - DIARRHEA, UNSPECIFIED Qualifiers: Diarrhea type: unspecified type Qualified Code(s): R19.7 - Diarrhea, unspecified (3) Hypokalemia Code(s): E87.6 - HYPOKALEMIA (4) Alcohol dependence with uncomplicated withdrawal Code(s): F10.230 - ALCOHOL DEPENDENCE WITH WITHDRAWAL, UNCOMPLICATED (5) GERD (gastroesophageal reflux disease) Code(s): K21.9 - GASTRO-ESOPHAGEAL REFLUX DISEASE WITHOUT ESOPHAGITIS (6) Nicotine dependence Code(s): F17.200 - NICOTINE DEPENDENCE, UNSPECIFIED, UNCOMPLICATED plan continue current mgmt abx npo hydration rest as per the team
[2019-11-10 09:50] LABS: HEMATOCRIT 25.9 % (35.4-49); HEMOGLOBIN 8.6 GM/dL (11.7-16.9); MCHC 33.2 g/dl (32.0-35.9); MEAN CELL VOLUME 75.1 fl (80-96); MEAN PLT VOLUME 6.7 fl (7.5-11.1); PLATELET COUNT 489 K/MM3 (134-434); RBC 3.44 M/mm3 (4.00-5.60); RDW 21.5 % (11.9-15.9); WHITE BLOOD COUNT 9.4 K/mm3 (4.0-10.0)
[2019-11-10] MEDS ORDERED: PT OWN MED DRAWER 7, Y5N ONE (10:29)
[2019-11-10 10:35] LABS: ALBUMIN 1.6 g/dl (3.4-5.0); BILIRUBIN,TOTAL 0.4 mg/dL (0.2-1); BLOOD UREA NITROGEN 3.6 mg/dL (7-18); CREATININE 0.7 mg/dL (0.55-1.3)
[2019-11-10] MEDS: NICOTINE 7 MG/24 HOURS TOPICAL PATCH TD SCH (10:36)
[2019-11-10 10:40] LABS: POTASSIUM 2.9 mmol/L (3.5-5.1)
[2019-11-10] MEDS: PANTOPRAZOLE SODIUM 40 MG VIAL IVPUSH SCH ×2 (10:47→21:38)
[2019-11-10] MEDS: D5-NS + 20 MEQ KCL - 20 MEQ/1,000 ML INFUS.BAG IV SCH ×2 (10:48→14:37)
--- NOTE | 2019-11-10 10:52 | PN ---
Progress Note (short form) - Note Progress Note: Diarrhea+ stool guaic positive abd pain + poor po intake s/p PRBC Vital Signs - 24 hr 11/09/19 11/09/19 11/10/19 15:00 21:00 06:33 Temperature 99 F 98.5 F 98.2 F Pulse Rate 87 83 73 Respiratory 20 20 20 Rate Blood Pressure 99/60 116/66 98/65 O2 Sat by Pulse 100 Oximetry (%) Current Medications Generic Name Dose Route Start Last Admin Trade Name Frecharisse PRN Reason Stop Dose Admin Metronidazole 500 mg in 100 mls @ 100 mls/hr 11/09/19 10:00 11/10/19 10:45 Flagyl 500mg Premixed Ivpb - IVPB 100 mls/hr Q8H-IV MCKAY Administration Piperacillin Sod/Tazobactam 50 mls @ 100 mls/hr 11/09/19 10:00 11/10/19 10:34 Sod 3.375 gm/ Dextrose IVPB 100 mls/hr Q8H-IV MCKAY Administration Protocol Dextrose/Sodium Chloride 20 meq in 1,000 mls @ 83 mls/hr 11/09/19 11:30 11/10 10:48 Dextrose 5%-Normal Saline+20 Meq Kcl - IV Not Given ASDIR MCKAY Potassium Chloride 10 meq in 100 mls @ 100 mls/hr 11/10/19 11:00 Potassium Chloride 10 Meq Premix Ivpb - IVPB 11/10/19 13:59 Q60M MCKAY Methadone HCl 5 mg 11/09/19 06:00 11/10/19 05:42 Dolophine - PO 5 mg DAILY@0600 MCKAY Administration Nicotine 7 mg 11/09/19 10:00 11/10/19 10:36 Nicoderm Patch - TD 7 mg DAILY MCKAY Administration Pantoprazole Sodium 40 mg 11/09/19 22:00 11/10/19 10:47 Protonix Iv IVPUSH 40 mg BID MCKAY Administration Laboratory Results - last 24 hr 11/09/19 11/10/19 11/10/19 11:50 06:00 07:45 WBC 9.4 RBC 3.44 L Hgb 8.6 L Hct 25.9 L D MCV 75.1 L MCH 25.0 L MCHC 33.2 RDW 21.5 H Plt Count 489 H MPV 6.7 L Sodium Potassium Chloride Carbon Dioxide Anion Gap BUN Creatinine Est GFR (CKD-EPI)AfAm Est GFR (CKD-EPI)NonAf Random Glucose Calcium Total Bilirubin AST ALT Alkaline Phosphatase Total Protein Albumin Stool Occult Blood Positive Blood Type O POSITIVE Antibody Screen Negative Crossmatch See Detail 11/10/19 07:45 WBC RBC Hgb Hct MCV MCH MCHC RDW Plt Count MPV Sodium 139 Potassium 2.9 L* Chloride 109 H Carbon Dioxide 21 Anion Gap 9 BUN 3.6 L Creatinine 0.7 Est GFR (CKD-EPI)AfAm 129.34 Est GFR (CKD-EPI)NonAf 111.59 Random Glucose 86 Calcium 8.0 L Total Bilirubin 0.4 AST 14 L ALT 29 Alkaline Phosphatase 226 H Total Protein 5.0 L Albumin 1.6 L Stool Occult Blood Blood Type Antibody Screen Crossmatch S1 S2 RRR not pale lungs clear Abd- distended, tender++, guarding No edema PLAN Pancolitis -- ct abd/pelvis noted -- iv fluids -- iv antibiotics -- GI eval -- stool studies so far negative -- check rotavirus Anemia -- s/p transfuseion 2 units -- stool guaic positive Alcohol abuse --was detoxed from alcohol a month now- was in a rehab in [place] and came back 3 weeks ago-- had diarrhea there as well hypokalemia -- replace potassium check Magnesium check HIV Problem List - Problems (1) Diarrhea Code(s): R19.7 - DIARRHEA, UNSPECIFIED Qualifiers: Diarrhea type: unspecified type Qualified Code(s): R19.7 - Diarrhea, unspecified (2) Hypokalemia Code(s): E87.6 - HYPOKALEMIA (3) Pancolitis Code(s): K51.00 - ULCERATIVE (CHRONIC) PANCOLITIS WITHOUT COMPLICATIONS (4) Weight loss, non-intentional Code(s): R63.4 - ABNORMAL WEIGHT LOSS
[2019-11-10] MEDS: KCL 10 MEQ IVPB 10 MEQ/100 ML INFUS.BAG IVPB SCH ×3 (11:40→14:26)
[2019-11-11] MEDS ORDERED: PIPERACILLIN/TAZOBACTAM 3.375 GM VIAL IVPB ONE ×3 (01:04→18:12)
[2019-11-11] MEDS ORDERED: DEXTROSE 5%-WATER - 50 ML IVPB ONE ×3 (01:05→18:12)
[2019-11-11] MEDS: PIPERACILLIN/TAZOB 3.375 GM 3.375 GM in DEXTROSE 5%-WATER - 50 ML IVPB SCH ×3 (01:10→18:15)
[2019-11-11] MEDS: METHADONE HCL 5 MG TABLET PO SCH (05:19)
[2019-11-11] MEDS: D5-NS + 20 MEQ KCL - 20 MEQ/1,000 ML INFUS.BAG IV SCH ×2 (05:20→14:24)
[2019-11-11 08:42] LABS: BASO % 0.4 % (0-2.0); EOS % 0.8 % (0-4.5); HEMATOCRIT 26.4 % (35.4-49); HEMOGLOBIN 8.7 GM/dL (11.7-16.9); MCH 24.6 pg (25.7-33.7); MCHC 32.8 g/dl (32.0-35.9); MEAN CELL VOLUME 74.9 fl (80-96); MEAN PLT VOLUME 6.6 fl (7.5-11.1); MONO % 11.5 % (3.8-10.2); NEUT % 66.3 % (42.8-82.8); PLATELET COUNT 569 K/MM3 (134-434); RBC 3.53 M/mm3 (4.00-5.60); RDW 21.1 % (11.9-15.9); WHITE BLOOD COUNT 8.9 K/mm3 (4.0-10.0)
--- NOTE | 2019-11-11 08:46 | PN ---
Progress Note, Physician History of Present Illness: says doing well still with some abd pain - Current Medication List Current Medications: Active Medications Metronidazole (Flagyl 500mg Premixed Ivpb -) 500 mg in 100 mls @ 100 mls/hr IVPB Q8H-IV MCKAY Last Admin: 11/11/19 01:44 Dose: 100 mls/hr Piperacillin Sod/Tazobactam (Sod 3.375 gm/ Dextrose) 50 mls @ 100 mls/hr IVPB Q8H-IV MCKAY; Protocol Last Admin: 11/11/19 01:10 Dose: 100 mls/hr Dextrose/Sodium Chloride (Dextrose 5%-Normal Saline+20 Meq Kcl -) 20 meq in 1, 000 mls @ 83 mls/hr IV ASDIR [facility] Last Admin: 11/11/19 05:20 Dose: 83 mls/hr Methadone HCl (Dolophine -) 5 mg PO DAILY@0600 [facility] Last Admin: 11/11/19 05:19 Dose: 5 mg Nicotine (Nicoderm Patch -) 7 mg TD DAILY [facility] Last Admin: 11/10/19 10:36 Dose: 7 mg Pantoprazole Sodium (Protonix Iv) 40 mg IVPUSH BID [facility] Last Admin: 11/10/19 21:38 Dose: 40 mg - Objective Vital Signs: Vital Signs Temperature 98.1 F 11/11/19 07:41 Pulse Rate 67 11/11/19 07:41 Respiratory Rate 20 11/11/19 07:41 Blood Pressure 123/78 11/11/19 07:41 O2 Sat by Pulse Oximetry (%) 100 11/10/19 20:24 Constitutional: Yes: No Distress, Calm Cardiovascular: Yes: S1, S2 Respiratory: Yes: Regular, CTA Bilaterally Gastrointestinal: Yes: Normal Bowel Sounds, Soft, Tenderness Genitourinary: Yes: WNL Musculoskeletal: Yes: WNL Extremities: Yes: WNL Neurological: Yes: Alert, Oriented Psychiatric: Yes: Alert, Oriented Assessment/Plan Problem List - Problems (1) Pancolitis Code(s): K51.00 - ULCERATIVE (CHRONIC) PANCOLITIS WITHOUT COMPLICATIONS (2) Diarrhea Code(s): R19.7 - DIARRHEA, UNSPECIFIED Qualifiers: Diarrhea type: unspecified type Qualified Code(s): R19.7 - Diarrhea, unspecified (3) Hypokalemia Code(s): E87.6 - HYPOKALEMIA (4) Alcohol dependence with uncomplicated withdrawal Code(s): F10.230 - ALCOHOL DEPENDENCE WITH WITHDRAWAL, UNCOMPLICATED (5) GERD (gastroesophageal reflux disease) Code(s): K21.9 - GASTRO-ESOPHAGEAL REFLUX DISEASE WITHOUT ESOPHAGITIS (6) Nicotine dependence Code(s): F17.200 - NICOTINE DEPENDENCE, UNSPECIFIED, UNCOMPLICATED plan continue current mgmt abx as per gi rest as per the team
--- NOTE | 2019-11-11 08:57 | PN ---
Progress Note, Physician History of Present Illness: GI FOLLOW UP NOTE Patient examined and case discussed with Dr Domingo Patient states having loose stool x 2 episodes last night and one of them had blood in it as per patient. He complains of experiencing cramping lower abdominal pain before and after BM. Labs show stable Hg at 8.7. Denies dysphagia, nausea, vomiting, constipation. Repeat Stool OB is positive. - Current Medication List Current Medications: Active Medications Metronidazole (Flagyl 500mg Premixed Ivpb -) 500 mg in 100 mls @ 100 mls/hr IVPB Q8H-IV [facility] Last Admin: 11/11/19 01:44 Dose: 100 mls/hr Piperacillin Sod/Tazobactam (Sod 3.375 gm/ Dextrose) 50 mls @ 100 mls/hr IVPB Q8H-IV MCKAY; Protocol Last Admin: 11/11/19 01:10 Dose: 100 mls/hr Dextrose/Sodium Chloride (Dextrose 5%-Normal Saline+20 Meq Kcl -) 20 meq in 1, 000 mls @ 83 mls/hr IV ASDIR [facility] Last Admin: 11/11/19 05:20 Dose: 83 mls/hr Methadone HCl (Dolophine -) 5 mg PO DAILY@0600 [facility] Last Admin: 11/11/19 05:19 Dose: 5 mg Nicotine (Nicoderm Patch -) 7 mg TD DAILY [facility] Last Admin: 11/10/19 10:36 Dose: 7 mg Pantoprazole Sodium (Protonix Iv) 40 mg IVPUSH BID [facility] Last Admin: 11/10/19 21:38 Dose: 40 mg - Objective Vital Signs: Vital Signs Temperature 98.1 F 11/11/19 07:41 Pulse Rate 67 11/11/19 07:41 Respiratory Rate 20 11/11/19 07:41 Blood Pressure 123/78 11/11/19 07:41 O2 Sat by Pulse Oximetry (%) 100 11/10/19 20:24 Constitutional: Yes: No Distress, Calm Eyes: Yes: Conjunctiva Clear HENT: Yes: Atraumatic Cardiovascular: Yes: Regular Rate and Rhythm Respiratory: Yes: Regular, CTA Bilaterally Gastrointestinal: Yes: Normal Bowel Sounds, Soft, Tenderness (lower abdomen) Neurological: Yes: Alert, Oriented Psychiatric: Yes: Alert, Oriented Labs: CBC, BMP 11/11/19 06:50 Problem List - Problems (1) Diarrhea Assessment/Plan: -stool c-diff negative and stool culture neg -lactose free/low fiber diet Code(s): R19.7 - DIARRHEA, UNSPECIFIED Qualifiers: Diarrhea type: unspecified type Qualified Code(s): R19.7 - Diarrhea, unspecified
[2019-11-11 09:22] LABS: ALBUMIN 1.6 g/dl (3.4-5.0); BILIRUBIN,TOTAL 0.4 mg/dL (0.2-1); CALCIUM 8.3 mg/dL (8.5-10.1); CREATININE 0.7 mg/dL (0.55-1.3); MAGNESIUM 1.7 mg/dL (1.8-2.4)
[2019-11-11 09:54] LABS: BLOOD UREA NITROGEN 2.8 mg/dL (7-18); POTASSIUM 2.9 mmol/L (3.5-5.1)
[2019-11-11] MEDS ORDERED: MAGNESIUM SULF 50% (8.12 MEQ/2 ML-1 GM VIAL) IVPB ONE ×2 (10:32→15:30)
--- NOTE | 2019-11-11 10:45 | PN ---
Progress Note (short form) - Note Progress Note: pt seen/ examined chart is reviewed relatively feels better decreased abd pain also says decreased diarrhea but persists looks better afebrile Vital Signs Temp 98.1 F 11/11/19 07:41 Pulse 67 11/11/19 07:41 Resp 20 11/11/19 07:41 BP 123/78 11/11/19 07:41 Pulse Ox 100 11/10/19 20:24 Intake & Output 11/10/19 11/10/19 11/11/19 11:59 23:59 11:59 Intake Total 350 1481 1100 Balance 350 1481 1100 Intake: IV 581 750 DEXTROSE 5%-NORMAL SALINE 581 750 +20 MEQ KCL - 20 meq In 1 ,000 ml @ 83 mls/hr IV ASDIR [facility] Rx#:[id number] IVPB 200 600 350 Oral 300 Packed Cells 150 Other: Voiding Method Toilet # Unmeasured Voids Void 1 1 Bowel Movement Yes: small loose mucus bm Yes # Bowel Movements 4 Active Medications Metronidazole (Flagyl 500mg Premixed Ivpb -) 500 mg in 100 mls @ 100 mls/hr IVPB Q8H-IV [facility] Last Admin: 11/11/19 01:44 Dose: 100 mls/hr Piperacillin Sod/Tazobactam (Sod 3.375 gm/ Dextrose) 50 mls @ 100 mls/hr IVPB Q8H-IV [facility]; Protocol Last Admin: 11/11/19 01:10 Dose: 100 mls/hr Dextrose/Sodium Chloride (Dextrose 5%-Normal Saline+20 Meq Kcl -) 20 meq in 1, 000 mls @ 83 mls/hr IV ASDIR [facility] Last Admin: 11/11/19 05:20 Dose: 83 mls/hr Potassium Chloride (Potassium Chloride 10 Meq Premix Ivpb -) 10 meq in 100 mls @ 100 mls/hr IVPB Q60M [facility] Stop: 11/11/19 13:44 Methadone HCl (Dolophine -) 5 mg PO DAILY@0600 [facility] Last Admin: 11/11/19 05:19 Dose: 5 mg Nicotine (Nicoderm Patch -) 7 mg TD DAILY [facility] Last Admin: 11/10/19 10:36 Dose: 7 mg Pantoprazole Sodium (Protonix Iv) 40 mg IVPUSH BID [facility] Last Admin: 11/10/19 21:38 Dose: 40 mg CBC,CMP WBC 8.9 K/mm3 (4.0-10.0) 11/11/19 06:50 RBC 3.53 M/mm3 (4.00-5.60) L 11/11/19 06:50 Hgb 8.7 GM/dL (11.7-16.9) L 11/11/19 06:50 Hct 26.4 % (35.4-49) L 11/11/19 06:50 MCV 74.9 fl (80-96) L 11/11/19 06:50 MCH 24.6 pg (25.7-33.7) L 11/11/19 06:50 MCHC 32.8 g/dl (32.0-35.9) 11/11/19 06:50 RDW 21.1 % (11.9-15.9) H 11/11/19 06:50 Plt Count 569 K/MM3 (134-434) H 11/11/19 06:50 MPV 6.6 fl (7.5-11.1) L 11/11/19 06:50 Absolute Neuts (auto) 5.9 K/mm3 (1.5-8.0) 11/11/19 06:50 Neutrophils % 66.3 % (42.8-82.8) 11/11/19 06:50 Lymphocytes % 21.0 % (8-40) D 11/11/19 06:50 Monocytes % 11.5 % (3.8-10.2) H 11/11/19 06:50 Eosinophils % 0.8 % (0-4.5) D 11/11/19 06:50 Basophils % 0.4 % (0-2.0) 11/11/19 06:50 Nucleated RBC % 0 % (0-0) 11/11/19 06:50 Sodium 137 mmol/L (136-145) 11/11/19 06:50 Potassium 2.9 mmol/L (3.5-5.1) L* 11/11/19 06:50 Chloride 107 mmol/L (98-107) 11/11/19 06:50 Carbon Dioxide 20 mmol/L (21-32) L 11/11/19 06:50 Anion Gap 10 MMOL/L (8-16) 11/11/19 06:50 BUN 2.8 mg/dL (7-18) L* 11/11/19 06:50 Creatinine 0.7 mg/dL (0.55-1.3) 11/11/19 06:50 Est GFR (CKD-EPI)AfAm 129.34 11/11/19 06:50 Est GFR (CKD-EPI)NonAf 111.59 11/11/19 06:50 Random Glucose 95 mg/dL (74-106) 11/11/19 06:50 Calcium 8.3 mg/dL (8.5-10.1) L 11/11/19 06:50 Phosphorus 3.8 mg/dL (2.5-4.9) 11/09/19 07:15 Magnesium 1.7 mg/dL (1.8-2.4) L 11/11/19 06:50 Total Bilirubin 0.4 mg/dL (0.2-1) 11/11/19 06:50 AST 14 U/L (15-37) L 11/11/19 06:50 ALT 23 U/L (13-61) 11/11/19 06:50 Alkaline Phosphatase 209 U/L (45-117) H 11/11/19 06:50 Total Protein 5.0 g/dl (6.4-8.2) L 11/11/19 06:50 Albumin 1.6 g/dl (3.4-5.0) L 11/11/19 06:50 Total Amylase 38 U/L (25-115) 11/09/19 07:15 Lipase 70 U/L (73-393) L 11/09/19 07:15 CBC, BMP 11/11/19 06:50 11/11/19 06:50 ct scan -- Reviewed. Physical Exam Awake/ Comfortable S1 S2 RRR cvs- s1, s2 rrr lungs clear Abd- soft/ decreased tenderness. bs + No edema Neuro- Alert/ Awake . PLAN Pancolitis -- ct abd/pelvis noted -- iv fluids -- iv antibiotics -- GI following -- stool studies so far negative -- Anemia -- s/p transfuseion 2 units -- stool guaic positive - Alcohol abuse --was detoxed from alcohol a month now- was in a rehab in [place] and came back 3 weeks ago-- had diarrhea there as well hypokalemia -- replace potassium --- Magnesium recheck BMP today Chronic Pain Syndrome On Methadone H/O Myeloproliferative Disorder - Monitor Problem List - Problems (1) Chronic pain disorder Code(s): G89.4 - CHRONIC PAIN SYNDROME (2) Myeloproliferative disorder Code(s): D47.1 - CHRONIC MYELOPROLIFERATIVE DISEASE (3) Diarrhea Code(s): R19.7 - DIARRHEA, UNSPECIFIED Qualifiers: Diarrhea type: unspecified type Qualified Code(s): R19.7 - Diarrhea, unspecified (4) Hypokalemia Code(s): E87.6 - HYPOKALEMIA (5) Pancolitis Code(s): K51.00 - ULCERATIVE (CHRONIC) PANCOLITIS WITHOUT COMPLICATIONS
[2019-11-11] MEDS ORDERED: PT OWN MED DRAWER 7, Y5N ONE (11:10)
[2019-11-11] MEDS: PANTOPRAZOLE SODIUM 40 MG VIAL IVPUSH SCH ×2 (11:16→23:34)
[2019-11-11] MEDS: NICOTINE 7 MG/24 HOURS TOPICAL PATCH TD SCH (11:16)
[2019-11-11] MEDS: KCL 10 MEQ IVPB 10 MEQ/100 ML INFUS.BAG IVPB SCH ×3 (13:16→18:15)
[2019-11-11 13:59] LABS: ANISOCYTOSIS 1+; MACROCYTOSIS 0; OVALOCYTE 1+; PLATELET ESTIMATE INCREASED; TARGET CELLS 1+; TEAR DROP CELLS 1+
[2019-11-11 16:00] LABS: CALCIUM 8.2 mg/dL (8.5-10.1); CREATININE 0.7 mg/dL (0.55-1.3)
[2019-11-11 16:09] LABS: BLOOD UREA NITROGEN 2.5 mg/dL (7-18); POTASSIUM 2.9 mmol/L (3.5-5.1)
[2019-11-12] MEDS ORDERED: PIPERACILLIN/TAZOBACTAM 3.375 GM VIAL IVPB ONE ×3 (02:35→17:39)
[2019-11-12] MEDS ORDERED: DEXTROSE 5%-WATER - 50 ML IVPB ONE ×3 (02:35→17:39)
[2019-11-12] MEDS: PIPERACILLIN/TAZOB 3.375 GM 3.375 GM in DEXTROSE 5%-WATER - 50 ML IVPB SCH ×3 (02:44→19:21)
[2019-11-12] MEDS: METHADONE HCL 5 MG TABLET PO SCH (05:27)
[2019-11-12 07:32] LABS: BASO % 0.7 % (0-2.0); EOS % 1.8 % (0-4.5); HEMATOCRIT 28.3 % (35.4-49); HEMOGLOBIN 9.3 GM/dL (11.7-16.9); LYMPH % 21.6 % (8-40); MCH 24.8 pg (25.7-33.7); MEAN CELL VOLUME 75.1 fl (80-96); MEAN PLT VOLUME 6.6 fl (7.5-11.1); MONO % 8.9 % (3.8-10.2); PLATELET COUNT 566 K/MM3 (134-434); RBC 3.77 M/mm3 (4.00-5.60); RDW 20.7 % (11.9-15.9); WHITE BLOOD COUNT 7.8 K/mm3 (4.0-10.0)
[2019-11-12 08:26] LABS: ALBUMIN 1.6 g/dl (3.4-5.0); BILIRUBIN,TOTAL 0.5 mg/dL (0.2-1); CALCIUM 7.9 mg/dL (8.5-10.1); CREATININE 0.6 mg/dL (0.55-1.3); MAGNESIUM 1.8 mg/dL (1.8-2.4); POTASSIUM 3.3 mmol/L (3.5-5.1); TOT PROT 4.9 g/dl (6.4-8.2)
[2019-11-12] MEDS ORDERED: PT OWN MED DRAWER 7, Y5N ONE (09:05)
[2019-11-12] MEDS: NICOTINE 7 MG/24 HOURS TOPICAL PATCH TD SCH (09:11)
[2019-11-12] MEDS: PANTOPRAZOLE SODIUM 40 MG VIAL IVPUSH SCH ×2 (09:11→21:43)
[2019-11-12] MEDS: D5-NS + 20 MEQ KCL - 20 MEQ/1,000 ML INFUS.BAG IV SCH ×2 (09:23→12:41)
[2019-11-12 09:29] LABS: BLOOD UREA NITROGEN 2.6 mg/dL (7-18)
--- NOTE | 2019-11-12 10:12 | PN ---
Progress Note, Physician History of Present Illness: stable no new issues - Current Medication List Current Medications: Active Medications Metronidazole (Flagyl 500mg Premixed Ivpb -) 500 mg in 100 mls @ 100 mls/hr IVPB Q8H-IV [facility] Last Admin: 11/12/19 09:11 Dose: 100 mls/hr Piperacillin Sod/Tazobactam (Sod 3.375 gm/ Dextrose) 50 mls @ 100 mls/hr IVPB Q8H-IV [facility]; Protocol Last Admin: 11/12/19 02:44 Dose: 100 mls/hr Dextrose/Sodium Chloride (Dextrose 5%-Normal Saline+20 Meq Kcl -) 20 meq in 1, 000 mls @ 83 mls/hr IV ASDIR [facility] Last Admin: 11/12/19 09:23 Dose: 83 mls/hr Methadone HCl (Dolophine -) 5 mg PO DAILY@0600 [facility] Last Admin: 11/12/19 05:27 Dose: 5 mg Nicotine (Nicoderm Patch -) 7 mg TD DAILY [facility] Last Admin: 11/12/19 09:11 Dose: 7 mg Pantoprazole Sodium (Protonix Iv) 40 mg IVPUSH BID [facility] Last Admin: 11/12/19 09:11 Dose: 40 mg - Objective Vital Signs: Vital Signs Temperature 97.8 F 11/12/19 09:10 Pulse Rate 79 11/12/19 09:10 Respiratory Rate 18 11/12/19 09:10 Blood Pressure 123/72 11/12/19 09:10 O2 Sat by Pulse Oximetry (%) 100 11/10/19 20:24 Constitutional: Yes: No Distress, Calm Cardiovascular: Yes: S1, S2 Respiratory: Yes: Regular, CTA Bilaterally Gastrointestinal: Yes: Normal Bowel Sounds, Soft, Tenderness Musculoskeletal: Yes: WNL Extremities: Yes: WNL Neurological: Yes: Alert, Oriented Psychiatric: Yes: Alert, Oriented Labs: CBC, BMP 11/12/19 05:40 11/12/19 05:40 Assessment/Plan Problem List - Problems (1) Pancolitis Code(s): K51.00 - ULCERATIVE (CHRONIC) PANCOLITIS WITHOUT COMPLICATIONS (2) Diarrhea Code(s): R19.7 - DIARRHEA, UNSPECIFIED Qualifiers: Diarrhea type: unspecified type Qualified Code(s): R19.7 - Diarrhea, unspecified (3) Hypokalemia Code(s): E87.6 - HYPOKALEMIA (4) Alcohol dependence with uncomplicated withdrawal Code(s): F10.230 - ALCOHOL DEPENDENCE WITH WITHDRAWAL, UNCOMPLICATED (5) GERD (gastroesophageal reflux disease) Code(s): K21.9 - GASTRO-ESOPHAGEAL REFLUX DISEASE WITHOUT ESOPHAGITIS (6) Nicotine dependence Code(s): F17.200 - NICOTINE DEPENDENCE, UNSPECIFIED, UNCOMPLICATED plan continue current mgmt abx as per gi rest as per the team
--- NOTE | 2019-11-12 12:22 | PN ---
Progress Note (short form) - Note Progress Note: Pt seen/ examined feels much better denies abd pain says diarrhea much better Vital Signs Temp 97.8 F 11/12/19 09:10 Pulse 79 11/12/19 09:10 Resp 18 11/12/19 09:10 BP 123/72 11/12/19 09:10 Pulse Ox 100 11/10/19 20:24 Intake & Output 11/11/19 11/12/19 11/12/19 23:59 11:59 23:59 Intake Total 2646 Balance 2646 Intake: IV 1746 DEXTROSE 5%-NORMAL SALINE 1746 +20 MEQ KCL - 20 meq In 1 ,000 ml @ 83 mls/hr IV ASDIR [facility] Rx#:[id number] IVPB 900 Other: Voiding Method Toilet # Unmeasured Voids Void 2 Bowel Movement Yes No Active Medications Metronidazole (Flagyl 500mg Premixed Ivpb -) 500 mg in 100 mls @ 100 mls/hr IVPB Q8H-IV [facility] Last Admin: 11/12/19 09:11 Dose: 100 mls/hr Piperacillin Sod/Tazobactam (Sod 3.375 gm/ Dextrose) 50 mls @ 100 mls/hr IVPB Q8H-IV [facility]; Protocol Last Admin: 11/12/19 10:44 Dose: 100 mls/hr Dextrose/Sodium Chloride (Dextrose 5%-Normal Saline+20 Meq Kcl -) 20 meq in 1, 000 mls @ 83 mls/hr IV ASDIR [facility] Last Admin: 11/12/19 09:23 Dose: 83 mls/hr Potassium Chloride (Potassium Chloride 10 Meq Premix Ivpb -) 10 meq in 100 mls @ 100 mls/hr IVPB Q60M [facility] Stop: 11/12/19 15:29 Methadone HCl (Dolophine -) 5 mg PO DAILY@0600 [facility] Last Admin: 11/12/19 05:27 Dose: 5 mg Nicotine (Nicoderm Patch -) 7 mg TD DAILY [facility] Last Admin: 11/12/19 09:11 Dose: 7 mg Pantoprazole Sodium (Protonix Iv) 40 mg IVPUSH BID [facility] Last Admin: 11/12/19 09:11 Dose: 40 mg CBC, BMP 11/12/19 05:40 11/12/19 05:40 Physical Exam Awake/ Comfortable S1 S2 RRR cvs- s1, s2 rrr lungs clear Abd- soft/ non tender No edema Neuro- Alert/ Awake . PLAN Pancolitis-- much better -- eating better -- iv fluids-- d/c now -- iv antibiotics -- GI following -- stool studies so far negative Anemia -- s/p transfuseion 2 units -- stool guaic positive Alcohol abuse --was detoxed from alcohol a month now- was in a rehab in [place] and came back 3 weeks ago-- had diarrhea there as well hypokalemia -- replace potassium --- Magnesium -- Monitor Lytes Chronic Pain Syndrome On Methadone H/O Myeloproliferative Disorder - Monitor Problem List - Problems (1) Chronic pain disorder Code(s): G89.4 - CHRONIC PAIN SYNDROME (2) Myeloproliferative disorder Code(s): D47.1 - CHRONIC MYELOPROLIFERATIVE DISEASE (3) Diarrhea Code(s): R19.7 - DIARRHEA, UNSPECIFIED Qualifiers: Diarrhea type: unspecified type Qualified Code(s): R19.7 - Diarrhea, unspecified (4) Hypokalemia Code(s): E87.6 - HYPOKALEMIA (5) Pancolitis Code(s): K51.00 - ULCERATIVE (CHRONIC) PANCOLITIS WITHOUT COMPLICATIONS
[2019-11-12] MEDS: KCL 10 MEQ IVPB 10 MEQ/100 ML INFUS.BAG IVPB SCH ×3 (13:35→17:46)
[2019-11-13] MEDS ORDERED: PIPERACILLIN/TAZOBACTAM 3.375 GM VIAL IVPB ONE ×3 (02:11→17:17)
[2019-11-13] MEDS ORDERED: DEXTROSE 5%-WATER - 50 ML IVPB ONE ×3 (02:11→17:17)
[2019-11-13] MEDS: PIPERACILLIN/TAZOB 3.375 GM 3.375 GM in DEXTROSE 5%-WATER - 50 ML IVPB SCH ×3 (02:25→18:26)
[2019-11-13] MEDS: D5-NS + 20 MEQ KCL - 20 MEQ/1,000 ML INFUS.BAG IV SCH ×2 (05:01→16:19)
[2019-11-13] MEDS: METHADONE HCL 5 MG TABLET PO SCH (05:03)
[2019-11-13 07:22] LABS: BASO % 0.6 % (0-2.0); HEMATOCRIT 28.4 % (35.4-49); HEMOGLOBIN 9.4 GM/dL (11.7-16.9); LYMPH % 21.6 % (8-40); MCH 24.9 pg (25.7-33.7); MEAN CELL VOLUME 75.3 fl (80-96); MEAN PLT VOLUME 6.2 fl (7.5-11.1); MONO % 10.7 % (3.8-10.2); NEUT % 66.1 % (42.8-82.8); PLATELET COUNT 568 K/MM3 (134-434); RBC 3.77 M/mm3 (4.00-5.60); RDW 21.2 % (11.9-15.9); WHITE BLOOD COUNT 8.8 K/mm3 (4.0-10.0)
[2019-11-13 07:54] LABS: CALCIUM 8.1 mg/dL (8.5-10.1); CREATININE 0.6 mg/dL (0.55-1.3); MAGNESIUM 1.7 mg/dL (1.8-2.4); POTASSIUM 3.2 mmol/L (3.5-5.1)
[2019-11-13 08:36] LABS: BLOOD UREA NITROGEN 2.2 mg/dL (7-18)
[2019-11-13] MEDS ORDERED: PT OWN MED DRAWER 7, Y5N ONE (09:26)
[2019-11-13] MEDS: PANTOPRAZOLE SODIUM 40 MG VIAL IVPUSH SCH (10:42)
[2019-11-13] MEDS: NICOTINE 7 MG/24 HOURS TOPICAL PATCH TD SCH (10:43)
--- NOTE | 2019-11-13 10:46 | PN ---
Progress Note, Physician History of Present Illness: stable no new issues - Current Medication List Current Medications: Active Medications Metronidazole (Flagyl 500mg Premixed Ivpb -) 500 mg in 100 mls @ 100 mls/hr IVPB Q8H-IV [facility] Last Admin: 11/13/19 10:43 Dose: 100 mls/hr Piperacillin Sod/Tazobactam (Sod 3.375 gm/ Dextrose) 50 mls @ 100 mls/hr IVPB Q8H-IV [facility]; Protocol Last Admin: 11/13/19 10:42 Dose: 100 mls/hr Dextrose/Sodium Chloride (Dextrose 5%-Normal Saline+20 Meq Kcl -) 20 meq in 1, 000 mls @ 83 mls/hr IV ASDIR [facility] Last Admin: 11/13/19 05:01 Dose: 83 mls/hr Methadone HCl (Dolophine -) 5 mg PO DAILY@0600 [facility] Last Admin: 11/13/19 05:03 Dose: 5 mg Nicotine (Nicoderm Patch -) 7 mg TD DAILY [facility] Last Admin: 11/13/19 10:43 Dose: 7 mg Pantoprazole Sodium (Protonix Iv) 40 mg IVPUSH BID [facility] Last Admin: 11/13/19 10:42 Dose: 40 mg - Objective Vital Signs: Vital Signs Temperature 97.7 F 11/13/19 06:00 Pulse Rate 62 11/13/19 06:00 Respiratory Rate 11/13/19 06:00 Blood Pressure 135/75 11/13/19 06:00 O2 Sat by Pulse Oximetry (%) 100 11/12/19 21:00 Constitutional: Yes: No Distress, Calm Respiratory: Yes: Regular, Other Gastrointestinal: Yes: Normal Bowel Sounds, Soft Musculoskeletal: Yes: WNL Extremities: Yes: WNL Neurological: Yes: Alert, Oriented Psychiatric: Yes: Alert, Oriented Labs: CBC, BMP 11/13/19 06:55 11/13/19 06:55 Assessment/Plan Problem List - Problems (1) Pancolitis Code(s): K51.00 - ULCERATIVE (CHRONIC) PANCOLITIS WITHOUT COMPLICATIONS (2) Diarrhea Code(s): R19.7 - DIARRHEA, UNSPECIFIED Qualifiers: Diarrhea type: unspecified type Qualified Code(s): R19.7 - Diarrhea, unspecified (3) Hypokalemia Code(s): E87.6 - HYPOKALEMIA (4) Alcohol dependence with uncomplicated withdrawal Code(s): F10.230 - ALCOHOL DEPENDENCE WITH WITHDRAWAL, UNCOMPLICATED (5) GERD (gastroesophageal reflux disease) Code(s): K21.9 - GASTRO-ESOPHAGEAL REFLUX DISEASE WITHOUT ESOPHAGITIS (6) Nicotine dependence Code(s): F17.200 - NICOTINE DEPENDENCE, UNSPECIFIED, UNCOMPLICATED plan continue current mgmt abx as per gi rest as per the team will deescalte abx
--- NOTE | 2019-11-13 13:06 | PN ---
Progress Note (short form) - Note Progress Note: much better diarrhea almost resolved denies pain afebrile eating better Vital Signs Temp 97.4 F L 11/13/19 10:00 Pulse 93 H 11/13/19 10:00 Resp 18 11/13/19 10:00 BP 128/89 11/13/19 10:00 Pulse Ox 100 11/12/19 21:00 Intake & Output 11/12/19 11/13/19 11/13/19 23:59 11:59 23:59 Intake Total 2015 Balance 2015 Intake: IV 996 DEXTROSE 5%-NORMAL SALINE 996 +20 MEQ KCL - 20 meq In 1 ,000 ml @ 83 mls/hr IV ASDIR [facility] Rx#:[id number] IVPB 600 Oral 420 Other: Voiding Method Toilet Toilet # Unmeasured Voids Void 1 Bowel Movement Yes: large No # Bowel Movements 1 Active Medications Metronidazole (Flagyl 500mg Premixed Ivpb -) 500 mg in 100 mls @ 100 mls/hr IVPB Q8H-IV [facility] Last Admin: 11/13/19 10:43 Dose: 100 mls/hr Piperacillin Sod/Tazobactam (Sod 3.375 gm/ Dextrose) 50 mls @ 100 mls/hr IVPB Q8H-IV [facility]; Protocol Last Admin: 11/13/19 10:42 Dose: 100 mls/hr Methadone HCl (Dolophine -) 5 mg PO DAILY@0600 [facility] Last Admin: 11/13/19 05:03 Dose: 5 mg Nicotine (Nicoderm Patch -) 7 mg TD DAILY [facility] Last Admin: 11/13/19 10:43 Dose: 7 mg Pantoprazole Sodium (Protonix -) 40 mg PO DAILY [facility] Potassium Chloride (Potassium Chloride Oral Liquid) 40 meq PO ONCE ONE Stop: 11/13/19 13:06 CBC, BMP 11/13/19 06:55 11/13/19 06:55 Physical Exam Awake/ Comfortable S1 S2 RRR cvs- s1, s2 rrr lungs clear Abd- soft/ non tender No edema Neuro- Alert/ Awake . PLAN Pancolitis-- much better -- eating better -- iv fluids-- d/c -- iv antibiotics-- will d/w i/d --consider changing po - in 1-2 days -- GI following -- stool studies so far negative Anemia -- s/p transfuseion 2 units -- stool guaic positive - change i/v protonix to po Alcohol abuse --was detoxed from alcohol a month now- was in a rehab in [place] and came back 3 weeks ago-- had diarrhea there as well hypokalemia -- replace potassium --- Magnesium -- Monitor Lytes Chronic Pain Syndrome On Methadone H/O Myeloproliferative Disorder - Monitor Problem List - Problems (1) Chronic pain disorder Code(s): G89.4 - CHRONIC PAIN SYNDROME (2) Myeloproliferative disorder Code(s): D47.1 - CHRONIC MYELOPROLIFERATIVE DISEASE (3) Diarrhea Code(s): R19.7 - DIARRHEA, UNSPECIFIED Qualifiers: Diarrhea type: unspecified type Qualified Code(s): R19.7 - Diarrhea, unspecified (4) Hypokalemia Code(s): E87.6 - HYPOKALEMIA (5) Pancolitis Code(s): K51.00 - ULCERATIVE (CHRONIC) PANCOLITIS WITHOUT COMPLICATIONS Problem List - Problems (1) Chronic pain disorder Code(s): G89.4 - CHRONIC PAIN SYNDROME (2) Myeloproliferative disorder Code(s): D47.1 - CHRONIC MYELOPROLIFERATIVE DISEASE (3) Diarrhea Code(s): R19.7 - DIARRHEA, UNSPECIFIED Qualifiers: Diarrhea type: unspecified type Qualified Code(s): R19.7 - Diarrhea, unspecified (4) Hypokalemia Code(s): E87.6 - HYPOKALEMIA (5) Pancolitis Code(s): K51.00 - ULCERATIVE (CHRONIC) PANCOLITIS WITHOUT COMPLICATIONS
[2019-11-13] MEDS ORDERED: POTASSIUM CHLORIDE ORAL LIQUID 20 MEQ/15 ML PO ONE (13:30)
[2019-11-14] MEDS ORDERED: PIPERACILLIN/TAZOBACTAM 3.375 GM VIAL IVPB ONE (01:32)
[2019-11-14] MEDS ORDERED: DEXTROSE 5%-WATER - 50 ML IVPB ONE (01:32)
[2019-11-14] MEDS: PIPERACILLIN/TAZOB 3.375 GM 3.375 GM in DEXTROSE 5%-WATER - 50 ML IVPB SCH (01:41)
[2019-11-14] MEDS: METHADONE HCL 5 MG TABLET PO SCH (05:48)
[2019-11-14 07:50] LABS: BASO % 0.5 % (0-2.0); EOS % 0.3 % (0-4.5); HEMATOCRIT 24.9 % (35.4-49); HEMOGLOBIN 8.2 GM/dL (11.7-16.9); LYMPH % 12.7 % (8-40); MCH 24.4 pg (25.7-33.7); MEAN CELL VOLUME 74.1 fl (80-96); MEAN PLT VOLUME 6.4 fl (7.5-11.1); MONO % 9.1 % (3.8-10.2); NEUT % 77.4 % (42.8-82.8); PLATELET COUNT 512 K/MM3 (134-434); RBC 3.36 M/mm3 (4.00-5.60); RDW 21.4 % (11.9-15.9); WHITE BLOOD COUNT 12.2 K/mm3 (4.0-10.0)
[2019-11-14 08:29] LABS: BLOOD UREA NITROGEN 3.2 mg/dL (7-18); CALCIUM 7.9 mg/dL (8.5-10.1); CREATININE 0.5 mg/dL (0.55-1.3); POTASSIUM 3.1 mmol/L (3.5-5.1)
--- NOTE | 2019-11-14 08:29 | PN ---
Progress Note, Physician History of Present Illness: GI FOLLOW UP NOTE Patient examined and case discussed with Dr Domingo Patient states having loose stool x 1 episode of loose stools accompanied with lower abdominal cramping. Denies nausea, vomiting, rectal bleeding or melena. Noted with drop in Hg from 9.4 to 8.2. - Current Medication List Current Medications: Active Medications Metronidazole (Flagyl 500mg Premixed Ivpb -) 500 mg in 100 mls @ 100 mls/hr IVPB Q8H-IV [facility] Last Admin: 11/14/19 01:41 Dose: 100 mls/hr Piperacillin Sod/Tazobactam (Sod 3.375 gm/ Dextrose) 50 mls @ 100 mls/hr IVPB Q8H-IV [facility]; Protocol Last Admin: 11/14/19 01:41 Dose: 100 mls/hr Methadone HCl (Dolophine -) 5 mg PO DAILY@0600 [facility] Last Admin: 11/14/19 05:48 Dose: 5 mg Nicotine (Nicoderm Patch -) 7 mg TD DAILY [facility] Last Admin: 11/13/19 10:43 Dose: 7 mg Pantoprazole Sodium (Protonix -) 40 mg PO DAILY [facility] - Objective Vital Signs: Vital Signs Temperature 99.3 F 11/14/19 06:00 Pulse Rate 81 11/14/19 06:00 Respiratory Rate 20 11/14/19 06:00 Blood Pressure 116/71 11/14/19 06:00 O2 Sat by Pulse Oximetry (%) 100 11/13/19 21:00 Constitutional: Yes: No Distress, Calm Eyes: Yes: Conjunctiva Clear HENT: Yes: Atraumatic Cardiovascular: Yes: Regular Rate and Rhythm Respiratory: Yes: Regular, CTA Bilaterally Gastrointestinal: Yes: Normal Bowel Sounds, Soft, Tenderness (mild, lower abdomen) Neurological: Yes: Alert, Oriented Psychiatric: Yes: Alert, Oriented Labs: CBC, BMP 11/14/19 06:45 Problem List - Problems (1) Diarrhea Assessment/Plan: -stool c-diff negative and stool culture neg -lactose free/low fiber diet -Instructed to follow up with Dr Domingo as outpatient for further work-up and management Code(s): R19.7 - DIARRHEA, UNSPECIFIED Qualifiers: Diarrhea type: unspecified type Qualified Code(s): R19.7 - Diarrhea, unspecified
--- NOTE | 2019-11-14 09:05 | PN ---
Progress Note, Physician History of Present Illness: stable still with some loose stools wbc higher - Current Medication List Current Medications: Active Medications Metronidazole (Flagyl 500mg Premixed Ivpb -) 500 mg in 100 mls @ 100 mls/hr IVPB Q8H-IV [facility] Last Admin: 11/14/19 01:41 Dose: 100 mls/hr Methadone HCl (Dolophine -) 5 mg PO DAILY@0600 [facility] Last Admin: 11/14/19 05:48 Dose: 5 mg Nicotine (Nicoderm Patch -) 7 mg TD DAILY [facility] Last Admin: 11/13/19 10:43 Dose: 7 mg Pantoprazole Sodium (Protonix -) 40 mg PO DAILY [facility] - Objective Vital Signs: Vital Signs Temperature 99.3 F 11/14/19 06:00 Pulse Rate 81 11/14/19 06:00 Respiratory Rate 11/14/19 06:00 Blood Pressure 116/71 11/14/19 06:00 O2 Sat by Pulse Oximetry (%) 100 11/13/19 21:00 Constitutional: Yes: No Distress, Calm Cardiovascular: Yes: S1, S2 Respiratory: Yes: Regular, CTA Bilaterally Gastrointestinal: Yes: Normal Bowel Sounds, Soft Musculoskeletal: Yes: WNL Extremities: Yes: WNL Neurological: Yes: Alert, Oriented Psychiatric: Yes: Alert, Oriented Labs: CBC, BMP 11/14/19 06:45 11/14/19 06:45 Assessment/Plan Problem List - Problems (1) Pancolitis Code(s): K51.00 - ULCERATIVE (CHRONIC) PANCOLITIS WITHOUT COMPLICATIONS (2) Diarrhea Code(s): R19.7 - DIARRHEA, UNSPECIFIED Qualifiers: Diarrhea type: unspecified type Qualified Code(s): R19.7 - Diarrhea, unspecified (3) Hypokalemia Code(s): E87.6 - HYPOKALEMIA (4) Alcohol dependence with uncomplicated withdrawal Code(s): F10.230 - ALCOHOL DEPENDENCE WITH WITHDRAWAL, UNCOMPLICATED (5) GERD (gastroesophageal reflux disease) Code(s): K21.9 - GASTRO-ESOPHAGEAL REFLUX DISEASE WITHOUT ESOPHAGITIS (6) Nicotine dependence Code(s): F17.200 - NICOTINE DEPENDENCE, UNSPECIFIED, UNCOMPLICATED plan continue current mgmt abx will change to oral monitor wbc
[2019-11-14] MEDS ORDERED: AMOX TR/POT CLAV 875MG/125MG TABLETS (FP) PO SCH ×2 (10:00→17:30)
[2019-11-14] MEDS ORDERED: PANTOPRAZOLE 40 MG TABLET PO SCH (10:00)
[2019-11-14] MEDS ORDERED: PT OWN MED DRAWER 7, Y5N ONE (10:53)
[2019-11-14] MEDS: NICOTINE 7 MG/24 HOURS TOPICAL PATCH TD SCH (11:11)
[2019-11-14] MEDS ORDERED: POTASSIUM CHLORIDE ORAL LIQUID 20 MEQ/15 ML PO ONE (12:57)
--- NOTE | 2019-11-14 12:57 | DS ---
Physical Examination Vital Signs: Vital Signs Temperature 99.3 F 11/14/19 06:00 Pulse Rate 81 11/14/19 06:00 Respiratory Rate 20 11/14/19 06:00 Blood Pressure 116/71 11/14/19 06:00 O2 Sat by Pulse Oximetry (%) 100 11/13/19 21:00 Findings/Remarks: Feels well No complains Denies pain afebrile Denies diarrhea Constitutional: Yes: No Distress, Calm Eyes: Yes: Conjunctiva Clear Neck: Yes: Supple Cardiovascular: Yes: Regular Rate and Rhythm Respiratory: Yes: CTA Bilaterally Gastrointestinal: Yes: Normal Bowel Sounds, Soft Edema: No Neurological: Yes: Alert Psychiatric: Yes: Alert Labs: CBC, BMP 11/14/19 06:45 11/14/19 06:45 Discharge Summary Problems reviewed: Yes Reason For Visit: UNINTENDED WEIGHT LOSS/ULCERATIVE PANCOLITIS Current Active Problems Chronic pain disorder (Acute) Diarrhea (Acute) Hypokalemia (Acute) Myeloproliferative disorder (Acute) Pancolitis (Acute) Weight loss, non-intentional (Acute) Hospital Course: Admitted for colitis + guiac stool Transfused Cultures -- Stool -ve Treated with abx gi / i/d followed Much better d/c home on po abx Pt strongly counselled not to drink as he is ON Flagyl also Meds reconcilled Close monitoring advised to follow with GI also as advised pt in agreement D/W RN also Condition: Improved - Instructions Referrals: Pedro Youssef MD [Primary Care Provider] - Disposition: HOME - Home Medications Comprehensive Discharge Medication List: Ambulatory Orders Methadone [Dolophine -] 5 mg PO DAILY 07/15/18 Amox-Tr/K Cl [Augmentin 875-125mg Tablet -] 1 tab PO BID@0800,1730 5 Days #10 tablet 11/14/19 Pantoprazole Sodium [Protonix -] 40 mg PO DAILY tablet.ec 11/14/19 flagyl 500 mg tid x 5 days
[2019-11-14] MEDS ORDERED: metroNIDAZOLE 250 MG TABLET PO SCH (14:00)
[2019-11-14 16:05] VITALS: BP 105/61; PULSE 90; TEMP 98
== END 2019-11-14 16:34 | disposition home or self-care (01) | DRG 386 ==
LOC: JER 15:55 → JERBED 20:30 → J8W 23:47
PROVIDERS: ADMIT Internal Medicine; ATTEND Internal Medicine
DX: K51.00 Ulcerative (chronic) pancolitis without complications (principal); F10.230 Alcohol dependence with withdrawal, uncomplicated; C94.6 Myelodysplastic disease, not elsewhere classified; E87.6 Hypokalemia; K21.9 Gastro-esophageal reflux disease without esophagitis; F17.210 Nicotine dependence, cigarettes, uncomplicated; D64.9 Anemia, unspecified; R63.4 Abnormal weight loss; G89.4 Chronic pain syndrome
CPT/HCPCS: 36415; 36430; 36511; 74177-TC; 80048; 80053; 82150; 82272; 83690; 83735; 84100; 85025; 85027; 86850; 86900; 86901; 86922; 87040; 87045; 87046; 87324; 87389; 87449; 93005; 93010; 99285-25; J7030; P9038; P9058; Q9967

== ENCOUNTER 2021-03-15 11:03 | Inpatient (IN) | payer OTHER ==
[2021-03-15] MEDS ORDERED: DIPHTH,PERTUSS(ACELL),TET 0.5 ML DISP.SYRIN IM ONE ×2 (11:46→12:05)
[2021-03-15] MEDS ORDERED: CLINDAMYCIN 600MG PREMIX IVPB 600 MG/50 ML BAG IVPB ONE ×2 (11:58→12:07)
[2021-03-15] MEDS ORDERED: SODIUM CHLORIDE 1,000 ML IV STA (11:58)
[2021-03-15] MEDS ORDERED: SILVER SULFADIAZINE 1% TOP CREAM 50 GM JAR TP ONE (12:05)
[2021-03-15] MEDS: SILVER SULFADIAZINE 1% TOP CREAM 50 GM JAR TP SCH (12:20)
[2021-03-15 12:57] LABS: BASO % 1.3 % (0-2.0); EOS % 2.7 % (0-4.5); HEMATOCRIT 28.2 % (35.4-49); HEMOGLOBIN 8.1 GM/dL (11.7-16.9); LYMPH % 30.8 % (8-40); MCH 20.6 pg (25.7-33.7); MCHC 28.8 g/dl (32.0-35.9); MEAN CELL VOLUME 71.7 fl (80-96); MEAN PLT VOLUME 8.2 fl (7.5-11.1); MONO % 11.5 % (3.8-10.2); NEUT % 53.7 % (42.8-82.8); PLATELET COUNT 451 K/MM3 (134-434); RBC 3.93 M/mm3 (4.00-5.60); WHITE BLOOD COUNT 15.8 K/mm3 (4.0-10.0)
[2021-03-15 13:16] LABS: ALBUMIN 3.4 g/dl (3.4-5.0); CALCIUM 8.8 mg/dL (8.5-10.1)
[2021-03-15 13:17] LABS: BLOOD UREA NITROGEN 7.3 mg/dL (7-18)
[2021-03-15 13:20] LABS: CREATININE 0.7 mg/dL (0.55-1.3)
[2021-03-15 13:21] LABS: BILIRUBIN,TOTAL 0.4 mg/dL (0.2-1); TOT PROT 8.6 g/dl (6.4-8.2)
[2021-03-15 15:28] LABS: ANISOCYTOSIS 2+; MACROCYTOSIS 1+; PLATELET ESTIMATE INCREASED
[2021-03-15 18:58] VITALS: BMI 27.1
[2021-03-15] MEDS ORDERED: PT OWN MED DRAWER 7, Y5N ONE (21:10)
[2021-03-15] MEDS: HEPARIN NA (PORCINE) 5,000 UNITS/ML 1ML VIAL SQ SCH (22:01)
[2021-03-15] MEDS: BUPRENORPHINE/NALOXONE 2 MG/0.5 MG FILM PACKET SL SCH (22:28)
[2021-03-15] MEDS: CYPROHEPTADINE HCL 4 MG TABLET PO SCH (22:28)
[2021-03-16] MEDS: CYPROHEPTADINE HCL 4 MG TABLET PO SCH ×3 (06:00→22:02)
[2021-03-16 08:57] LABS: BASO % 1.4 % (0-2.0); EOS % 2.9 % (0-4.5); HEMATOCRIT 26.1 % (35.4-49); HEMOGLOBIN 7.7 GM/dL (11.7-16.9); LYMPH % 22.1 % (8-40); MCH 20.8 pg (25.7-33.7); MCHC 29.5 g/dl (32.0-35.9); MEAN CELL VOLUME 70.6 fl (80-96); MEAN PLT VOLUME 8.1 fl (7.5-11.1); MONO % 13.2 % (3.8-10.2); NEUT % 60.4 % (42.8-82.8); PLATELET COUNT 394 K/MM3 (134-434); RDW 18.6 % (11.9-15.9); WHITE BLOOD COUNT 12.5 K/mm3 (4.0-10.0)
[2021-03-16 09:18] LABS: BLOOD UREA NITROGEN 8.9 mg/dL (7-18)
[2021-03-16 09:21] LABS: BILIRUBIN,TOTAL 0.5 mg/dL (0.2-1); CREATININE 0.7 mg/dL (0.55-1.3); TOT PROT 7.7 g/dl (6.4-8.2)
[2021-03-16] MEDS: BUPRENORPHINE/NALOXONE 2 MG/0.5 MG FILM PACKET SL SCH ×2 (09:40→22:03)
[2021-03-16] MEDS: FOLIC ACID 1 MG TABLET (FP) PO SCH (09:40)
[2021-03-16] MEDS: HEPARIN NA (PORCINE) 5,000 UNITS/ML 1ML VIAL SQ SCH ×2 (09:40→22:02)
[2021-03-16] MEDS ORDERED: MESALAMINE 800 MG TABLET.DR PO SCH (10:00)
[2021-03-16] MEDS ORDERED: PT OWN MED DRAWER 7, Y5N ONE ×3 (11:16→22:01)
[2021-03-16] MEDS: MESALAMINE 800 MG TABLET.DR PO SCH ×3 (11:16→22:02)
[2021-03-16] MEDS: SILVER SULFADIAZINE 1% TOP CREAM 50 GM JAR TP SCH (11:17)
[2021-03-17] MEDS: ACETAMINOPHEN 325 MG TABLET (FP) PO PRN ×2 (05:55→21:45)
[2021-03-17] MEDS: CYPROHEPTADINE HCL 4 MG TABLET PO SCH ×3 (05:55→21:45)
[2021-03-17] MEDS ORDERED: PT OWN MED DRAWER 7, Y5N ONE ×6 (08:11→21:43)
[2021-03-17] MEDS: BUPRENORPHINE/NALOXONE 2 MG/0.5 MG FILM PACKET SL SCH ×2 (09:05→21:46)
[2021-03-17] MEDS: FOLIC ACID 1 MG TABLET (FP) PO SCH (09:05)
[2021-03-17] MEDS: MESALAMINE 800 MG TABLET.DR PO SCH ×3 (09:05→17:23)
[2021-03-17] MEDS: HEPARIN NA (PORCINE) 5,000 UNITS/ML 1ML VIAL SQ SCH ×2 (09:06→21:45)
[2021-03-17] MEDS: SILVER SULFADIAZINE 1% TOP CREAM 50 GM JAR TP SCH (11:39)
[2021-03-18] MEDS: CYPROHEPTADINE HCL 4 MG TABLET PO SCH (06:27)
[2021-03-18] MEDS ORDERED: PT OWN MED DRAWER 7, Y5N ONE ×2 (09:53→13:50)
[2021-03-18] MEDS: FOLIC ACID 1 MG TABLET (FP) PO SCH (09:55)
[2021-03-18] MEDS: BUPRENORPHINE/NALOXONE 2 MG/0.5 MG FILM PACKET SL SCH (09:55)
[2021-03-18] MEDS: MESALAMINE 800 MG TABLET.DR PO SCH ×2 (09:55→12:50)
[2021-03-18] MEDS: HEPARIN NA (PORCINE) 5,000 UNITS/ML 1ML VIAL SQ SCH (09:55)
[2021-03-18] MEDS: SILVER SULFADIAZINE 1% TOP CREAM 50 GM JAR TP SCH (09:56)
[2021-03-18 12:12] VITALS: BP 122/76; PULSE 82; TEMP 98.2
== END 2021-03-18 17:17 | disposition home or self-care (01) | DRG 603 ==
LOC: JERFT 11:03 → JER 11:03 → JERBED 13:53 → J6S 18:35
PROVIDERS: ADMIT Internal Medicine; ATTEND Internal Medicine
DX: L03.116 Cellulitis of left lower limb (principal); F10.29 Alcohol dependence with unspecified alcohol-induced disorder; D47.1 Chronic myeloproliferative disease; T25.222A Burn of second degree of left foot, initial encounter; R74.8 Abnormal levels of other serum enzymes; Z96.653 Presence of artificial knee joint, bilateral; K59.09 Other constipation; K21.9 Gastro-esophageal reflux disease without esophagitis; K44.9 Diaphragmatic hernia without obstruction or gangrene; K64.8 Other hemorrhoids; E78.5 Hyperlipidemia, unspecified; M54.5 Low back pain; R56.9 Unspecified convulsions; F17.210 Nicotine dependence, cigarettes, uncomplicated; X12.XXXA Contact with other hot fluids, initial encounter; Y92.090 Kitchen in other non-institutional residence as the place of occurrence of the external cause
CPT/HCPCS: 36415; 80053; 85025; 90715; 99285-25; C9803; J1644; U0003; U0005

== ENCOUNTER 2021-07-04 10:21 | Inpatient (IN) | payer OTHER ==
[2021-07-04] MEDS ORDERED: chlordiazePOXIDE HCL 25 MG CAPSULE PO ONE (12:00)
[2021-07-04] MEDS ORDERED: SODIUM CHLORIDE 0.9% 500 ML INFUS.BAG IV ONE (12:09)
[2021-07-04 12:26] LABS: HEMATOCRIT 30.1 % (35.4-49); HEMOGLOBIN 8.9 GM/dL (11.7-16.9); MCH 21.7 pg (25.7-33.7); MCHC 29.7 g/dl (32.0-35.9); MEAN CELL VOLUME 73.2 fl (80-96); PLATELET COUNT 398 10^3/uL (134-434); RBC 4.11 M/mm3 (4.00-5.60); RDW 22.7 % (11.9-15.9); WHITE BLOOD COUNT 16.1 K/mm3 (4.0-10.0)
[2021-07-04] MEDS ORDERED: diazePAM 5 MG TABLET PO ONE (12:37)
[2021-07-04 12:40] LABS: INR 1.09 (0.83-1.09); PROTHROMBIN TIME (PATIENT) 13.4 SEC (9.7-13.0)
[2021-07-04 12:44] LABS: CHLORIDE 106 mmol/L (98-107); SODIUM 138 mmol/L (136-145)
[2021-07-04] MEDS ORDERED: diazePAM 5 MG TABLET ONE (12:44)
[2021-07-04 12:47] LABS: CALCIUM 8.8 mg/dL (8.5-10.1)
[2021-07-04 12:48] LABS: ALBUMIN 3.4 g/dl (3.4-5.0); ANION GAP 8 MMOL/L (8-16); BLOOD UREA NITROGEN 13.4 mg/dL (7-18); CO2 24 mmol/L (21-32); GLUCOSE,RANDOM 130 mg/dL (74-106); LIPASE 445 U/L (73-393)
[2021-07-04 12:50] LABS: CREATININE 0.9 mg/dL (0.55-1.3); SGOT/AST 123 U/L (15-37); SGPT/ALT 104 U/L (13-61)
[2021-07-04 12:51] LABS: BILIRUBIN,TOTAL 0.5 mg/dL (0.2-1); TOT PROT 7.8 g/dl (6.4-8.2)
[2021-07-04 12:54] LABS: ALK PHOS 216 U/L (45-117)
[2021-07-04] MEDS ORDERED: metroNIDAZOLE 500 MG TABLET PO ONE (14:40)
[2021-07-04] MEDS ORDERED: metroNIDAZOLE 250 MG TABLET ONE (15:04)
[2021-07-04 15:19] LABS: ANISOCYTOSIS 1+; MACROCYTOSIS 1+; PLATELET ESTIMATE NORMAL
[2021-07-04 16:06] LABS: LACTIC ACID 3.1 mmol/L (0.4-2.0)
[2021-07-04] MEDS ORDERED: FOLIC ACID INJECTION - 1 MG, THIAMINE HCL 100 MG, MULTIVIT INJECTION ADULT 10 ML in SOD... IVPB ONE (16:09)
[2021-07-04] MEDS ORDERED: LORazepam 1 MG TABLET PO ONE (16:32)
[2021-07-04] MEDS ORDERED: LORazepam 1 MG TABLET PO PRN (16:32)
[2021-07-04] MEDS ORDERED: DEXTROSE 5%-0.45% SALINE 1,000 ML IV SCH (16:45)
[2021-07-04] MEDS ORDERED: LORazepam 1 MG TABLET ONE ×2 (18:23→23:24)
[2021-07-04] MEDS ORDERED: THIAMINE HCL 200 MG/2 ML VIAL ONE (18:23)
[2021-07-04] MEDS: THIAMINE HCL 200 MG/2 ML VIAL IVPB SCH (18:39)
[2021-07-04] MEDS: LORazepam 1 MG TABLET PO SCH ×2 (18:53→23:28)
[2021-07-05 05:58] VITALS: BMI 26.1
[2021-07-05] MEDS: LORazepam 1 MG TABLET PO SCH ×4 (06:15→23:02)
[2021-07-05 08:28] LABS: HEMATOCRIT 27.4 % (35.4-49); HEMOGLOBIN 8.1 GM/dL (11.7-16.9); MCH 21.9 pg (25.7-33.7); MCHC 29.6 g/dl (32.0-35.9); MEAN CELL VOLUME 73.9 fl (80-96); MEAN PLT VOLUME 7.4 fl (7.5-11.1); PLATELET COUNT 290 10^3/uL (134-434); RBC 3.71 M/mm3 (4.00-5.60); RDW 22.6 % (11.9-15.9); WHITE BLOOD COUNT 13.4 K/mm3 (4.0-10.0)
[2021-07-05 09:15] LABS: ALBUMIN 2.9 g/dl (3.4-5.0); BLOOD UREA NITROGEN 14.2 mg/dL (7-18); CALCIUM 8.2 mg/dL (8.5-10.1)
[2021-07-05 09:19] LABS: CREATININE 0.7 mg/dL (0.55-1.3)
[2021-07-05 09:20] LABS: BILIRUBIN,TOTAL 0.5 mg/dL (0.2-1); TOT PROT 6.3 g/dl (6.4-8.2)
[2021-07-05] MEDS: PANTOPRAZOLE SODIUM 40 MG VIAL IVPUSH SCH (09:30)
[2021-07-05] MEDS: THIAMINE HCL 200 MG/2 ML VIAL IVPB SCH (09:30)
[2021-07-05 09:32] LABS: ANISOCYTOSIS 3+; MACROCYTOSIS 0; PLATELET ESTIMATE NORMAL; TARGET CELLS 1+
[2021-07-05] MEDS ORDERED: MULTIVIT INJ. ADULT COMBO WITH VIT K 1 COMBO 10 ML VIAL IV SCH (10:00)
[2021-07-05] MEDS ORDERED: cefTRIAXone SODIUM 1 GM VIAL ONE (14:11)
[2021-07-05] MEDS ORDERED: DEXTROSE 5%-WATER - 50 ML IVPB ONE (14:12)
[2021-07-05] MEDS: DEXTROSE 5%-0.45% SALINE 1,000 ML IV SCH (14:33)
[2021-07-05] MEDS: CEFTRIAXONE 1 GM in DEXTROSE 5%-WATER - 50 ML IVPB SCH (14:33)
[2021-07-05] MEDS: methylPREDNISolone NA SUCC 40 MG/1 ML VIAL IVPUSH SCH (14:34)
[2021-07-05] MEDS: NICOTINE 14 MG/24 HOURS TOPICAL PATCH TD SCH (14:34)
[2021-07-05] MEDS: HEPARIN NA (PORCINE) 5,000 UNITS/ML 1ML VIAL SQ SCH (22:25)
[2021-07-06] MEDS: LORazepam 1 MG TABLET PO SCH ×5 (06:12→22:04)
[2021-07-06 07:52] LABS: HEMATOCRIT 28.9 % (35.4-49); HEMOGLOBIN 8.5 GM/dL (11.7-16.9); MCH 21.4 pg (25.7-33.7); MCHC 29.4 g/dl (32.0-35.9); MEAN CELL VOLUME 72.6 fl (80-96); PLATELET COUNT 302 10^3/uL (134-434); RBC 3.98 M/mm3 (4.00-5.60); WHITE BLOOD COUNT 14.1 K/mm3 (4.0-10.0)
[2021-07-06 08:24] LABS: CALCIUM 8.4 mg/dL (8.5-10.1)
[2021-07-06 08:25] LABS: ALBUMIN 3.2 g/dl (3.4-5.0); BLOOD UREA NITROGEN 12.7 mg/dL (7-18)
[2021-07-06 08:28] LABS: CREATININE 0.6 mg/dL (0.55-1.3)
[2021-07-06 08:29] LABS: BILIRUBIN,TOTAL 0.8 mg/dL (0.2-1)
[2021-07-06 09:05] LABS: ANISOCYTOSIS 2+; MACROCYTOSIS 1+; PLATELET ESTIMATE NORMAL; ROULEAU 1+
[2021-07-06] MEDS ORDERED: cefTRIAXone SODIUM 1 GM VIAL ONE (10:33)
[2021-07-06] MEDS ORDERED: DEXTROSE 5%-WATER - 50 ML IVPB ONE (10:33)
[2021-07-06] MEDS: CEFTRIAXONE 1 GM in DEXTROSE 5%-WATER - 50 ML IVPB SCH (10:43)
[2021-07-06] MEDS: HEPARIN NA (PORCINE) 5,000 UNITS/ML 1ML VIAL SQ SCH ×2 (10:44→21:47)
[2021-07-06] MEDS: PANTOPRAZOLE SODIUM 40 MG VIAL IVPUSH SCH (10:45)
[2021-07-06] MEDS: methylPREDNISolone NA SUCC 40 MG/1 ML VIAL IVPUSH SCH (10:45)
[2021-07-06] MEDS: THIAMINE HCL 200 MG/2 ML VIAL IVPB SCH (10:46)
[2021-07-06] MEDS: NICOTINE 14 MG/24 HOURS TOPICAL PATCH TD SCH (10:49)
[2021-07-06] MEDS ORDERED: BUPRENORPHINE/NALOXONE 4 MG/1 MG FILM PACKET SL SCH (12:30)
[2021-07-06] MEDS ORDERED: BUPRENORPHINE/NALOXONE 2 MG/0.5 MG FILM PACKET SL SCH (13:15)
[2021-07-06] MEDS: BUPRENORPHINE/NALOXONE 2 MG/0.5 MG FILM PACKET SL SCH ×2 (13:33→21:48)
[2021-07-06 16:45] LABS: HEMATOCRIT 29.1 % (35.4-49); HEMOGLOBIN 8.5 GM/dL (11.7-16.9); MCH 21.4 pg (25.7-33.7); MCHC 29.1 g/dl (32.0-35.9); MEAN CELL VOLUME 73.7 fl (80-96); MEAN PLT VOLUME 7.2 fl (7.5-11.1); PLATELET COUNT 321 10^3/uL (134-434); RBC 3.95 M/mm3 (4.00-5.60); RDW 22.9 % (11.9-15.9); WHITE BLOOD COUNT 14.9 K/mm3 (4.0-10.0)
[2021-07-06 17:12] LABS: CALCIUM 8.7 mg/dL (8.5-10.1)
[2021-07-06 17:13] LABS: BLOOD UREA NITROGEN 13.6 mg/dL (7-18); MAGNESIUM 2.1 mg/dL (1.8-2.4)
[2021-07-06 17:14] LABS: ANISOCYTOSIS 2+; MACROCYTOSIS 0; PLATELET ESTIMATE NORMAL; TARGET CELLS 2+
[2021-07-06 17:16] LABS: CREATININE 0.6 mg/dL (0.55-1.3)
[2021-07-06 17:17] LABS: BILIRUBIN,TOTAL 0.4 mg/dL (0.2-1); TOT PROT 6.8 g/dl (6.4-8.2)
[2021-07-06] MEDS: DEXTROSE 5%-0.45% SALINE 1,000 ML IV SCH (18:23)
[2021-07-07] MEDS ORDERED: LORazepam 0.5 MG TABLET PO PRN
[2021-07-07] MEDS: LORazepam 0.5 MG TABLET PO SCH ×5 (06:00→22:02)
[2021-07-07] MEDS ORDERED: cefTRIAXone SODIUM 1 GM VIAL ONE (08:39)
[2021-07-07] MEDS ORDERED: DEXTROSE 5%-WATER - 50 ML IVPB ONE (08:40)
[2021-07-07] MEDS: CEFTRIAXONE 1 GM in DEXTROSE 5%-WATER - 50 ML IVPB SCH (09:59)
[2021-07-07] MEDS: HEPARIN NA (PORCINE) 5,000 UNITS/ML 1ML VIAL SQ SCH ×2 (09:59→21:02)
[2021-07-07] MEDS: methylPREDNISolone NA SUCC 40 MG/1 ML VIAL IVPUSH SCH (10:00)
[2021-07-07] MEDS: PANTOPRAZOLE SODIUM 40 MG VIAL IVPUSH SCH (10:00)
[2021-07-07] MEDS: BUPRENORPHINE/NALOXONE 2 MG/0.5 MG FILM PACKET SL SCH ×2 (10:00→21:02)
[2021-07-07] MEDS: THIAMINE HCL 200 MG/2 ML VIAL IVPB SCH (10:00)
[2021-07-07] MEDS: NICOTINE 14 MG/24 HOURS TOPICAL PATCH TD SCH (10:00)
[2021-07-07] MEDS: DEXTROSE 5%-0.45% SALINE 1,000 ML IV SCH ×2 (10:01→14:00)
[2021-07-08] MEDS: DEXTROSE 5%-0.45% SALINE 1,000 ML IV SCH ×3 (02:47→20:19)
[2021-07-08] MEDS ORDERED: LORazepam 0.5 MG TABLET PO ONE (05:00)
[2021-07-08] MEDS ORDERED: hydrALAZINE HCL 20 MG/ML VIAL IM PRN (06:07)
[2021-07-08] MEDS ORDERED: hydrALAZINE HCL 10 MG TABLET PO ONE (06:39)
[2021-07-08] MEDS ORDERED: DEXTROSE 5%-WATER - 50 ML IVPB ONE (09:16)
[2021-07-08] MEDS ORDERED: cefTRIAXone SODIUM 1 GM VIAL ONE (09:16)
[2021-07-08] MEDS: PANTOPRAZOLE SODIUM 40 MG VIAL IVPUSH SCH (09:36)
[2021-07-08] MEDS: methylPREDNISolone NA SUCC 40 MG/1 ML VIAL IVPUSH SCH (09:36)
[2021-07-08] MEDS: THIAMINE HCL 200 MG/2 ML VIAL IVPB SCH (09:37)
[2021-07-08] MEDS: HEPARIN NA (PORCINE) 5,000 UNITS/ML 1ML VIAL SQ SCH ×2 (09:37→22:46)
[2021-07-08] MEDS: NICOTINE 14 MG/24 HOURS TOPICAL PATCH TD SCH (09:37)
[2021-07-08] MEDS: BUPRENORPHINE/NALOXONE 2 MG/0.5 MG FILM PACKET SL SCH ×2 (09:37→22:47)
[2021-07-08] MEDS: CEFTRIAXONE 1 GM in DEXTROSE 5%-WATER - 50 ML IVPB SCH (09:38)
[2021-07-08] MEDS: amLODIPine BESYLATE 5 MG TABLET (FP) PO SCH (11:15)
[2021-07-09 08:06] LABS: ALBUMIN 2.8 g/dl (3.4-5.0); BLOOD UREA NITROGEN 13.1 mg/dL (7-18)
[2021-07-09 08:09] LABS: CREATININE 0.6 mg/dL (0.55-1.3)
[2021-07-09 08:10] LABS: BILIRUBIN,TOTAL 0.5 mg/dL (0.2-1)
[2021-07-09 08:11] LABS: TOT PROT 6.2 g/dl (6.4-8.2)
[2021-07-09 08:40] LABS: BASO % 0.1 % (0-2.0); EOS % 0.1 % (0-4.5); HEMOGLOBIN 8.9 GM/dL (11.7-16.9); LYMPH % 12.5 % (8-40); MCH 21.7 pg (25.7-33.7); MCHC 29.5 g/dl (32.0-35.9); MEAN CELL VOLUME 73.5 fl (80-96); MEAN PLT VOLUME 7.5 fl (7.5-11.1); MONO % 6.6 % (3.8-10.2); NEUT % 80.7 % (42.8-82.8); PLATELET COUNT 329 10^3/uL (134-434); RBC 4.09 M/mm3 (4.00-5.60); RDW 22.3 % (11.9-15.9)
[2021-07-09] MEDS ORDERED: cefTRIAXone SODIUM 1 GM VIAL ONE (09:04)
[2021-07-09] MEDS ORDERED: DEXTROSE 5%-WATER - 50 ML IVPB ONE (09:05)
[2021-07-09] MEDS: BUPRENORPHINE/NALOXONE 2 MG/0.5 MG FILM PACKET SL SCH (09:36)
[2021-07-09] MEDS: NICOTINE 14 MG/24 HOURS TOPICAL PATCH TD SCH (09:36)
[2021-07-09] MEDS: CEFTRIAXONE 1 GM in DEXTROSE 5%-WATER - 50 ML IVPB SCH (09:36)
[2021-07-09] MEDS: PANTOPRAZOLE SODIUM 40 MG VIAL IVPUSH SCH (09:36)
[2021-07-09] MEDS: HEPARIN NA (PORCINE) 5,000 UNITS/ML 1ML VIAL SQ SCH (09:41)
[2021-07-09] MEDS: amLODIPine BESYLATE 5 MG TABLET (FP) PO SCH (09:41)
[2021-07-09] MEDS: THIAMINE HCL 200 MG/2 ML VIAL IVPB SCH (09:43)
[2021-07-09] MEDS: methylPREDNISolone NA SUCC 40 MG/1 ML VIAL IVPUSH SCH (09:43)
[2021-07-09 09:57] LABS: ANISOCYTOSIS 2+; MACROCYTOSIS 0; PLATELET ESTIMATE NORMAL
[2021-07-09 15:08] VITALS: BP 137/90; PULSE 89; TEMP 97.9
== END 2021-07-09 15:46 | disposition home or self-care (01) | DRG 896 ==
LOC: JER 10:21 → JERBED 14:48 → J4W 07-05 00:39
PROVIDERS: ADMIT Internal Medicine; ATTEND Internal Medicine
PROC: HZ2ZZZZ Detoxification Services for Substance Abuse Treatment (ICD-10-PCS; principal; 2021-07-04)
DX: F10.230 Alcohol dependence with withdrawal, uncomplicated (principal); J18.9 Pneumonia, unspecified organism; E78.5 Hyperlipidemia, unspecified; K59.09 Other constipation; K21.9 Gastro-esophageal reflux disease without esophagitis; K64.9 Unspecified hemorrhoids; R00.0 Tachycardia, unspecified; M54.5 Low back pain; K44.9 Diaphragmatic hernia without obstruction or gangrene; B19.20 Unspecified viral hepatitis C without hepatic coma; R94.5 Abnormal results of liver function studies; K52.9 Noninfective gastroenteritis and colitis, unspecified; E66.9 Obesity, unspecified; K52.89 Other specified noninfective gastroenteritis and colitis; E87.6 Hypokalemia; K70.0 Alcoholic fatty liver; Z85.6 Personal history of leukemia; Z87.442 Personal history of urinary calculi; Z68.26 Body mass index [BMI] 26.0-26.9, adult
CPT/HCPCS: 36415; 71046-TC-FY; 74177-TC; 80053; 80307; 82140; 82550; 82553; 83605; 83690; 83735; 84443; 84484; 85025; 85610; 86140; 86850; 86900; 86901; 87070; 87077; 87205; 87899; 93005; 93010; 99285-25; C9803; J1644; Q9967; U0003; U0005

== ENCOUNTER 2022-01-08 23:56 | Inpatient (IN) | payer OTHER ==
[2022-01-09] MEDS ORDERED: POLYETHYLENE GLYCOL (HEALTHYLAX) 3350 17 GM PACKET PO PRN (05:42)
[2022-01-09] MEDS ORDERED: POTASSIUM CHLORIDE TABS 20 MEQ TABLET.ER (FP) PO ONE (07:35)
[2022-01-09] MEDS ORDERED: ALBUTEROL SO4 HFA INHALER IH PRN (07:44)
[2022-01-09] MEDS ORDERED: ACETAMINOPHEN 325 MG TABLET (FP) ONE (08:21)
[2022-01-09] MEDS: ACETAMINOPHEN 325 MG TABLET (FP) PO PRN (08:28)
[2022-01-09] MEDS ORDERED: chlordiazePOXIDE HCL 25 MG CAPSULE PO PRN (08:30)
[2022-01-09] MEDS ORDERED: ALBUTEROL SO4 2.5/IPRATROPIUM 0.5 INH SOL 3 ML VIAL.NEB. NEB ONE (08:30)
[2022-01-09] MEDS ORDERED: ACETAMINOPHEN 1000 MG/100 ML BAG IVPB PRN (08:33)
[2022-01-09 08:51] LABS: CREATININE 0.7 mg/dL (0.55-1.3)
[2022-01-09 09:13] LABS: HEMATOCRIT 20.9 % (35.4-49); MCH 19.5 pg (25.7-33.7); MCHC 29.1 g/dl (32.0-35.9); MEAN CELL VOLUME 67.1 fl (80-96); MEAN PLT VOLUME 7.8 fl (7.5-11.1); PLATELET COUNT 123 10^3/uL (134-434); RBC 3.11 M/mm3 (4.00-5.60); RDW 20.6 % (11.9-15.9)
[2022-01-09 09:14] LABS: ADD RBC MORPHOLOGY YES; HEMOGLOBIN 6.1 GM/dL (11.7-16.9)
[2022-01-09] MEDS ORDERED: ALBUTEROL SO4 HFA INHALER IH ONE (09:22)
[2022-01-09] MEDS ORDERED: PANTOPRAZOLE SODIUM 40 MG VIAL IVPUSH SCH (10:00)
[2022-01-09] MEDS ORDERED: FOLIC ACID INJECTION - 1 MG, THIAMINE HCL 100 MG, MULTIVIT INJECTION ADULT 10 ML in SOD... IVPB ONE (10:00)
[2022-01-09] MEDS ORDERED: FUROSEMIDE 40 MG/4 ML INJECTABLE VIAL IVPUSH SCH (10:30)
[2022-01-09] MEDS ORDERED: THIAMINE HCL 100 MG TABLET (FP) PO SCH (10:45)
[2022-01-09] MEDS ORDERED: BUPRENORPHINE/NALOXONE 4 MG/1 MG FILM PACKET SL SCH (10:45)
[2022-01-09] MEDS: BUDESONIDE/FORMETEROL FUMARATE 160/4.5 mcg INHALER IH SCH ×2 (11:22→22:28)
[2022-01-09 11:35] LABS: ANISOCYTOSIS 2+; MACROCYTOSIS 2+; OVALOCYTE 2+; TARGET CELLS 2+; TEAR DROP CELLS 1+
[2022-01-09] MEDS: NICOTINE 14 MG/24 HOURS TOPICAL PATCH TD SCH (12:45)
[2022-01-09] MEDS: chlordiazePOXIDE HCL 25 MG CAPSULE PO SCH ×3 (12:45→22:26)
[2022-01-09] MEDS: BUPRENORPHINE/NALOXONE 2 MG/0.5 MG FILM PACKET SL SCH (13:28)
[2022-01-09 14:33] LABS: CALCIUM 8.7 mg/dL (8.5-10.1)
[2022-01-09 14:34] LABS: ALBUMIN 3.6 g/dl (3.4-5.0); BLOOD UREA NITROGEN 8.6 mg/dL (7-18)
[2022-01-09 14:35] LABS: MAGNESIUM 1.7 mg/dL (1.8-2.4)
[2022-01-09 14:43] LABS: BILIRUBIN,TOTAL 0.9 mg/dL (0.2-1); TOT PROT 7.8 g/dl (6.4-8.2)
[2022-01-09 16:52] LABS: HEMATOCRIT 25.3 % (35.4-49); HEMOGLOBIN 7.6 GM/dL (11.7-16.9); MCH 20.8 pg (25.7-33.7); MEAN CELL VOLUME 69.4 fl (80-96); MEAN PLT VOLUME 7.8 fl (7.5-11.1); PLATELET COUNT 110 10^3/uL (134-434); RBC 3.64 M/mm3 (4.00-5.60); RDW 21.8 % (11.9-15.9); WHITE BLOOD COUNT 6.7 K/mm3 (4.0-10.0)
[2022-01-09 17:00] LABS: ADD RBC MORPHOLOGY YES
[2022-01-09] MEDS: AMINO ACIDS/PROTEIN HYDROLYS 30 ML LIQUID.PKT PO SCH (17:18)
[2022-01-09] MEDS ORDERED: IRON SUCROSE INJECTION 200 MG in SODIUM CHLORIDE 90 ML IVPB ONE (18:00)
[2022-01-09 18:58] LABS: ANISOCYTOSIS 2+; MACROCYTOSIS 1+; TEAR DROP CELLS 2+
[2022-01-09] MEDS: MESALAMINE 800 MG TABLET.DR PO SCH (22:26)
[2022-01-09] MEDS: CYPROHEPTADINE HCL 4 MG TABLET PO SCH (22:27)
[2022-01-09] MEDS: PANTOPRAZOLE SODIUM 40 MG VIAL IVPUSH SCH (22:28)
[2022-01-10] MEDS: chlordiazePOXIDE HCL 25 MG CAPSULE PO SCH ×4 (05:57→23:15)
[2022-01-10] MEDS: MESALAMINE 800 MG TABLET.DR PO SCH ×3 (06:18→21:49)
[2022-01-10] MEDS: CYPROHEPTADINE HCL 4 MG TABLET PO SCH ×3 (06:19→21:49)
[2022-01-10 08:36] LABS: CHLORIDE 106 mmol/L (98-107); INR 1.63 (0.83-1.09); PROTHROMBIN TIME (PATIENT) 18.8 SEC (9.7-13.0); SODIUM 140 mmol/L (136-145)
[2022-01-10 08:42] LABS: CALCIUM 8.4 mg/dL (8.5-10.1)
[2022-01-10] MEDS: AMINO ACIDS/PROTEIN HYDROLYS 30 ML LIQUID.PKT PO SCH ×2 (08:42→16:58)
[2022-01-10 08:43] LABS: ALBUMIN 3.3 g/dl (3.4-5.0); BLOOD UREA NITROGEN 6.1 mg/dL (7-18); CO2 26 mmol/L (21-32); GLUCOSE,RANDOM 75 mg/dL (74-106); MAGNESIUM 1.3 mg/dL (1.8-2.4)
[2022-01-10 08:45] LABS: CREATININE 0.5 mg/dL (0.55-1.3)
[2022-01-10 08:46] LABS: SGOT/AST 151 U/L (15-37); SGPT/ALT 52 U/L (13-61)
[2022-01-10 08:47] LABS: BILIRUBIN,TOTAL 2.8 mg/dL (0.2-1); TOT PROT 7.3 g/dl (6.4-8.2)
[2022-01-10 08:49] LABS: ALK PHOS 302 U/L (45-117)
[2022-01-10 08:52] LABS: ANION GAP 9 MMOL/L (8-16)
[2022-01-10] MEDS ORDERED: MAGNESIUM 2GM/50ML STERILE WATER IVPB IVPB ONE (10:30)
[2022-01-10] MEDS: KCL 10 MEQ IVPB 10 MEQ/100 ML INFUS.BAG IVPB SCH ×3 (10:31→16:52)
[2022-01-10] MEDS: THIAMINE HCL 100 MG TABLET (FP) PO SCH (10:31)
[2022-01-10] MEDS: NICOTINE 14 MG/24 HOURS TOPICAL PATCH TD SCH (10:31)
[2022-01-10] MEDS: MULTIVITAMINS (DAILY MVI) TABLET (FP) PO SCH (10:31)
[2022-01-10] MEDS: FOLIC ACID 1 MG TABLET (FP) PO SCH (10:31)
[2022-01-10] MEDS: BUDESONIDE/FORMETEROL FUMARATE 160/4.5 mcg INHALER IH SCH ×2 (10:32→21:51)
[2022-01-10] MEDS: PANTOPRAZOLE SODIUM 40 MG VIAL IVPUSH SCH (10:32)
[2022-01-10] MEDS: FUROSEMIDE 40 MG/4 ML INJECTABLE VIAL IVPUSH SCH (10:32)
[2022-01-10] MEDS: BUPRENORPHINE/NALOXONE 2 MG/0.5 MG FILM PACKET SL SCH (10:32)
[2022-01-10] MEDS ORDERED: PHYTONADIONE 10 MG/1 ML AMP IVPB ONE (15:37)
[2022-01-10] MEDS: PANTOPRAZOLE 40 MG TABLET PO SCH (21:49)
[2022-01-11] MEDS: CYPROHEPTADINE HCL 4 MG TABLET PO SCH ×3 (05:32→22:17)
[2022-01-11] MEDS: chlordiazePOXIDE HCL 25 MG CAPSULE PO SCH ×4 (05:32→22:18)
[2022-01-11] MEDS: MESALAMINE 800 MG TABLET.DR PO SCH ×3 (05:32→22:16)
[2022-01-11 07:41] LABS: BASO % 0.5 % (0-2.0); EOS % 1.1 % (0-4.5); HEMATOCRIT 28.9 % (35.4-49); HEMOGLOBIN 8.5 GM/dL (11.7-16.9); LYMPH % 17.4 % (8-40); MCHC 29.5 g/dl (32.0-35.9); MEAN CELL VOLUME 71.3 fl (80-96); MEAN PLT VOLUME 8.2 fl (7.5-11.1); MONO % 7.8 % (3.8-10.2); NEUT % 73.2 % (42.8-82.8); PLATELET COUNT 122 10^3/uL (134-434); RBC 4.06 M/mm3 (4.00-5.60); RDW 22.8 % (11.9-15.9)
[2022-01-11 08:00] LABS: ALBUMIN 3.2 g/dl (3.4-5.0); BLOOD UREA NITROGEN 8.1 mg/dL (7-18); CALCIUM 8.8 mg/dL (8.5-10.1)
[2022-01-11 08:03] LABS: CREATININE 0.7 mg/dL (0.55-1.3)
[2022-01-11 08:05] LABS: TOT PROT 7.5 g/dl (6.4-8.2)
[2022-01-11] MEDS: AMINO ACIDS/PROTEIN HYDROLYS 30 ML LIQUID.PKT PO SCH ×2 (08:35→17:27)
[2022-01-11] MEDS ORDERED: IRON SUCROSE INJECTION 100 MG in SODIUM CHLORIDE 95 ML IVPB ONE (09:00)
[2022-01-11] MEDS ORDERED: POTASSIUM CHLORIDE ORAL LIQUID 20 MEQ/15 ML PO ONE (09:46)
[2022-01-11] MEDS: PANTOPRAZOLE 40 MG TABLET PO SCH ×2 (09:57→22:16)
[2022-01-11] MEDS: NADOLOL 20 MG TABLET (FP) PO SCH (09:57)
[2022-01-11] MEDS: NICOTINE 14 MG/24 HOURS TOPICAL PATCH TD SCH (09:57)
[2022-01-11] MEDS: BUPRENORPHINE/NALOXONE 2 MG/0.5 MG FILM PACKET SL SCH (09:57)
[2022-01-11] MEDS: FOLIC ACID 1 MG TABLET (FP) PO SCH (09:57)
[2022-01-11] MEDS: THIAMINE HCL 100 MG TABLET (FP) PO SCH (09:58)
[2022-01-11] MEDS: BUDESONIDE/FORMETEROL FUMARATE 160/4.5 mcg INHALER IH SCH ×2 (09:58→22:19)
[2022-01-11] MEDS: FUROSEMIDE 40 MG/4 ML INJECTABLE VIAL IVPUSH SCH (09:58)
[2022-01-11] MEDS: MULTIVITAMINS (DAILY MVI) TABLET (FP) PO SCH (09:58)
[2022-01-11] MEDS: ACETAMINOPHEN 325 MG TABLET (FP) PO PRN (22:26)
[2022-01-12] MEDS ORDERED: chlordiazePOXIDE HCL 10 MG CAPSULE PO PRN
[2022-01-12] MEDS: CYPROHEPTADINE HCL 4 MG TABLET PO SCH ×3 (05:32→22:29)
[2022-01-12] MEDS: chlordiazePOXIDE HCL 10 MG CAPSULE PO SCH ×4 (05:33→22:31)
[2022-01-12] MEDS: MESALAMINE 800 MG TABLET.DR PO SCH ×3 (05:34→22:29)
[2022-01-12 08:33] LABS: BASO % 0.8 % (0-2.0); EOS % 1.4 % (0-4.5); HEMATOCRIT 29.7 % (35.4-49); HEMOGLOBIN 8.7 GM/dL (11.7-16.9); LYMPH % 21.5 % (8-40); MCH 21.3 pg (25.7-33.7); MCHC 29.2 g/dl (32.0-35.9); MEAN CELL VOLUME 72.9 fl (80-96); MEAN PLT VOLUME 8.4 fl (7.5-11.1); MONO % 9.6 % (3.8-10.2); NEUT % 66.7 % (42.8-82.8); PLATELET COUNT 147 10^3/uL (134-434); RBC 4.07 M/mm3 (4.00-5.60); RDW 23.5 % (11.9-15.9)
[2022-01-12 08:44] LABS: ALBUMIN 3.3 g/dl (3.4-5.0); BLOOD UREA NITROGEN 15.9 mg/dL (7-18)
[2022-01-12 08:46] LABS: CALCIUM 9.5 mg/dL (8.5-10.1)
[2022-01-12 08:49] LABS: BILIRUBIN,TOTAL 3.4 mg/dL (0.2-1); TOT PROT 7.5 g/dl (6.4-8.2)
[2022-01-12] MEDS ORDERED: PEG 3350/NA SULF BICARB CL/KCL 4000 ML SOLN.RECON PO ONE (09:00)
[2022-01-12] MEDS: AMINO ACIDS/PROTEIN HYDROLYS 30 ML LIQUID.PKT PO SCH ×2 (09:12→17:21)
[2022-01-12] MEDS: MULTIVITAMINS (DAILY MVI) TABLET (FP) PO SCH (09:12)
[2022-01-12] MEDS: FUROSEMIDE 40 MG/4 ML INJECTABLE VIAL IVPUSH SCH (09:12)
[2022-01-12] MEDS: BUPRENORPHINE/NALOXONE 2 MG/0.5 MG FILM PACKET SL SCH (09:12)
[2022-01-12] MEDS: BUDESONIDE/FORMETEROL FUMARATE 160/4.5 mcg INHALER IH SCH ×2 (09:13→22:30)
[2022-01-12] MEDS: PANTOPRAZOLE 40 MG TABLET PO SCH ×2 (09:13→22:29)
[2022-01-12] MEDS: FOLIC ACID 1 MG TABLET (FP) PO SCH (09:13)
[2022-01-12] MEDS: THIAMINE HCL 100 MG TABLET (FP) PO SCH (09:13)
[2022-01-12] MEDS: NICOTINE 14 MG/24 HOURS TOPICAL PATCH TD SCH (09:13)
[2022-01-12] MEDS: NADOLOL 20 MG TABLET (FP) PO SCH (09:13)
[2022-01-12 11:26] LABS: ANISOCYTOSIS 1+; MACROCYTOSIS 1+; OVALOCYTE 1+
[2022-01-12] MEDS ORDERED: BISACODYL 5 MG TABLET.DR (FP) PO ONE (18:00)
[2022-01-13] MEDS: chlordiazePOXIDE HCL 10 MG CAPSULE PO SCH ×2 (04:04→18:17)
[2022-01-13] MEDS: CYPROHEPTADINE HCL 4 MG TABLET PO SCH ×3 (05:07→23:16)
[2022-01-13] MEDS: MESALAMINE 800 MG TABLET.DR PO SCH ×3 (05:07→22:08)
[2022-01-13] MEDS: BUPRENORPHINE/NALOXONE 2 MG/0.5 MG FILM PACKET SL SCH (09:00)
[2022-01-13] MEDS: THIAMINE HCL 100 MG TABLET (FP) PO SCH (12:47)
[2022-01-13] MEDS: FOLIC ACID 1 MG TABLET (FP) PO SCH (12:47)
[2022-01-13] MEDS: FUROSEMIDE 40 MG/4 ML INJECTABLE VIAL IVPUSH SCH (12:48)
[2022-01-13] MEDS: NADOLOL 20 MG TABLET (FP) PO SCH (12:49)
[2022-01-13] MEDS: NICOTINE 14 MG/24 HOURS TOPICAL PATCH TD SCH (12:49)
[2022-01-13] MEDS: PANTOPRAZOLE 40 MG TABLET PO SCH ×2 (12:49→22:07)
[2022-01-13] MEDS: AMINO ACIDS/PROTEIN HYDROLYS 30 ML LIQUID.PKT PO SCH ×2 (12:49→18:17)
[2022-01-13] MEDS: BUDESONIDE/FORMETEROL FUMARATE 160/4.5 mcg INHALER IH SCH ×2 (12:50→22:08)
[2022-01-13] MEDS: MULTIVITAMINS (DAILY MVI) TABLET (FP) PO SCH (12:50)
[2022-01-13] MEDS ORDERED: chlordiazePOXIDE HCL 25 MG CAPSULE PO PRN (14:35)
[2022-01-14] MEDS ORDERED: chlordiazePOXIDE HCL 10 MG CAPSULE PO ONE (05:00)
[2022-01-14] MEDS: MESALAMINE 800 MG TABLET.DR PO SCH ×3 (06:27→22:28)
[2022-01-14] MEDS: CYPROHEPTADINE HCL 4 MG TABLET PO SCH ×3 (06:27→22:28)
[2022-01-14] MEDS: MULTIVITAMINS (DAILY MVI) TABLET (FP) PO SCH (09:18)
[2022-01-14] MEDS: AMINO ACIDS/PROTEIN HYDROLYS 30 ML LIQUID.PKT PO SCH ×2 (09:18→17:16)
[2022-01-14] MEDS: THIAMINE HCL 100 MG TABLET (FP) PO SCH (09:18)
[2022-01-14] MEDS: FOLIC ACID 1 MG TABLET (FP) PO SCH ×2 (09:18→18:52)
[2022-01-14] MEDS: NICOTINE 14 MG/24 HOURS TOPICAL PATCH TD SCH (09:18)
[2022-01-14] MEDS: FUROSEMIDE 40 MG/4 ML INJECTABLE VIAL IVPUSH SCH ×2 (09:18→09:27)
[2022-01-14] MEDS: NADOLOL 20 MG TABLET (FP) PO SCH (09:19)
[2022-01-14] MEDS: BUPRENORPHINE/NALOXONE 2 MG/0.5 MG FILM PACKET SL SCH (09:19)
[2022-01-14] MEDS: BUDESONIDE/FORMETEROL FUMARATE 160/4.5 mcg INHALER IH SCH ×2 (09:20→22:29)
[2022-01-14] MEDS: PANTOPRAZOLE 40 MG TABLET PO SCH ×2 (09:20→22:28)
[2022-01-14] MEDS: ACETAMINOPHEN 325 MG TABLET (FP) PO PRN (13:21)
[2022-01-14] MEDS: FERROUS SO4 325 MG TABLET (FP) PO SCH (18:52)
[2022-01-14] MEDS: ASCORBIC ACID 500 MG TABLET (FP) PO SCH (18:52)
[2022-01-15] MEDS: CYPROHEPTADINE HCL 4 MG TABLET PO SCH ×3 (06:02→23:00)
[2022-01-15] MEDS: MESALAMINE 800 MG TABLET.DR PO SCH ×3 (06:02→23:00)
[2022-01-15 08:30] LABS: BASO % 0.9 % (0-2.0); EOS % 1.8 % (0-4.5); HEMATOCRIT 29.4 % (35.4-49); HEMOGLOBIN 8.7 GM/dL (11.7-16.9); LYMPH % 19.9 % (8-40); MCH 21.7 pg (25.7-33.7); MCHC 29.7 g/dl (32.0-35.9); MEAN PLT VOLUME 8.3 fl (7.5-11.1); MONO % 14.3 % (3.8-10.2); NEUT % 63.1 % (42.8-82.8); PLATELET COUNT 185 10^3/uL (134-434); RBC 4.03 M/mm3 (4.00-5.60); WHITE BLOOD COUNT 11.1 K/mm3 (4.0-10.0)
[2022-01-15 09:14] LABS: ALBUMIN 3.2 g/dl (3.4-5.0); BLOOD UREA NITROGEN 25.4 mg/dL (7-18); CALCIUM 9.3 mg/dL (8.5-10.1)
[2022-01-15 09:16] LABS: ANISOCYTOSIS 2+
[2022-01-15 09:18] LABS: CREATININE 1.2 mg/dL (0.55-1.3)
[2022-01-15 09:19] LABS: BILIRUBIN,TOTAL 2.6 mg/dL (0.2-1); TOT PROT 7.5 g/dl (6.4-8.2)
[2022-01-15] MEDS: NICOTINE 14 MG/24 HOURS TOPICAL PATCH TD SCH (09:28)
[2022-01-15] MEDS: BUPRENORPHINE/NALOXONE 2 MG/0.5 MG FILM PACKET SL SCH (09:28)
[2022-01-15] MEDS: NADOLOL 20 MG TABLET (FP) PO SCH (09:28)
[2022-01-15] MEDS: AMINO ACIDS/PROTEIN HYDROLYS 30 ML LIQUID.PKT PO SCH ×2 (09:28→18:18)
[2022-01-15] MEDS: FERROUS SO4 325 MG TABLET (FP) PO SCH ×3 (09:29→18:17)
[2022-01-15] MEDS: MULTIVITAMINS (DAILY MVI) TABLET (FP) PO SCH (09:29)
[2022-01-15] MEDS: THIAMINE HCL 100 MG TABLET (FP) PO SCH (09:29)
[2022-01-15] MEDS: PANTOPRAZOLE 40 MG TABLET PO SCH ×2 (09:29→23:00)
[2022-01-15] MEDS: FOLIC ACID 1 MG TABLET (FP) PO SCH (09:29)
[2022-01-15] MEDS: ASCORBIC ACID 500 MG TABLET (FP) PO SCH (09:29)
[2022-01-15] MEDS: BUDESONIDE/FORMETEROL FUMARATE 160/4.5 mcg INHALER IH SCH ×2 (09:30→23:00)
[2022-01-15] MEDS: FUROSEMIDE 40 MG/4 ML INJECTABLE VIAL IVPUSH SCH ×2 (09:30→11:58)
[2022-01-15] MEDS: FUROSEMIDE 20 MG TABLET (FP) PO SCH (12:55)
[2022-01-15] MEDS: POTASSIUM CHLORIDE TABS 20 MEQ TABLET.ER (FP) PO SCH (12:55)
[2022-01-16] MEDS: MESALAMINE 800 MG TABLET.DR PO SCH ×3 (05:44→21:03)
[2022-01-16] MEDS: CYPROHEPTADINE HCL 4 MG TABLET PO SCH ×3 (05:45→21:03)
[2022-01-16] MEDS: AMINO ACIDS/PROTEIN HYDROLYS 30 ML LIQUID.PKT PO SCH ×2 (09:35→16:56)
[2022-01-16] MEDS: BUPRENORPHINE/NALOXONE 2 MG/0.5 MG FILM PACKET SL SCH (09:35)
[2022-01-16] MEDS: THIAMINE HCL 100 MG TABLET (FP) PO SCH (09:37)
[2022-01-16] MEDS: POTASSIUM CHLORIDE TABS 20 MEQ TABLET.ER (FP) PO SCH (09:37)
[2022-01-16] MEDS: FUROSEMIDE 20 MG TABLET (FP) PO SCH (09:37)
[2022-01-16] MEDS: ASCORBIC ACID 500 MG TABLET (FP) PO SCH (09:38)
[2022-01-16] MEDS: NICOTINE 14 MG/24 HOURS TOPICAL PATCH TD SCH (09:38)
[2022-01-16] MEDS: BUDESONIDE/FORMETEROL FUMARATE 160/4.5 mcg INHALER IH SCH ×2 (09:38→21:03)
[2022-01-16] MEDS: MULTIVITAMINS (DAILY MVI) TABLET (FP) PO SCH (09:38)
[2022-01-16] MEDS: FERROUS SO4 325 MG TABLET (FP) PO SCH ×3 (09:38→16:55)
[2022-01-16] MEDS: FOLIC ACID 1 MG TABLET (FP) PO SCH (09:38)
[2022-01-16] MEDS: PANTOPRAZOLE 40 MG TABLET PO SCH ×2 (09:38→21:03)
[2022-01-16] MEDS: NADOLOL 20 MG TABLET (FP) PO SCH (09:38)
[2022-01-16] MEDS: predniSONE 20 MG TABLET (UD) PO SCH (18:03)
[2022-01-16] MEDS: ACETAMINOPHEN 325 MG TABLET (FP) PO PRN (21:03)
[2022-01-17] MEDS: MESALAMINE 800 MG TABLET.DR PO SCH ×3 (06:10→21:15)
[2022-01-17] MEDS: CYPROHEPTADINE HCL 4 MG TABLET PO SCH ×3 (06:10→21:15)
[2022-01-17] MEDS: AMINO ACIDS/PROTEIN HYDROLYS 30 ML LIQUID.PKT PO SCH ×2 (10:07→16:54)
[2022-01-17] MEDS: FERROUS SO4 325 MG TABLET (FP) PO SCH ×3 (10:07→16:54)
[2022-01-17] MEDS: NADOLOL 20 MG TABLET (FP) PO SCH (10:08)
[2022-01-17] MEDS: POTASSIUM CHLORIDE TABS 20 MEQ TABLET.ER (FP) PO SCH (10:08)
[2022-01-17] MEDS: THIAMINE HCL 100 MG TABLET (FP) PO SCH (10:08)
[2022-01-17] MEDS: predniSONE 20 MG TABLET (UD) PO SCH (10:08)
[2022-01-17] MEDS: FUROSEMIDE 20 MG TABLET (FP) PO SCH (10:08)
[2022-01-17] MEDS: PANTOPRAZOLE 40 MG TABLET PO SCH ×2 (10:08→21:15)
[2022-01-17] MEDS: BUPRENORPHINE/NALOXONE 2 MG/0.5 MG FILM PACKET SL SCH (10:09)
[2022-01-17] MEDS: FOLIC ACID 1 MG TABLET (FP) PO SCH (10:09)
[2022-01-17] MEDS: BUDESONIDE/FORMETEROL FUMARATE 160/4.5 mcg INHALER IH SCH ×2 (10:09→21:23)
[2022-01-17] MEDS: MULTIVITAMINS (DAILY MVI) TABLET (FP) PO SCH (10:09)
[2022-01-17] MEDS: NICOTINE 14 MG/24 HOURS TOPICAL PATCH TD SCH (10:09)
[2022-01-17] MEDS: ASCORBIC ACID 500 MG TABLET (FP) PO SCH (10:09)
[2022-01-17 15:07] LABS: SARS-CoV-2 NAA Not Detected (Not Detected)
[2022-01-18] MEDS: MESALAMINE 800 MG TABLET.DR PO SCH ×3 (05:59→22:29)
[2022-01-18] MEDS: CYPROHEPTADINE HCL 4 MG TABLET PO SCH ×3 (05:59→22:29)
[2022-01-18 09:23] LABS: BASO % 0.3 % (0-2.0); HEMATOCRIT 29.3 % (35.4-49); MCH 22.6 pg (25.7-33.7); MCHC 30.8 g/dl (32.0-35.9); MEAN CELL VOLUME 73.5 fl (80-96); MEAN PLT VOLUME 8.1 fl (7.5-11.1); MONO % 7.9 % (3.8-10.2); NEUT % 74.8 % (42.8-82.8); PLATELET COUNT 301 10^3/uL (134-434); RBC 3.99 M/mm3 (4.00-5.60); RDW 25.8 % (11.9-15.9); WHITE BLOOD COUNT 11.5 K/mm3 (4.0-10.0)
[2022-01-18 09:37] LABS: BLOOD UREA NITROGEN 20.7 mg/dL (7-18)
[2022-01-18 09:38] LABS: ALBUMIN 2.7 g/dl (3.4-5.0)
[2022-01-18 09:40] LABS: CREATININE 0.9 mg/dL (0.55-1.3)
[2022-01-18 09:41] LABS: BILIRUBIN,TOTAL 1.8 mg/dL (0.2-1)
[2022-01-18] MEDS: FUROSEMIDE 20 MG TABLET (FP) PO SCH (09:41)
[2022-01-18] MEDS: PANTOPRAZOLE 40 MG TABLET PO SCH ×2 (09:41→22:29)
[2022-01-18] MEDS: AMINO ACIDS/PROTEIN HYDROLYS 30 ML LIQUID.PKT PO SCH ×2 (09:41→17:21)
[2022-01-18 09:42] LABS: TOT PROT 7.4 g/dl (6.4-8.2)
[2022-01-18] MEDS: POTASSIUM CHLORIDE TABS 20 MEQ TABLET.ER (FP) PO SCH (09:42)
[2022-01-18] MEDS: THIAMINE HCL 100 MG TABLET (FP) PO SCH (09:42)
[2022-01-18] MEDS: predniSONE 20 MG TABLET (UD) PO SCH (09:42)
[2022-01-18] MEDS: ASCORBIC ACID 500 MG TABLET (FP) PO SCH (09:42)
[2022-01-18] MEDS: NADOLOL 20 MG TABLET (FP) PO SCH (09:43)
[2022-01-18] MEDS: MULTIVITAMINS (DAILY MVI) TABLET (FP) PO SCH (09:43)
[2022-01-18] MEDS: FERROUS SO4 325 MG TABLET (FP) PO SCH ×3 (09:43→17:21)
[2022-01-18] MEDS: FOLIC ACID 1 MG TABLET (FP) PO SCH (09:43)
[2022-01-18] MEDS: NICOTINE 14 MG/24 HOURS TOPICAL PATCH TD SCH (09:44)
[2022-01-18] MEDS: BUPRENORPHINE/NALOXONE 2 MG/0.5 MG FILM PACKET SL SCH (09:45)
[2022-01-18] MEDS: BUDESONIDE/FORMETEROL FUMARATE 160/4.5 mcg INHALER IH SCH ×2 (09:46→22:29)
[2022-01-19] MEDS: MESALAMINE 800 MG TABLET.DR PO SCH ×3 (06:15→22:39)
[2022-01-19] MEDS: CYPROHEPTADINE HCL 4 MG TABLET PO SCH ×3 (06:15→22:39)
[2022-01-19] MEDS: FOLIC ACID 1 MG TABLET (FP) PO SCH (09:43)
[2022-01-19] MEDS: MULTIVITAMINS (DAILY MVI) TABLET (FP) PO SCH (09:43)
[2022-01-19] MEDS: ASCORBIC ACID 500 MG TABLET (FP) PO SCH (09:43)
[2022-01-19] MEDS: FERROUS SO4 325 MG TABLET (FP) PO SCH ×3 (09:43→16:59)
[2022-01-19] MEDS: POTASSIUM CHLORIDE TABS 20 MEQ TABLET.ER (FP) PO SCH (09:44)
[2022-01-19] MEDS: PANTOPRAZOLE 40 MG TABLET PO SCH ×2 (09:44→22:39)
[2022-01-19] MEDS: BUPRENORPHINE/NALOXONE 2 MG/0.5 MG FILM PACKET SL SCH (09:45)
[2022-01-19] MEDS: BUDESONIDE/FORMETEROL FUMARATE 160/4.5 mcg INHALER IH SCH ×2 (09:45→22:40)
[2022-01-19] MEDS: AMINO ACIDS/PROTEIN HYDROLYS 30 ML LIQUID.PKT PO SCH ×2 (09:45→16:59)
[2022-01-19] MEDS: THIAMINE HCL 100 MG TABLET (FP) PO SCH (09:45)
[2022-01-19] MEDS: predniSONE 20 MG TABLET (UD) PO SCH (09:46)
[2022-01-19] MEDS: NICOTINE 14 MG/24 HOURS TOPICAL PATCH TD SCH (09:46)
[2022-01-19] MEDS: NADOLOL 20 MG TABLET (FP) PO SCH (09:47)
[2022-01-19] MEDS: ACETAMINOPHEN 325 MG TABLET (FP) PO PRN (11:49)
[2022-01-19] MEDS: FUROSEMIDE 20 MG TABLET (FP) PO SCH (11:50)
[2022-01-20] MEDS: MESALAMINE 800 MG TABLET.DR PO SCH ×3 (06:13→23:09)
[2022-01-20] MEDS: CYPROHEPTADINE HCL 4 MG TABLET PO SCH ×3 (06:13→23:50)
[2022-01-20] MEDS: FERROUS SO4 325 MG TABLET (FP) PO SCH ×3 (09:06→16:46)
[2022-01-20] MEDS: FUROSEMIDE 20 MG TABLET (FP) PO SCH (09:06)
[2022-01-20] MEDS: MULTIVITAMINS (DAILY MVI) TABLET (FP) PO SCH (09:07)
[2022-01-20] MEDS: predniSONE 20 MG TABLET (UD) PO SCH (09:07)
[2022-01-20] MEDS: PANTOPRAZOLE 40 MG TABLET PO SCH ×2 (09:07→23:09)
[2022-01-20] MEDS: THIAMINE HCL 100 MG TABLET (FP) PO SCH (09:08)
[2022-01-20] MEDS: NICOTINE 14 MG/24 HOURS TOPICAL PATCH TD SCH (09:08)
[2022-01-20] MEDS: ASCORBIC ACID 500 MG TABLET (FP) PO SCH (09:08)
[2022-01-20] MEDS: POTASSIUM CHLORIDE TABS 20 MEQ TABLET.ER (FP) PO SCH (09:08)
[2022-01-20] MEDS: BUPRENORPHINE/NALOXONE 2 MG/0.5 MG FILM PACKET SL SCH (09:08)
[2022-01-20] MEDS: FOLIC ACID 1 MG TABLET (FP) PO SCH (09:08)
[2022-01-20] MEDS: BUDESONIDE/FORMETEROL FUMARATE 160/4.5 mcg INHALER IH SCH ×2 (09:09→23:09)
[2022-01-20] MEDS: AMINO ACIDS/PROTEIN HYDROLYS 30 ML LIQUID.PKT PO SCH ×2 (09:09→16:47)
[2022-01-20] MEDS: NADOLOL 20 MG TABLET (FP) PO SCH (09:11)
[2022-01-21] MEDS: MESALAMINE 800 MG TABLET.DR PO SCH ×2 (05:58→14:27)
[2022-01-21] MEDS: CYPROHEPTADINE HCL 4 MG TABLET PO SCH ×2 (05:58→14:25)
[2022-01-21] MEDS: AMINO ACIDS/PROTEIN HYDROLYS 30 ML LIQUID.PKT PO SCH (09:05)
[2022-01-21] MEDS: BUPRENORPHINE/NALOXONE 2 MG/0.5 MG FILM PACKET SL SCH (09:05)
[2022-01-21] MEDS: FUROSEMIDE 20 MG TABLET (FP) PO SCH (09:06)
[2022-01-21] MEDS: POTASSIUM CHLORIDE TABS 20 MEQ TABLET.ER (FP) PO SCH (09:06)
[2022-01-21] MEDS: FERROUS SO4 325 MG TABLET (FP) PO SCH ×2 (09:06→12:22)
[2022-01-21] MEDS: PANTOPRAZOLE 40 MG TABLET PO SCH (09:06)
[2022-01-21] MEDS: FOLIC ACID 1 MG TABLET (FP) PO SCH (09:06)
[2022-01-21] MEDS: NICOTINE 14 MG/24 HOURS TOPICAL PATCH TD SCH (09:06)
[2022-01-21] MEDS: NADOLOL 20 MG TABLET (FP) PO SCH (09:07)
[2022-01-21] MEDS: predniSONE 20 MG TABLET (UD) PO SCH (09:07)
[2022-01-21] MEDS: MULTIVITAMINS (DAILY MVI) TABLET (FP) PO SCH (09:07)
[2022-01-21] MEDS: THIAMINE HCL 100 MG TABLET (FP) PO SCH (09:08)
[2022-01-21] MEDS: BUDESONIDE/FORMETEROL FUMARATE 160/4.5 mcg INHALER IH SCH (09:08)
[2022-01-21] MEDS: ASCORBIC ACID 500 MG TABLET (FP) PO SCH (09:08)
[2022-01-21 10:04] VITALS: BP 134/95; PULSE 77; TEMP 98
[2022-01-21 12:22] VITALS: BMI 22.9
[2022-01-21] MEDS ORDERED: MESALAMINE 800 MG TABLET.DR PO SCH (22:00)
== END 2022-01-21 15:42 | disposition home or self-care (01) | DRG 392 ==
LOC: JER 23:56 → JERBED 01-09 06:32 → J7W 01-09 11:41
PROVIDERS: ADMIT Hospitalist; ATTEND Internal Medicine
PROC: 30233N1 Transfusion of Nonautologous Red Blood Cells into Peripheral Vein, Percutaneous Approach (ICD-10-PCS; principal; 2022-01-09)
PROC: HZ2ZZZZ Detoxification Services for Substance Abuse Treatment (ICD-10-PCS; 2022-01-09)
PROC: 0DB98ZX Excision of Duodenum, Via Natural or Artificial Opening Endoscopic, Diagnostic (ICD-10-PCS; 2022-01-10)
PROC: 0DB78ZX Excision of Stomach, Pylorus, Via Natural or Artificial Opening Endoscopic, Diagnostic (ICD-10-PCS; 2022-01-10)
PROC: 0DBH8ZX Excision of Cecum, Via Natural or Artificial Opening Endoscopic, Diagnostic (ICD-10-PCS; 2022-01-13)
PROC: 0DBL8ZX Excision of Transverse Colon, Via Natural or Artificial Opening Endoscopic, Diagnostic (ICD-10-PCS; 2022-01-13)
PROC: 0DBH8ZX Excision of Cecum, Via Natural or Artificial Opening Endoscopic, Diagnostic (ICD-10-PCS; 2022-01-13)
PROC: 0DBL8ZX Excision of Transverse Colon, Via Natural or Artificial Opening Endoscopic, Diagnostic (ICD-10-PCS; 2022-01-13)
PROC: 0DBN8ZX Excision of Sigmoid Colon, Via Natural or Artificial Opening Endoscopic, Diagnostic (ICD-10-PCS; 2022-01-13)
PROC: 0DBP8ZX Excision of Rectum, Via Natural or Artificial Opening Endoscopic, Diagnostic (ICD-10-PCS; 2022-01-13)
PROC: 0DBB8ZX Excision of Ileum, Via Natural or Artificial Opening Endoscopic, Diagnostic (ICD-10-PCS; 2022-01-13)
PROC: 0DBM8ZX Excision of Descending Colon, Via Natural or Artificial Opening Endoscopic, Diagnostic (ICD-10-PCS; 2022-01-13)
DX: K52.9 Noninfective gastroenteritis and colitis, unspecified (principal); C92.10 Chronic myeloid leukemia, BCR/ABL-positive, not having achieved remission; D62 Acute posthemorrhagic anemia; K76.6 Portal hypertension; K62.6 Ulcer of anus and rectum; K63.3 Ulcer of intestine; D50.9 Iron deficiency anemia, unspecified; J44.9 Chronic obstructive pulmonary disease, unspecified; D46.9 Myelodysplastic syndrome, unspecified; E78.5 Hyperlipidemia, unspecified; I10 Essential (primary) hypertension; K29.70 Gastritis, unspecified, without bleeding; K21.9 Gastro-esophageal reflux disease without esophagitis; R74.8 Abnormal levels of other serum enzymes; E87.6 Hypokalemia; K64.9 Unspecified hemorrhoids; K31.89 Other diseases of stomach and duodenum; D69.6 Thrombocytopenia, unspecified; M54.50 Low back pain, unspecified; K59.00 Constipation, unspecified; R94.5 Abnormal results of liver function studies; F10.20 Alcohol dependence, uncomplicated; K44.9 Diaphragmatic hernia without obstruction or gangrene; N20.0 Calculus of kidney; M19.90 Unspecified osteoarthritis, unspecified site; R60.0 Localized edema; K70.0 Alcoholic fatty liver; F17.200 Nicotine dependence, unspecified, uncomplicated; Z87.19 Personal history of other diseases of the digestive system; Z96.653 Presence of artificial knee joint, bilateral
CPT/HCPCS: 36415; 36430; 71046-TC-FY; 76700-TC; 80053; 82272; 82728; 83540; 83550; 83735; 83880; 83993; 84439; 84443; 84484; 85025; 85610; 86140; 86850; 86900; 86901; 86922; 87177; 87209; 88305-TC; 93005; 93010; 93970-TC; 97116-GP; 97161-GP; 99285-25; C9803-CS; J1756; P9058; U0003; U0005

== ENCOUNTER 2022-08-06 17:49 | Inpatient (IN) | payer OTHER ==
[2022-08-06 18:04] VITALS: BMI 21.7
[2022-08-06] MEDS ORDERED: BUPRENORPHINE/NALOXONE 4 MG/1 MG FILM PACKET SL ONE (19:19)
[2022-08-06] MEDS ORDERED: ONDANSETRON 4 MG/2 ML VIAL IVPUSH ONE (19:23)
[2022-08-06] MEDS ORDERED: CEFTRIAXONE 2 GM-D5W BAG 2 GM/50 ML BAG IVPB ONE (19:47)
[2022-08-06] MEDS ORDERED: VANCOMYCIN/WATER 2 GM/400 ML PREMIX BAG IVPB ONE (19:48)
[2022-08-06] MEDS ORDERED: ONDANSETRON 4 MG/2 ML VIAL ONE (19:49)
[2022-08-06] MEDS ORDERED: BUPRENORPHINE/NALOXONE 2 MG/0.5 MG FILM PACKET ONE (19:49)
[2022-08-06] MEDS ORDERED: CEFTRIAXONE 2 GM/100 ML BAG IVPB ONE (20:08)
[2022-08-06] MEDS ORDERED: VANCOMYCIN/WATER FOR INJ (PEG) 2,000 MG/400 ML BAG IVPB ONE (20:09)
[2022-08-06 21:02] LABS: EOS % 0.6 % (0-4.5); HEMATOCRIT 21.4 % (35.4-49); LYMPH % 18.1 % (8-40); MCH 22.6 pg (25.7-33.7); MCHC 31.5 g/dl (32.0-35.9); MEAN CELL VOLUME 71.9 fl (80-96); MEAN PLT VOLUME 6.2 fl (7.5-11.1); MONO % 8.2 % (3.8-10.2); NEUT % 72.1 % (42.8-82.8); PLATELET COUNT 566 10^3/uL (134-434); RBC 2.98 M/mm3 (4.00-5.60); RDW 19.1 % (11.9-15.9); WHITE BLOOD COUNT 9.5 K/mm3 (4.0-10.0)
[2022-08-06 21:15] LABS: HEMOGLOBIN 6.7 GM/dL (11.7-16.9)
[2022-08-06 21:28] LABS: ALBUMIN 3.2 g/dl (3.4-5.0); BLOOD UREA NITROGEN 6.8 mg/dL (7-18); CALCIUM 9.1 mg/dL (8.5-10.1)
[2022-08-06 21:31] LABS: CREATININE 0.6 mg/dL (0.55-1.3)
[2022-08-06 21:33] LABS: BILIRUBIN,TOTAL 0.7 mg/dL (0.2-1); TOT PROT 7.5 g/dl (6.4-8.2)
[2022-08-06 22:05] LABS: ERYTHROCYTE SEDIMENTATION RATE 96 mm/hr (0-20)
[2022-08-07] MEDS ORDERED: MELATONIN 5 MG TABLETS PO ONE (02:23)
[2022-08-07] MEDS ORDERED: FLU VACC QS2022-23(6MOS UP)/PF 60 MCG/0.5 ML SYRINGE IM ONE (09:00)
[2022-08-07] MEDS ORDERED: ALBUTEROL SO4 HFA INHALER IH PRN (09:21)
[2022-08-07] MEDS: MULTIVITAMINS (DAILY MVI) TABLET (FP) PO SCH (09:57)
[2022-08-07] MEDS: PANTOPRAZOLE 40 MG TABLET PO SCH (09:57)
[2022-08-07] MEDS: FOLIC ACID 1 MG TABLET (FP) PO SCH (09:57)
[2022-08-07] MEDS: MESALAMINE 800 MG TABLET.DR PO SCH (09:57)
[2022-08-07] MEDS: NADOLOL 20 MG TABLET (FP) PO SCH (09:58)
[2022-08-07] MEDS: NICOTINE 14 MG/24 HOURS TOPICAL PATCH TD SCH (09:59)
[2022-08-07] MEDS: BUPRENORPHINE/NALOXONE 2 MG/0.5 MG FILM PACKET SL SCH ×2 (12:44→22:04)
[2022-08-07] MEDS ORDERED: CEFTRIAXONE 2 GM-D5W BAG 2 GM/50 ML BAG IVPB SCH (14:00)
[2022-08-07] MEDS ORDERED: CEFTRIAXONE 2 GM in DEXTROSE 5%-WATER 100 ML IVPB SCH (15:51)
[2022-08-07] MEDS ORDERED: ACETAMINOPHEN 325 MG TABLET (FP) PO PRN (17:27)
[2022-08-07 20:49] VITALS: RESP 18
[2022-08-07] MEDS ORDERED: VANCOMYCIN/WATER 1,250 MG/250 ML BAG IVPB SCH ×3 (22:00)
[2022-08-08 07:58] LABS: BASO % 1.6 % (0-2.0); EOS % 3.4 % (0-4.5); HEMOGLOBIN 9.1 GM/dL (11.7-16.9); LYMPH % 18.7 % (8-40); MCH 23.9 pg (25.7-33.7); MCHC 31.4 g/dl (32.0-35.9); MEAN CELL VOLUME 76.2 fl (80-96); MEAN PLT VOLUME 6.6 fl (7.5-11.1); MONO % 7.7 % (3.8-10.2); NEUT % 68.6 % (42.8-82.8); PLATELET COUNT 467 10^3/uL (134-434); RBC 3.81 M/mm3 (4.00-5.60); RDW 19.5 % (11.9-15.9); WHITE BLOOD COUNT 8.6 K/mm3 (4.0-10.0)
[2022-08-08 08:33] LABS: ACTIVATED PTT 32.5 SECONDS (25.2-36.5); INR 1.18 (0.83-1.09); PROTHROMBIN TIME (PATIENT) 13.6 SEC (9.7-13.0)
[2022-08-08 08:35] LABS: BLOOD UREA NITROGEN 11.2 mg/dL (7-18); CALCIUM 9.1 mg/dL (8.5-10.1); MAGNESIUM 1.9 mg/dL (1.8-2.4)
[2022-08-08 08:37] LABS: PHOSPHOROUS 4.5 mg/dL (2.5-4.9)
[2022-08-08 08:38] LABS: CREATININE 0.7 mg/dL (0.55-1.3)
[2022-08-08 08:39] LABS: BILIRUBIN,TOTAL 0.6 mg/dL (0.2-1)
[2022-08-08] MEDS: BUPRENORPHINE/NALOXONE 2 MG/0.5 MG FILM PACKET SL SCH (10:20)
[2022-08-08] MEDS: PANTOPRAZOLE 40 MG TABLET PO SCH (10:21)
[2022-08-08] MEDS: MESALAMINE 800 MG TABLET.DR PO SCH (10:21)
[2022-08-08] MEDS: FOLIC ACID 1 MG TABLET (FP) PO SCH (10:21)
[2022-08-08] MEDS: NADOLOL 20 MG TABLET (FP) PO SCH (10:21)
[2022-08-08] MEDS: MULTIVITAMINS (DAILY MVI) TABLET (FP) PO SCH (10:21)
[2022-08-08] MEDS: NICOTINE 14 MG/24 HOURS TOPICAL PATCH TD SCH (10:22)
[2022-08-08 12:15] VITALS: BP 115/72; PULSE 81; TEMP 98.9
== END 2022-08-08 14:25 | disposition home or self-care (01) | DRG 313 ==
LOC: JER 17:49 → JERBED 21:59 → J4W 08-07 01:43
PROVIDERS: ADMIT Internal Medicine; ATTEND Internal Medicine
PROC: 30233N1 Transfusion of Nonautologous Red Blood Cells into Peripheral Vein, Percutaneous Approach (ICD-10-PCS; principal; 2022-08-06)
DX: R07.9 Chest pain, unspecified (principal); D64.9 Anemia, unspecified; I10 Essential (primary) hypertension; J44.9 Chronic obstructive pulmonary disease, unspecified; K21.9 Gastro-esophageal reflux disease without esophagitis
CPT/HCPCS: 0241U-QW; 36415; 36430; 71045-TC-FY; 80048; 80053; 82272; 83735; 83880; 84100; 84484; 85025; 85610; 85651; 85730; 86140; 86850; 86900; 86901; 86922; 87040; 93005; 93010; 93306-TC; 99285-25; G0008; P9058; Q2036

== ENCOUNTER 2023-02-20 18:01 | Observation (INO) | payer OTHER ==
[2023-02-20 20:28] LABS: BASO % 2.9 % (0-2.0); HEMATOCRIT 23.7 % (35.4-49); LYMPH % 21.2 % (8-40); MCHC 28.4 g/dl (32.0-35.9); MEAN CELL VOLUME 64.9 fl (80-96); MEAN PLT VOLUME 7.9 fl (7.5-11.1); MONO % 4.9 % (3.8-10.2); PLATELET COUNT 230 10^3/uL (134-434); RBC 3.66 M/mm3 (4.00-5.60); RDW 21.8 % (11.9-15.9)
[2023-02-20 20:29] LABS: MCH 18.4 pg (25.7-33.7)
[2023-02-20 20:30] LABS: HEMOGLOBIN 6.7 GM/dL (11.7-16.9)
[2023-02-20 20:35] LABS: INR 1.2 (0.83-1.09); PROTHROMBIN TIME (PATIENT) 13.9 SEC (9.7-13.0)
[2023-02-20 20:38] LABS: ACTIVATED PTT 33.7 SECONDS (25.2-36.5)
[2023-02-20 20:43] LABS: POTASSIUM 3.6 mmol/L (3.5-5.1)
[2023-02-20 20:44] LABS: CALCIUM 8.7 mg/dL (8.5-10.1)
[2023-02-20 20:45] LABS: ALBUMIN 3.7 g/dl (3.4-5.0); BLOOD UREA NITROGEN 10.2 mg/dL (7-18)
[2023-02-20 20:50] LABS: BILIRUBIN,TOTAL 0.6 mg/dL (0.2-1); TOT PROT 8.4 g/dl (6.4-8.2)
[2023-02-20 22:08] LABS: ANISOCYTOSIS 2+; MACROCYTOSIS 0; TARGET CELLS 2+
[2023-02-21 02:31] VITALS: BMI 22.8
[2023-02-21] MEDS: FERROUS SO4 325 MG TABLET (FP) PO SCH ×3 (08:24→16:32)
[2023-02-21 08:50] VITALS: RESP 18
[2023-02-21 09:03] LABS: BASO % 2.7 % (0-2.0); EOS % 1.7 % (0-4.5); HEMATOCRIT 23.6 % (35.4-49); LYMPH % 19.3 % (8-40); MCH 19.6 pg (25.7-33.7); MCHC 29.5 g/dl (32.0-35.9); MEAN CELL VOLUME 66.5 fl (80-96); MONO % 7.2 % (3.8-10.2); NEUT % 69.1 % (42.8-82.8); PLATELET COUNT 187 10^3/uL (134-434); RBC 3.54 M/mm3 (4.00-5.60); RDW 22.5 % (11.9-15.9); WHITE BLOOD COUNT 10.9 K/mm3 (4.0-10.0)
[2023-02-21 09:13] LABS: POTASSIUM 3.9 mmol/L (3.5-5.1)
[2023-02-21 09:17] LABS: CALCIUM 8.4 mg/dL (8.5-10.1)
[2023-02-21 09:20] LABS: CREATININE 0.8 mg/dL (0.55-1.3)
[2023-02-21] MEDS ORDERED: THIAMINE HCL 100 MG TABLET (FP) PO SCH (10:00)
[2023-02-21] MEDS ORDERED: FOLIC ACID 1 MG TABLET (FP) PO SCH (10:00)
[2023-02-21] MEDS ORDERED: ASCORBIC ACID 500 MG TABLET (FP) PO SCH (10:00)
[2023-02-21] MEDS ORDERED: MULTIVITAMINS (DAILY MVI) TABLET (FP) PO SCH (10:00)
[2023-02-21] MEDS ORDERED: BUPRENORPHINE/NALOXONE 2 MG/0.5 MG FILM PACKET SL SCH (11:15)
[2023-02-21 17:13] VITALS: BP 141/97; PULSE 75; TEMP 98.7
[2023-02-21 17:23] LABS: BASO % 1.4 % (0-2.0); EOS % 1.4 % (0-4.5); HEMATOCRIT 29.8 % (35.4-49); HEMOGLOBIN 9.2 GM/dL (11.7-16.9); LYMPH % 18.4 % (8-40); MCH 21.2 pg (25.7-33.7); MCHC 30.8 g/dl (32.0-35.9); MEAN CELL VOLUME 68.7 fl (80-96); MEAN PLT VOLUME 6.9 fl (7.5-11.1); MONO % 6.5 % (3.8-10.2); NEUT % 72.3 % (42.8-82.8); PLATELET COUNT 210 10^3/uL (134-434); RBC 4.33 M/mm3 (4.00-5.60); RDW 24.3 % (11.9-15.9)
[2023-02-21 18:02] LABS: PLATELET ESTIMATE ADEQUATE
== END 2023-02-21 18:52 | disposition home or self-care (01) ==
LOC: JER 18:01 → JERBED 21:42 → J7W 02-21 00:48
PROVIDERS: ADMIT Internal Medicine; ATTEND Internal Medicine
PROC: 30233N1 Transfusion of Nonautologous Red Blood Cells into Peripheral Vein, Percutaneous Approach (ICD-10-PCS; principal; 2023-02-20)
DX: D64.9 Anemia, unspecified (principal); D47.1 Chronic myeloproliferative disease; J44.9 Chronic obstructive pulmonary disease, unspecified; J45.20 Mild intermittent asthma, uncomplicated; K21.9 Gastro-esophageal reflux disease without esophagitis; F17.210 Nicotine dependence, cigarettes, uncomplicated; I10 Essential (primary) hypertension; E78.5 Hyperlipidemia, unspecified
CPT/HCPCS: 0241U-QW; 36415; 36430; 36511; 71045-TC-FY; 80048; 80053; 82272; 83690; 84484; 85025; 85610; 85730; 86850; 86900; 86901; 86922; 93005; 93010; 99285-25; G0378; P9038; P9058

== ENCOUNTER 2023-04-26 16:43 | Observation (INO) | payer OTHER ==
[2023-04-26 17:17] VITALS: BMI 21.5
[2023-04-26 19:07] LABS: INR 1.39 (0.83-1.09); PROTHROMBIN TIME (PATIENT) 16.1 SEC (9.7-13.0)
[2023-04-26 19:18] LABS: POTASSIUM 3.1 mmol/L (3.5-5.1)
[2023-04-26 19:20] LABS: CALCIUM 9.3 mg/dL (8.5-10.1)
[2023-04-26 19:21] LABS: ALBUMIN 3.6 g/dl (3.4-5.0); BLOOD UREA NITROGEN 12.1 mg/dL (7-18); MAGNESIUM 1.3 mg/dL (1.8-2.4)
[2023-04-26 19:24] LABS: PHOSPHOROUS 2.1 mg/dL (2.5-4.9)
[2023-04-26 19:26] LABS: BILIRUBIN,TOTAL 1.6 mg/dL (0.2-1); TOT PROT 8.6 g/dl (6.4-8.2)
[2023-04-26] MEDS ORDERED: POTASSIUM CHLORIDE TABS 10 MEQ TABLET.ER (FP) PO ONE (19:56)
[2023-04-26] MEDS ORDERED: POTASSIUM CHLORIDE ORAL LIQUID 20 MEQ/15 ML PO ONE (19:57)
[2023-04-26] MEDS ORDERED: NAPH,MB-DB/K PH,MBDB POWDER PACKET PO ONE (20:02)
[2023-04-26] MEDS ORDERED: MAGNESIUM SULF 50% (8.12 MEQ/2 ML-1 GM VIAL) IVPB ONE (20:02)
[2023-04-26 20:19] LABS: BASO % 2.3 % (0-2.0); HEMATOCRIT 26.3 % (35.4-49); HEMOGLOBIN 7.4 GM/dL (11.7-16.9); LYMPH % 5.7 % (8-40); MEAN CELL VOLUME 67.9 fl (80-96); MEAN PLT VOLUME 7.9 fl (7.5-11.1); MONO % 6.4 % (3.8-10.2); NEUT % 85.6 % (42.8-82.8); PLATELET COUNT 234 10^3/uL (134-434); RBC 3.88 M/mm3 (4.00-5.60); RDW 21.6 % (11.9-15.9); WHITE BLOOD COUNT 20.5 K/mm3 (4.0-10.0)
[2023-04-26 20:22] LABS: ADD RBC MORPHOLOGY YES
[2023-04-26] MEDS ORDERED: NAPH,MB-DB/K PH,MBDB POWDER PACKET ONE (20:28)
[2023-04-26] MEDS ORDERED: POTASSIUM CHLORIDE ORAL LIQUID 20 MEQ/15 ML ONE (20:28)
[2023-04-26] MEDS ORDERED: MAGNESIUM SULFATE IN WATER 2 GM/50 ML IVPB IVPB ONE (20:28)
[2023-04-26 21:45] LABS: ANISOCYTOSIS 2+; MACROCYTOSIS 0; TARGET CELLS 1+
[2023-04-26] MEDS ORDERED: ACETAMINOPHEN 325 MG TABLET (FP) PO PRN (21:47)
[2023-04-26] MEDS ORDERED: DOCUSATE SODIUM 100 MG CAPSULE (FP) PO PRN (21:47)
[2023-04-27 07:48] LABS: BASO % 0.7 % (0-2.0); EOS % 0.8 % (0-4.5); HEMATOCRIT 26.1 % (35.4-49); HEMOGLOBIN 7.6 GM/dL (11.7-16.9); LYMPH % 15.3 % (8-40); MEAN CELL VOLUME 68.7 fl (80-96); MEAN PLT VOLUME 8.1 fl (7.5-11.1); NEUT % 75.2 % (42.8-82.8); PLATELET COUNT 203 10^3/uL (134-434); RBC 3.79 M/mm3 (4.00-5.60); RDW 20.9 % (11.9-15.9)
[2023-04-27 08:08] LABS: ALBUMIN 3.1 g/dl (3.4-5.0); BLOOD UREA NITROGEN 13.5 mg/dL (7-18); CALCIUM 8.6 mg/dL (8.5-10.1); MAGNESIUM 1.7 mg/dL (1.8-2.4)
[2023-04-27 08:10] LABS: MCH 19.9 pg (25.7-33.7)
[2023-04-27 08:11] LABS: PHOSPHOROUS 2.6 mg/dL (2.5-4.9)
[2023-04-27 08:13] LABS: BILIRUBIN,TOTAL 2.2 mg/dL (0.2-1); TOT PROT 7.2 g/dl (6.4-8.2)
[2023-04-27] MEDS: THIAMINE HCL 100 MG TABLET (FP) PO SCH (09:38)
[2023-04-27] MEDS: ASCORBIC ACID 500 MG TABLET (FP) PO SCH (09:38)
[2023-04-27] MEDS: FOLIC ACID 1 MG TABLET (FP) PO SCH (09:38)
[2023-04-27] MEDS: POTASSIUM CHLORIDE TABS 20 MEQ TABLET.ER (FP) PO SCH (09:38)
[2023-04-27] MEDS: MULTIVITAMINS (DAILY MVI) TABLET (FP) PO SCH (09:38)
[2023-04-27] MEDS: PANTOPRAZOLE 40 MG TABLET PO SCH ×2 (09:38→21:04)
[2023-04-27] MEDS: BUPRENORPHINE/NALOXONE 2 MG/0.5 MG FILM PACKET SL SCH (11:23)
[2023-04-27] MEDS: MESALAMINE 800 MG TABLET.DR PO SCH ×3 (15:11→17:05)
[2023-04-28 07:13] LABS: BASO % 1.2 % (0-2.0); EOS % 1.4 % (0-4.5); HEMATOCRIT 26.7 % (35.4-49); LYMPH % 13.9 % (8-40); MCH 20.5 pg (25.7-33.7); MCHC 29.9 g/dl (32.0-35.9); MEAN CELL VOLUME 68.5 fl (80-96); MEAN PLT VOLUME 8.1 fl (7.5-11.1); MONO % 8.2 % (3.8-10.2); NEUT % 75.3 % (42.8-82.8); PLATELET COUNT 206 10^3/uL (134-434); RBC 3.89 M/mm3 (4.00-5.60); RDW 21.7 % (11.9-15.9)
[2023-04-28 07:25] LABS: POTASSIUM 3.8 mmol/L (3.5-5.1)
[2023-04-28 07:33] LABS: BLOOD UREA NITROGEN 11.8 mg/dL (7-18)
[2023-04-28 07:37] LABS: CREATININE 0.8 mg/dL (0.55-1.3)
[2023-04-28 07:38] LABS: BILIRUBIN,TOTAL 1.3 mg/dL (0.2-1); TOT PROT 7.4 g/dl (6.4-8.2)
[2023-04-28] MEDS: MESALAMINE 800 MG TABLET.DR PO SCH ×3 (09:41→17:14)
[2023-04-28] MEDS: BUPRENORPHINE/NALOXONE 2 MG/0.5 MG FILM PACKET SL SCH (09:42)
[2023-04-28] MEDS: FOLIC ACID 1 MG TABLET (FP) PO SCH (09:43)
[2023-04-28] MEDS: ASCORBIC ACID 500 MG TABLET (FP) PO SCH (09:43)
[2023-04-28] MEDS: FERROUS SO4 325 MG TABLET (FP) PO SCH ×3 (09:43→17:14)
[2023-04-28] MEDS: PANTOPRAZOLE 40 MG TABLET PO SCH ×2 (09:43→21:22)
[2023-04-28] MEDS: POTASSIUM CHLORIDE TABS 20 MEQ TABLET.ER (FP) PO SCH (09:43)
[2023-04-28] MEDS: THIAMINE HCL 100 MG TABLET (FP) PO SCH (09:43)
[2023-04-28] MEDS: MULTIVITAMINS (DAILY MVI) TABLET (FP) PO SCH (09:43)
[2023-04-28] MEDS: NICOTINE 14 MG/24 HOURS TOPICAL PATCH TD SCH (14:17)
[2023-04-29 01:53] VITALS: RESP 18
[2023-04-29] MEDS: FERROUS SO4 325 MG TABLET (FP) PO SCH ×2 (09:29→11:53)
[2023-04-29] MEDS: PANTOPRAZOLE 40 MG TABLET PO SCH (09:29)
[2023-04-29] MEDS: MULTIVITAMINS (DAILY MVI) TABLET (FP) PO SCH (09:29)
[2023-04-29] MEDS: NICOTINE 14 MG/24 HOURS TOPICAL PATCH TD SCH (09:29)
[2023-04-29] MEDS: POTASSIUM CHLORIDE TABS 20 MEQ TABLET.ER (FP) PO SCH (09:29)
[2023-04-29] MEDS: THIAMINE HCL 100 MG TABLET (FP) PO SCH (09:29)
[2023-04-29] MEDS: ASCORBIC ACID 500 MG TABLET (FP) PO SCH (09:29)
[2023-04-29] MEDS: BUPRENORPHINE/NALOXONE 2 MG/0.5 MG FILM PACKET SL SCH (09:29)
[2023-04-29] MEDS: FOLIC ACID 1 MG TABLET (FP) PO SCH (09:29)
[2023-04-29] MEDS: MESALAMINE 800 MG TABLET.DR PO SCH ×2 (09:30→11:53)
[2023-04-29] MEDS ORDERED: IRON SUCROSE INJECTION 200 MG in SODIUM CHLORIDE 90 ML IVPB ONE (12:00)
[2023-04-29 14:32] VITALS: BP 117/76; PULSE 77; TEMP 98.7
[2023-04-30 23:13] LABS: ALPHA 2 MACROGLOBULINS,QN 264 mg/dL (110-276); ALT(SGPT)P5P 48 IU/L (0-55); APOLIPOPROTEIN A-1. 141 mg/dL (101-178); CHOLESTEROL TOTAL 187 mg/dL (100-199); FIBROSIS SCORE- 0.82 (0.00-0.21); GLUCOSE SERUM 82 mg/dL (70-99); HEIGHT. 70 in (.); WEIGHT. 150 LBS (.)
== END 2023-04-29 15:29 | disposition home or self-care (01) ==
LOC: JER 16:43 → JERBED 20:57 → J4S 04-27 01:29
PROVIDERS: ADMIT Internal Medicine; ATTEND Internal Medicine
PROC: 3E033GC Introduction of Other Therapeutic Substance into Peripheral Vein, Percutaneous Approach (ICD-10-PCS; principal; 2023-04-26)
DX: K92.2 Gastrointestinal hemorrhage, unspecified (principal); E86.0 Dehydration; D72.829 Elevated white blood cell count, unspecified; R55 Syncope and collapse; K51.90 Ulcerative colitis, unspecified, without complications; K21.9 Gastro-esophageal reflux disease without esophagitis; K70.10 Alcoholic hepatitis without ascites; E88.89 Other specified metabolic disorders; F10.99 Alcohol use, unspecified with unspecified alcohol-induced disorder; N20.0 Calculus of kidney; D47.1 Chronic myeloproliferative disease; K76.0 Fatty (change of) liver, not elsewhere classified
CPT/HCPCS: 36415; 36430; 70450-TC; 71045-TC-FY; 74177-TC; 76700-TC; 80053; 82105; 82272; 82728; 83540; 83550; 83735; 84100; 84484; 85025; 85610; 85730; 86850; 86900; 86901; 86922; 87040; 87635; 93005; 93010; 99285-25; G0378; J1756; P9058; Q9967

== ENCOUNTER 2023-07-28 18:10 | Emergency (ER) | payer OTHER ==
[2023-07-28 18:23] VITALS: BP 100/68; PULSE 104; RESP 20; TEMP 98.1; BMI 22.8
[2023-07-28] MEDS ORDERED: DIPHTH,PERTUSS(ACELL),TET 0.5 ML DISP.SYRIN IM ONE ×2 (19:30→19:37)
== END 2023-07-28 19:42 | disposition home or self-care (01) ==
LOC: JERFT 18:10
PROC: 0HQKXZZ Repair Right Lower Leg Skin, External Approach (ICD-10-PCS; principal; 2023-07-28)
PROC: 3E0234Z Introduction of Serum, Toxoid and Vaccine into Muscle, Percutaneous Approach (ICD-10-PCS; 2023-07-28)
DX: S81.811A Laceration without foreign body, right lower leg, initial encounter (principal); W26.0XXA Contact with knife, initial encounter; Y99.0 Civilian activity done for income or pay
CPT/HCPCS: 90715; 99282-25

== ENCOUNTER 2023-09-18 18:26 | Inpatient (IN) | payer OTHER ==
[2023-09-18 18:34] VITALS: BMI 22.1
[2023-09-18] MEDS ORDERED: ACETAMINOPHEN 1000 MG/100 ML BAG IVPB ONE (19:46)
[2023-09-18] MEDS ORDERED: SODIUM CHLORIDE 0.9% 500 ML INFUS.BAG IV ONE (19:49)
[2023-09-18] MEDS ORDERED: ACETAMINOPHEN INJECTION 100 ML IVPB ONE (19:49)
[2023-09-18 19:55] LABS: EOS % 1.4 % (0-4.5); LYMPH % 24.4 % (8-40); MCHC 30.4 g/dl (32.0-35.9); MEAN CELL VOLUME 85.5 fl (80-96); MEAN PLT VOLUME 7.5 fl (7.5-11.1); MONO % 9.1 % (3.8-10.2); NEUT % 64.1 % (42.8-82.8); PLATELET COUNT 306 10^3/uL (134-434); RBC 2.69 M/mm3 (4.00-5.60); RDW 22.1 % (11.9-15.9); WHITE BLOOD COUNT 9.8 K/mm3 (4.0-10.0)
[2023-09-18 20:14] LABS: POTASSIUM 3.6 mmol/L (3.5-5.1)
[2023-09-18 20:16] LABS: CALCIUM 8.5 mg/dL (8.5-10.1)
[2023-09-18 20:17] LABS: ALBUMIN 2.5 g/dl (3.4-5.0); BLOOD UREA NITROGEN 19.4 mg/dL (7-18)
[2023-09-18 20:18] LABS: MAGNESIUM 1.5 mg/dL (1.8-2.4)
[2023-09-18 20:20] LABS: CREATININE 0.6 mg/dL (0.55-1.3)
[2023-09-18 20:22] LABS: TOT PROT 7.8 g/dl (6.4-8.2)
[2023-09-18 20:47] LABS: ANISOCYTOSIS 3+; MACROCYTOSIS 1+; TARGET CELLS 2+; TEAR DROP CELLS 1+
[2023-09-18 22:57] LABS: ACTIVATED PTT 36.8 SECONDS (25.2-36.5); INR 1.31 (0.83-1.09); PROTHROMBIN TIME (PATIENT) 15.2 SEC (9.7-13.0)
[2023-09-18] MEDS ORDERED: MAGNESIUM SULF 50% (8.12 MEQ/2 ML-1 GM VIAL) IVPB ONE (23:32)
[2023-09-19] MEDS ORDERED: MAGNESIUM 1GM/D5W - 1 GM/100 ML IVPB IVPB ONE (00:54)
[2023-09-19] MEDS: SODIUM CHLORIDE 1,000 ML IV SCH (01:03)
[2023-09-19] MEDS: MULTIVITAMINS (DAILY MVI) TABLET (FP) PO SCH (09:45)
[2023-09-19] MEDS: THIAMINE HCL 100 MG TABLET (FP) PO SCH (09:45)
[2023-09-19] MEDS: FERROUS SO4 325 MG TABLET (FP) PO SCH ×3 (09:45→17:18)
[2023-09-19 10:52] LABS: HEMATOCRIT 25.8 % (35.4-49); HEMOGLOBIN 8.3 GM/dL (11.7-16.9); MCH 27.5 pg (25.7-33.7); MCHC 31.9 g/dl (32.0-35.9); MEAN CELL VOLUME 86.1 fl (80-96); MEAN PLT VOLUME 7.6 fl (7.5-11.1); PLATELET COUNT 276 10^3/uL (134-434); RDW 19.1 % (11.9-15.9); WHITE BLOOD COUNT 9.3 K/mm3 (4.0-10.0)
[2023-09-19 11:48] LABS: POTASSIUM 3.6 mmol/L (3.5-5.1)
[2023-09-19 11:51] LABS: BLOOD UREA NITROGEN 15.2 mg/dL (7-18)
[2023-09-19 11:54] LABS: CREATININE 0.5 mg/dL (0.55-1.3)
[2023-09-19] MEDS: BUPRENORPHINE/NALOXONE 2 MG/0.5 MG FILM PACKET SL SCH (17:18)
[2023-09-19 19:17] VITALS: RESP 18
[2023-09-20] MEDS: SODIUM CHLORIDE 1,000 ML IV SCH (06:29)
[2023-09-20 09:23] LABS: BASO % 0.8 % (0-2.0); EOS % 1.8 % (0-4.5); HEMATOCRIT 26.6 % (35.4-49); HEMOGLOBIN 8.6 GM/dL (11.7-16.9); LYMPH % 16.8 % (8-40); MCH 27.9 pg (25.7-33.7); MCHC 32.5 g/dl (32.0-35.9); MEAN CELL VOLUME 86.1 fl (80-96); MEAN PLT VOLUME 7.7 fl (7.5-11.1); MONO % 6.5 % (3.8-10.2); NEUT % 74.1 % (42.8-82.8); PLATELET COUNT 313 10^3/uL (134-434); RBC 3.09 M/mm3 (4.00-5.60); RDW 19.9 % (11.9-15.9); WHITE BLOOD COUNT 10.9 K/mm3 (4.0-10.0)
[2023-09-20] MEDS: THIAMINE HCL 100 MG TABLET (FP) PO SCH (10:16)
[2023-09-20] MEDS: FERROUS SO4 325 MG TABLET (FP) PO SCH ×3 (10:16→16:50)
[2023-09-20] MEDS: MULTIVITAMINS (DAILY MVI) TABLET (FP) PO SCH (10:16)
[2023-09-20] MEDS: BUPRENORPHINE/NALOXONE 2 MG/0.5 MG FILM PACKET SL SCH (10:16)
[2023-09-20] MEDS: VANCOMYCIN ORAL SOLUTION 125 MG/2.5 ML PO SCH (17:11)
[2023-09-21] MEDS: VANCOMYCIN ORAL SOLUTION 125 MG/2.5 ML PO SCH ×4 (00:06→17:26)
[2023-09-21] MEDS: FERROUS SO4 325 MG TABLET (FP) PO SCH ×3 (10:33→17:26)
[2023-09-21] MEDS: MULTIVITAMINS (DAILY MVI) TABLET (FP) PO SCH (10:33)
[2023-09-21] MEDS: THIAMINE HCL 100 MG TABLET (FP) PO SCH (10:33)
[2023-09-21] MEDS: BUPRENORPHINE/NALOXONE 2 MG/0.5 MG FILM PACKET SL SCH (10:34)
[2023-09-21 10:56] LABS: HEMATOCRIT 29.4 % (35.4-49); HEMOGLOBIN 9.1 GM/dL (11.7-16.9); MCH 27.3 pg (25.7-33.7); MEAN CELL VOLUME 88.3 fl (80-96); MEAN PLT VOLUME 7.7 fl (7.5-11.1); PLATELET COUNT 343 10^3/uL (134-434); RBC 3.33 M/mm3 (4.00-5.60); RDW 20.1 % (11.9-15.9)
[2023-09-21 11:13] LABS: POTASSIUM 4.1 mmol/L (3.5-5.1)
[2023-09-21 11:22] LABS: CALCIUM 8.5 mg/dL (8.5-10.1)
[2023-09-21 11:23] LABS: ALBUMIN 2.4 g/dl (3.4-5.0); BLOOD UREA NITROGEN 6.5 mg/dL (7-18)
[2023-09-21 11:26] LABS: CREATININE 0.6 mg/dL (0.55-1.3)
[2023-09-21 11:27] LABS: BILIRUBIN,TOTAL 1.2 mg/dL (0.2-1)
[2023-09-21 11:28] LABS: TOT PROT 7.4 g/dl (6.4-8.2)
[2023-09-21 18:17] VITALS: BP 152/87; PULSE 70; TEMP 97.9
== END 2023-09-21 18:55 | disposition home or self-care (01) | DRG 372 ==
LOC: JER 18:26 → JERBED 19:30 → J5S 09-19 02:00
PROVIDERS: ADMIT Internal Medicine; ATTEND Internal Medicine
PROC: 30233N1 Transfusion of Nonautologous Red Blood Cells into Peripheral Vein, Percutaneous Approach (ICD-10-PCS; principal; 2023-09-18)
DX: A04.72 Enterocolitis due to Clostridium difficile, not specified as recurrent (principal); C92.10 Chronic myeloid leukemia, BCR/ABL-positive, not having achieved remission; J44.9 Chronic obstructive pulmonary disease, unspecified; K21.9 Gastro-esophageal reflux disease without esophagitis; I10 Essential (primary) hypertension; E78.5 Hyperlipidemia, unspecified; K76.0 Fatty (change of) liver, not elsewhere classified; K52.9 Noninfective gastroenteritis and colitis, unspecified; K70.10 Alcoholic hepatitis without ascites; F10.20 Alcohol dependence, uncomplicated; D63.8 Anemia in other chronic diseases classified elsewhere; K59.00 Constipation, unspecified; M54.59 Other low back pain; R94.5 Abnormal results of liver function studies
CPT/HCPCS: 0241U-QW; 36415; 36430; 74177-TC; 76705-TC; 80048; 80053; 82272; 82607; 82728; 82747; 83010; 83540; 83550; 83615; 83690; 83735; 83993; 85014; 85025; 85027; 85045; 85610; 85730; 86850; 86900; 86901; 86922; 87045; 87046; 87209; 87324; 87449; 93005; 93010; 99285-25; P9058; Q9967

== ENCOUNTER 2024-04-14 21:32 | Observation (INO) | payer OTHER ==
[2024-04-14 23:01] LABS: BASO % 1.2 % (0-2.0); EOS % 1.1 % (0-4.5); HEMATOCRIT 31.1 % (35.4-49); HEMOGLOBIN 10.1 GM/dL (11.7-16.9); LYMPH % 12.7 % (8-40); MCH 29.2 pg (25.7-33.7); MCHC 32.6 g/dl (32.0-35.9); MEAN CELL VOLUME 89.4 fl (80-96); MEAN PLT VOLUME 6.7 fl (7.5-11.1); MONO % 8.3 % (3.8-10.2); NEUT % 76.7 % (42.8-82.8); PLATELET COUNT 156 10^3/uL (134-434); RBC 3.48 M/mm3 (4.00-5.60); RDW 16.6 % (11.9-15.9); WHITE BLOOD COUNT 8.2 K/mm3 (4.0-10.0)
[2024-04-14 23:07] LABS: INR 1.25 (0.83-1.09); PROTHROMBIN TIME (PATIENT) 14.3 SEC (9.7-13.0)
[2024-04-14 23:10] LABS: ACTIVATED PTT 34.9 SECONDS (25.2-36.5); POTASSIUM 3.6 mmol/L (3.5-5.1)
[2024-04-14 23:12] LABS: ALBUMIN 3.4 g/dl (3.4-5.0); MAGNESIUM 1.4 mg/dL (1.8-2.4)
[2024-04-14 23:15] LABS: CREATININE 0.8 mg/dL (0.55-1.3)
[2024-04-14 23:17] LABS: BILIRUBIN,TOTAL 1.3 mg/dL (0.2-1); TOT PROT 8.9 g/dl (6.4-8.2)
[2024-04-14] MEDS ORDERED: MAGNESIUM SULFATE IN WATER 2 GM/50 ML IVPB IVPB ONE (23:22)
[2024-04-14] MEDS: MAGNESIUM SULFATE IN WATER 2 GM/50 ML IVPB IVPB ONE (23:25)
[2024-04-15] MEDS ORDERED: chlordiazePOXIDE HCL 25 MG CAPSULE ONE (00:02)
[2024-04-15] MEDS: chlordiazePOXIDE HCL 25 MG CAPSULE PO ONE (00:24)
[2024-04-15] MEDS ORDERED: ACETAMINOPHEN INJECTION 100 ML IVPB ONE (05:50)
[2024-04-15] MEDS: ACETAMINOPHEN 1000 MG/100 ML BAG IVPB ONE (05:57)
[2024-04-15] MEDS ORDERED: morphine SULFATE 4 MG/ML VIAL ONE (08:55)
[2024-04-15] MEDS: morphine CARPU-JECT 4 MG/1 ML DISP.SYRIN IVPUSH ONE (09:01)
[2024-04-15] MEDS: BUPRENORPHINE/NALOXONE 2 MG/0.5 MG FILM PACKET SL SCH (11:32)
[2024-04-15] MEDS: FERROUS SO4 325 MG TABLET (FP) PO SCH (11:34)
[2024-04-15 12:24] VITALS: BMI 23.1
[2024-04-15] MEDS: MESALAMINE 800 MG TABLET.DR PO SCH (15:38)
[2024-04-15] MEDS: PANTOPRAZOLE 40 MG TABLET PO SCH (15:39)
[2024-04-15] MEDS: LIPASE/PROTEASE/AMYLASE 36,000 UNIT CAPSULE PO SCH (17:49)
[2024-04-16 07:57] LABS: BASO % 0.5 % (0-2.0); EOS % 1.3 % (0-4.5); HEMATOCRIT 32.1 % (35.4-49); HEMOGLOBIN 10.5 GM/dL (11.7-16.9); LYMPH % 10.1 % (8-40); MCH 29.5 pg (25.7-33.7); MCHC 32.8 g/dl (32.0-35.9); MEAN CELL VOLUME 89.8 fl (80-96); MEAN PLT VOLUME 7.5 fl (7.5-11.1); MONO % 6.4 % (3.8-10.2); NEUT % 81.7 % (42.8-82.8); PLATELET COUNT 124 10^3/uL (134-434); RBC 3.57 M/mm3 (4.00-5.60); RDW 16.5 % (11.9-15.9); WHITE BLOOD COUNT 7.1 K/mm3 (4.0-10.0)
[2024-04-16 08:08] LABS: POTASSIUM 4.2 mmol/L (3.5-5.1)
[2024-04-16 08:21] LABS: CALCIUM 9.3 mg/dL (8.5-10.1)
[2024-04-16 08:22] LABS: ALBUMIN 3.4 g/dl (3.4-5.0); MAGNESIUM 1.4 mg/dL (1.8-2.4)
[2024-04-16 08:24] LABS: CREATININE 0.6 mg/dL (0.55-1.3)
[2024-04-16 08:26] LABS: BILIRUBIN,TOTAL 2.7 mg/dL (0.2-1)
[2024-04-16] MEDS: THIAMINE 100 MG TABLET PO SCH (09:17)
[2024-04-16] MEDS: POTASSIUM CHLORIDE TABS 20 MEQ TABLET.ER (FP) PO SCH (09:17)
[2024-04-16] MEDS: MULTIVITAMINS (DAILY MVI) TABLET (FP) PO SCH (09:18)
[2024-04-16 10:32] VITALS: RESP 18
[2024-04-17 08:45] VITALS: BP 129/90; PULSE 94; TEMP 98.6
[2024-04-17 09:01] LABS: BASO % 0.6 % (0-2.0); EOS % 1.6 % (0-4.5); HEMATOCRIT 31.6 % (35.4-49); HEMOGLOBIN 10.4 GM/dL (11.7-16.9); LYMPH % 10.8 % (8-40); MCH 29.6 pg (25.7-33.7); MCHC 32.8 g/dl (32.0-35.9); MEAN CELL VOLUME 90.4 fl (80-96); MEAN PLT VOLUME 8.2 fl (7.5-11.1); PLATELET COUNT 121 10^3/uL (134-434); RDW 16.4 % (11.9-15.9); WHITE BLOOD COUNT 8.4 K/mm3 (4.0-10.0)
[2024-04-17 09:27] LABS: POTASSIUM 3.4 mmol/L (3.5-5.1)
[2024-04-17 09:29] LABS: CALCIUM 9.8 mg/dL (8.5-10.1)
[2024-04-17 09:30] LABS: ALBUMIN 3.3 g/dl (3.4-5.0); BLOOD UREA NITROGEN 9.2 mg/dL (7-18)
[2024-04-17 09:33] LABS: CREATININE 0.8 mg/dL (0.55-1.3)
[2024-04-17 09:34] LABS: BILIRUBIN,TOTAL 1.9 mg/dL (0.2-1); TOT PROT 8.6 g/dl (6.4-8.2)
== END 2024-04-17 14:15 | disposition left against medical advice (07) ==
LOC: JER 21:32 → JERBED 04-15 05:49 → J4W 04-15 10:40
PROVIDERS: ADMIT Internal Medicine; ATTEND Internal Medicine
PROC: 3E033NZ Introduction of Analgesics, Hypnotics, Sedatives into Peripheral Vein, Percutaneous Approach (ICD-10-PCS; principal; 2024-04-15)
PROC: 3E033GC Introduction of Other Therapeutic Substance into Peripheral Vein, Percutaneous Approach (ICD-10-PCS; 2024-04-15)
DX: R07.9 Chest pain, unspecified (principal); R94.5 Abnormal results of liver function studies; D64.9 Anemia, unspecified; K51.90 Ulcerative colitis, unspecified, without complications; J45.909 Unspecified asthma, uncomplicated; K76.0 Fatty (change of) liver, not elsewhere classified; N20.0 Calculus of kidney; F10.239 Alcohol dependence with withdrawal, unspecified; K70.30 Alcoholic cirrhosis of liver without ascites; K21.9 Gastro-esophageal reflux disease without esophagitis; D47.1 Chronic myeloproliferative disease; K44.9 Diaphragmatic hernia without obstruction or gangrene; M19.90 Unspecified osteoarthritis, unspecified site; G89.29 Other chronic pain; M54.50 Low back pain, unspecified; E78.5 Hyperlipidemia, unspecified; F17.210 Nicotine dependence, cigarettes, uncomplicated
CPT/HCPCS: 36415; 71045-TC-FY; 71275-TC; 74177-TC; 76705-TC; 80053; 83690; 83735; 84484; 85025; 85610; 85651; 85730; 86140; 93005; 93010; 99291; G0378; J0131; Q9967

== ENCOUNTER 2024-05-27 22:53 | Inpatient (IN) | payer OTHER ==
[2024-05-27 23:05] VITALS: BMI 22.1
[2024-05-27] MEDS: SODIUM CHLORIDE 1,000 ML IV STA (23:56)
[2024-05-28 00:05] LABS: BASO % 0.9 % (0-2.0); EOS % 0.3 % (0-4.5); HEMOGLOBIN 10.3 GM/dL (11.7-16.9); LYMPH % 12.5 % (8-40); MCH 29.4 pg (25.7-33.7); MCHC 33.2 g/dl (32.0-35.9); MEAN CELL VOLUME 88.4 fl (80-96); MEAN PLT VOLUME 8.9 fl (7.5-11.1); MONO % 14.2 % (3.8-10.2); NEUT % 72.1 % (42.8-82.8); PLATELET COUNT 178 10^3/uL (134-434); RBC 3.51 M/mm3 (4.00-5.60); RDW 18.2 % (11.9-15.9); WHITE BLOOD COUNT 9.3 K/mm3 (4.0-10.0)
[2024-05-28 00:21] LABS: ALBUMIN 2.9 g/dl (3.4-5.0); BLOOD UREA NITROGEN 77.9 mg/dL (7-18)
[2024-05-28 00:24] LABS: CREATININE 4.2 mg/dL (0.55-1.3)
[2024-05-28 00:25] LABS: BILIRUBIN,TOTAL 9.5 mg/dL (0.2-1); TOT PROT 8.1 g/dl (6.4-8.2)
[2024-05-28] MEDS ORDERED: POTASSIUM CHLORIDE TABS 20 MEQ TABLET.ER (FP) PO ONE (01:53)
[2024-05-28] MEDS: SODIUM CHLORIDE 500 ML IV STA (02:14)
[2024-05-28] MEDS: SODIUM CHLORIDE 0.9% 500 ML INFUS.BAG IV ONE (02:14)
[2024-05-28] MEDS: POTASSIUM CHLORIDE TABS 20 MEQ TABLET.ER (FP) PO ONE (02:14)
[2024-05-28] MEDS ORDERED: MAGNESIUM SULFATE IN WATER 2 GM/50 ML IVPB IVPB ONE (03:20)
[2024-05-28] MEDS: MAGNESIUM SULF 50% (8.12 MEQ/2 ML-1 GM VIAL) IVPB ONE ×2 (03:26→15:15)
[2024-05-28] MEDS: SODIUM CHLORIDE 1,000 ML IV SCH (06:21)
[2024-05-28] MEDS ORDERED: PANTOPRAZOLE SODIUM 40 MG VIAL ONE (06:36)
[2024-05-28] MEDS: PANTOPRAZOLE SODIUM 40 MG VIAL IVPUSH ONE (06:42)
[2024-05-28 06:49] LABS: BASO % 0.7 % (0-2.0); EOS % 0.7 % (0-4.5); HEMOGLOBIN 10.1 GM/dL (11.7-16.9); LYMPH % 16.1 % (8-40); MCH 29.6 pg (25.7-33.7); MCHC 33.6 g/dl (32.0-35.9); MEAN CELL VOLUME 88.1 fl (80-96); MEAN PLT VOLUME 9.1 fl (7.5-11.1); MONO % 16.7 % (3.8-10.2); NEUT % 65.8 % (42.8-82.8); PLATELET COUNT 157 10^3/uL (134-434); RBC 3.41 M/mm3 (4.00-5.60); RDW 18.2 % (11.9-15.9); WHITE BLOOD COUNT 8.1 K/mm3 (4.0-10.0)
[2024-05-28 07:08] LABS: CHLORIDE 102 mmol/L (98-107); SODIUM 132 mmol/L (136-145)
[2024-05-28 07:12] LABS: CALCIUM 7.8 mg/dL (8.5-10.1)
[2024-05-28 07:13] LABS: ALBUMIN 2.7 g/dl (3.4-5.0); BLOOD UREA NITROGEN 72.7 mg/dL (7-18); CO2 17 mmol/L (21-32); GLUCOSE,RANDOM 81 mg/dL (74-106)
[2024-05-28 07:20] LABS: ALK PHOS 206 U/L (45-117); ANION GAP 13 mmol/L (4-13); POTASSIUM 2.9 mmol/L (3.5-5.1); SGOT/AST 143 U/L (15-37); SGPT/ALT 30 U/L (13-61); TOT PROT 7.4 g/dl (6.4-8.2)
[2024-05-28] MEDS ORDERED: POTASSIUM CHLORIDE ORAL LIQUID 20 MEQ/15 ML ONE (10:56)
[2024-05-28] MEDS: POTASSIUM CHLORIDE ORAL LIQUID 20 MEQ/15 ML PO ONE (11:00)
[2024-05-28] MEDS: BUPRENORPHINE/NALOXONE 2 MG/0.5 MG FILM PACKET SL SCH ×2 (11:55→13:00)
[2024-05-28] MEDS ORDERED: FERROUS SO4 325 MG TABLET (FP) ONE (12:58)
[2024-05-28] MEDS ORDERED: BUPRENORPHINE/NALOXONE 2 MG/0.5 MG FILM PACKET ONE (12:58)
[2024-05-28] MEDS: FERROUS SO4 325 MG TABLET (FP) PO SCH (12:59)
[2024-05-28] MEDS: MESALAMINE 800 MG TABLET.DR PO SCH (14:11)
[2024-05-28] MEDS ORDERED: MAGNESIUM SULF 50% (8.12 MEQ/2 ML-1 GM VIAL) ONE (15:06)
[2024-05-28] MEDS ORDERED: KCL 10 MEQ IVPB 10 MEQ/100 ML INFUS.BAG IVPB ONE (15:06)
[2024-05-28] MEDS: SODIUM CHLORIDE 0.9%/KCL 20 MEQ/1,000 ML INFUS.BAG IV SCH (15:10)
[2024-05-28] MEDS: SODIUM CHLORIDE 1,000 ML with POTASSIUM CHLORIDE 20 MEQ IV SCH (15:54)
[2024-05-28] MEDS: KCL 10 MEQ IVPB 10 MEQ/100 ML INFUS.BAG IVPB SCH (16:10)
[2024-05-29 08:03] LABS: POTASSIUM 4.6 mmol/L (3.5-5.1)
[2024-05-29 08:07] LABS: ALBUMIN 2.4 g/dl (3.4-5.0); CALCIUM 8.2 mg/dL (8.5-10.1)
[2024-05-29 08:08] LABS: MAGNESIUM 1.9 mg/dL (1.8-2.4)
[2024-05-29 08:10] LABS: CREATININE 1.5 mg/dL (0.55-1.3)
[2024-05-29] MEDS: MULTIVITAMINS (DAILY MVI) TABLET (FP) PO SCH (09:11)
[2024-05-29] MEDS: NICOTINE 14 MG/24 HOURS TOPICAL PATCH TD SCH (09:12)
[2024-05-29] MEDS: PANTOPRAZOLE SODIUM 40 MG VIAL IVPUSH SCH (09:12)
[2024-05-29] MEDS: POTASSIUM CHLORIDE TABS 20 MEQ TABLET.ER (FP) PO SCH (09:12)
[2024-05-29] MEDS: THIAMINE 100 MG TABLET PO SCH (09:12)
[2024-05-30 12:52] LABS: EPI CELLS 1 /uL (0-25.1); HYALINE CASTS 0 /uL (0-3.1); URINE APPEARANCE CLEAR; URINE BACTERIA 842 /uL (0-1359); URINE BILIRUBIN 3+ (NEGATIVE); URINE COLOR DK YELLOW; URINE GLUCOSE (UA) TRACE (NEGATIVE); URINE KETONE NEGATIVE (NEGATIVE); URINE LEUK ESTERASE NEGATIVE (NEGATIVE); URINE NITRITE NEGATIVE (NEGATIVE); URINE PROTEIN 1+ (NEGATIVE); URINE RBC 4 /uL (0-23.9); URINE WBC 1 /uL (0-25.8)
[2024-05-30] MEDS: LIPASE/PROTEASE/AMYLASE 36,000 UNIT CAPSULE PO SCH (13:26)
[2024-05-31 07:12] LABS: BASO % 0.8 % (0-2.0); EOS % 1.6 % (0-4.5); HEMATOCRIT 29.8 % (35.4-49); HEMOGLOBIN 9.7 GM/dL (11.7-16.9); LYMPH % 14.8 % (8-40); MCH 28.6 pg (25.7-33.7); MCHC 32.7 g/dl (32.0-35.9); MEAN CELL VOLUME 87.3 fl (80-96); MEAN PLT VOLUME 9.1 fl (7.5-11.1); MONO % 13.7 % (3.8-10.2); NEUT % 69.1 % (42.8-82.8); PLATELET COUNT 269 10^3/uL (134-434); RBC 3.41 M/mm3 (4.00-5.60); RDW 19.3 % (11.9-15.9); WHITE BLOOD COUNT 12.9 K/mm3 (4.0-10.0)
[2024-05-31 07:15] LABS: ALBUMIN 2.6 g/dl (3.4-5.0); CALCIUM 9.4 mg/dL (8.5-10.1)
[2024-05-31 07:16] LABS: BLOOD UREA NITROGEN 18.8 mg/dL (7-18)
[2024-05-31 07:19] LABS: CREATININE 1.1 mg/dL (0.55-1.3)
[2024-05-31 07:20] LABS: BILIRUBIN,TOTAL 12.4 mg/dL (0.2-1); TOT PROT 7.4 g/dl (6.4-8.2)
[2024-05-31] MEDS: ACETAMINOPHEN 325 MG TABLET (FP) PO ONE (10:45)
[2024-05-31] MEDS: LIDOCAINE 4% PATCH TP SCH (10:47)
[2024-05-31] MEDS: SIMETHICONE 80 MG TAB.CHEW (FP) PO PRN (10:47)
[2024-05-31] MEDS: LIDOCAINE PATCH REMOVAL MC SCH (21:03)
[2024-06-01 06:30] VITALS: RESP 17
[2024-06-01 07:51] LABS: HEMOGLOBIN 9.3 GM/dL (11.7-16.9); MCH 29.1 pg (25.7-33.7); MCHC 33.3 g/dl (32.0-35.9); MEAN CELL VOLUME 87.2 fl (80-96); MEAN PLT VOLUME 8.9 fl (7.5-11.1); PLATELET COUNT 337 10^3/uL (134-434); RBC 3.21 M/mm3 (4.00-5.60); RDW 19.5 % (11.9-15.9); WHITE BLOOD COUNT 12.8 K/mm3 (4.0-10.0)
[2024-06-01 08:02] LABS: POTASSIUM 4.3 mmol/L (3.5-5.1)
[2024-06-01 08:07] LABS: CALCIUM 9.2 mg/dL (8.5-10.1)
[2024-06-01 08:08] LABS: ALBUMIN 2.6 g/dl (3.4-5.0); BLOOD UREA NITROGEN 17.5 mg/dL (7-18)
[2024-06-01 08:17] LABS: TOT PROT 7.4 g/dl (6.4-8.2)
[2024-06-01 08:25] LABS: BILIRUBIN,TOTAL 10.3 mg/dL (0.2-1)
[2024-06-01 09:01] LABS: ANISOCYTOSIS 2+; MACROCYTOSIS 1+
[2024-06-01 09:02] LABS: PLATELET ESTIMATE ADEQUATE
[2024-06-01] MEDS: methylPREDNISolone NA SUCC 40 MG/1 ML VIAL IVPUSH SCH (09:24)
[2024-06-01 09:49] VITALS: BP 89/58; PULSE 103; TEMP 99.1
== END 2024-06-01 13:21 | disposition home or self-care (01) | DRG 683 ==
LOC: JER 22:53 → JERBED 05-28 02:29 → J4W 05-28 18:34
PROVIDERS: ADMIT Internal Medicine; ATTEND Internal Medicine
DX: N17.9 Acute kidney failure, unspecified (principal); E87.1 Hypo-osmolality and hyponatremia; K51.90 Ulcerative colitis, unspecified, without complications; I10 Essential (primary) hypertension; E78.5 Hyperlipidemia, unspecified; J44.9 Chronic obstructive pulmonary disease, unspecified; K21.9 Gastro-esophageal reflux disease without esophagitis; E87.6 Hypokalemia; E86.0 Dehydration; E83.42 Hypomagnesemia; D64.9 Anemia, unspecified; F10.20 Alcohol dependence, uncomplicated; K70.30 Alcoholic cirrhosis of liver without ascites; K70.0 Alcoholic fatty liver; R79.89 Other specified abnormal findings of blood chemistry
CPT/HCPCS: 0241U-QW; 36415; 71046-TC-FY; 74176-TC; 74181-TC; 76705-TC; 80053; 81003; 82105; 82272; 83605; 83690; 83735; 84484; 85025; 86850; 86900; 86901; 93005; 93010; 97116-GP; 97161-GP; 99285-25

== ENCOUNTER 2024-06-12 16:25 | Inpatient (IN) | payer OTHER ==
[2024-06-12] MEDS: SODIUM CHLORIDE 0.9% 500 ML INFUS.BAG IV ONE ×2 (17:00→18:12)
[2024-06-12 17:27] LABS: BASO % 0.2 % (0-2.0); EOS % 0.5 % (0-4.5); HEMATOCRIT 27.1 % (35.4-49); HEMOGLOBIN 8.4 GM/dL (11.7-16.9); LYMPH % 11.5 % (8-40); MCH 26.7 pg (25.7-33.7); MEAN CELL VOLUME 86.1 fl (80-96); MEAN PLT VOLUME 8.4 fl (7.5-11.1); MONO % 5.4 % (3.8-10.2); NEUT % 82.4 % (42.8-82.8); PLATELET COUNT 249 10^3/uL (134-434); RBC 3.14 M/mm3 (4.00-5.60); RDW 21.4 % (11.9-15.9)
[2024-06-12 17:34] LABS: INR 2.32 (0.83-1.09)
[2024-06-12 17:53] LABS: ANISOCYTOSIS 2+; MACROCYTOSIS 2+; TEAR DROP CELLS 2+
[2024-06-12] MEDS: LACTATED RINGERS SOLUTION 1000 ML INFUS.BAG IV ONE ×2 (18:12→22:00)
[2024-06-12 18:14] LABS: POTASSIUM 4.5 mmol/L (3.5-5.1)
[2024-06-12 18:17] LABS: ALBUMIN 2.2 g/dl (3.4-5.0)
[2024-06-12 18:18] LABS: MAGNESIUM 1.8 mg/dL (1.8-2.4)
[2024-06-12 18:19] LABS: BILIRUBIN,DIRECT 6.9 mg/dL (0.0-0.2)
[2024-06-12 18:20] LABS: BLOOD UREA NITROGEN 78.3 mg/dL (7-18); CREATININE 3.9 mg/dL (0.55-1.3); PHOSPHOROUS 6.1 mg/dL (2.5-4.9)
[2024-06-12 18:21] LABS: TOT PROT 7.4 g/dl (6.4-8.2)
[2024-06-12 18:23] LABS: BILIRUBIN,TOTAL 8.2 mg/dL (0.2-1)
[2024-06-12 19:57] LABS: ERYTHROCYTE SEDIMENTATION RATE 81 mm/hr (0-20)
[2024-06-12] MEDS ORDERED: CEFTRIAXONE 2 GM/100 ML BAG IVPB ONE (20:28)
[2024-06-12] MEDS ORDERED: VANCOMYCIN 1 GRAM (PRE-DOCKED) 1,000 MG/250 ML BAG IVPB ONE (20:28)
[2024-06-12] MEDS: CEFTRIAXONE 2 MG in DEXTROSE 5%-WATER - 50 ML IVPB ONE (20:39)
[2024-06-12] MEDS ORDERED: PIPERACILLIN/TAZOB 2.25 GM 2.25 GM/50 ML BAG IVPB ONE (21:13)
[2024-06-12] MEDS: VANCOMYCIN 1,000 MG in DEXTROSE 5%-WATER - 250 ML IVPB ONE (21:19)
[2024-06-12] MEDS: PIPERACILLIN/TAZOB 2.25 GM 2.25 GM in DEXTROSE 5%-WATER - 50 ML IVPB ONE (22:28)
[2024-06-12 23:24] LABS: EPI CELLS 22 /uL (0-25.1); HYALINE CASTS 1 /uL (0-3.1); URINE APPEARANCE CLEAR; URINE BACTERIA 4 /uL (0-1359); URINE BILIRUBIN 2+ (NEGATIVE); URINE COLOR DK YELLOW; URINE GLUCOSE (UA) TRACE (NEGATIVE); URINE KETONE NEGATIVE (NEGATIVE); URINE LEUK ESTERASE NEGATIVE (NEGATIVE); URINE NITRITE NEGATIVE (NEGATIVE); URINE PROTEIN 2+ (NEGATIVE); URINE RBC 14 /uL (0-23.9); URINE WBC 15 /uL (0-25.8)
[2024-06-13 03:07] LABS: HEMATOCRIT 26.7 % (35.4-49); HEMOGLOBIN 8.5 GM/dL (11.7-16.9); MCH 26.8 pg (25.7-33.7); MEAN CELL VOLUME 83.8 fl (80-96); MEAN PLT VOLUME 7.9 fl (7.5-11.1); PLATELET COUNT 184 10^3/uL (134-434); RBC 3.19 M/mm3 (4.00-5.60); RDW 20.1 % (11.9-15.9); WHITE BLOOD COUNT 22.7 K/mm3 (4.0-10.0)
[2024-06-13 03:28] LABS: POTASSIUM 3.2 mmol/L (3.5-5.1)
[2024-06-13 03:30] LABS: ALBUMIN 1.9 g/dl (3.4-5.0); CALCIUM 8.2 mg/dL (8.5-10.1)
[2024-06-13 03:31] LABS: BLOOD UREA NITROGEN 77.6 mg/dL (7-18)
[2024-06-13 03:34] LABS: CREATININE 3.3 mg/dL (0.55-1.3)
[2024-06-13 03:35] LABS: BILIRUBIN,TOTAL 8.2 mg/dL (0.2-1); TOT PROT 6.6 g/dl (6.4-8.2)
[2024-06-13 04:06] VITALS: BMI 22.2
[2024-06-13] MEDS: PIPERACILLIN/TAZOB 2.25 GM 2.25 GM in DEXTROSE 5%-WATER - 50 ML IVPB SCH ×2 (04:36→14:00)
[2024-06-13 05:24] LABS: ANISOCYTOSIS 2+; MACROCYTOSIS 2+
[2024-06-13] MEDS: SODIUM CHLORIDE 1,000 ML IV STA (07:29)
[2024-06-13] MEDS: SODIUM CHLORIDE 1,000 ML IV SCH ×2 (10:49→21:14)
[2024-06-13] MEDS: POTASSIUM CHLORIDE ORAL LIQUID 20 MEQ/15 ML PO ONE ×3 (10:49→19:10)
[2024-06-13] MEDS ORDERED: BUPRENORPHINE/NALOXONE 4 MG/1 MG FILM PACKET SL SCH (11:15)
[2024-06-13] MEDS: LIPASE/PROTEASE/AMYLASE 36,000 UNIT CAPSULE PO SCH (13:23)
[2024-06-13] MEDS: MESALAMINE 800 MG TABLET.DR PO SCH (13:24)
[2024-06-13] MEDS ORDERED: SODIUM BICARBONATE 8.4% - 50 MEQ in SODIUM CHLORIDE 0.45% 1,000 ML IV SCH (13:45)
[2024-06-13] MEDS: BUPRENORPHINE/NALOXONE 2 MG/0.5 MG FILM PACKET SL SCH (13:48)
[2024-06-13] MEDS: KCL 10 MEQ IVPB 10 MEQ/100 ML INFUS.BAG IVPB SCH (13:56)
[2024-06-13] MEDS: SODIUM BICARBONATE 8.4% 50 MEQ/50 ML DISP.SYRIN IVPUSH ONE ×2 (13:59→16:04)
[2024-06-13 14:45] LABS: POTASSIUM 3.1 mmol/L (3.5-5.1)
[2024-06-13 14:46] LABS: ALBUMIN 1.7 g/dl (3.4-5.0); BLOOD UREA NITROGEN 73.6 mg/dL (7-18); CALCIUM 8.2 mg/dL (8.5-10.1); MAGNESIUM 1.9 mg/dL (1.8-2.4)
[2024-06-13 14:52] LABS: BILIRUBIN,TOTAL 8.3 mg/dL (0.2-1); CREATININE 2.8 mg/dL (0.55-1.3); PHOSPHOROUS 4.2 mg/dL (2.5-4.9); TOT PROT 5.9 g/dl (6.4-8.2)
[2024-06-13] MEDS: SODIUM CHLORIDE 0.9% 500 ML INFUS.BAG IV ONE ×2 (14:52→17:38)
[2024-06-13] MEDS: SODIUM BICARBONATE 650 MG TABLET PO SCH (16:04)
[2024-06-13] MEDS: VANCOMYCIN/WATER FOR INJ (PEG) 1,000 MG/200 ML BAG IVPB ONE (17:38)
[2024-06-13] MEDS: SODIUM BICARBONATE 8.4% - 100 MEQ in DEXTROSE 5%-WATER - 1,000 ML IV SCH (19:04)
[2024-06-13] MEDS ORDERED: VANCOMYCIN/WATER FOR INJ (PEG) 1,000 MG/200 ML BAG IVPB SCH (20:00)
[2024-06-13 20:02] LABS: HIV INTERPRETATION NEGATIVE (NEGATIVE)
[2024-06-13] MEDS: SODIUM CHLORIDE 250 ML IV STA (20:26)
[2024-06-13] MEDS ORDERED: VANCOMYCIN 1,000 MG in DEXTROSE 5%-WATER - 250 ML IVPB SCH (21:00)
[2024-06-14 06:49] LABS: HEMATOCRIT 24.4 % (35.4-49); HEMOGLOBIN 7.9 GM/dL (11.7-16.9); MCHC 32.2 g/dl (32.0-35.9); MEAN CELL VOLUME 83.9 fl (80-96); MEAN PLT VOLUME 7.9 fl (7.5-11.1); PLATELET COUNT 115 10^3/uL (134-434); RBC 2.91 M/mm3 (4.00-5.60); WHITE BLOOD COUNT 14.8 K/mm3 (4.0-10.0)
[2024-06-14 06:55] LABS: POTASSIUM 3.1 mmol/L (3.5-5.1)
[2024-06-14 06:57] LABS: CALCIUM 8.2 mg/dL (8.5-10.1)
[2024-06-14 06:58] LABS: ALBUMIN 1.6 g/dl (3.4-5.0); BLOOD UREA NITROGEN 53.2 mg/dL (7-18); MAGNESIUM 1.7 mg/dL (1.8-2.4)
[2024-06-14 07:02] LABS: TOT PROT 5.7 g/dl (6.4-8.2)
[2024-06-14 07:19] LABS: BILIRUBIN,TOTAL 10.4 mg/dL (0.2-1)
[2024-06-14] MEDS: POTASSIUM CHLORIDE ORAL LIQUID 20 MEQ/15 ML PO ONE ×2 (08:55→21:31)
[2024-06-14] MEDS: MULTIVITAMINS (DAILY MVI) TABLET (FP) PO SCH (08:59)
[2024-06-14] MEDS: KCL 10 MEQ IVPB 10 MEQ/100 ML INFUS.BAG IVPB SCH (08:59)
[2024-06-14] MEDS: THIAMINE 100 MG TABLET PO SCH (09:11)
[2024-06-14] MEDS: PANTOPRAZOLE 40 MG TABLET PO SCH (09:11)
[2024-06-14 09:37] LABS: ANISOCYTOSIS 2+; MACROCYTOSIS 1+
[2024-06-14] MEDS: MAGNESIUM SULF 50% (8.12 MEQ/2 ML-1 GM VIAL) IVPB ONE (12:08)
[2024-06-14] MEDS: VANCOMYCIN 250 MG/5 ML ORAL SOLUTION (RESTRICTED TO ID ONLY) PO SCH (13:26)
[2024-06-14] MEDS: SODIUM BICARBONATE 8.4% - 50 MEQ in SODIUM CHLORIDE 0.45% 1,000 ML IV SCH (15:00)
[2024-06-14] MEDS: MIDODRINE HCL 2.5 MG TABLET PO SCH (17:15)
[2024-06-14 17:28] LABS: BODY FLUID MONOCYTE 5 %
[2024-06-14] MEDS ORDERED: MIDODRINE HCL 2.5 MG TABLET PO SCH (18:00)
[2024-06-15] MEDS: MIDODRINE HCL 5 MG TABLET PO ONE (03:03)
[2024-06-15 06:56] LABS: INR 2.3 (0.83-1.09); PROTHROMBIN TIME (PATIENT) 25.8 SEC (9.7-13.0)
[2024-06-15 06:59] LABS: ACTIVATED PTT 41.8 SECONDS (25.2-36.5)
[2024-06-15 07:00] LABS: BASO % 0.2 % (0-2.0); EOS % 1.1 % (0-4.5); HEMATOCRIT 21.3 % (35.4-49); HEMOGLOBIN 7.1 GM/dL (11.7-16.9); LYMPH % 8.6 % (8-40); MCH 27.7 pg (25.7-33.7); MCHC 33.3 g/dl (32.0-35.9); MEAN CELL VOLUME 83.3 fl (80-96); MEAN PLT VOLUME 8.2 fl (7.5-11.1); MONO % 7.5 % (3.8-10.2); NEUT % 82.6 % (42.8-82.8); PLATELET COUNT 87 10^3/uL (134-434); RBC 2.56 M/mm3 (4.00-5.60); WHITE BLOOD COUNT 10.6 K/mm3 (4.0-10.0)
[2024-06-15 07:26] LABS: CHLORIDE 118 mmol/L (98-107); SODIUM 141 mmol/L (136-145)
[2024-06-15 07:34] LABS: CALCIUM 7.2 mg/dL (8.5-10.1)
[2024-06-15 07:35] LABS: CO2 15 mmol/L (21-32); GLUCOSE,RANDOM 68 mg/dL (74-106); MAGNESIUM 1.6 mg/dL (1.8-2.4)
[2024-06-15 07:38] LABS: CREATININE 1.1 mg/dL (0.55-1.3); PHOSPHOROUS 2.6 mg/dL (2.5-4.9); SGOT/AST 55 U/L (15-37); SGPT/ALT 52 U/L (13-61)
[2024-06-15 07:39] LABS: BILIRUBIN,TOTAL 11.7 mg/dL (0.2-1); TOT PROT 4.5 g/dl (6.4-8.2)
[2024-06-15 07:41] LABS: ALBUMIN 1.3 g/dl (3.4-5.0); ALK PHOS 234 U/L (45-117); ANION GAP 7 mmol/L (4-13); POTASSIUM 2.8 mmol/L (3.5-5.1)
[2024-06-15] MEDS: POTASSIUM CHLORIDE ORAL LIQUID 20 MEQ/15 ML PO ONE ×2 (09:00→17:31)
[2024-06-15] MEDS: KCL 10 MEQ IVPB 10 MEQ/100 ML INFUS.BAG IVPB SCH (09:02)
[2024-06-15] MEDS: MAGNESIUM 2GM/50ML STERILE WATER IVPB IVPB ONE (09:02)
[2024-06-15] MEDS: NAPH,MB-DB/K PH,MBDB POWDER PACKET PO ONE (09:02)
[2024-06-15] MEDS: BUPRENORPHINE/NALOXONE 4 MG/1 MG FILM PACKET SL SCH (09:35)
[2024-06-15] MEDS: DEXTROSE 5%-LACTATED RINGERS 1,000 ML IV SCH (10:15)
[2024-06-15] MEDS: PIPERACILLIN/TAZOB 4.5 GM 4.5 GM in DEXTROSE 5%-WATER 100 ML IVPB SCH (17:20)
[2024-06-15 21:29] LABS: BASO % 0.3 % (0-2.0); EOS % 1.1 % (0-4.5); HEMATOCRIT 24.3 % (35.4-49); HEMOGLOBIN 7.9 GM/dL (11.7-16.9); LYMPH % 7.4 % (8-40); MCH 27.1 pg (25.7-33.7); MCHC 32.4 g/dl (32.0-35.9); MEAN CELL VOLUME 83.6 fl (80-96); MEAN PLT VOLUME 8.6 fl (7.5-11.1); MONO % 8.7 % (3.8-10.2); NEUT % 82.5 % (42.8-82.8); PLATELET COUNT 105 10^3/uL (134-434); RBC 2.91 M/mm3 (4.00-5.60); RDW 19.4 % (11.9-15.9); WHITE BLOOD COUNT 13.3 K/mm3 (4.0-10.0)
[2024-06-15 21:49] LABS: BLOOD UREA NITROGEN 23.7 mg/dL (7-18)
[2024-06-15 21:52] LABS: CREATININE 1.2 mg/dL (0.55-1.3)
[2024-06-15 21:55] LABS: CALCIUM 8.7 mg/dL (8.5-10.1)
[2024-06-15 22:35] LABS: VENOUS BASE EXCESS -10.6 mmol/L (-2-2); VENOUS O2 SATURATION 91.6 % (70-80); VENOUS PCO2 27.5 mmHg (38-52); VENOUS PH 7.325 (7.310-7.410)
[2024-06-15] MEDS ORDERED: MIDODRINE HCL 5 MG TABLET PO ONE (23:42)
[2024-06-16] MEDS: MIDODRINE HCL 2.5 MG TABLET PO SCH (01:14)
[2024-06-16] MEDS: ALBUMIN HUMAN 25% 12.5 GM/50 ML VIAL IV SCH (01:29)
[2024-06-16] MEDS: DEXTROSE 5%-LACTATED RINGERS 1,000 ML IV SCH (02:19)
[2024-06-16 06:53] LABS: BASO % 0.3 % (0-2.0); EOS % 1.4 % (0-4.5); HEMATOCRIT 23.7 % (35.4-49); HEMOGLOBIN 7.8 GM/dL (11.7-16.9); LYMPH % 27.1 % (8-40); MCH 27.5 pg (25.7-33.7); MEAN CELL VOLUME 83.5 fl (80-96); MEAN PLT VOLUME 9.4 fl (7.5-11.1); MONO % 5.8 % (3.8-10.2); NEUT % 65.4 % (42.8-82.8); PLATELET COUNT 106 10^3/uL (134-434); RBC 2.84 M/mm3 (4.00-5.60); WHITE BLOOD COUNT 11.8 K/mm3 (4.0-10.0)
[2024-06-16 06:57] LABS: INR 2.55 (0.83-1.09)
[2024-06-16 07:13] LABS: CHLORIDE 113 mmol/L (98-107); POTASSIUM 3.5 mmol/L (3.5-5.1); SODIUM 136 mmol/L (136-145)
[2024-06-16 07:18] LABS: ANION GAP 9 mmol/L (4-13); BLOOD UREA NITROGEN 20.1 mg/dL (7-18); CALCIUM 9.1 mg/dL (8.5-10.1); CO2 14 mmol/L (21-32)
[2024-06-16 07:19] LABS: GLUCOSE,RANDOM 90 mg/dL (74-106)
[2024-06-16 07:21] LABS: SGOT/AST 30 U/L (15-37); SGPT/ALT 37 U/L (13-61)
[2024-06-16 07:22] LABS: CREATININE 1.2 mg/dL (0.55-1.3)
[2024-06-16 07:23] LABS: TOT PROT 5.3 g/dl (6.4-8.2)
[2024-06-16 07:24] LABS: ALK PHOS 237 U/L (45-117)
[2024-06-16 07:37] LABS: BILIRUBIN,TOTAL 16.9 mg/dL (0.2-1)
[2024-06-16 07:45] VITALS: BP 92/61; PULSE 75; RESP 20; TEMP 98.2
[2024-06-16] MEDS ORDERED: MIDODRINE HCL 5 MG TABLET PO ONE (22:24)
== END 2024-06-16 08:03 | disposition short-term general hospital (02) | DRG 871 ==
LOC: JER 16:25 → JERBED 21:47 → J2W 06-13 03:33
PROVIDERS: ADMIT Internal Medicine; ATTEND Internal Medicine
PROC: 0S9C3ZZ Drainage of Right Knee Joint, Percutaneous Approach (ICD-10-PCS; principal; 2024-06-14)
DX: A41.89 Other specified sepsis (principal); J18.9 Pneumonia, unspecified organism; D47.1 Chronic myeloproliferative disease; N17.9 Acute kidney failure, unspecified; D68.9 Coagulation defect, unspecified; E87.20 Acidosis, unspecified; A04.72 Enterocolitis due to Clostridium difficile, not specified as recurrent; T84.53XA Infection and inflammatory reaction due to internal right knee prosthesis, initial encounter; M00.861 Arthritis due to other bacteria, right knee; R26.81 Unsteadiness on feet; I10 Essential (primary) hypertension; E78.5 Hyperlipidemia, unspecified; J44.9 Chronic obstructive pulmonary disease, unspecified; K21.9 Gastro-esophageal reflux disease without esophagitis; K76.0 Fatty (change of) liver, not elsewhere classified; D64.9 Anemia, unspecified; K70.40 Alcoholic hepatic failure without coma; E86.0 Dehydration; D69.6 Thrombocytopenia, unspecified; E87.6 Hypokalemia; K59.00 Constipation, unspecified; K44.9 Diaphragmatic hernia without obstruction or gangrene; K70.9 Alcoholic liver disease, unspecified; M54.50 Low back pain, unspecified; R79.89 Other specified abnormal findings of blood chemistry; D72.829 Elevated white blood cell count, unspecified; I95.9 Hypotension, unspecified; E86.1 Hypovolemia; Z96.653 Presence of artificial knee joint, bilateral; Y83.8 Other surgical procedures as the cause of abnormal reaction of the patient, or of later complication, without mention of misadventure at the time of the procedure; Y92.9 Unspecified place or not applicable
CPT/HCPCS: 0241U-QW; 36415; 36430; 70450-TC; 71045-TC-FY; 72128-TC; 72131-TC; 73560-TC-RT-FY; 74176-TC; 76882-TC-RT-FY; 80048; 80053; 81003; 82140; 82248; 82272; 82308; 82803; 82962; 83605; 83735; 83930; 83993; 84100; 84484; 85025; 85610; 85651; 85730; 86140; 86850; 86900; 86901; 86922; 87040; 87045; 87046; 87070; 87075; 87076; 87086; 87205; 87324; 87389; 87449; 87493; 87899; 93005; 93010; 99285-25; G0480; P9047; P9058

== ENCOUNTER 2024-08-26 16:01 | Emergency (ER) | payer OTHER ==
[2024-08-26 16:05] VITALS: BP 114/67; PULSE 92; RESP 18; TEMP 98.1
== END 2024-08-26 17:56 | disposition home or self-care (01) ==
LOC: JER 16:01
DX: T80.219A Unspecified infection due to central venous catheter, initial encounter (principal)
CPT/HCPCS: 71045-TC-FY; 99283-25